=== PATIENT | female | born 1985 | race Caucasian/White ===

== ENCOUNTER 2021-10-09 05:07 | Inpatient (IN) | payer BC, SELFPAY ==
[2021-10-09] VITALS (65 sets, daily range): BP systolic 86–136; BP diastolic 48–95; PULSE 49–93; RESP 14–16; TEMP 37.3–39.1; O2SAT 100; BMI 31.1
--- NOTE | ~2021-10-09 | CT_ITS ---
EXAMINATION: CT abdomen pelvis wo con EXAM DATE: 10/09/2021 16:50 INDICATION: left sided hip/abdominal pain/ left sided back. 3 hours . Abnormal vaginal swel ling. TECHNIQUE: Spiral CT of the abdomen and pelvis was performed without contrast. Axial, coronal and s agittal images of the abdomen and pelvis were reviewed. The dose-length product (DLP) for this exami nation was 756.54 mGy-cm. The exposure was tailored according to patient size (auto mA exposure cont rol), and iterative reconstruction (ASIR) was used as additional dose reduction technique. There is no prior study for comparison. FINDINGS: There is enlarged uterus with heterogeneous increased regions of endometrial density consis tent with acute blood products. There is a large presacral heterogeneous density mass, most likely he matoma, displacing the rectum anteriorly. This extends through the pelvic floor, toward the left labi a. It measures 9 x 10 cm axial dimensions at the sacrum, 17 cm craniocaudal dimension. Source of this hematoma unclear. There is rectal wall edema suspected. There is Simmons catheter within a collapsed b ladder. The liver, spleen, adrenal glands and pancreas are unremarkable. Gallbladder is unremarkable. No bi liary obstruction. No hydronephrosis. There is no retroperitoneal or pelvic lymphadenopathy. There are no findings to suggest appendicitis. The stomach and small bowel are unremarkable. There is expected amount of colonic stool. No free intraperitoneal gas. The heart is normal in size. T here are no pericardial or pleural effusions. The lung bases are unremarkable. There are no osteobl astic or osteolytic lesions identified. IMPRESSION: 1. Large heterogeneous presacral mass most likely acute hematoma displacing the rectum anteriorly, e xtending through the pelvic floor to the left labia. 2. Enlarged uterus with endometrial blood products, consistent with recent status. Reviewed, dictated and finalized at location A. O ENGINEER IMPRESSION: 1. Large heterogeneous presacral mass most likely acute hematoma displacing th e rectum anteriorly, extending through the pelvic floor to the left labia. 2. Enlarged uterus with endometrial blood products, consistent with recent pos tpartum status.
--- NOTE | 2021-10-09 05:40 | LDADM ---
This patient, Josephine Burk, was admitted to Labor/Delivery/Recovery 104 on 10/09/21 at 05:07. Plans for labor, pain management and were discussed with patient. Patient/family oriented to hospital policies and general routines including ID bracelet, bed and alarms, visiting hours, pain management, procedures, bathroom and other care routines, personal items, smoking policy, room service/diet and guest tray routines, infant security routines, and visiting hours. Patient/Family are encouraged to report perceived risks to care and to ask questions if they do not understand what they are told or what they should do. See OBIX for further documentation.
[2021-10-09] MEDS: ACETAMINOPHEN 500 MG TABLET 1000 MG PO (05:54)
[2021-10-09 06:43] LABS: EDCOVIDSCREEN Negative (Negative)
[2021-10-09] MEDS: OXYTOCIN 30 UNITS/NS 500 ML 30 UNITS/500 ML BAG IV CONT (07:00)
[2021-10-09 07:09] LABS: Basophils Percent Auto 0.3 % (0.2-1.2); Eosinophils Percent Auto 0.5 % (0-4.4); Hematocrit 29.2 % (37.0-47.0); Hemoglobin 10.5 g/dL (12.0-15.0); Immature Granulocyte Absolute 0.05 K/mm3 (0.00-0.031); Immature Granulocyte Percent A 0.7 % (0-0.5); Lymphocytes Absolute Auto 0.84 K/mm3 (0.9-3.2); Lymphocytes Percent Auto 11.2 % (18.3-44.2); Mean Corpuscular Hemoglobin 32.3 pg (26-34); Mean Corpuscular Volume 89.8 fl (80-100); Mean Platelet Volume 12.5 fl (7.4-10.4); Monocytes Absolute Auto 0.5 K/mm3 (0.1-0.6); Monocytes Percent Auto 6.7 % (2.6-8.5); Neutrophils Percent Auto 80.6 % (45.5-73.1); Platelet Count Result 125 k/mm3 (150-375); Red Blood Count 3.25 M/mm3 (4.2-5.4); Red Cell Distribution Width 12.1 % (11.5-14.5); White Blood Count 7.5 K/mm3 (4.5-10.0)
--- NOTE | 2021-10-09 08:25 | P.PNAN_ITS ---
Anes - Eval Pre Procedure Procedure: labor epidural Date/Time: 10/09/21 08:25 Surgeon: phyllis Pre Op Diagnosis: Induction Patient Data Age: 35 Gender: F Height: 1.65 m Weight: 85 kg Last Vital Signs Temp 38.2 C H 10/09/21 05:54 Pulse 72 10/09/21 08:15 BP 102/70 10/09/21 08:15 Allergies Allergy/AdvReac Type Severity Reaction Status Date / Time nickel Allergy Rash Verified 10/19/19 15:32 Home Medications Medication Instructions Recorded Confirmed Type PNV cmb#95-ferrous fumarate-FA 1 tablet PO DAILY 10/19/19 09/21/21 History [] sertraline [Zoloft] 100 mg PO DAILY 09/21/21 09/21/21 History Laboratory Tests 10/09/21 10/09/21 10/09/21 06:22 06:47 06:47 WBC 7.5 K/mm3 K/mm3 (4.5-10.0) RBC 3.25 M/mm3 L M/mm3 (4.2-5.4) Hgb 10.5 g/dL L g/dL (12.0-15.0) Hct 29.2 % L % (37.0-47.0) MCV 89.8 fl fl (80-100) MCH 32.3 pg pg (26-34) MCHC 36.0 g/dl g/dl (32-36) RDW 12.1 % % (11.5-14.5) Plt Count 125 k/mm3 L k/mm3 (150-375) MPV 12.5 fl H fl (7.4-10.4) Immature Gran % (Auto) 0.7 % H % (0-0.5) Neut % (Auto) 80.6 % H % (45.5-73.1) Lymph % (Auto) 11.2 % L % (18.3-44.2) [place] % (Auto) 6.7 % % (2.6-8.5) Eos % (Auto) 0.5 % % (0-4.4) Baso % (Auto) 0.3 % % (0.2-1.2) Lymph # (Auto) 0.84 K/mm3 L K/mm3 (0.9-3.2) [place] # (Auto) 0.5 K/mm3 K/mm3 (0.1-0.6) Eos # (Auto) 0.0 K/mm3 K/mm3 (0-0.3) Baso # (Auto) 0.0 K/mm3 K/mm3 (0.0-0.1) Abs Immat Gran (auto) 0.05 K/mm3 H K/mm3 (0.00-0.031) Absolute Neuts (auto) 6.0 K/mm3 K/mm3 (1.3-6.7) Absolute Nucleated RBC 0.0 K/mm3 K/mm3 (0.0-0.012) Nucleated RBC % 0.0 % % (0.0-0.2) RPR Pending SARS-CoV-2 IgG/IgM Ag?Rapid Negative (Negative) Patient hx anesthesia problems: none Family hx anesthesia problems: none Results Review: All pre-operative results and documents have been reviewed as part of the pre-operative evaluation. FOR[facility]LY [facility] Past Medical History Medical History (Updated 10/31/19 @ 10:33 by Ingrid Butler CRNA) Obesity (BMI 30-39.9) Family History Family History Mother Diabetes mellitus Hypertension Sibling Diabetes mellitus Hypertension Social History Social History Smoking status: Never smoker Second hand tobacco smoke exposure: No Substance use: never Spiritual care concerns: No Exam Day of Procedure 10/09/21 08:25
--- NOTE | 2021-10-09 08:31 | PM.IMHP ---
H&P: HPI History of Present Illness Date/Time: 10/09/21 08:31 Chief Complaint: induction of labor Narrative: Josephine is a 35yo at 39+ for elective IOL. Had fever 101 this am and 100.8 on admission. rapid covid neg. Only sx [place]. Good FM. s/p AROM clear around 0730. uncomplicated. Review of Systems Review of Systems: All systems reviewed & are unremarkable except as noted in HPI and below PMFSH Past Medical History Medical History (Updated 10/31/19 @ 10:33 by Ingrid Butler CRNA) Obesity (BMI 30-39.9) Family History Family History Mother Diabetes mellitus Hypertension Sibling Diabetes mellitus Hypertension Social History Social History Smoking status: Never smoker Second hand tobacco smoke exposure: No Substance use: never Spiritual care concerns: No Meds Home Medications and Allergies Home Medications Medication Instructions Recorded Confirmed Type PNV cmb#95-ferrous fumarate-FA 1 tablet PO DAILY 10/19/19 09/21/21 History [] sertraline [Zoloft] 100 mg PO DAILY 09/21/21 09/21/21 History Allergies Allergy/AdvReac Type Severity Reaction Status Date / Time nickel Allergy Rash Verified 10/19/19 15:32 Vital Signs Vital Signs - 24 hr 10/09/21 05:45 10/09/21 05:54 10/09/21 07:01 Temperature 100.8 F H 100.8 F H Pulse Rate 93 Blood Pressure 86/72 L 10/09/21 07:02 10/09/21 07:15 10/09/21 07:31 Temperature Pulse Rate 76 64 68 Blood Pressure 97/61 L 107/69 99/49 L 10/09/21 07:45 10/09/21 08:00 10/09/21 08:15 Temperature Pulse Rate 71 61 72 Blood Pressure 92/54 L 115/74 102/70 10/09/21 08:30 Temperature Pulse Rate 64 Blood Pressure 107/75 Exam Const: General: no acute distress Resp: Effort & Inspection: normal respiratory effort Auscultation: clear to auscultation bilaterally Cardio: Rate: regular rate Rhythm: regular rhythm GI: GI Palp: Yes Soft to palpation Extrem: General: normal to inspection H&P: Results Labs Labs: Short CBC 10/09/21 Range/Units 06:47 WBC 7.5 (4.5-10.0) K/mm3 Hgb 10.5 L (12.0-15.0) g/dL Hct 29.2 L (37.0-47.0) % Plt Count 125 L (150-375) k/mm3 Assessment and Plan Additional Plan Here for induction of labor- GBSneg pitocin per protocol, s/p arom FHT category 1
[2021-10-09] MEDS: LACTATED RINGERS 1,000 ML 125 ML IV CONT (08:52)
[2021-10-09 09:38] LABS: Rapid Plasma Reagin Non-Reactive (NonReactive)
[2021-10-09 10:15] LABS: Add Urine Microscopic? YES; Amorphous Sediment Urine Few; Appearance Urine Cloudy (Clear); Bacteria Urine Trace /hpf; Bilirubin Urine Negative (Negative); Blood Urine Negative (Negative); Color Urine Yellow (Yellow); Glucose Urine UA Negative (Negative); Ketones Urine Negative (Negative); Leukocyte Esterase Ur Negative LEU/UL (Negative); Mucus Urine Rare /lpf; Nitrate Urine Negative (Negative); Protein Urine Negative (Negative); Specific Grav Ur 1.018 (1.001-1.035); Squamous Epithelial Cell Urine Occasional /hpf (Few); Urobilinogen Urine Negative mg/dL (<2.0); WBC Urine 0-3 /hpf
--- NOTE | 2021-10-09 13:16 | PM.OBPRVD ---
OB - Delivery Note Procedure Delivery date: 10/09/21 Procedure: VAVD Intrapartal events: Febrile (febrile on admission for induction due to presumed viral illness) and Deceleration Induction method: AROM and per pitocin protocol Delivery monitor: external FHT and external uterine Route of delivery: vacuum extraction Indication for instrumentation: other (deep variables and maternal exhaustion) Episiotomy description: None Laceration Description: Vaginal - 1st Degree (left vaginal vault) Delivery repair: vicryl Specimen: No Quantitative Blood Loss (ml): 500 (due to laceration) Anesthesia type: Epidural Disposition: floor Narrative: Given maternal febrile viral illness, she was exhausted after more than an hour of pushing. IN addition, baby was having deep variables with all contractions. With vertex THADDEUS at a +2 station, the Kiwi vaccuum was applied. With adequate expulsive efforts by the mother, the baby's head was delivered OA over two contractions, 2 pulls, and no popoffs. The baby's anterior shoulder was delivered under the pubic symphysis without difficulty. The posterior shoulder and the rest of the baby delivered without difficulty. The was placed on the mothers chest and suctioned and stimulated. The cord was clamped and cut after 30 seconds. Mother and baby both stable. Baby Date of : 10/09/21 Time of : 12:57 Weeks of gestation at delivery: 39 Infant gender: Male Weight (pounds): 8 Weight (ounces): 1 presentation: vertex position: Right Occiput Anterior Placenta delivery description: Spontaneous cord vessel description: 3 Vessels and Delayed Cord Clamping score one minute: 8 score five minutes: 9
[2021-10-09] MEDS: IBUPROFEN 600 MG TABLET (13:18)
[2021-10-09] MEDS: OXYTOCIN 30 UNITS/NS 500 ML 30 UNITS/500 ML BAG 125 UNITS IV CONT (13:19)
[2021-10-09] MEDS: HYDROcodone/acetaminophen (*CRX) 5-325 MG TABLET 1 TAB PO (15:49)
--- NOTE | 2021-10-09 16:03 | PC.NURSE ---
1602- called,informed pt is rocking back and forth in her bed crying and moaning that her left hip and back hurt. Pt crying stating she needs to have a BM, was assisted to bathroom. Pt was unable to void or have BM, keeps c/o sever pressure in her bottom. Vagina and perineum assess for hematoma, none were noted. Pt is very tender to touch on her edematous perineum. Simmons placed d/t edema and pain, 200cc of concentrated urine retrieved. Pt has been very nauseous and lightheaded, LR bolus started and zofran given. Pt is requesting something else for pain 15 min after hydrocodone was given. Orders received for CT of pelvis and abdomen, CBC and Morphine.
[2021-10-09] MEDS: MORPHINE SULFATE (*CRX) 2 MG/ML INJ IV PUSH ×2 (16:19→16:56)
[2021-10-09] MEDS: BENZOCAINE 20% AER SPR (*SP) 56 GM CAN 1 SPRAY TOPICAL (16:57)
[2021-10-09] MEDS: WITCH HAZEL 40 PADS 1 PAD TOPICAL (16:58)
--- NOTE | 2021-10-09 17:05 | PC.NURSE ---
1625-Pt taken to CT per wheelchair.
--- NOTE | 2021-10-09 17:07 | PC.NURSE ---
1643- called,informed 2mg of morphine IV did not help pt's pain at all and she is requesting more. Order received for another 2mg. Informed CT was done and will be read within the hour and that pt is still rating her pain 10 and moaning/crying non-stop.
[2021-10-09 17:12] LABS: Basophils Percent Auto 0.2 % (0.2-1.2); Hematocrit 28.1 % (37.0-47.0); Hemoglobin 9.6 g/dL (12.0-15.0); Immature Granulocyte Percent A 0.9 % (0-0.5); Immature Platelet Fraction Pct 13.4 % (0.9-11.2); Lymphocytes Absolute Auto 0.97 K/mm3 (0.9-3.2); Lymphocytes Percent Auto 8.5 % (18.3-44.2); Mean Corpuscular HGB Conc 34.2 g/dl (32-36); Mean Corpuscular Hemoglobin 32.2 pg (26-34); Mean Corpuscular Volume 94.3 fl (80-100); Mean Platelet Volume 11.8 fl (7.4-10.4); Monocytes Absolute Auto 0.9 K/mm3 (0.1-0.6); Monocytes Percent Auto 7.4 % (2.6-8.5); Neutrophils Absolute Auto 9.5 K/mm3 (1.3-6.7); Platelet Count Result 130 k/mm3 (150-375); Red Blood Count 2.98 M/mm3 (4.2-5.4); Red Cell Distribution Width 12.3 % (11.5-14.5); White Blood Count 11.4 K/mm3 (4.5-10.0)
--- NOTE | 2021-10-09 17:44 | PM.OBPNVD ---
OB - PN: Subj Subjective Date/time seen: 10/09/21 17:44 Narrative: Called to see patient, now almost 5 hours from vaginal delivery, for severe pain. She describes pain as in her butt/rectal and lower pelvis. CT abdo pelvis below: IMPRESSION: 1. Large heterogeneous presacral mass most likely acute hematoma displacing the rectum anteriorly, extending through the pelvic floor to the left labia. 2. Enlarged uterus with endometrial blood products, consistent with recent status. OB - PN: Obj Data Labs CBC & Chem 7: 10/09/21 17:02 Labs: Laboratory Results - last 24 hr 10/09/21 10/09/21 10/09/21 06:22 06:47 06:47 WBC 7.5 RBC 3.25 L Hgb 10.5 L Hct 29.2 L MCV 89.8 MCH 32.3 MCHC 36.0 RDW 12.1 Plt Count 125 L MPV 12.5 H Immature Gran % (Auto) 0.7 H Neut % (Auto) 80.6 H Lymph % (Auto) 11.2 L [place] % (Auto) 6.7 Eos % (Auto) 0.5 Baso % (Auto) 0.3 Lymph # (Auto) 0.84 L [place] # (Auto) 0.5 Eos # (Auto) 0.0 Baso # (Auto) 0.0 Abs Immat Gran (auto) 0.05 H Absolute Neuts (auto) 6.0 Absolute Nucleated RBC 0.0 Nucleated RBC % 0.0 % Immature Plt Fraction Urine Color Urine Appearance Urine pH Ur Specific [place] Urine Protein Urine Glucose (UA) Urine Ketones Ur Blood (Man) Urine Nitrate Urine Bilirubin Urine Urobilinogen Leukocyte Esterase Rfl Urine RBC Urine WBC Ur Squamous Epith Cells Amorphous Sediment Urine Bacteria Urine Mucus RPR Non-reactive SARS-CoV-2 IgG/IgM Ag?Rapid Negative Blood Type Antibody Screen 10/09/21 10/09/21 10/09/21 06:47 06:47 17:02 WBC 11.4 H RBC 2.98 L Hgb 9.6 L Hct 28.1 L MCV 94.3 D MCH 32.2 MCHC 34.2 RDW 12.3 Plt Count 130 L MPV 11.8 H Immature Gran % (Auto) 0.9 H Neut % (Auto) 83.0 H Lymph % (Auto) 8.5 L [place] % (Auto) 7.4 Eos % (Auto) 0.0 Baso % (Auto) 0.2 Lymph # (Auto) 0.97 [place] # (Auto) 0.9 H Eos # (Auto) 0.0 Baso # (Auto) 0.0 Abs Immat Gran (auto) 0.10 H Absolute Neuts (auto) 9.5 H Absolute Nucleated RBC 0.0 Nucleated RBC % 0.0 % Immature Plt Fraction 13.4 H Urine Color Yellow Urine Appearance Cloudy H Urine pH 6.0 Ur Specific [place] 1.018 Urine Protein Negative Urine Glucose (UA) Negative Urine Ketones Negative Ur Blood (Man) Negative Urine Nitrate Negative Urine Bilirubin Negative Urine Urobilinogen Negative Leukocyte Esterase Rfl Negative Urine RBC 3-5 H Urine WBC 0-3 Ur Squamous Epith Cells Occasional Amorphous Sediment Few H Urine Bacteria Trace Urine Mucus Rare RPR SARS-CoV-2 IgG/IgM Ag?Rapid Blood Type A Positive Antibody Screen Negative Imaging Radiologist's impression: Impressions Abdomen/Pelvis CT 10/09/21 16:57 IMPRESSION: 1. Large heterogeneous presacral mass most likely acute hematoma displacing the rectum anteriorly, extending through the pelvic floor to the left labia. 2. Enlarged uterus with endometrial blood products, consistent with recent status. OB - PN A/P Assessment and Plan (1) , delivered: Code(s): O80 - Encounter for full-term uncomplicated delivery Status: Acute (2) Hematoma of sacrum: Code(s): S30.0XXA - Contusion of lower back and pelvis, initial encounter Status: Acute Plan Comments: Large presacral hematoma per CT will start dilaudid FISCAL ACCOUNTING CLERK hemodynamically stable with great vitals Hgb reasonable given 500cc EBL at delivery. will check DIC panel now repeat CBC with DIC panel CBC q [address] Freeman gen surg. He recommends pain control and close monitoring. If becomes hemodynamically unstable or abnormal coags or significant enlargement of hematoma, recommends transfer to facility with IR. May need CTA. POC discussed with RN, pt, .
--- NOTE | 2021-10-09 18:30 | PC.NURSE ---
1800- talked to , plan of care established and explained to pt and her by .
[2021-10-09 19:00] LABS: Hematocrit 25.8 % (37.0-47.0); Mean Corpuscular HGB Conc 34.9 g/dl (32-36); Mean Corpuscular Hemoglobin 32.5 pg (26-34); Mean Corpuscular Volume 93.1 fl (80-100); Platelet Count Result 116 k/mm3 (150-375); Red Blood Count 2.77 M/mm3 (4.2-5.4); Red Cell Distribution Width 12.2 % (11.5-14.5); White Blood Count 12.2 K/mm3 (4.5-10.0)
[2021-10-09 19:00] LABS: SARS-CoV-2 RNA PCR Negative
[2021-10-09 19:12] LABS: Partial Thromboplastin Time 27.5 SECONDS (22.3-36.8); Prothrombin Time 12.6 Seconds (11.1-14.7)
[2021-10-09 19:13] LABS: Fibrinogen 261 mg/dl (215-510); Magnesium 1.5 mg/dL (1.6-2.3)
[2021-10-09 19:25] LABS: D Dimer 3.95 ug/mL (<0.48)
[2021-10-09] MEDS: IBUPROFEN 600 MG TABLET PO (19:45)
[2021-10-09] MEDS: HYDROmorphon 0.2MG/ML PCA(*CRX 6 MG/30 ML PCA.VIAL 1 MG IV CONT (20:30)
[2021-10-09] MEDS: DOCUSATE SODIUM 100 MG CAPSULE PO (20:31)
[2021-10-09] MEDS: AMPICILLIN 1 GM/NS 50 ML 1 GM/50 ML BAG IVPB (20:52)
[2021-10-09] MEDS: GENTAMICIN SULFATE INJ 340 MG in DEXTROSE 5% 100 ML 100 MG IVPB ×2 (21:27)
[2021-10-09] MEDS: ZOLPIDEM TARTRATE (*CRX) 5 MG TABLET PO (21:39)
[2021-10-10] VITALS (48 sets, daily range): BP systolic 93–137; BP diastolic 54–87; PULSE 51–74; RESP 12–20; TEMP 36.8–37.9; O2SAT 94–99
[2021-10-10 01:14] LABS: Hematocrit 22.6 % (37.0-47.0); Hemoglobin 7.7 g/dL (12.0-15.0); Immature Platelet Fraction Pct 13.8 % (0.9-11.2); Mean Corpuscular HGB Conc 34.1 g/dl (32-36); Mean Corpuscular Volume 93.8 fl (80-100); Mean Platelet Volume 11.2 fl (7.4-10.4); Platelet Count Result 109 k/mm3 (150-375); Red Blood Count 2.41 M/mm3 (4.2-5.4); Red Cell Distribution Width 12.3 % (11.5-14.5); White Blood Count 8.9 K/mm3 (4.5-10.0)
[2021-10-10] MEDS: LACTATED RINGERS 1,000 ML 100 ML IV CONT ×2 (03:13→08:19)
[2021-10-10] MEDS: diphenhydrAMINE HCl INJ 50 MG/ML VIAL 25 MG IV PUSH (03:21)
[2021-10-10] MEDS: SODIUM CHLORIDE 0.9% IV 250 ML 30 ML IV CONT (04:15)
--- NOTE | 2021-10-10 04:33 | PC.NURSE ---
blood transfusion started at 0433 w chris rivas rn.
[2021-10-10] MEDS: POLYSACCHARIDE IRON COMPLEX 150 MG CAPSULE PO ×2 (07:58→16:12)
[2021-10-10] MEDS: IBUPROFEN 600 MG TABLET PO ×4 (07:58→20:17)
--- NOTE | 2021-10-10 08:14 | PM.OBPNVD ---
OB - PN: Subj Subjective Date/time seen: 10/10/21 08:14 Narrative: Feeling so much better than yesterday. Slept all night. 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 Simmons in. Bottle feeding, baby doing well. OB - PN: Obj Data Labs CBC & Chem 7: 10/10/21 00:53 Labs: Laboratory Results - last 24 hr 10/09/21 10/09/21 10/09/21 06:47 06:47 06:47 WBC RBC Hgb Hct MCV MCH MCHC RDW Plt Count MPV Immature Gran % (Auto) Neut % (Auto) Lymph % (Auto) [place] % (Auto) Eos % (Auto) Baso % (Auto) Lymph # (Auto) [place] # (Auto) Eos # (Auto) Baso # (Auto) Abs Immat Gran (auto) Absolute Neuts (auto) Absolute Nucleated RBC Nucleated RBC % % Immature Plt Fraction PT INR APTT Fibrinogen D-Dimer Magnesium Urine Color Yellow Urine Appearance Cloudy H Urine pH 6.0 Ur Specific [place] 1.018 Urine Protein Negative Urine Glucose (UA) Negative Urine Ketones Negative Ur Blood (Man) Negative Urine Nitrate Negative Urine Bilirubin Negative Urine Urobilinogen Negative Leukocyte Esterase Rfl Negative Urine RBC 3-5 H Urine WBC 0-3 Ur Squamous Epith Cells Occasional Amorphous Sediment Few H Urine Bacteria Trace Urine Mucus Rare RPR Non-reactive SARS-CoV-2 RNA (RT-PCR) Blood Type A Positive Antibody Screen Negative Crossmatch See Detail 10/09/21 10/09/21 10/09/21 08:41 17:02 18:42 WBC 11.4 H RBC 2.98 L Hgb 9.6 L Hct 28.1 L MCV 94.3 D MCH 32.2 MCHC 34.2 RDW 12.3 Plt Count 130 L Cancelled MPV 11.8 H Cancelled Immature Gran % (Auto) 0.9 H Neut % (Auto) 83.0 H Lymph % (Auto) 8.5 L [place] % (Auto) 7.4 Eos % (Auto) 0.0 Baso % (Auto) 0.2 Lymph # (Auto) 0.97 [place] # (Auto) 0.9 H Eos # (Auto) 0.0 Baso # (Auto) 0.0 Abs Immat Gran (auto) 0.10 H Absolute Neuts (auto) 9.5 H Absolute Nucleated RBC 0.0 Nucleated RBC % 0.0 % Immature Plt Fraction 13.4 H Cancelled PT INR APTT Fibrinogen D-Dimer Magnesium Urine Color Urine Appearance Urine pH Ur Specific [place] Urine Protein Urine Glucose (UA) Urine Ketones Ur Blood (Man) Urine Nitrate Urine Bilirubin Urine Urobilinogen Leukocyte Esterase Rfl Urine RBC Urine WBC Ur Squamous Epith Cells Amorphous Sediment Urine Bacteria Urine Mucus RPR SARS-CoV-2 RNA (RT-PCR) Negative Blood Type Antibody Screen Crossmatch 10/09/21 10/09/21 10/09/21 18:42 18:42 18:42 WBC 12.2 H RBC 2.77 L Hgb 9.0 L Hct 25.8 L MCV 93.1 MCH 32.5 MCHC 34.9 RDW 12.2 Plt Count 116 L MPV 12.0 H Immature Gran % (Auto) Neut % (Auto) Lymph % (Auto) [place] % (Auto) Eos % (Auto) Baso % (Auto) Lymph # (Auto) [place] # (Auto) Eos # (Auto) Baso # (Auto) Abs Immat Gran (auto) Absolute Neuts (auto) Absolute Nucleated RBC Nucleated RBC % % Immature Plt Fraction PT 12.6 INR 1.0 APTT 27.5 Fibrinogen 261 D-Dimer 3.95 H Magnesium 1.5 L Urine Color Urine Appearance Urine pH Ur Specific [place] Urine Protein Urine Glucose (UA) Urine Ketones Ur Blood (Man) Urine Nitrate Urine Bilirubin Urine Urobilinogen Leukocyte Esterase Rfl Urine RBC Urine WBC Ur Squamous Epith Cells Amorphous Sediment Urine Bacteria Urine Mucus RPR SARS-CoV-2 RNA (RT-PCR) Blood Type Antibody Screen Crossmatch 10/10/21 00:53 WBC 8.9 RBC 2.41 L Hgb 7.7 L Hct 22.6 L MCV 93.8 MCH 32.0 MCHC 34.1 RDW 12.3 Plt Count 109 L MPV 11.2 H Immature Gran % (Auto) Neut % (Auto) Lymph % (Auto) [place] % (Auto) Eos % (Auto) Baso % (Auto) Lymph # (Auto) [place] # (Auto) Eos # (Auto) Baso # (Auto) Abs Immat Gran (auto) Absol
[2021-10-10] MEDS: TUBING, BLOOD PLUM PUMP TUBING 1 EACH XX (08:19)
[2021-10-10 09:43] LABS: Gentamicin Random 1.8 ug/mL (5.0-12.0)
[2021-10-10 10:07] LABS: Estimated CRCL calculation 106 ml/min; Estimated Glomerular Filt Rate > 60
[2021-10-10] MEDS: AMPICILLIN 1 GM/NS 50 ML 1 GM/50 ML BAG IVPB ×4 (10:16→21:46)
[2021-10-10 11:17] LABS: Hematocrit 27.2 % (37.0-47.0); Hemoglobin 9.3 g/dL (12.0-15.0); Mean Corpuscular HGB Conc 34.2 g/dl (32-36); Mean Corpuscular Hemoglobin 31.8 pg (26-34); Mean Corpuscular Volume 93.2 fl (80-100); Platelet Count Result 98 k/mm3 (150-375); Red Blood Count 2.92 M/mm3 (4.2-5.4); Red Cell Distribution Width 12.8 % (11.5-14.5); White Blood Count 7.8 K/mm3 (4.5-10.0)
--- NOTE | 2021-10-10 11:32 | PC.NURSE ---
called,read lab results. Order received to transfer pt to second floor post , start PO pain meds, stop HVAC INSTALLATION TECHNICIAN 30 minutes after PO meds started, repeat CBC in 6 hrs and in the am. UNIQUE pate when pt is able to walk to the bathroom on her own.
--- NOTE | 2021-10-10 12:10 | PC.NURSE ---
Pt. transferred to room 283 per wheelchair. Oriented to room and call light system. Very pleasant and cooperative. at side.
[2021-10-10] MEDS: ACETAMINOPHEN 325 MG TABLET 650 MG PO (12:21)
[2021-10-10] MEDS: HYDROcodone/acetaminophen (*CRX) 10-325 MG TABLET 1 TAB PO ×3 (12:22→20:16)
--- NOTE | 2021-10-10 12:54 | PC.NURSE ---
0945-Not all VS were documented under TAR during blood transfusion, they are available in expanse under vital signs.
[2021-10-10] MEDS: WITCH HAZEL 40 PADS 1 PAD TOPICAL (14:44)
[2021-10-10] MEDS: SERTRALINE HCL 50 MG TABLET 100 MG PO (14:44)
[2021-10-10] MEDS: BENZOCAINE 20% AER SPR (*SP) 56 GM CAN 1 SPRAY TOPICAL (14:44)
[2021-10-10] MEDS: DOCUSATE SODIUM 100 MG CAPSULE PO (16:12)
[2021-10-10 17:13] LABS: Basophils Percent Auto 0.3 % (0.2-1.2); Eosinophils Absolute Auto 0.1 K/mm3 (0-0.3); Eosinophils Percent Auto 0.7 % (0-4.4); Hematocrit 28.3 % (37.0-47.0); Hemoglobin 9.8 g/dL (12.0-15.0); Immature Granulocyte Absolute 0.07 K/mm3 (0.00-0.031); Immature Granulocyte Percent A 0.8 % (0-0.5); Lymphocytes Absolute Auto 1.36 K/mm3 (0.9-3.2); Lymphocytes Percent Auto 15.4 % (18.3-44.2); Mean Corpuscular HGB Conc 34.6 g/dl (32-36); Mean Corpuscular Hemoglobin 32.1 pg (26-34); Mean Corpuscular Volume 92.8 fl (80-100); Mean Platelet Volume 11.1 fl (7.4-10.4); Monocytes Absolute Auto 0.5 K/mm3 (0.1-0.6); Monocytes Percent Auto 5.6 % (2.6-8.5); Neutrophils Absolute Auto 6.8 K/mm3 (1.3-6.7); Neutrophils Percent Auto 77.2 % (45.5-73.1); Platelet Count Result 105 k/mm3 (150-375); Red Blood Count 3.05 M/mm3 (4.2-5.4); Red Cell Distribution Width 13.2 % (11.5-14.5); White Blood Count 8.8 K/mm3 (4.5-10.0)
--- NOTE | 2021-10-10 19:13 | PC.NURSE ---
ampicillin 1g ivpb that is charted 1910 was administered at 0440. [facility] [place] would not allow for medication administration to be back charted at that hour.
[2021-10-10] MEDS: GENTAMICIN SULFATE INJ 340 MG in DEXTROSE 5% 100 ML 100 MG IVPB (20:17)
[2021-10-10] MEDS: ZOLPIDEM TARTRATE (*CRX) 5 MG TABLET PO (21:46)
[2021-10-11] MEDS: HYDROcodone/acetaminophen (*CRX) 10-325 MG TABLET 1 TAB PO (03:42)
[2021-10-11] MEDS: IBUPROFEN 600 MG TABLET PO ×3 (03:43→20:47)
[2021-10-11 03:48] VITALS: TEMP 37.4
[2021-10-11 05:56] LABS: Basophils Percent Auto 0.3 % (0.2-1.2); Eosinophils Absolute Auto 0.1 K/mm3 (0-0.3); Eosinophils Percent Auto 0.9 % (0-4.4); Hematocrit 30.6 % (37.0-47.0); Hemoglobin 10.6 g/dL (12.0-15.0); Immature Granulocyte Absolute 0.07 K/mm3 (0.00-0.031); Immature Granulocyte Percent A 0.8 % (0-0.5); Lymphocytes Absolute Auto 1.72 K/mm3 (0.9-3.2); Lymphocytes Percent Auto 19.7 % (18.3-44.2); Mean Corpuscular HGB Conc 34.6 g/dl (32-36); Mean Corpuscular Hemoglobin 32.5 pg (26-34); Mean Corpuscular Volume 93.9 fl (80-100); Mean Platelet Volume 11.7 fl (7.4-10.4); Monocytes Absolute Auto 0.5 K/mm3 (0.1-0.6); Monocytes Percent Auto 5.6 % (2.6-8.5); Neutrophils Absolute Auto 6.3 K/mm3 (1.3-6.7); Neutrophils Percent Auto 72.7 % (45.5-73.1); Platelet Count Result 113 k/mm3 (150-375); Red Blood Count 3.26 M/mm3 (4.2-5.4); Red Cell Distribution Width 13.2 % (11.5-14.5); White Blood Count 8.7 K/mm3 (4.5-10.0)
--- NOTE | 2021-10-11 07:50 | PM.OBPNVD ---
OB - PN: Subj Subjective Date/time seen: 10/11/21 07:50 Patient comments: no complaints and pain well controlled baby status: nursing well Narrative: Iris still in. Still taking norco 10s. Yesterday was a good day, feeling much better. Hgb stable. Platelets improving. Vitals stable. s/p amp and gent for 24 hours. OB - PN: Obj Data Labs CBC & Chem 7: 10/11/21 03:36 10/10/21 09:11 Labs: Laboratory Results - last 24 hr 10/09/21 10/10/21 10/10/21 06:47 09:11 09:11 WBC RBC Hgb Hct MCV MCH MCHC RDW Plt Count MPV Immature Gran % (Auto) Neut % (Auto) Lymph % (Auto) [place] % (Auto) Eos % (Auto) Baso % (Auto) Lymph # (Auto) [place] # (Auto) Eos # (Auto) Baso # (Auto) Abs Immat Gran (auto) Absolute Neuts (auto) Absolute Nucleated RBC Nucleated RBC % % Immature Plt Fraction Creatinine 0.70 Estim Creat Clear Calc 106 Estimated GFR > 60 Random Gentamicin 1.8 L Blood Type A Positive Antibody Screen Negative Crossmatch See Detail 10/10/21 10/10/21 10/11/21 11:02 17:02 03:36 WBC 7.8 8.8 8.7 RBC 2.92 L 3.05 L 3.26 L Hgb 9.3 L 9.8 L 10.6 L Hct 27.2 L 28.3 L 30.6 L MCV 93.2 92.8 93.9 MCH 31.8 32.1 32.5 MCHC 34.2 34.6 34.6 RDW 12.8 13.2 13.2 Plt Count 98 L 105 L 113 L MPV 11.0 H 11.1 H 11.7 H Immature Gran % (Auto) 0.8 H 0.8 H Neut % (Auto) 77.2 H 72.7 Lymph % (Auto) 15.4 L 19.7 [place] % (Auto) 5.6 5.6 Eos % (Auto) 0.7 0.9 Baso % (Auto) 0.3 0.3 Lymph # (Auto) 1.36 1.72 [place] # (Auto) 0.5 0.5 Eos # (Auto) 0.1 0.1 Baso # (Auto) 0.0 0.0 Abs Immat Gran (auto) 0.07 H 0.07 H Absolute Neuts (auto) 6.8 H 6.3 Absolute Nucleated RBC 0.0 0.0 Nucleated RBC % 0.0 0.0 % Immature Plt Fraction 10.0 10.0 Creatinine Estim Creat Clear Calc Estimated GFR Random Gentamicin Blood Type Antibody Screen Crossmatch OB - PN A/P Plan day: 2 Plan: routine care Comments: Simmons out this am. decrease pain meds to norco 5s and ibuprofen discussed importance of stool softeners/miralax possibly home tomorrow if voiding and pain controlled. repeat one more CBC in am tomorrow. Time Spent With Patient Time: Total time spent is greater than 50% in coordination of care (as documented) at patient's floor/unit and/or counseling patient: Time with patient: less than 15 minutes Exam Narrative: NAD abdomen soft, nontender, fundus firm below the umbilicus Extremities nontender, 1+ edema
[2021-10-11 08:15] VITALS: BP 115/80; PULSE 61; RESP 16; TEMP 37.3; O2SAT 97
[2021-10-11] MEDS: DOCUSATE SODIUM 100 MG CAPSULE PO ×2 (08:16→16:01)
[2021-10-11] MEDS: POLYSACCHARIDE IRON COMPLEX 150 MG CAPSULE PO ×2 (08:16→16:01)
[2021-10-11] MEDS: MULTIVIT/MIN/PREN/FOL AC/IRON TABLET 1 TAB PO (08:16)
[2021-10-11] MEDS: HYDROcodone/acetaminophen (*CRX) 5-325 MG TABLET 1 TAB PO ×4 (08:16→20:49)
[2021-10-11] MEDS: SERTRALINE HCL 50 MG TABLET 100 MG PO (11:55)
[2021-10-11 20:00] VITALS: BP 114/75; PULSE 61; RESP 18; TEMP 37.1
[2021-10-11] MEDS: WITCH HAZEL 40 PADS 1 PAD TOPICAL (20:47)
[2021-10-11] MEDS: BENZOCAINE 20% AER SPR (*SP) 56 GM CAN 1 SPRAY TOPICAL (20:47)
[2021-10-11 21:27] VITALS: TEMP 37.1
[2021-10-11] MEDS: ACETAMINOPHEN 325 MG TABLET 650 MG PO (21:27)
[2021-10-12] MEDS: HYDROcodone/acetaminophen (*CRX) 10-325 MG TABLET 1 TAB PO (00:15)
[2021-10-12] MEDS: IBUPROFEN 600 MG TABLET PO ×2 (05:12→11:16)
[2021-10-12] MEDS: HYDROcodone/acetaminophen (*CRX) 5-325 MG TABLET 1 TAB PO ×2 (05:13→11:15)
[2021-10-12 05:28] LABS: Hematocrit 27.6 % (37.0-47.0); Hemoglobin 9.8 g/dL (12.0-15.0); Immature Platelet Fraction Pct 6.6 % (0.9-11.2); Mean Corpuscular HGB Conc 35.5 g/dl (32-36); Mean Corpuscular Hemoglobin 32.5 pg (26-34); Mean Corpuscular Volume 91.4 fl (80-100); Mean Platelet Volume 10.9 fl (7.4-10.4); Platelet Count Result 131 k/mm3 (150-375); Red Blood Count 3.02 M/mm3 (4.2-5.4); Red Cell Distribution Width 13.1 % (11.5-14.5); White Blood Count 6.2 K/mm3 (4.5-10.0)
[2021-10-12 05:39] LABS: Estimated CRCL calculation 122 ml/min; Estimated Glomerular Filt Rate > 60
[2021-10-12] MEDS: POLYSACCHARIDE IRON COMPLEX 150 MG CAPSULE PO (07:59)
[2021-10-12] MEDS: DOCUSATE SODIUM 100 MG CAPSULE PO (07:59)
--- NOTE | 2021-10-12 07:59 | PM.OBPNVD ---
OB - PN: Subj Subjective Date/time seen: 10/12/21 07:59 Patient comments: no complaints baby status: doing well OB - PN: Obj Data Labs CBC & Chem 7: 10/12/21 05:11 10/12/21 05:11 Labs: Laboratory Results - last 24 hr 10/12/21 10/12/21 05:11 05:11 WBC 6.2 RBC 3.02 L Hgb 9.8 L Hct 27.6 L MCV 91.4 MCH 32.5 MCHC 35.5 RDW 13.1 Plt Count 131 L MPV 10.9 H % Immature Plt Fraction 6.6 Creatinine 0.60 L Estim Creat Clear Calc 122 Estimated GFR > 60 OB - PN A/P Plan day: 2 Plan: routine care Comments: Doing well. States voiding well. Will repeat H&H this afternoon. If stable will consider discharge. RTC in 1 week to follow up with Dr Luna. Time Spent With Patient Time: Total time spent is greater than 50% in coordination of care (as documented) at patient's floor/unit and/or counseling patient: Time with patient: less than 15 minutes Review of Systems Review of Systems: All systems reviewed & are unremarkable except as noted in HPI and below Exam Narrative: Fundus firm and vaginal flow controlled. No lower ext redness, warmth, or edema. Negative homans. Const: General: comfortable Chest: Breast/axilla inspection: normal inspection of the breasts Resp: Effort & Inspection: normal respiratory effort Cardio: Rate: regular rate GI: GI Palp: Yes Soft to palpation Psych: Appearance: grossly normal Affect: normal affect Attitude: cooperative Thought content: Yes Normal thought content present Judgement: Good judgement present (Psych)
[2021-10-12 08:10] VITALS: BP 134/81; PULSE 48; RESP 16; TEMP 36.9; O2SAT 98
[2021-10-12] MEDS: SERTRALINE HCL 50 MG TABLET 100 MG PO (11:15)
[2021-10-12 11:52] VITALS: BP 129/87; PULSE 59; RESP 18; TEMP 36.9; O2SAT 99
[2021-10-12 11:59] LABS: Hematocrit 28.3 % (37.0-47.0); Hemoglobin 9.6 g/dL (12.0-15.0)
--- NOTE | 2021-10-12 12:15 | PC.NURSE ---
Vikas Ruiz CNM, notified of H&H results, she would like to consult with Dr. Luna and will call me back with orders.
--- NOTE | 2021-10-12 13:45 | PC.NURSE ---
Vikas Ruiz CNM called back with orders to discharge patient to home. She should follow up in the office next week.
[2021-10-13 10:34] VITALS: BP 122/76; PULSE 71; RESP 20; TEMP 36.9; O2SAT 100
--- NOTE | 2021-11-01 11:22 | PM.OBDSVD ---
DS: Admitting Diagnosis Discharge Date 09/11/21 Admitting Diagnosis Labor DS: Discharge Diagnosis Discharge Diagnosis (1) , delivered: Code(s): O80 - Encounter for full-term uncomplicated delivery Status: Acute (2) Hematoma of sacrum: Code(s): S30.0XXA - Contusion of lower back and pelvis, initial encounter Status: Acute OB - DS: Summary OB Procedures : None OB Procedures Intrapartum: Spontaneous Vag Delivery OB Procedures: : None Time Spent with Patient Time attestation: Total time spent providing and/or coordinating discharge services: Discharge Plan Discharge Attending physician on discharge: Sara Riuz Consulting providers: Sara Ruiz ; Aaron Jain Discharging Clinician: Sara Ruiz Anticipated Discharge Date/Time: 10/12/21 14:34 Patient Disposition: Home, Self-Care Activity: may shower and pelvic rest Diet: regular Discharge Instructions: Education: Mom and Baby Guide Given to: Mother Follow-Up: Call your delivering provider's office for an appointment to be seen in: 1 Week Mom and baby should come to the [facility] for the follow-up appointment. Appointment Date/Time: October 13, 2021 at 10:00 am What to expect at your follow-up visit: Blood Pressure Check Physical Assessment Call [phone] if you are unable to keep your appointment time. BREAST CARE: * Wear a snug supportive bra. * For engorgement discomfort: Bottle Feeding: * May apply ice packs * For sore nipples: * Identify correct latch-on * Apply warm moist washcloths before and after nursing * Air dry nipples after nursing * May apply Lansinoh cream to nipples EPISIOTOMY/PERINEAL CARE: * Until bleeding stops, use your jus bottle after urinating * Change your pad frequently throughout the day * You may take sitz baths several times a day (fill your bathtub with warm water and soak for 20 minutes.) Do NOT bathe in the water * No tub baths until seen by your physician - You may shower ACTIVITY: * Rest as much as possible. * Do not exercise or lift anything heavier than your baby (such as laundry or other children.) * Avoid stairs or driving as much as possible. * Do not put anything into the vagina. No douching, tampons, or sexual activity until seen by physician. NOTIFY PHYSICIAN IF YOU HAVE ANY QUESTIONS OR IF ANY OF THE FOLLOWING SYMPTOMS OCCUR: * If your episiotomy or incision becomes red, swollen, or more painful than what you have experienced in the hospital. * If your vaginal bleeding becomes foul smelling. * If your vaginal bleeding becomes more heavy than a period or if your bleeding changes from pink to bright red. However, you may pass an occasional walnut-sized clot once or twice for the first week . * If you experience a sharp, shooting pain in you calves. * If you discover a hard, reddened area on your breast or if you experience flu-like symptoms. DIET: * Eat regular, well-balanced meals. * Drink plenty of fluids daily. If , drink to thirst. Stand Alone Forms: General Discharge Information Follow-up/Referrals: Ofelia Luna MD [Physician] - Discharge Medications: New polysaccharide iron complex 150 mg iron Capsule 150 mg PO BIDWM Qty: 60 RF: 0 hydrocodone-acetaminophen 5-325 mg tablet 1 tablet PO Q6H PRN (Reason: pain) Qty: 10 RF: 0 Continued PNV cmb#95-ferrous fumarate-FA [] 28 mg iron- 800 mcg Tablet 1 tablet PO DAILY RF: 0 sertraline [Zoloft] 100 mg Tablet 100 mg PO DAILY RF: 0 Date of admission: 10/09/21 05:07 Primary Care Provider: Thi,Pj Hyatt Admitting Provider: Ofelia Luna Attending physician on admission: Ofelia Luna Condition: Stable
== END 2021-10-12 15:55 | disposition home or self-care (01) | DRG 806 ==
LOC: ANHLDR 05:15 → ANHOBPP 10-10 00:09 → ANHOB2 10-10 12:21
PROVIDERS: Advanced Practice Midwife; Admitting Provider Obstetrics & Gynecology; PCP Family Medicine; Visit Provider Obstetrics & Gynecology
DX: O75.2 Pyrexia during labor, not elsewhere classified (principal); O71.7 Obstetric hematoma of pelvis; Z37.0 Single live birth; O76 Abnormality in fetal heart rate and rhythm complicating labor and delivery; O70.0 First degree perineal laceration during delivery; Z3A.39 39 weeks gestation of pregnancy
CPT/HCPCS: 36415; 36430; 74176; 80170; 81001; 82565; 83735; 85014; 85018; 85025; 85027; 85055; 85380; 85384; 85610; 85730; 86592; 86850; 86900; 86901; 86920; 87426; A9270; C9803; J0131; J0290; J1170; J1200; J1580; J2270; J2590; J2795; J7050; J7120; P9016; U0003; U0005

== ENCOUNTER 2025-05-19 18:02 | Emergency (ER) | payer OTHER, SELFPAY ==
[2025-05-19] VITALS (7 sets, daily range): BP systolic 97–120; BP diastolic 61–79; PULSE 64–87; RESP 16–18; TEMP 36.8–37; O2SAT 99–100
--- NOTE | ~2025-05-19 | US_ITS ---
EXAM EXAMINATION: US OB limited DATE: 05/19/2025 19:44 CDT INDICATION: Spotting/vaginal bleeding COMPARISON: None TECHNIQUE: Real-time transabdominal obstetric ultrasound. FINDINGS: There is a single intrauterine gestation in variable presentation. The placenta is anterior. The tip of the placenta measures 3.8 cm from the internal cervical os. The cervix measures 3.04 cm in length on the submitted images. cardiac activity and movement is noted with a heart rate of 138 beats per minute. Deepest vertical pocket of amniotic fluid measures 5.8 cm. IMPRESSION: Single intrauterine gestation in variable presentation with cardiac activity identified. The anterior placenta measures 3.8 cm from the cervical os on the submitted images. Cervical length is 3.04 cm. Amniotic fluid is within normal limits. Reviewed, dictated and finalized at location A. IMPRESSION: Single intrauterine gestation in variable presentation with cardiac activ ity identified. The anterior placenta measures 3.8 cm from the cervical os on the submitted humphrey ges. Cervical length is 3.04 cm. Amniotic fluid is within normal limits.
--- OUTSIDE RECORDS SUMMARY | 2025-05-19 18:05 | XMS_ITS | Clinical Summary ---
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 Gender Identity Not on file Sexual Orientation Not on file Plan of Treatment Health Maintenance Due Date Last Done Comments Hepatitis C Virus (HCV) Screening 1987 TdaP Immunization 1987 Hepatitis B Immunization (1 of 3 - 19+ 3-dose series) 2006 Pap Smear 2008 Cervical Cancer Screening (CCS) 2017 HPV/Cotest 2017 Influenza Immunization (#1) 2024 10/19/2020 SARS-COV-2 Immunization (2023- season) 2024 Respiratory Syncytial Virus (RSV) Immunization (Adult) (1 - 1-dose 75+ series) 2062 Meningococcal Immunization (ACWY) Aged Out No longer eligible based on patient's age to complete this topic Pneumococcal Immunization Combined Aged Out No longer eligible based on patient's age to complete this topic Rotavirus Immunization Aged Out No lo nger eligible based on patient's age to complete this topic
--- OUTSIDE RECORDS SUMMARY | 2025-05-19 18:05 | XMS_ITS | Referral Summary ---
Author Organization [facility] Address [address] [place] [id number] Care Team Providers Care Toxicology Supervisor Name Role Phone Lizzie Kennedy MD Unavailable [phone] Curtis Ness MD Primary Care Provider [phone] Allergies Active Allergy Reactions Criticality Noted Date Comments Nickel Rash Medium 04/21/2018 Medications buPROPion XL (WELLBUTRIN XL) 300 mg 24 hr tablet Take 1 tablet (300 mg total) by mouth every morning 3 Active venlafaxine XR (EFFEXOR-XR) 37.5 mg 24 hr capsule Take 1 capsule (37.5 mg total) by mouth daily 4 Active amoxicillin 500 mg tablet/capsuleI ndications:Pneu monia, Community Acquired Take 2 tablet/capsule (1,000 mg total) by mouth 2 (two) times a day 4 Active acetaminophen (TYLENOL) 500 mg tablet Take 1 tablet (500 mg total) by mouth every 6 (six) hours as needed for pain or headaches 4 Active ibuprofen (ADVIL,MOTRIN) 800 mg tablet Take 1 tablet (800 mg total) by mouth every 6 (six) hours as needed for pain or headaches 4 Active Active Problems Problem Noted Date Diagnosed Date Subacute cough 10/03/2023 Assessment & Plan (10/03/2023 4:47 PM CDT): Vital signs stable, no respiratory distress, nontoxic appearance, lungs CTAB on exam, 98% on RA Dry cough x 4 weeks, likely postviral Medrol dose pack Tessalon prn Albuterol inhaler prn Supervision of high-risk , unspecified trimester 07/28/2019 Overview (07/30/2019): [] Co-management vs. [] Full M Care; Referring Provider: Lizzie Kennedy [phone] [x] Dating Criteria: LMP 01/30/19 DEE DEE 11/06/19 [x] Labs: Rh [A+], Ab [negative], Rubella [immune], HIV [non-reactive], HepBSAg [non-reactive], RPR [not done], GC/CT [negative/negative] [x] Genetic Screening: Carrier screening negative [x] CBC/Hgb 11.9/34.4/plt 232 [] Early 1hr GTT (if indicated) [] UCx: [x] Pap: 09/25/17 Negative [] LD ASA (if indicated) starting at 12 weeks: [] EPDS [ ]; PNBHS referral (if indicated) 2nd Tri Labs: [] Anatomy ultrasound: [] CBC/1hr gtt at 24-28wks: [] Flu Shot (Aug-Nov): [] Tdap (27-36wks): [] Rhogam at 28 wks (if Rh neg): 3rd Tri Labs: [] CBC/HIV/RPR/T&S: [] GBS: [] GC/CT (if indicated): Counselling [] MOD: [] Place of delivery: [] MOC: [] Method of feeding: [] Director Systems: [] PP Depression Discussed: Social History Tobacco Use Types Packs/Day Years Used Date Smoking Tobacco: Never Smokeless Tobacco: Never Tobacco Cessation:Counseling Given: Not Answered Comments Unknown Sex and Gender Information Value Date Recorded Sex Assigned at Not on file 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 Gender Identity Not on file Sexual Orientation Not on file Last Filed Vital Signs Vital Sign Reading Time Taken Comments Blood Pressure 127/89 12/30/2024 3:08 PM GREEN CHAIN OFFBEARER Pulse 78 12/30/2024 3:08 PM GREEN CHAIN OFFBEARER Temperature 36.8 C (98.2 F) 12/30/2024 3:08 PM GREEN CHAIN OFFBEARER Respiratory Rate 18 12/30/2024 3:08 PM GREEN CHAIN OFFBEARER Oxygen Saturation 99% 12/30/2024 3:08 PM GREEN CHAIN OFFBEARER Inhaled Oxygen Concentration - - Weight 74.8 kg (165 lb) 12/30/2024 3:08 PM GREEN CHAIN OFFBEARER Height 165.1 cm (5' 5) 12/30/2024 3:08 PM GREEN CHAIN OFFBEARER Body Mass Index 27.46 12/30/2024 3:08 PM GREEN CHAIN OFFBEARER Plan of Treatment Not on file [place] [place] [address] [place] [employer] Care Teams Toxicology Supervisor Relationship Specialty Start Date End Date Curtis Ness MD [phone] [address] PCP - General Family Medicine 10/02/22 Lizzie Kennedy MD Referring Physician Obstetrics and Gynecology 07/27/19
--- OUTSIDE RECORDS SUMMARY | 2025-05-19 18:05 | XMS_ITS | Clinical Summary ---
Author Organization [facility] Address [address] [place] [address] Care Team Providers Care Telephone Worker Name Role Phone Unavailable Primary Care Provider Unavailabl e Source Comments [facility],non-owned Affiliates and Associated Physician Practices is amultiple site organization consisting of ambulatory clinics and hospital sitesin [place], [place], [place] and [place]. This disclosure is being madepursuant to the Care Everywhere program and may not contain all information available regarding this patient. Last updated 18.[facility] Allergies No known active allergies Medications * Be aware that medications may not be up to date on this document. Alwaysverify current medications with the patient. buPROPion XL 24hr (Wellbutrin-XL) 300 MG tabletIndicatio ns:Depression Take 1 (one) tablet by mouth every morning Reasons: Depression Active venlafaxine (Effexor) 37.5 MG tabletIndicatio ns:Anxiety Take 1 (one) tablet by mouth once daily Reasons: Feeling Anxious Active Vit-Fe Fumarate-FA ( vitamin) 28-0.8 MG tabletIndicatio ns: Take 1 (one) tablet by mouth once daily Reasons: Active ferrous sulfate 325 (65 FE) MG tablet Take 1 (one) tablet by mouth daily with breakfast Active B Complex Vitamins (VITAMIN B COMPLEX PO) Take 1 capsule by mouth once daily Active magnesium 30 MG tablet Take 1 (one) tablet by mouth once daily Active Encounters Date Type Department Care Team Description 04/07/2025 1:24 PM CDT - 04/07/2025 11:59 PM CDT Hospital Encounter [facility] [address] [place] [id number] Chace Montgomery MD Discharge Disposition: Home or Self Care 04/07/2025 1:00 PM CDT - 04/07/2025 1:23 PM CDT Hospital Encounter [facility] & [facility] [address] [place], [place] [id number] Chace Montgomery MD Discharge Disposition: Home or Self Care 03/23/2025 Travel from Last 3 Months Family History Medical History Relation Name Comments Diabetes - Type 2 Brother Cancer - Uterine Paternal Grandmother Diabetes - Type 2 Sister Relation Name Status Comments Brother Maternal Grandfather Maternal Grandmother Paternal Grandfather Paternal Grandmother Sister Social History Tobacco Use Types Packs/Day Years Used Date Smoking Tobacco: Never Smokeless Tobacco: Never Tobacco Cessation:Counseling Given: Not Answered Alcohol Use Standard Drinks/Week Comments Not Currently 0 (1 standard drink = 0.6 oz pur e alcohol) Estimated Date of Delivery Comme nts Yes 10/22/2025 Based on last me nstrual period of 01/15/2025 Sex and Gender Information Value Date Recorded Sex Assigned at Not on file 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 Gender Identity Not on file Sexual Orientation Not on file Last Filed Vital Signs Vital Sign Reading Time Taken Comments Blood Pressure 102/67 04/07/2025 1:20 PM CDT Pulse 68 04/07/2025 1:20 PM CDT Temperature - - Respiratory Rate - - Oxygen Saturation - - Inhaled Oxygen Concentration - - Weight 70.3 kg (155 lb) 04/07/2025 1:20 PM CDT Height 167.6 cm (5' 6) 04/07/2025 1:20 PM CDT Body Mass Index 25.02 04/07/2025 1:20 PM CDT Plan of Treatment Health Maintenance Due Date Last Done Comments HIV SCREENING 2002 HEPATITIS C SCREENING 12/16/2005 DTAP/TDAP/TD VACCINES (1 - Tdap) 2006 HEPATITIS B VACCINE (1 of 3 - 19+ 3-dose series) 2006 PAP SMEAR 2008 COVID-19 VACCINE (2023-2 5 season) 2024 04/07/2021, 03/10/2021 DEPRESSION SCREENING 12/02/2024 OB-TDAP CURRENT 07/23/2025 09/01/2021 INFLUENZA VACCINE (Season Ended) 2025 09/01/2021, 10/19/2020 Respiratory Syncytial Virus (RSV) Vaccine Pt: or over 60 yrs (1 - Risk 1-dose series) 08/27/2025 ZOSTER VACCINE (1 of 2) 2037 HIB VACCINE Aged Out No longer eligi ble based on patient's age to complete this topic HPV VACCINE Aged Out No longer eligi ble based on patient's age to complete this topic MENINGOCOCCAL (Group B) VACCINE SHARED DECISION-MAKING Aged Out No longer eligible based on patient's age to complete this topic MENINGOCOCCAL GROUPS A/C/Y/W VACCINE Aged Out No longer eligible b ased on patient's age to complete this topic PNEUMOCOCCAL VACCINE Aged Out No long er eligible based on patient's age to complete this topic Procedures Procedure Name Priority Date/Time Associated Diagnosis Comments SONOGRAM - COMPLETE Routine 04/07/2025 1 2:49 PM CDT Encounter for ultrasound (HCC) 11 weeks gestation of (HCC) Maternal care for suspected damage to fetus by drugs, not applicable or unspecified fetus (HCC) from Last 3 Months Results * SONOGRAM - COMPLETE (04/07/2025 12:49 PM CDT) Linked Results Indication ======== AMA 39 years, planning cf-DNA with her OB at 12 weeks Anxiety & depression with lamotrigine, bupropion & 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 Para 3 [id number] 1. live 2017. Gest. age 38 w + 6 d. Weight 3,486 g. Sex of child: female. Details: 2. live 2018. Gest. age 39 w + 0 d. Weight 3,316 g. Sex of child: male. Details: 3. live 2020. Gest. age 39 w + 3 d. Weight 3,657 g. Sex of child: male. Details: Maternal Assessment Physical Exam Height 165 cm, 5 ft 5 in. Weight 70 kg, 155 lb. Initial weight 70 kg, 154 lb. BMI 25.79 kg/m . Initial BMI 25.63 kg/m . Weight gain 0 kg, 1 lb Method ====== Transabdominal ultrasound. View: Good view ========= [place] . Number of fetuses: 1 Dating ====== Date Details Gest. age DEE DEE LMP 01/15/2025 11 w + 5 d 10/22/2025 Previous U/S 03/18/2025 GA, GA 8 w + 2 d 11 w + 1 d 10/26/2025 U/S 04/07/2025 based upon CRL 11 w + 5 d 10/22/2025 Assigned dating based on the LMP, selected on 04/07/2025 11 w + 5 d 10/22/2025 General Evaluation Cardiac activity present Amniotic fluid: normal Biometry FHR 153 bpm CRL 50.1 mm 11w 5d 32% [place] Anatomy The following structures appear normal: Cranium. Arms. Legs. The following structures could not be adequately visualized: Abdominal wall. Stomach. Kidneys. Bladder. Impression ========= * [place] IUP at 11 weeks of gestation by stated EDC from LMP & early U/S * Referred to [facility] for obstetrical U/S & request for consult secondary to: Periconception medication exposure * Other relevant clinical diagnoses include: Advanced maternal age (AMA) 39 years at the EDC * Today's ultrasound (U/S) findings: Living [place] intrauterine fetus [place] rump length (CRL) is normal-range Amniotic fluid volume appears normal COUNSELING & RECOMMENDATIONS (PLEASE SEE FULL CONSULT IN EPIC) * In my best medical opinion, I would advise: Her medication regimen appears reasonable Continue close management with her OB Please also see my general notes below Comprehensive anatomic survey with MFM at 20 weeks testing (e.g. NST+BPP or NST+KORY) to be determined Delivery planning (timing, mode, location): When: assuming no new problems, deliver in the 39th week Where: assuming no new problems, deliver at local hospital How: vaginal delivery, with C/S reserved for the usual obstetrical indications Please notify the baby's 3D Artist of the above history Follow-up ======== at 20 weeks Coding ====== Procedures [id number]: [facility]atom[facility] Region Laterality Modality Other 04/07/2025 12:4 9 PM CDT R Romulo Cabrera MD [facility] ORDERABLES Edited Result - Final from Last 3 Months Insurance [facility]
--- OUTSIDE RECORDS SUMMARY | 2025-05-19 18:05 | XMS_ITS | Clinical Summary ---
Author Organization [facility] Address [address] [place] [id number] Care Team Providers Care Creative Writer Name Role Phone Lizzie Kennedy MD Unavailable [phone] Curtis Ness MD Primary Care Provider [phone] Allergies Active Allergy Reactions Criticality Noted Date [...] Full M Care; Referring Provider: Lizzie Kennedy [phone] [x] Dating Criteria: LMP 01/30/19 DEE DEE [...] [] MOC: [] Method of feeding: [] Community Services Officer: [] PP Depression Discussed: Social History Tobacco Use Types Packs/Day Years Used Date Smoking Tobacco: Never Smokeless Tobacco: Never Tobacco Cessation:Counseling Given: Not Answered Comments Unknown Sex and Gender Information Value Date Recorded Sex Assigned at Not on file Legal Sex 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 Gender Identity Not on file Sexual Orientation Not on file Obstetrics History Para Term AB IAB SAB Ectopic Multiple Livin g Live Births 2 1 1 Date Outcome GA Total Labor Labor/2nd/3rd Weight Sex Type Anes PTL Maame A1 A5 Name Clin 2018 Term 39w0 d 3.487 kg (7 lb 11 oz) F Vag-S pont Ricardo Last Filed Vital Signs Vital Sign Reading Time Taken Comments Blood Pressure 127/89 12/30/2024 3:08 PM AND TAXI INSTRUCTOR BUS TROLLEY Pulse 78 12/30/2024 3:08 PM AND TAXI INSTRUCTOR BUS TROLLEY Temperature 36.8 C (98.2 F) 12/30/2024 3:08 PM AND TAXI INSTRUCTOR BUS TROLLEY Respiratory Rate 18 12/30/2024 3:08 PM AND TAXI INSTRUCTOR BUS TROLLEY Oxygen Saturation 99% 12/30/2024 3:08 PM AND TAXI INSTRUCTOR BUS TROLLEY Inhaled Oxygen Concentration - - Weight 74.8 kg (165 lb) 12/30/2024 3:08 PM AND TAXI INSTRUCTOR BUS TROLLEY Height 165.1 cm (5' 5) 12/30/2024 3:08 PM AND TAXI INSTRUCTOR BUS TROLLEY Body Mass Index 27.46 12/30/2024 3:08 PM AND TAXI INSTRUCTOR BUS TROLLEY Plan of Treatment Health Maintenance Due Date Last Done Comments Cervical Cancer Screening 1987 Depression Screening 1987 Hepatitis C Screening 1987 Varicella Vaccines (1 of 2 - 13+ 2-dose series) 2000 Hepatitis B Screening 2005 Regular Well Visit/Exam 18-64 2005 Covid-19 Vaccine (3 - 2023-2 5 season) 2024 04/07/2021, 03/10/2021 Influenza Vaccine (Season Ended) 2025 09/01/2021, 10/19/2020 DTaP/Tdap/Td Vaccine (2 - Td or Tdap) 09/01/2031 09/01/2021 HPV Vaccines Aged Out No longer eligi ble based on patient's age to complete this topic Pneumococcal vaccine <65 Aged Out No longer eligible based on patient's age to complete this topic Insurance [employer] [facility] CHOICE PENDING SALE TO [facility] Care Teams Creative Writer Relationship Specialty Start Date End Date Curtis Ness MD [address] [address] PCP - General Family Medicine 10/02/22 Lizzie Kennedy MD Referring Physician Obstetrics and Gynecology 07/27/19
--- OUTSIDE RECORDS SUMMARY | 2025-05-19 18:06 | XMS_ITS | Data Portability ---
Author Organization [facility] [place] Address [address] [place] [address] [place] [address] Assessment Encounter Date Assessment Date Assessment LastModified by Organization Details LastModified Time 03/18/2025 03/18/2025 Patient is 8 weeks 6 days . Discussed plan. [email or web address] Not available 03/18/2025 13:06:05 05/12/2025 05/12/2025 Patient is ___weeks . Discussed plan. Not available 05/12/2025 16:23:27 Plan of Treatment Reminders Order Date Submit Date Provider Last Modified By Organization Details Last Modified Time Details Appointments U/S OB BASELIN E 2024 02:30P M ULTRASOUND Not available Not available Not available OB ROUTINE 2024 03:30P M Yoly CABRERA MD Not available Not available Not available Lab drug screen, urine 2024 025 [facility], [address], [place], [address], 04/12/2025 20:35:35 CT + NG + TV, RNA, unspeci fied specime n 2024 025 [facility] (Lab), [address] [facility], [place], [address], 03/19/2025 12:48:07 Referral None recorde d. Procedures None recorde d. Surgeries None recorde d. Imaging US, obstetr ic, nuchal translu cency 2024 025 [email or web address] [address], [address], [place], [address], 04/12/2025 18:47:03 US, obstetr ic, 1st trimest er 2024 025 [email or web address] [address], [address], [place], [address], 04/12/2025 18:47:03 Medication Orders None recorde d. Patient TargetsNo targets recorded. Patient InstructionsNo instructions recorded. Reason for Referral None Reported. Results Created Date Observation Date Name Description Value Unit Range Abnormal Flag Note LastModifiedBy Organization Detail LastModifiedTime 04/20/2004/20/2025 [UNIT Y] ANEUP LOIDY NIPT fraction 12.1% normal Not Available [facility] [address] [place] [address], [address], 04/20/2025 03:19:07 04/20/20 25 04/20/2025 [UNIT Y] ANEUP LOIDY NIPT 22Q11.2 microdeletio n LOW RISK <1 in 10,000 normal Not Available [facility] [place], [address], 04/20/2025 03:19:07 04/20/20 25 04/20/2025 [UNIT Y] ANEUP LOIDY NIPT sex chromosome aneuploidy NOT DETECT ED normal Not Available [facility] [address] [place], [address], 04/20/2025 03:19:07 04/20/20 25 04/20/2025 [UNIT Y] ANEUP LOIDY NIPT monosomy X LOW RISK <1 in 10,000 normal Not Available [facility] [place], [address], 04/20/2025 03:19:07 04/20/20 25 04/20/2025 [UNIT Y] ANEUP LOIDY NIPT trisomy 13 LOW RISK <1 in 10,000 normal Not Available [facility] [address] [place], [address], 04/20/2025 03:19:07 04/20/20 25 04/20/2025 [UNIT Y] ANEUP LOIDY NIPT trisomy 18 LOW RISK <1 in 10,000 normal Not Available [facility] [address] [facility], [place], [address], 04/20/2025 03:19:07 04/20/20 25 04/20/2025 [UNIT Y] ANEUP LOIDY NIPT trisomy 21 LOW RISK <1 in 10,000 normal Not Available [facility] [address] [facility], [place], [address], 04/20/2025 03:19:07 04/20/20 25 04/20/2025 [UNIT Y] ANEUP LOIDY NIPT sex FEMALE normal Not Available [facility] [address] [facility], [place], [address], 04/20/2025 03:19:07 04/20/20 25 04/20/2025 [UNIT Y] ANEUP LOIDY NIPT gestation SINGLE TON normal Not Available [facility] [address] [place] [address], [place], [address], 04/20/2025 03:19:07 04/20/20 25 04/20/2025 [UNIT Y] ANEUP LOIDY NIPT for detailed report, see pdf See PDF normal Not Available [facility], [place], [address], 04/20/2025 03:19:07 04/30/20 25 04/30/2025 [UNIT Y] SEFERINO KERNS N sickle cell disease/beta -thalassemia /hemoglobino pathies carrier screen NEGATI VE normal Not Available [facility] [address] [facility], [place], [address], 04/30/2025 23:37:38 04/30/20 25 04/30/2025 [UNIT Y] SEFERINO ER LUIS F N alpha-thalas semia carrier screen NEGATI VE normal Not Available [facility] [address] [facility] [place], [address], 04/30/2025 23:37:38 04/30/20 25 04/30/2025 [UNIT Y] SEFERINO Gregory cystic fibrosis carrier screen NEGATI VE normal Not Available [facility] [address] [facility], [place], [address], 04/30/2025 23:37:38 04/30/20 25 04/30/2025 [UNIT Y] SEFERINO Gregory spinal muscular atrophy carrier screen NEGATI VE 2 SMN1 copies , SNP not presen t normal Not Available [facility] [address] [facility], [place], [address], 04/30/2025 23:37:38 04/30/20 25 04/30/2025 [UNIT Y] SEFERINO Gregory for detailed report, see pdf See PDF normal Not Available [facility] [address] [facility], [place], [address], 04/30/2025 23:37:38 03/18/20 25 03/18/2025 CT/GC AND TRICH OMONA S VAGIN CRYSTAL (RRNA ), URINE chlamydia trachomatis, PCR Negati ve negati ve Not Available [facility] (Lab) [address] [place], [address], 03/19/2025 12:48:07 03/18/20 25 03/18/2025 CT/GC AND TRICH OMONA S VAGIN CRYSTAL (RRNA ), URINE neisseria gonorrhoeae, PCR Negati ve negati ve Not Available [facility] (Lab) [address] [place], [address], 03/19/2025 12:48:07 03/18/20 25 03/18/2025 CT/GC AND TRICH OMONA S VAGIN CRYSTAL (RRNA ), URINE trichomonas vaginalis ribosomal RNA (rrna) Negati ve negati ve Not Available [facility] (Lab) [address] [place], [address], 03/19/2025 12:48:07 04/12/2004/12/2025 CBC W/DIF F WBC 6.9 10'3/ uL 3.5-10 .5 Not Available [facility] (Lab) [address], [place], [address], 04/13/2025 12:56:11 04/12/2004/12/2025 CBC W/DIF F RBC 3.67 10'6/ uL (based on docume nted legal sex) 3.80-5 .20 low Not Available [facility] (Lab) [address], [place], [address], 04/13/2025 12:56:11 04/12/2004/12/2025 CBC W/DIF F HGB 11.5 g/dL (based on docume nted legal sex) 11.6-1 5.4 low Not Available [facility] (Lab) [address], [place], [address], 04/13/2025 12:56:11 04/12/2004/12/2025 CBC W/DIF F HCT 33.8 % (based on docume nted legal sex) 34.0-4 5.0 low Not Available [facility] (Lab) [address], [place], [address], 04/13/2025 12:56:11 04/12/2004/12/2025 CBC W/DIF F MCV 92.1 fL 80.0-9 9.0 Not Available [facility] (Lab) [address], [place], [address], 04/13/2025 12:56:11 04/12/2004/12/2025 CBC W/DIF F MCH 31.3 pg 27.0-3 4.0 Not Available [facility] (Lab) [address], [place], [address], 04/13/2025 12:56:11 04/12/2004/12/2025 CBC W/DIF F MCHC 34.0 g/dL 32.0-3 5.5 Not Available [facility] (Lab) [address] [facility], [place], [address], 04/13/2025 12:56:11 04/12/20 25 04/12/2025 CBC W/DIF F RDW 12.0 % 11.0-1 5.0 Not Available [facility] (Lab) [address] [facility], [place], [address], 04/13/2025 12:56:11 04/12/2004/12/2025 CBC W/DIF F plt 236 10'3/ uL 150-40 0 Not Available [facility] (Lab) [address] [facility], [place], [address], 04/13/2025 12:56:11 04/12/2004/12/2025 CBC W/DIF F MPV 10.5 fL 8.8-12 .1 Not Available [facility] (Lab) [address] [facility], [place], [address], 04/13/2025 12:56:11 04/12/20 25 04/12/2025 CBC W/DIF F NRBC's 0.0 % 0.0 Not Available [facility] (Lab) [address] [facility], [place], [address], 04/13/2025 12:56:11 04/12/2004/12/2025 CBC W/DIF F absolute NRBCs 0.0 10'3/ uL no refere nce range establ ished Not Available [facility] (Lab) [address] [facility], [place], [address], 04/13/2025 12:56:11 04/12/2004/12/2025 CBC W/DIF F neutrophils 65.6 % 34.0-7 3.0 Not Available [facility] (Lab) [address] [facility], [place], [address], 04/13/2025 12:56:11 04/12/20 25 04/12/2025 CBC W/DIF F lymphocytes 25.8 % 15.0-5 0.0 Not Available [facility] (Lab) [address] [facility], [place], [address], 04/13/2025 12:56:11 04/12/20 25 04/12/2025 CBC W/DIF F monocytes 6.6 % 1.0-15 .0 Not Available [facility] (Lab) [address] [facility], [place], [address], 04/13/2025 12:56:11 04/12/20 25 04/12/2025 CBC W/DIF F eosinophils 1.3 % 0.0-8. 0 Not Available [facility] (Lab) [address] [place], [address], 04/13/2025 12:56:11 04/12/20 25 04/12/2025 CBC W/DIF F basophils 0.4 % 0.0-2. 0 Not Available [facility] (Lab) [address] [place], [address], 04/13/2025 12:56:11 04/12/20 25 04/12/2025 CBC W/DIF F immature granulocytes 0.3 % no define d refere nce range Immat ure Granu locyt es (IG) repre sents autom ated enume ratio n of Metam yeloc ytes, Myelo cytes and Promy elocy delores when IG is < 5%. Blast s are not inclu ded in IG and repor saumya separ ately if prese nt. Not Available [facility] (Lab) [address] [place], [address], 04/13/2025 12:56:11 04/12/20 25 04/12/2025 CBC W/DIF F absolute neutrophils 4.5 10'3/ uL 1.5-8. 0 Not Available [facility] (Lab) [address] [facility], [place], [address], 04/13/2025 12:56:11 04/12/20 25 04/12/2025 CBC W/DIF F absolute lymphocytes 1.8 10'3/ uL 1.0-4. 0 Not Available [facility] (Lab) [address] [facility], [place], [address], 04/13/2025 12:56:11 04/12/20 25 04/12/2025 CBC W/DIF F absolute monocytes 0.5 10'3/ uL 0.2-1. 0 Not Available [facility] (Lab) [address] [facility], [place], [address], 04/13/2025 12:56:11 04/12/20 25 04/12/2025 CBC W/DIF F absolute eosinophils 0.1 10'3/ uL 0.0-0. 6 Not Available [facility] (Lab) [address] [facility], [place], [address], 04/13/2025 12:56:11 04/12/20 25 04/12/2025 CBC W/DIF F absolute basophils 0.0 10'3/ uL 0.0-0. 3 Not Available [facility] (Lab) [address] [facility], [place], [address], 04/13/2025 12:56:11 04/12/20 25 04/12/2025 CBC W/DIF F absolute immature granulocytes 0.0 10'3/ uL 0.00-0 .10 Refer ence range s for nonbi nary/ inter sex or unspe cifie d gende r patie nts have not been estab lishe d. Pleas e refer to the katieo wing table for range s estab lishe d for cisge nder patie nts and evalu ate in the clini bhargav cheikh xt of the indiv idual patie nt: https ://jerel villafana book. nm.or g/gen derx Not Available [facility] (Lab) [address] [facility], [place], [address], 04/13/2025 12:56:11 04/12/2004/12/2025 HEPAT ITIS C ANTIB YOMI SCREE N, REFLE X TO CONFI RMATI ON hepatitis C antibody Non-re active non-re active Antib odies to HCV Not Detec saumya, does not exclu de the possi bilit y of expos ure to HCV. Not Available [facility] (Lab) [address], [place], [address], 04/13/2025 12:56:11 04/12/2004/12/2025 HIV 1/2 ANTIG EN/AN TIBOD Y, REFLE X CONFI RMATI ON HIV antigen/anti body Nonrea ctive nonrea ctive HIV-1 antig en and HIV-1 /HIV- 2 antib odies were not detec saumya. No labor atory evide nce of HIV infec tion. Not Available [facility] (Lab) [address] [facility], [place], [address], 04/13/2025 12:56:12 04/12/2004/12/2025 HEPAT ITIS B SURFA CE ANTIG EN hepatitis B surface antigen Non-re active non-re active This assay was perfo rmed using [employer] ratio n reage nts and test kits. Value s obtai renny with other assay metho ds or kits canno t be used inter miller eably . Not Available [facility] (Lab) [address] , [place], [address], 04/13/2025 12:56:12 04/12/2004/12/2025 RUBEL LA IGG ANTIB YOMI, QUANT rubella antibodies, IgG Reacti ve reacti ve Not Available [facility] (Lab) [address] [place], [address], 04/13/2025 12:56:13 04/12/20 25 04/12/2025 RUBEL LA IGG ANTIB YOMI, QUANT rubella antibodies, IgG quant 20.9 IU/mL >=10 Non-r eacti ve (Non- Immun e) <10 IU/mL React kip (Immu ne) > or = 10 IU/mL Not Available [facility] (Lab) [address] [facility], [place], [address], 04/13/2025 12:56:13 04/12/20 25 04/12/2025 TYPE/ RH/SC REEN ABO/Rh type A POS Not Available [facility] (Lab) [address] [facility], [place], [address], 04/13/2025 12:56:13 04/12/20 25 04/12/2025 TYPE/ RH/SC REEN antibody screen NEG Not Available [facility] (Lab) [address] [facility], [place], [address], 04/13/2025 12:56:13 04/12/20 25 04/12/2025 TYPE/ RH/SC REEN exp date 2024 23:59 Not Available [facility] (Lab) [address] [facility], [place], [address], 04/13/2025 12:56:13 04/12/2004/12/2025 HEMOG LOBIN A1C hemoglobin A1C 5.2 % 4.0-5. 6 The Ameri can Diabe delores [employer] iatio n recom mends that a prima ry goal of thera py miguelangel weems be a HBA1C of < 7% and that physi cians shoflor d reeva luate the treat ment regim en in patie nts with HBA1C value s consi stent ly > 8%. <5.7% Kenisha l 5.7 - 6.4% Incre ased risk for diabe delores >=6.5 % Diagn ostic of diabe delores <7.0% Goal of thera py >8.0% Actio n sugge sted Not Available [facility] (Lab) [address] [facility], [place], [address], 04/13/2025 12:56:13 04/12/20 25 04/12/2025 RPR SCREE N, REFLE X TITER /CONF IRMAT ION RPR qualitative Nonrea ctive nonrea ctive Not Available [facility] (Lab) [address] [facility], [place], [address], 04/13/2025 12:56:14 04/12/2004/12/2025 CULTU RE: URINE result report SEE RESULT S BELOW Test: Cultu re: Urine Speci men Sourc e: Urine - Clean Catch Speci men Type: Urine Speci men Date: 2024 1723 Resul t Date: 2024 0337 Resul t Statu s: Final resul t Abnor mal: No Resul ting Lab: [facility] [address] [facility] [address] Tel: CULTU RE ----- ----- ----- --- No growt h in 1 day (dete ction level of 10,00 0 colon ies / ml.) Not Available [facility] (Lab) [address] [facility], [place], [address], 04/14/2025 04:42:00 03/18/20 25 03/18/2025 US, obste tric, 1st trime ster No observ ation record ed. [address], [facility], [place], [address], 03/18/2025 14:32:15 04/07/20 25 04/07/2025 US, obste tric, follo w-up No observ ation record ed. [email or web address] [facility] [address] [place] [address], [address], 04/12/2025 22:02:36 04/07/20 25 04/07/2025 US, obste tric, follo w-up No observ ation record ed. [email or web address] [facility] [address] [place] [address], [address], 04/23/2025 13:57:22 04/12/20 25 04/12/2025 US, obste tric, nucha l trans lucen cy No observ ation record ed. [email or web address] [place] [address], [place], [address], 04/12/2025 18:19:08 04/12/20 25 04/12/2025 US, obste tric, 1st trime ster No observ ation record ed. [email or web address] [place] [address], [place], [address], 04/12/2025 18:19:21 04/12/2004/12/2025 US, obste tric, follo w-up No observ ation record ed. [email or web address] [address], [place], [address], 04/13/2025 17:43:17 Result Notes None recorded. Problems Name Problem SNOMED Code Status Onset Date Resolution Date Notes Provider Name and Address Organization Details Recorded Time Lochia finding Completed 201803/07/2021 Encounte r for routine postpart um follow-u p;Record ed Elsewher e: No Locat ion: [facility] S ource: EHR English Composition Teacher kunal: N Hermilati ce ID: [email or web address] Jareth lable Time: 01:15:00 PM Ofelia Luna MD [address], [place], [address], [facility] 16:59:50 Normal pregnanc y in multigra reina [id number] Completed 201703/07/2021 Encounte r for suprvsn of normal pregnanc y, second trimeste r;Record ed Elsewher e: No Locat ion: [facility] S ource: EHR English Composition Teacher kunal: N Practi ce ID: [email or web address] Jareth lable Time: 03:45:00 PM Ofelia Luna MD [address], [place], [address], [facility] 16:59:18 Complica tion of pregnanc y, childbir th and/or puerperi [id number] Completed 201703/07/2021 Oth diseases and conditio ns compl preg/chl dbrth;Re corded Elsewher e: No Locat ion: [facility] S ource: EHR English Composition Teacher kunal: N Hermilati ce ID: [email or web address] Jareth lable Time: 05:30:00 PM Ofelia Luna MD [address], [place], [address], [facility] 16:59:39 Uterine or cervical spasm [id number] Completed 201703/07/2021 Incoordi tom uterine contract ions;Rec orded Elsewher e: No Locat ion: [facility] S ource: EHR English Composition Teacher kunal: N Hermilati ce ID: 0001 Jareth lable Time: 04:00:00 PM Ofelia Luna MD [address], [place], [address], [facility] 16:59:42 Placenta previa [id number] Completed 201803/07/2021 Placenta previa specifie d as w/o hemor, second trimeste r;Record ed Elsewher e: No [facility]: EHR English Composition Teacher kunal: N Shelley ce ID: [email or web address] Jareth lable Time: 04:30:00 PM Ofelia Luna MD [address], [place], [address], [facility] 16:59:21 Gestatio n period, 24 weeks [id number] Completed 201702/16/2021 24 weeks gestatio n of pregnanc y;Record ed Elsewher e: No [facility] S our[facility]: EHR English Composition Teacher kunal: N Hermilati ce ID: 0001 Jareth lable Time: 04:30:00 PM Shady evans, [facility] 1 17:04:55 Antenata l screenin g for malforma tion Completed 201803/07/2021 Encounte r for antenata l screenin g for malforma tions;Re corded Elsewher e: No Locat ion: [facility] S ource: EHR English Composition Teacher kunal: N Hermilati ce ID: 0001 Jareth lable Time: 10:30:00 AM Ofelia Luna MD [address], [place], [address], [facility] 16:59:10 Secondar y amenorrh ea [id number] Completed 201603/07/2021 Secondar y amenorrh ea;Recor ded Elsewher e: No Locat ion: [facility] S ource: EHR English Composition Teacher kunal: N Hermilati ce ID: 0001 Jareth lable Time: 01:15:00 PM Ofelia Luna MD [address], [place], [address], [facility] 16:59:34 Antenata l screenin g Completed 201803/07/2021 Encounte r for antenata l screenin g for nuchal transluc ency;Rec orded Elsewher e: No Locat ion: [facility] S ource: EHR English Composition Teacher kunal: N Shelley ce ID: 0001 Jareth lable Time: 04:00:00 PM Ofelia Luna MD [address], [place], [address], [facility] 16:59:[address] Concept Completed 201802/16/2021 Maternal care for oth abnormal ity and damage, unsp;Rec orded Elsewher e: No [facility]at [facility] S ource: EHR English Composition Teacher kunla: N Hermilati ce ID: 0001 Jareth lable Time: 09:17:34 AM Shady evans, [facility] [address] 17:05:[address] Concept Completed 201802/16/2021 Encntr for general adult medical exam w/o abnormal findings ;Recorde d Elsewher e: No Locat ion: [facility] S ource: EHR English Composition Teacher kunal: N Hermilati ce ID: 0001 Jareth lable Time: 10:45:00 AM Shady Randolph [facility], [facility] 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 17:05:18 Gestatio n period, 8 weeks [id number] Completed 201802/16/2021 8 weeks gestatio n of pregnanc y;Record ed Elsewher e: No [facility]at ion: [facility] S ource: EHR English Composition Teacher kunal: N Hermilati ce ID: 0001 Jareth lable Time: 03:30:00 PM Shady Randolph [facility], [facility] 17:05:04 Gestatio n period, 36 weeks [id number] Completed 201702/16/2021 36 weeks gestatio n of pregnanc y;Record ed Elsewher e: No Locat ion: [facility] S ource: EHR English Composition Teacher kunal: N Practi ce ID: 0001 Jareth lable Time: 05:30:00 PM Shady Randolph [facility], [facility] 17:05:01 Gestatio n period, 27 weeks [id number] Completed 201802/16/2021 27 weeks gestatio n of pregnanc y;Record ed Elsewher e: No Locat ion: [facility] S ource: EHR English Composition Teacher kunal: N Hermilati ce ID: 0001 Jareth lable Time: 11:00:00 AM Shady evans, [facility] 1 17:04:57 Screenin g for malignan t neoplasm of cervix Completed 201503/07/2021 Screenin g for malignan t neoplasm s of the cervix;R ecorded Elsewher e: No [facility]: EHR English Composition Teacher kunal: N Practi ce ID: [email or web address] Jareth lable Time: 04:45:00 PM Ofelia Luna MD [address], [place], [address], [facility] 16:59:32 Gestatio n period, 35 weeks [id number] Completed 201802/16/2021 35 weeks gestatio n of pregnanc y;Record ed Elsewher e: No Locat ion: [facility] N Practi ce ID: 0001 Jareth lable Time: 09:17:34 AM Shady evans, [facility] 17:04:59 Term pregnanc y delivere d [id number] Completed 201802/16/2021 Encounte r for full-ter m uncompli cated delivery ;Practic e ID: 0001 Shady evans, [facility] 17:05:23 Single live from singleto n pregnanc y [id number] Completed 201802/16/2021 Single live ;Pr actice ID: 0001 Shady evans, [facility] 17:05:27 Procedur e related to breastfe eding Completed 201802/16/2021 Encounte r for care and examinat ion of lactatin g mother;P ractice ID: 0001 Shady evans, [facility] 1 17:05:31 Pregnanc y, childbir th and puerperi um finding Completed 201803/07/2021 Encntr for suprvsn of normal first preg, third trimeste r;Practi ce ID: 0001 Ofelia Luna MD [address], [place], [address], [facility] 1 16:59:26 Spotting per vagina in pregnanc y [id number] Completed 201803/07/2021 Spotting complica ting pregnanc y, unspecif ied trimeste r;Practi ce ID: 0001 Ofelia Luna MD [address], [place], [address], [facility] 16:59:36 Finding of contents of cervix [id number] Completed 201803/07/2021 Weeks of gestatio n of pregnanc y not specifie d;Practi ce ID: 0001 Ofelia Luna MD [address], [place], [address], [place] [facility] 16:59:13 Acute vaginiti s [id number] Completed 201703/07/2021 Acute vaginiti s;Record ed Elsewher e: No Locat ion: [facility] S ource: EHR English Composition Teacher kunal: N Shelley ce ID: 0001 Jareth lable Time: 04:30:00 PM Ofelia Luna MD [address], [place], [address], [facility] 1 16:59:05 Pregnanc y detectio n examinat ion Completed 201803/07/2021 Encounte r for pregnanc y test, result positive ;Recorde d Elsewher e: No Locat ion: [facility] Source: EHR English Composition Teacher kunal: N Shelley ce ID: 0001 Jareth lable Time: 10:45:00 AM Ofelia Luna MD [address], [place], [address], [facility] 16:59:24 Gestatio n less than 9 weeks [id number] Completed 201602/16/2021 Less than 8 weeks gestatio n of pregnanc y;Record ed Elsewher e: No [facility]: EHR English Composition Teacher kunal: N Practi ce ID: 0001 Jareth lable Time: 03:45:00 PM Shady Randolph null, [facility] 17:05:08 Uterine size for dates discrepa ncy Completed 201603/07/2021 Uterine size-nataliya e discrepa ncy, first trimeste r;Record ed Elsewher e: No Locat ion: [facility] S ource: EHR English Composition Teacher kunal: N Practi ce ID: [id number] Jareth lable Time: 03:45:00 PM Ofelia Luna MD [address], [place], [address], [facility] 16:59:44 Gestatio n period, 31 weeks [id number] Completed 201702/16/2021 31 weeks gestatio n of pregnanc y;Practi ce ID: 0001 Shady Randolph null, [facility] 17:04:58 Gestatio n period, 39 weeks [id number] Completed 201702/16/2021 39 weeks gestatio n of pregnanc y;Practi ce ID: 0001 Shady Randolph null, [facility] 17:05:02 Prematur e rupture of membrane s [id number] Completed 201703/07/2021 Full-ter m delaney ROM, unsp time betw rupture and onset labor;Pr actice ID: 0001 Ofelia Luna MD [address], [place], [address], [facility] 16:59:30 False labor before 37 complete d weeks of gestatio n [id number] Completed 201702/16/2021 False labor before 37 complete d weeks of gest, third tri;Prac shaq ID: 0001 Shady Randolph null, [facility] 17:05:11 Vaginiti s in pregnanc y [id number] Completed 201703/07/2021 Infectio n oth prt genitl trct in pregnanc y, second trimeste r;Practi ce ID: 0001 Ofelia Luna MD [address], [place], [address], [facility] 16:59:47 Pregnanc y [id number] Completed 202010/20/2021 Aurora Rico null, [facility] 5 17:24:58 Anxiety in pregnanc y [id number] 9109 Completed zoloft 100 Juliet anderson null, [facility] 15:56:28 Low lying placenta 876473249 Completed 06/26/2021 RESOLVED 06/26/21 Juliet anderson null, [facility] 15:56:28 Polyhydr amnios 18665598 Completed 2020 Juliet anderson null, [facility] 15:56:28 Pregnanc y 88092785 Active 2024 Aurora evans, [facility] 5 17:24:58 Mixed anxiety and depressi ve disorder 101765203 Active 2024 welbutri n and venlafex in MFM [facility] referral faxed pt schedule d 04/07/25 antenata l testing TBD Jocelin Dumont [facility], [facility] 5 17:38:38 Problem Notes None recorded. Procedures Surgical History Date Name Laterality Status Provider Name and Address Organization Details Recorded Time 4 Date of Last Pap Smear completed Jacque Rowell [facility] 03/18/2025 11:57:56 6 extraction of wisdom tooth completed Rafia Bridges [facility] 08/20/2023 18:00:00 Imaging Results None recorded. Procedure Notes None recorded. Medical Equipment None Reported. Allergies No known drug allergies Medications Name Sig Start Date Stop Date Status Note LastModified by Organization Details LastModified Time cyclobenz aprine 10 mg tablet TAKE 1 TABLET BY MOUTH EVERY NIGHT AT BEDTIME NEEDED 03/07 completed Not Available Not Available Not Available oxcarbaze pine 150 mg tablet TAKE 2 TABLETS BY MOUTH TWICE DAILY 11/02 completed Not Available Not Available Not Available venlafaxi ne ER 37.5 mg capsule,e xtended release 24 hr TAKE ONE CAPSULE BY MOUTH DAILY active Not Available Not Available No t Available prednison e 10 mg tablet 03/07 completed Not Available Not Available Not Available doxycycli ne hyclate 100 mg capsule TAKE ONE CAPSULE BY MOUTH TWICE DAILY 11/02 completed Not Available Not Available Not Available clindamyc in HCl 300 mg capsule TAKE ONE CAPSULE BY MOUTH TWICE DAILY WITH FOOD 02/23 completed Not Available Not Available Not Available azithromy torie 250 mg tablet TAKE DIRECTED 03/07 completed Not Available Not Available Not Available fluconazo le 150 mg tablet TAKE ONE TABLET BY MOUTH FOR ONE DAY 11/02 completed Not Available Not Available Not Available hydrocodo ne 5 mg-acetam inophen 325 mg tablet take one tablet BY MOUTH EVERY 6 hours NEEDED for pain 01/16 completed Not Available Not Available Not Available ondansetr on HCl 4 mg tablet TAKE 1 TABLET BY MOUTH EVERY 8 HOURS NEEDED 03/07 completed Not Available Not Available Not Available prednison e 20 mg tablet TAKE TWO TABLETS BY MOUTH EVERY DAY 08/19 completed Not Available Not Available Not Available sertralin e 100 mg tablet TAKE 1 TABLET BY MOUTH EVERY DAY 11/20 completed Not Available Not Available Not Available terconazo le 0.8 % vaginal cream Insert 1 applicat orful every day by vaginal route at bedtime for 3 days. 01/16 completed Not Available Not Available Not Available Zoloft 20 mg/mL oral concentra te take 2.5 millilit er by oral route every day and mix with 4 oz. (1/2 cup) of water, sandra torito, lemon/li me soda, lemonade or orange juice ONLY 03/07 completed Prescrib ed Elsewher e: Yes Loca tion: [facility] odify By: [email or web address] Martinez r DateTime : 10/02/20 16 04:45:00 PM Not Available Not Available Not Available lamotrigi ne 25 mg tablet TAKE ONE TABLET BY MOUTH TWICE DAILY 04/12 completed Not Available Not Available Not Available Metrogel Vaginal 0.75 % (37.5 mg/5 gram) insert 1 applicat orful by vaginal route every day at bedtime 03/04 completed Prescrib ed Elsewher e: No Locat ion: [facility] odify By: [email or web address] Encounte r DateTime : 01/27/20 18 04:30:00 PM Not Available Not Available Not Available benzonata te 100 mg capsule TAKE ONE CAPSULE BY MOUTH THREE TIMES DAILY NEEDED FOR cough 06/22 completed Not Available Not Available Not Available hydroxyzi ne HCl 25 mg tablet take one tablet BY MOUTH EVERY SIX hours 08/19 completed Not Available Not Available Not Available methylpre dnisolone 4 mg tablets in a dose pack follow package directio ns 11/20 completed Not Available Not Available Not Available albuterol sulfate HFA 90 mcg/actua tion aerosol inhaler inhale TWO puffs EVERY SIX hours NEEDED FOR wheezing 02/23 completed Not Available Not Available Not Available fluticaso ne propionat e 50 mcg/actua tion nasal spray,dimas pension SPRAY ONCE IN EACH NOSTRIL TWICE DAILY NEEDED 03/07 completed Not Available Not Available Not Available sertralin e 50 mg tablet TAKE ONE TABLET BY MOUTH EVERY DAY 11/02 completed Not Available Not Available Not Available metronida zole 0.75 % topical gel APPLY TO THE AFFECTED AREA(S) with a thin layer DAILY FOR 5 DAYS 02/23 completed Not Available Not Available Not Available amoxicill in 875 mg-potass ium clavulana te 125 mg tablet TAKE 1 TABLET BY MOUTH TWICE DAILY FOR 10 DAYS 03/07 completed Not Available Not Available Not Available Poly-Iron 150 mg iron capsule 01/16 completed Not Available Not Available Not Available bupropion HCl XL 300 mg 24 hr tablet, extended release TAKE ONE TABLET BY MOUTH EVERY MORNING active Not Available Not Available No t Available bupropion HCl XL 150 mg 24 hr tablet, extended release TAKE ONE TABLET BY MOUTH EVERY MORNING FOR SEVEN DAYS THEN, if tolerati ng, increase TO 300 MG TABLET DIRECTED 11/20 completed Not Available Not Available Not Available nitrofura ntoin monohydra te/macroc rystals 100 mg capsule TAKE ONE CAPSULE BY MOUTH EVERY TWELVE HOURS FOR 7 DAYS 10/15 completed Not Available Not Available Not Available vitamin B complex active Not Available Not Available Not Available active Not Available Not Avai lable Not Available 28 mg-800 mcg tablet 03/07 completed Prescrib ed Elsewher e: Yes Loca tion: [facility] odify By: [email or web address] Encount er DateTime : 10/15/20 04:00:00 PM Not Available Not Available Not Available naltrexon e 4.5 mg capsule Take 1 capsule every day by oral route in the morning for 7 days. 06/22 completed Not Available Not Available Not Available Vitals Date Recorded Body height Body mass index (BMI) Body weight Systolic blood pressure Diastolic blood pressure Provider Name and Address Organization Details Last Updated DateTime 03/18/2025 165.1 cm 25.7 kg/m2 54844.94 g 132 mm[Hg] 84 mm[Hg] Jacque Rowell [facility] 12:33:22 Date Recorded Body height Body mass index (BMI) Body weight Systolic blood pressure Diastolic blood pressure Provider Name and Address Organization Details Last Updated DateTime 04/12/2025 165.1 cm 26.1 kg/m2 02947 g 103 mm[Hg] 69 mm[Hg] Aurora Rico [facility] 17:23:04 Date Recorded Body weight Systolic blood pressure Diastolic blood pressure Provider Name and Address Organization Details Last Updated DateTime 05/12/2025 65133.1868 3 g 105 mm[Hg] 62 mm[Hg] Aurora Rico [facility] 05/12/2025 16:23:56 Social History Question Answer Notes LastModified by Organizat ion Details LastModified Time Tobacco Smoking Status Never Smoker Desiree Parada null, [facility] 08/20/2023 17:30:08 Are You Blind Or Do You Have Difficulty Seeing? No [email or web address] Information n ot available 09/13/2021 What Is Your Level Of Caffeine Consumption? Occasional [email or web address] Information not available 09/13/2021 How Much Tobacco Do You Chew? None Information not available 04/12/2025 In The 14 Days Before Symptom Onset, Have You Had Close Contact With A Laboratory-confirm ed COVID-19 While That Case Was Ill? No [email or web address] Information n ot available 09/13/2021 In The 14 Days Before Symptom Onset, Have You Had Close Contact With A Person Who Is Under Investigation For COVID-19 While That Person Was Ill? No [email or web address] Information not available 09/13/2021 Have You Been To An Area Known To Be High Risk For COVID-19? No [email or web address] Information not available 09/13/2021 Are You Deaf Or Do You Have Serious Difficulty Hearing? No Information not available 09/13/2021 What Type Of Diet Are You Following? REGULAR [email or web address] Information n ot available 09/13/2021 What Is The Highest Grade Or Level Of School You Have Completed Or The Highest Degree You Have Received? [id number] Information not available 06/22/2024 Are There Any Guns Present In Your Home? Yes Information not available 04/12/2025 Have You Ever Been Counseled For Unhealthy Alcohol Use? No [email or web address] Information not available 08/20/2023 Do You Use Your Seat Belt Or Car Seat Routinely? Yes [email or web address] Information not available 09/13/2021 Do You Have Smoke And Carbon Monoxide Detectors In Your Home? Yes [email or web address] Information not available 09/13/2021 How Much Tobacco Do You Smoke? No Information not available 06/22/2024 Do You Use Sunscreen Routinely? Yes [email or web address] Information not available 09/13/2021 Has Tobacco Cessation Counseling Been Provided? No [email or web address] Information not available 08/20/2023 Have You Used IV Drugs? No Information not available 06/22/2024 Do You Have Difficulty Walking Or Climbing Stairs? No Information not available 08/20/2023 Sex: Unknown Functional Status Question Answer Note LastModified by Organizat ion Details LastModified Time Do you use any illicit or recreational drugs? No [email or web address] Information not available 03/07/2021 Do you or have you ever used any other forms of tobacco or nicotine? No [email or web address] Information not available 08/20/2023 What is your level of alcohol consumption? Occasional [email or web address] Information not available 09/13/2021 Are you able to walk? YESWOREST [email or web address] Information not available 09/13/2021 Are you able to care for yourself? Yes Information n ot available 08/20/2023 Do you have difficulty dressing or bathing? No [email or web address] Information not available 08/20/2023 What is your exercise level? Moderate [email or web address] Information not available 03/18/2025 Mental Status Question Answer Note LastModified by Organization D etails LastModified Time Do you feel stressed (tense, restless, nervous, or anxious, or unable to sleep at night)? [id number] Information not available 09/13/2021 Family History Relationship Description Onset Age of this Age Resolved Age Notes LastModified by Organization Details LastModified Time Mother Diabetes mellitus [email or web address] Not available 08/20 17:58:27 Mother Hypercholest erolemia Not available 08/20 17:58:27 Mother Polycystic ovary syndrome [email or web address] Not available 05/02 15:34:15 Maternal Grandmother Diabetes mellitus [email or web address] Not available 08/20 17:58:27 Maternal Grandmother Hypercholest erolemia [email or web address] Not available 08/20 17:58:27 Maternal Grandmother Polycystic ovary syndrome [email or web address] Not available 05/02 15:34:15 Sister Diabetes mellitus [email or web address] Not available 08/20 17:58:27 Sister Polycystic ovary syndrome [email or web address] Not available 05/02 15:34:15 Brother Diabetes mellitus [email or web address] Not available 08/20 17:58:27 Medical History Condition Response Allergies (Food, seasonal, environmental ) N Other N Breast Cancer N Drug/Latex Allergies/Reactions N Blood Transfusion N Dermatologic Disorders N Lung Disease N Defects or Inherited Disease N Breast Problem N Gestational Diabetes N Hematologic disorders N Anesthesia Complications N History of STI N Deep Vein Thrombosis N Polycystic ovary syndrome N Anxiety Disorder Y Autoimmune disease N Arthritis N Infertility N Polyps N Acid Reflux (GERD) N History of abnormal pap N Cancer N Stroke N Varicosities N Neurologic/Epilepsy N Endometriosis N High Cholesterol N Headaches N Fibromyalgia N Kidney Disease N Heart Problems N Kidney or Bladder Problems N Thyroid Problems N GI Problems N Eating Disorder N Anemia N Art (IVF or FET) N Psychiatric Illness N Ovarian Cancer N Diabetes N Pulmonary (TB, Asthma) N Hepatitis/Liver Disease N No Past Medical History N Eczema N Urinary Tract Infection N Abuse/Domestic Violence N Asthma N Trauma/Violence N Depression/ depression Y Heart Disease N Pre-Eclampsia N Hypertension N Osteoporosis N Thrombophilias N Gynecological History Statement/Question Response Abnormal Pap N Flow Moderate Date of LMP 01/15/2025 N Was last menstrual period normal Y STIs/STDs N HPV Vaccine Y Duration of Flow (days) 7 Current Control Method Age at First Child 32 Sexually Active? Y Date of Last Pap Smear 11/03/2024 Sexual Problems? N LMP Definite N Obstetrics History GPAL:G 4 P 3 0 0 3 Type Value Full Term 3 Living 3 Total 4 Past Encounters Encounter ID Performer Location Encounter Start Date Encounter Closed Date Diagnosis/Indication Diagnosis SNOMED-CT Code Diagnosis ICD10 Code Diagnosis Note [id number] Nando Cabrera MD [facility] [address] [address] 03/07/2021 16:21:59 03/08/2021 08:08:47 [id number] MD Maynor Gomez [address],[place] [address] 03/07/2021 16:24:19 03/07/2021 22:50:04 test positive 965250788 Z32.01 Anxiety in 489 5584140 9109 F41.9 Venereal d isease screening 780804378 Z11.3 Screening for malignant neoplasm of cervix 123256931 Z12.4 [id number] Ofelia Luna MD [facility] [address],[place] [address] 04/04/2021 17:00:51 04/04/2021 23:54:59 Routine care 081064959 Z34.91 test positive 092948110 Z32.01 Anxiety in 765 4056079 9109 F41.9 Venereal d isease screening 022428856 Z11.3 Screening for malignant neoplasm of cervix 278477905 Z12.4 [id number] Ofelia Luna MD [facility] [address],[place] [address] 04/04/2021 17:36:24 04/04/2021 17:49:05 screening 253226517 Z36.82 [id number] Ofelia Luna MD [facility] [address],[place] [address] 05/02/2021 17:48:30 05/03/2021 21:50:54 Routine care 454441409 Z34.91 [id number] Ofelia Luna MD [facility] [address],[place] [address] 05/30/2021 16:15:58 05/30/2021 17:08:29 screening for malformation 230329523 Z36.3 [id number] Ofelia Luna MD [facility] [address],[place] [address] 05/30/2021 16:16:18 05/30/2021 17:59:18 Routine care 415079033 Z34.91 Low lying placenta 48566 2007 O44.42 [id number] MD Maynor Gomez [address],[place] [address] 06/26/2021 14:28:29 06/26/2021 15:23:40 screening 109953659 Z36.2 [id number] Ofelia Luna MD [facility] [address],[place] [address] 06/26/2021 14:29:57 06/26/2021 16:24:16 Routine care 557670051 Z34.91 Polyhydramnios 19611611 O40.2XX1 [id number] Nando Cabrera MD [facility] [address],[place] [address] 07/20/2021 09:27:58 07/20/2021 10:24:38 Polyhydramnios 50816387 O40.2XX0 Z3A.27 [id number] [facility] [address],[place] [address] 07/20/2021 10:18:52 07/20/2021 12:10:12 Routine care 707604073 Z34.92 [id number] Sara Ruiz [facility] [address],[place] [address] 07/20/2021 11:14:04 07/20/2021 11:32:11 Routine care 233252202 Z34.92 [id number] Nando Cabrera MD [facility] [address],[place] [address] 08/03/2021 16:53:41 08/04/2021 09:45:27 Routine care 060935081 Z34.83 [id number] Ofelia Luna MD [facility] [address],[place] [address] 08/21/2021 16:55:38 08/21/2021 17:29:52 Routine care 811580839 Z34.91 [id number] [facility] [address],[place] [address] 09/07/2021 16:42:33 09/07/2021 17:43:32 Routine care 704202816 Z34.92 [id number] [facility] [address],[place] [address] 09/13/2021 17:41:10 09/14/2021 11:08:08 Routine care 770930000 Z34.93 [id number] Nando Cabrera MD [facility] [address],[place] [address] 09/21/2021 17:06:39 09/22/2021 18:40:04 Routine care 378886635 Z34.83 [id number] Nando Cabrera MD [facility] [address],[place] [address] 09/28/2021 17:45:58 09/29/2021 10:11:32 Routine care 542403049 Z34.83 [id number] Ofelia Luna MD [facility] [address],[place] [address] 10/06/2021 16:04:52 10/09/2021 19:54:49 Routine care 265862731 Z34.91 Polyhydramnios 60960339 O40.2XX1 [id number] Ofelia Luna MD [facility] [address],[place] [address] 10/16/2021 11:57:30 10/16/2021 13:09:19 Pelvic hematoma 993114345 N94.89 [id number] Ofelia Luna MD [facility] [address],[place] [address] 01/16/2022 17:33:34 01/17/2022 09:25:42 Obstetric trauma causing pelvic hematoma 079928504 O71.7 Depressive disorder 3548 9007 F32.A [id number] Ofelia Luna MD [facility] [address],[place] [address] 03/20/2022 17:45:34 03/21/2022 11:26:19 Depressive disorder 12831183 F32.A Gynecologi c examination 49839913 Z01.419 Candidal vulvovaginitis 40239619 B37.3 [id number] Elli Barcenas [facility] [address],[place] [address] 08/20/2023 17:28:00 08/21/2023 09:55:43 Gynecologic examination 06805308 Z01.419 Take Calcium with Vitamin D 1200mg daily if not receiving in daily diet. It is strongly advised to have an annual flu shot and up can obtain at most pharmacies . If you have not had a TDap shot in the last 10 years you should obtain one as well. Discussed with patient & provided with informatio n regarding Gardisil vaccine to prevent the 4 strains for HPV that cause cervical cancer if under age 26. Encourage safe sexual practices, to use condoms and limit partners if not already in a monogamous relationsh ip. Do monthly self breast exams. Have mammogram yearly or every other year depending on family history. BRCA testing is now available for patients with strong genetic history of female cancer. If interested contact the office. Engage in daily exercise of low impact aerobic exercise 45-60 minutes 4-5 times weekly. Avoid tobacco and illicit drugs as well as using moderation with alcohol intake less than 1-2 8 oz beverages daily. This lifestyle behavior pattern will lead to less health conditions and longer life span. If BMI greater than 25 weight watchers or dietary consult advised. Patient received above instructio ns, and questions have been answered. If you have any questions please call or respond to this email. Patient was made aware of the patient portal and may obtain a paper copy of today's plan if desired. Pap/hpv due Screen declinedGe netic Screen discussedC olon Screen naDexa Screen naRoutine Labs PCP Body mass index 25-29 - overweight 238857959 Z68.29 Informatio n givenRD info givenWill inquire insurance coverage.A prachi I do not prescribe phentermin e.Would prefer she go to PCP but will consider short term management if decides to pursue a medication option.She is exercising and is open to seeing business services vice president. Will send portal ms [id number] Nando Cabrera MD [facility] [address],[place] [address] 11/02/2024 18:20:24 11/03/2024 12:35:35 Gynecologic examination 35756065 Z01.419 Annual gynecologi bhargav exam performed. Patient will come back in a year unless there are new symptoms. Suggest Calcium with Vitamin D if not eating in diet. Patient advised to get annual flu shot. Recommend yearly physicals and perform monthly breast exams. Genetic testing is available for patients with family history of cancer. Engage in safe sexual practices, use condoms. Encouraged to have daily exercise. Avoid tobacco and illicit drugs, moderation of alcohol. If BMI greater than 25 dietary consult advised. If you have any questions please call or email. mammogram- n/a colon cancer screening - n/a DEXA scan- n/a Pap smear- pap w/ HPV collected laboratory evaluation - requested STI testing - declined Body mass index 25-29 - overweight 405293169 Z68.25 Today we agreed to continue Wellbutrin as she is having much success with improvemen t to mood and overall emotional wellbeing. Patient lost 14 lbs since last year and has been feeling better overall. Counseled on medication R/B's, Most common side effects, & use. All questions were answered to patient satisfacti on. Anxiety 86549999 F41.9 Discussed treatment options for chronic anxiety and depression , including risks/bene fits/adver se effects.Di scussed discontinu ing sertraline and starting venlafaxin e. Instructed patient to taper off sertraline by decreasing daily dose to 25 mg once daily for 2 weeks before stopping. Patient to then start venlafaxin e 37.5 mg daily. Discussed risks/poss ible side effects of venlafaxin e.Discusse d that antidepres sants may take 4-6 weeks to become effective. Recommende d that patient take medication with food. Discussed that patient is to go to ER if she experience s any suicidal/h omicidal ideation. Patient to call if medication not helping or if she has any concerns/q uestions. Patient to RTO in 3 months for a med check or sooner if needed. Patient verbalized understand ing of POC.Recomm ended counseling /therapy in addition to pharmacolo gic treatment. Discussed that seeking care with psychiatry is strongly recommende d if no improvemen t in symptoms. [id number] EDITH [facility] [address] [address] 11/20/2023 16:20:43 11/21/2023 09:46:34 Body mass index 25-29 - overweight 713351692 Z68.29 Today we agreed to continue Wellbutrin as she is having much success with improvemen t to mood and overall emotional wellbeing. Does feel she has more motivation . In regards to weight-los s, we discussed contrave which she voices her insurance does not cover. As al andrew saxena we discussed adding a small dose of naltrexone which is the other active ingredient in Contrave with her wellbutrin ; uncertain if insurance will cover this medication so we will send Rx and see what feedback we get. If they cover it we can discuss dosing schedule. If they do not cover it we can also consider going through the [facility] as she might be able to get contrave for a reasonable fee. If these options work she will need a 4wk med check; then will decide follow ups after that depending on progress/t olerance to therapy. Already working on diet/exerc ise changes. Counseled on medication R/B's, Most common side effects, & use. All questions were answered to patient satisfacti on. Total time of virtual/te le-visit was approx 24 mins with >50% consisting of counseling , education of patient's plan of care. [id number] Nando Cabrera MD [facility] [address],[place] [address] 05/29/2024 12:07:53 05/29/2024 13:50:40 Anxiety 60682222 F41.9 This patient is a 38-year-ol d female who presents for follow-up on anxiety. She continues to have severe anxiety she. She is uncomforta ble and anxious regularly. It affects her quality of life and activities daily living. She has been treated with sertraline . She came down to 50 from 100 mg of sertraline . She is also taking Wellbutrin . We agreed to add oxcarbazep ine. I talked about oxcarbazep ine in detail. It was my recommenda tion that we start this in addition for the treatment of anxiety. We will start at 300 mg twice a day. She is given warnings about side effects and precaution s about the medication . She was given risks, benefits, and alternativ es to the medication . [id number] MD Maynor Borja [address],[place] [address] 06/22/2024 13:56:46 06/22/2024 15:03:31 Anxiety 99403902 F41.9 This patient is a 38-year-ol d female who presents for follow-up on anxiety. She continues to have severe anxiety she. She is uncomforta ble and anxious regularly. It affects her quality of life and activities daily living. She has been treated with sertraline . She came down to 50 from 100 mg of sertraline . She is also taking Wellbutrin . We agreed to add oxcarbazep ine. she did not like the side effects of the oxcarbazep ine. We talked about other treatment options. We talked about Lamictal. I recommende d that we start 25 of Lamictal b.i.d.. She will start with 25 once daily for 2 weeks. She was then changed to twice daily. She is given instructio ns. She was given precaution s. She was asked to report the hospital with any rash. The medication s were prescribed . Lamictal 25 mg p.o. b.i.d. spent over 30 minutes on the patient's care. [id number] Nando Cabrera MD [facility] [address],[place] [address] 09/16/2024 16:37:39 09/17/2024 03:45:43 Dysuria [id number] R30.0 Urinary tr act infectious disease [id number] N39.0 [id number] Nando Cabrera MD [facility] [address],[place] [address] 03/18/2025 11:47:28 03/18/2025 13:35:51 test positive [id number] Z32.01 1. Exam today within normal limits. 2. Ultrasound today confirms GA and viability. DEE DEE 10/22/25, FHR 165 3. GC/Clamydi a testing done: will f/u as indicated. Pap smear UTD (11/03/24 - NILM, HPV negative). 4. ACOG guidelines and plan of care for reviewed with patient. All questions answered. 5. Return to office at 12 weeks for new OB visit. Will need labs, UDS, and urine culture performed at that time. 6. Genetic screening: counseled, requested (consents signed and collected) 7. Reviewed dos and don'ts of . New OB informatio n packet given, explained how practice/e xchange works. All questions answered. 8. Encouraged vitamins. 9. Discussed that consultati on with MFM recommende d due to lamotrigin e use in 1st trimester - referral to be sent to [facility] in [place] [id number] Nando Cabrera MD [facility] [address],[place] [address] 03/18/2025 11:45:51 03/18/2025 12:23:43 [id number] Nando Cabrera MD [facility] [address],[place] [address] 04/12/2025 16:29:10 04/12/2025 17:12:47 screening [id number] Z36.82 Z3A.12 [id number] Nando Cabrera MD [facility] [address],[place] [address] 04/12/2025 16:30:31 04/13/2025 08:54:45 care status [id number] Z34.82 [id number] Nando Cabrera MD [facility] [address],[place] [address] 05/12/2025 15:33:26 05/12/2025 16:50:57 care status [id number] Z34.82 Health Concerns Section Related Observation LastModified by Organization Detai ls LastModified Time None Recorded Concern Status LastModified by Organization Details LastModified Time None Recorded Advance Directives Directive None Recorded Payers Insurance Date Sequence Insurance Name Policy Number Policy Martinez Covered Member ID Martinez Member ID Guarantor Name 05/10/2025 1 U[employer] [id number] Josephine Burk [id number] Josephine Burk 12/11/2021 2 [place] [id number] Burton Burk [id number] Josephine Burk 03/17/2025 1 [place] [id number] Josephine Burk [id number] Josephine Burk Notes Date Note Type Note Provider Name and Address Organization Details Recorded Time 03/18/2025 text/html female patient presents to the office today to confirm . Patient denies any problems up to this point with her . Patient denies cramping or vaginal bleeding.Patient reports that she stopped drinking caffeine and has noticed fatigue.Patient is , lives at home with kids and .Denies tobacco/EtOH/illi cits.Patient reports stopping lamotrigine 25 mg when she found out she was a few weeks ago on 02/22/25; patient was taking this medication for anxiety. Patient reports that she is still taking Wellbutrin 300 mg PO daily and venlafaxine 37.5 mg PO daily. States that mood has been stable, denies SI/HI. ANNALEE CAMPA NP [address], [place], [address], [facility] 03/18/2025 13:08:37 OBGyn Episode Ob Episode Information Episode Created Date Number of Fetuses Patient Bloodtype Patient rh Status Prepregnancy Weight lbs Domestic Partner Domestic Partner Phone Father Name Sales Process Manager Status 02/18/20 21 1 CLOSED Fetus Data First Name Last Name Admitted to NICU Weight (g) Sex Living Outcome Pediatric Complications Fetus ID Race Codes Race Delivery Type 3486.76 1704 F Full Term 8570 Vaginal Delivery Dee Dee Calculation Initial Dee Dee Date Initial Exam Date Initial Exam Provider Initial Ultrasound Date Last Menstrual Period Date Ultra Sound Weeks Gestation 0 Eighteen To Twenty Week Dee Dee Update Ultra Sound Date Fundal Height At Umbil Quickening Date Ultra Sound Latest Weeks Gestation Final Dee Dee Confirmed By Final Dee Dee Confirmed Date Final Dee Dee Date Ultra Sound Latest Days Gestation 0 0 Menstrual History Last Menstrual Date Menses Monthly On Bcp Conception Prior Menses Frequency Hcg Plus Date Menarche Onset Age Delivery Information Delivery Date Delivery Type Labor Anesthesia Weeks Gestation Incision Type Labor Labor Length Hrs Delivered By Post Complications Tubal Sterilization Discharge Date Comments 8 38.6 Discharge Information Feeding Method Contraceptive Method Maternal HG B and HCT Levels Ob Episode Information Episode Created Date Number of Fetuses Patient Bloodtype Patient rh Status Prepregnancy Weight lbs Domestic Partner Domestic Partner Phone Father Name Sales Process Manager Status 03/07/20 21 1 CLOSED Fetus Data First Name Last Name Admitted to NICU Weight (g) Sex Living Outcome Pediatric Complications Fetus ID Race Codes Race Delivery Type 3316.66 4704 M Full Term 8862 Vaginal Delivery Dee Dee Calculation Initial Dee Dee Date Initial Exam Date Initial Exam Provider Initial Ultrasound Date Last Menstrual Period Date Ultra Sound Weeks Gestation 0 Eighteen To Twenty Week Dee Dee Update Ultra Sound Date Fundal Height At Umbil Quickening Date Ultra Sound Latest Weeks Gestation Final Dee Dee Confirmed By Final Dee Dee Confirmed Date Final Dee Dee Date Ultra Sound Latest Days Gestation 0 0 Menstrual History Last Menstrual Date Menses Monthly On Bcp Conception Prior Menses Frequency Hcg Plus Date Menarche Onset Age Delivery Information Delivery Date Delivery Type Labor Anesthesia Weeks Gestation Incision Type Labor Labor Length Hrs Delivered By Post Complications Tubal Sterilization Discharge Date Comments 9 39 Discharge Information Feeding Method Contraceptive Method Maternal HG B and HCT Levels Ob Episode Information Episode Created Date Number of Fetuses Patient Bloodtype Patient rh Status Prepregnancy Weight lbs Domestic Partner Domestic Partner Phone Father Name Sales Process Manager Status 04/04/20 21 1 A Positive 161 CLOSED Fetus Data First Name Last Name Admitted to NICU Weight (g) Sex Living Outcome Pediatric Complications Fetus ID Race Codes Race Delivery Type Yury 3657.08 55 M true Full Term 9606 Vaginal Delivery Problems Problem Notes 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 & SMA ne gative in 2019 Problem Name Start Date End Date Resolution Snomed Code Not e Low lying placenta 06/26/2021 SELFRESOLVED [id number] RESOLVED 06/26/21 Polyhydramnios 06/26/2021 SELFRESOLVED [id number] Anxiety in [id number] zoloft 100 Dee Dee Calculation Initial Dee Dee Date Initial Exam Date Initial Exam Provider Initial Ultrasound Date Last Menstrual Period Date Ultra Sound Weeks Gestation 10/13/2021 04/04/2021 03/07/2021 01/06/2021 8 Eighteen To Twenty Week Dee Dee Update Ultra Sound Date Fundal Height At Umbil Quickening Date Ultra Sound Latest Weeks Gestation Final Dee Dee Confirmed By Final Dee Dee Confirmed Date Final Dee Dee Date Ultra Sound Latest Days Gestation 0 [email or web address] 04/04/2021 10/13/20 21 0 Pre- Flowsheet Flowsheet Date 04/04/2021 Yuan Score Blood Edema Fundus Height Fundus Units Glucose Ketones Leukocytes Nitrite Labor Signs Protein Cervic Dilation Cervic Effacement Cervic Station neg none trace Type Weight in lbs Pre/Post Dialysis Refused Weight 163.286584038393 BP Diastolic BP Location Tested BP Systolic BP Type 69 108 Fetus Heart Rate Present Fetus Movement A No Comments OB SCREEN: HPIPt is a 35yo G [id number] who presents for missed menses and possible . LMP 01/06/21, menses regular. . was planned. Term x2, had previa that resolved in second. on zoloft 100mg for anxiety, well controlled.She is feeling well. happy.Last annual exam 2017She denies domestic violence and she denies depression.ROSPatient reports no fatigue, no fever, no significant weight gain, and no significant weight loss. She reports no abnormal moles and no rashes. She reports no irritation and no vision changes. She reports no hearing loss, no ear pain, no nose/sinus problems, no sore throat, no snoring, no dry mouth, and no mouth ulcers. She reports no dyspnea / shortness of breath, no cough, no sputum production, no hemoptysis, and no wheezing. She reports no chest pain, no palpitations, and no orthopnea. She reports no heartburn, no dysphagia, no nausea, no vomiting, no abdominal pain, no bowel movement changes, no diarrhea, no constipation, and no rectal bleeding. She reports no hematuria, no abnormal bleeding, no flank pain, no trouble urinating, no incontinence, no rash, no lesion, no discharge, no vaginal odor, and no vaginal itching. She reports no menstrual problems and no PMDD symptoms. She reports no menopausal symptoms. She reports no sexual problems. She reports no muscle aches, no muscle weakness, no arthralgias/joint pain, and no back pain. She reports no headaches, no dizziness, no LOC, no weakness, no numbness, and no seizures. She reports no depression, no alcoholism, and no sleep disturbances. She reports no swollen glands and no bruising. She reports no runny nose, no itching, no hives, and no frequent sneezing.Physical ExamPatient is a 35-year-old female.see vital signsGeneral: NAD, well developed, well nourishedHead: NCATNeck: no thyromegaly, no LADBack: no CVA tendernessLungs: CTA BHeart: RRR without M/R/GAbdomen: soft, nontender, nondistended, no masses or organomegalyPelvic: External genitalia normal, BUS normal, Vagina normal without significant discharge, cervix normal in appearance and no CMT, uterus enlarged to 8, no adnexal masses or tendernessExtremities: nontender, no edemaSkin: no lesions notedLymph nodes: no axillary, cervical, or inguinal lymphadenopathyAssessment / PlanFirst trimester at 8w4d with DEE DEE 10/13/21 by DIVINA cw US todayOb education done and all questions answered.Discussed safe sexual practices, environmental, work hazards, travel restrictions, seat belt use. Encouraged flu shot. Encouraged a healthy well balanced diet, avoid alcohol, tobacco, and street drugs, and engage in daily low impact exercise. Avoid cat feces. Avoid travel to areas where zika virus is a concern.discussed covid vaccine and risks and benefits.OB labs next visitpap, std testing, urine culture todayEncouraged vitamins. Prescription sent if needed.Discussed screening for aneuploidy- pt desires NIPT next visitFollow up in 4 weeks for first ob [id number] presents for care. History uncomplicated, 2 term SVDs with Ashleigh here in the past. Feeling well, just tired. NO concerns or questions. US with normal NT. Labs and NIPT today. Flowsheet Date 04/04/2021 Yuan Score Blood Edema Fundus Height Fundus Units Glucose Ketones Leukocytes Nitrite Labor Signs Protein Cervic Dilation Cervic Effacement Cervic Station Type Weight in lbs Pre/Post Dialysis Refused BP Diastolic BP Location Tested BP Systolic BP Type Fetus Heart Rate Present Fetus Movement Comments Flowsheet Date 05/02/2021 Yuan Score Blood Edema Fundus Height Fundus Units Glucose Ketones Leukocytes Nitrite Labor Signs Protein Cervic Dilation Cervic Effacement Cervic Station neg none trace Type Weight in lbs Pre/Post Dialysis Refused Weight 165.102965224337 BP Diastolic BP Location Tested BP Systolic BP Type 72 115 Fetus Heart Rate Present A 145 Fetus Movement A No Comments Doing well, getting energy b ack. Declines AFP. Anxiety stable on meds. No concerns. Anatomy next time. Flowsheet Date 05/30/2021 Yuan Score Blood Edema Fundus Height Fundus Units Glucose Ketones Leukocytes Nitrite Labor Signs Protein Cervic Dilation Cervic Effacement Cervic Station Type Weight in lbs Pre/Post Dialysis Refused BP Diastolic BP Location Tested BP Systolic BP Type Fetus Heart Rate Present Fetus Movement Comments Flowsheet Date 05/30/2021 Yuan Score Blood Edema Fundus Height Fundus Units Glucose Ketones Leukocytes Nitrite Labor Signs Protein Cervic Dilation Cervic Effacement Cervic Station neg trace trace Type Weight in lbs Pre/Post Dialysis Refused Weight 168.712381401847 BP Diastolic BP Location Tested BP Systolic BP Type 66 102 Fetus Heart Rate Present A 140 Fetus Movement A Yes Comments Doing well. Feels good. Jo marjan today wnl but suboptiimal heart and stomach. Also LL placenta 1.8cm. Repeat US next visit. Flowsheet Date 06/26/2021 Yuan Score Blood Edema Fundus Height Fundus Units Glucose Ketones Leukocytes Nitrite Labor Signs Protein Cervic Dilation Cervic Effacement Cervic Station Type Weight in lbs Pre/Post Dialysis Refused BP Diastolic BP Location Tested BP Systolic BP Type Fetus Heart Rate Present Fetus Movement Comments Flowsheet Date 06/26/2021 Yuan Score Blood Edema Fundus Height Fundus Units Glucose Ketones Leukocytes Nitrite Labor Signs Protein Cervic Dilation Cervic Effacement Cervic Station neg trace 24 trace Type Weight in lbs Pre/Post Dialysis Refused Weight 171.455460611957 BP Diastolic BP Location Tested BP Systolic BP Type 69 105 Fetus Heart Rate Present A 155 Fetus Movement A Yes Comments Doing well. No concerns. US today LLP resolved, growth 47%, anatomy complete, poly with DVP 8+. Will recheck fluid and growth next visit. Flowsheet Date 07/20/2021 Yuan Score Blood Edema Fundus Height Fundus Units Glucose Ketones Leukocytes Nitrite Labor Signs Protein Cervic Dilation Cervic Effacement Cervic Station Type Weight in lbs Pre/Post Dialysis Refused BP Diastolic BP Location Tested BP Systolic BP Type Fetus Heart Rate Present Fetus Movement Comments Flowsheet Date 07/20/2021 Yuan Score Blood Edema Fundus Height Fundus Units Glucose Ketones Leukocytes Nitrite Labor Signs Protein Cervic Dilation Cervic Effacement Cervic Station none trace Type Weight in lbs Pre/Post Dialysis Refused Weight 174.35576826417 BP Diastolic BP Location Tested BP Systolic BP Type 61 R arm 97 sitting Fetus Heart Rate Present Fetus Movement A Yes Comments Doing well. Encouraged tdap. U/S today. Await recommendations. Flowsheet Date 07/20/2021 Yuan Score Blood Edema Fundus Height Fundus Units Glucose Ketones Leukocytes Nitrite Labor Signs Protein Cervic Dilation Cervic Effacement Cervic Station none trace Type Weight in lbs Pre/Post Dialysis Refused Weight 174.88795955390 BP Diastolic BP Location Tested BP Systolic BP Type 61 97 Fetus Heart Rate Present Fetus Movement A Yes Comments Doing well. Encouraged tdap. U/S today. Await recommendations. Flowsheet Date 08/03/2021 Yuan Score Blood Edema Fundus Height Fundus Units Glucose Ketones Leukocytes Nitrite Labor Signs Protein Cervic Dilation Cervic Effacement Cervic Station 29 Type Weight in lbs Pre/Post Dialysis Refused Weight 178.788106088017 BP Diastolic BP Location Tested BP Systolic BP Type 65 R arm 101 sitting Fetus Heart Rate Present A 145 Fetus Movement Comments Flowsheet Date 08/21/2021 Yuan Score Blood Edema Fundus Height Fundus Units Glucose Ketones Leukocytes Nitrite Labor Signs Protein Cervic Dilation Cervic Effacement Cervic Station neg none 31 trace Type Weight in lbs Pre/Post Dialysis Refused Weight 181.275265733674 BP Diastolic BP Location Tested BP Systolic BP Type 66 115 Fetus Heart Rate Present A 125 Fetus Movement A Yes Comments Doing very well. Worried abo ut weight gain- reassured. Had COVID vaccine, Will do Tdap and flu shot. Flowsheet Date 09/07/2021 Yuan Score Blood Edema Fundus Height Fundus Units Glucose Ketones Leukocytes Nitrite Labor Signs Protein Cervic Dilation Cervic Effacement Cervic Station trace 35 Type Weight in lbs Pre/Post Dialysis Refused Weight 184.628885702164 BP Diastolic BP Location Tested BP Systolic BP Type 71 107 Fetus Heart Rate Present A 122 Fetus Movement A Yes Comments Doing well. Occasional contr actions. Encouraged pre admit. All vaccines up to date. Flowsheet Date 09/13/2021 Yuan Score Blood Edema Fundus Height Fundus Units Glucose Ketones Leukocytes Nitrite Labor Signs Protein Cervic Dilation Cervic Effacement Cervic Station neg trace 36 trace 1cm 50% -2 Type Weight in lbs Pre/Post Dialysis Refused Weight 185.072376963077 BP Diastolic BP Location Tested BP Systolic BP Type 74 115 Fetus Heart Rate Present A 144 Present Fetus Movement A Yes Comments patient states that having v aginal itching, discharge, contractions, and some swelling. reviewed precautions, gbs done and affirm, will tx if positive, cervix checked due to cntx f/u 1 week Flowsheet Date 09/21/2021 Yuan Score Blood Edema Fundus Height Fundus Units Glucose Ketones Leukocytes Nitrite Labor Signs Protein Cervic Dilation Cervic Effacement Cervic Station 36 trace Type Weight in lbs Pre/Post Dialysis Refused Weight 187.400173136658 BP Diastolic BP Location Tested BP Systolic BP Type 71 R arm 113 sitting Fetus Heart Rate Present A 145 Fetus Movement A Yes Comments discussed induction of labor , she does not want to go past EDC , no complaints today. discussed GBS. Flowsheet Date 09/28/2021 Yuan Score Blood Edema Fundus Height Fundus Units Glucose Ketones Leukocytes Nitrite Labor Signs Protein Cervic Dilation Cervic Effacement Cervic Station 3cm 70% -2 Type Weight in lbs Pre/Post Dialysis Refused Weight 188.165495720774 BP Diastolic BP Location Tested BP Systolic BP Type 79 R arm 117 sitting Fetus Heart Rate Present A 144 Fetus Movement A Yes Comments considering induction, think ing about the 06 of October, no complaints, good movement Flowsheet Date 10/06/2021 Yuan Score Blood Edema Fundus Height Fundus Units Glucose Ketones Leukocytes Nitrite Labor Signs Protein Cervic Dilation Cervic Effacement Cervic Station trace Type Weight in lbs Pre/Post Dialysis Refused Weight 193.91010102785 BP Diastolic BP Location Tested BP Systolic BP Type 79 117 Fetus Heart Rate Present A 140 Fetus Movement A Yes Comments Doing well. GBS neg. IOL sat. Precautions given. Flowsheet Date 10/16/2021 Yuan Score Blood Edema Fundus Height Fundus Units Glucose Ketones Leukocytes Nitrite Labor Signs Protein Cervic Dilation Cervic Effacement Cervic Station Type Weight in lbs Pre/Post Dialysis Refused Weight 175.718387663809 BP Diastolic BP Location Tested BP Systolic BP Type 80 119 Fetus Heart Rate Present Fetus Movement Comments Menstrual History Last Menstrual Date Menses Monthly On Bcp Conception Prior Menses Frequency Hcg Plus Date Menarche Onset Age 0201/06/2021 Genetic Screening And Infection History Question Response Note Mental Retardation/Autism false Patient's Age Will Be 35 Years Or Older At Estim ated Date of Delivery false Thalassemia (Romanian, American, Mediterranean, Or Background): MCV < 80 false Neural Tube Defect (Meningomyelocele, Spina Bifi da, Or Anencephaly) false Congenital Heart Defect false Down Syndrome false Rafi-Sachs (eg, Jainism, Cajun, Malian-Berne) f alse Heather Disease false Sickle Cell Disease Or Trait () false Hemophilia Or Other Blood Disorders false Muscular Dystrophy false Cystic Fibrosis false Torrance's Chorea false Intellectual Disability/Autism false If Yes, Was Person Tested For Fragile X? false Other Inherited Genetic Or Chromosomal Disorder false Maternal Metabolic Disorder (eg, Type 1 Diabetes , PKU) false Patient Or Baby's Father Had A Child With Defects Not Listed Above false Recurrent Loss, Or A Stillbirth false Medications (including Suppl ements, Vitamins, Herbs, OTC Drugs), Illicit/Recreational Drugs, Alcohol false If Yes, Agent(s) And Strength/Dosage false Any Other Genetic History false Live With Someone With TB Or Exposed To TB false Patient Or Partner Has History Of Genital Herpes false Rash Or Viral Illness Since Last Menstrual Perio d false History Of STD, Gonorrhea, Chlamydia, HPV, Syphi lis false Other Infection History false History of HIV false History of Hepatitis false Prior GBS-infected child false Hemoglobinopathy Or Carrier false Other Structural Defect false Recent Travel History Outside of Country false Delivery Information Delivery Date Delivery Type Labor Anesthesia Weeks Gestation Incision Type Labor Labor Length Hrs Delivered By Post Complications Tubal Sterilization Discharge Date Comments 1 Induce d Regional-Ep idural 39.3 false Ofelia Luna MD EBL 500 Discharge Information Feeding Method Contraceptive Method Maternal HG B and HCT Levels Ob Episode Information Episode Created Date Number of Fetuses Patient Bloodtype Patient rh Status Prepregnancy Weight lbs Domestic Partner Domestic Partner Phone Father Name Sales Process Manager Status 04/12/20 25 1 A Positive Lucio OPEN Fetus Data First Name Last Name Admitted to NICU Weight (g) Sex Living Outcome Pediatric Complications Fetus ID Race Codes Race Delivery Type [id number] Problems Problem Notes Problem Name Start Date End Date Resolution Snomed Code Not e Mixed anxiety and depressive disorder 04/12/2025 [id number] welbutri n and venlafexinMFM [facility] referral faxed pt scheduled 04/07/25antenatal testing TBD Dee Dee Calculation Initial Dee Dee Date Initial Exam Date Initial Exam Provider Initial Ultrasound Date Last Menstrual Period Date Ultra Sound Weeks Gestation 04/12/2025 03/18/2025 01/15/2025 8 Eighteen To Twenty Week Dee Dee Update Ultra Sound Date Fundal Height At Umbil Quickening Date Ultra Sound Latest Weeks Gestation Final Dee Dee Confirmed By Final Dee Dee Confirmed Date Final Dee Dee Date Ultra Sound Latest Days Gestation 0 [email or web address] 04/12/2025 10/22/20 25 0 Pre- Flowsheet Flowsheet Date 04/12/2025 Yuan Score Blood Edema Fundus Height Fundus Units Glucose Ketones Leukocytes Nitrite Labor Signs Protein Cervic Dilation Cervic Effacement Cervic Station Type Weight in lbs Pre/Post Dialysis Refused Weight 157.872868511917 BP Diastolic BP Location Tested BP Systolic BP Type 69 L arm 103 sitting Fetus Heart Rate Present Fetus Movement Comments this patient is a 39 year-ol d multiparous female at 12 weeks' gestation who presents for initial care. She has a history of term vaginal births. Her medical, surgical, obstetric history is unremarkable. She is vaccinated. She was given precautions recommendations for . We talked about vaccines in . Talked about care in detail. She is having genetic testing. She had a normal 12 week ultrasound. To begin routine care. Flowsheet Date 05/12/2025 Yuan Score Blood Edema Fundus Height Fundus Units Glucose Ketones Leukocytes Nitrite Labor Signs Protein Cervic Dilation Cervic Effacement Cervic Station Type Weight in lbs Pre/Post Dialysis Refused 159.304850741871 BP Diastolic BP Location Tested BP Systolic BP Type 62 L arm 105 sitting Fetus Heart Rate Present A 144 Present Fetus Movement A Yes Comments no complaints, no problems, routine care, no contractions, no vaginal bleeding, no loss of fluid, no cramping Menstrual History Last Menstrual Date Menses Monthly On Bcp Conception Prior Menses Frequency Hcg Plus Date Menarche Onset Age 0201/15/2025 true Delivery Information Delivery Date Delivery Type Labor Anesthesia Weeks Gestation Incision Type Labor Labor Length Hrs Delivered By Post Complications Tubal Sterilization Discharge Date Comments Discharge Information Feeding Method Contraceptive Method Maternal HG B and HCT Levels
--- NOTE | 2025-05-19 19:17 | PC.NURSE ---
Pt presents to ED c/o brown vaginal spotting, started this morning said she noticed it when she wiped. Pt denies pain but endorses pressure lower pelvic pain.
--- NOTE | 2025-05-19 19:25 | ED_ITS ---
HPI - Female Genitourinary General Chief complaint: Vaginal Bleeding Stated complaint: vaginal spotting, 17 weeks Time Seen by Provider: 05/19/25 18:58 History of Present Illness HPI Narrative: 39 y/o F , 17 weeks , presents to the ED for brown vaginal discharge that started this afternoon. She has not required a pad or tamoon. She denies abdominal pain, clots, leakage of fluid, urinary complaints, or diarrhea. States her has been uncomplicated and previous pregnancies have been uncomplicated. States she contacted her OB, Dr. Cabrera, and was advised to come to the ED. Denies fever. Denies concern for STDs, denies vaginal discharge. Related Data Home Medications ?Medication ?Instructions ?Recorded ?Confirmed ?Last Taken ?Type vit no.95-ferrous 1 tablet PO DAILY 10/19/19 09/21/21 10/19/19 06:30 History fumarate 28 mg-folic acid 800 mcg tablet () sertraline 100 mg tablet (Zoloft) 100 mg PO DAILY 09/21/21 09/21/21 Unknown History Allergies Allergy/AdvReac Type Severity Reaction Status Date / Time nickel Allergy Rash Verified 10/19/19 15:32 Review of Systems 2 Review of Systems: All systems reviewed & are unremarkable except as noted in HPI and below PMFSH Past Medical History Medical History Obesity (BMI 30-39.9) Family History Family History Mother Diabetes mellitus Hypertension Sibling Diabetes mellitus Hypertension Social History Social History Smoking status: Never smoker Second hand tobacco smoke exposure: No Substance use: never Spiritual care concerns: No Exam 2 Narrative: GENERAL: Well-appearing, well-nourished, and in no acute distress. HEAD: Normocephalic, atraumatic. EYES: EOMI. ENT: Nares clear, no rhinorrhea or epistaxis. Mucous membranes moist. NECK: Supple. CHEST: Clear to auscultation. No respiratory distress. HEART: Regular rate and rhythm. No murmur heard. Normal peripheral pulses. ABDOMEN: Uterus palpated approximately 3 cm inferior to the umbilicus. Abdomen is soft and nontender with normoactive bowel sounds. No CVA tenderness. : Normal external genitalia. Mild amount of brown blood in vaginal vault. Cervical os closed with visualized mucus plug. No tissue or clots visualized. No CMT EXTREMITIES: Normal range of motion. No edema. SKIN: Warm, dry, no rash. NEURO: No focal deficits. Alert and oriented x3 Course Vital Signs Vital signs: Vital Signs Temperature 98.2 F 05/19/25 18:30 Pulse Rate 66 05/19/25 18:30 Respiratory Rate 16 05/19/25 18:30 Blood Pressure 98/61 L 05/19/25 18:30 Pulse Oximetry 100 05/19/25 18:30 Oxygen Delivery Room Air 05/19/25 18:30 Temperature 98.6 F 05/19/25 19:53 Pulse Rate 87 05/19/25 22:27 Respiratory Rate 16 05/19/25 22:27 Blood Pressure 120/78 05/19/25 22:27 Pulse Oximetry 99 05/19/25 22:27 Oxygen Delivery Room Air 05/19/25 18:44 MDM - Female Genitourinary MDM Narrative Medical decision making narrative: 39-year-old female who is currently 17 weeks presents emergency department for vaginal spotting that started today. Vitals with soft blood pressures. Patient does endorse a history soft blood pressures and was given a L of fluids. She does endorse a hx of soft BPs. She denies chest pain or shortness of breath, denies lightheadedness. No tachycardia or fever. Abdomen is soft and nontender. Patient is resting comfortably in exam bed well- appearing. Exam is significant for the above. Her CBC shows no leukocytosis and chronic anemia with hemoglobin of 10.3 which is improved from prior labs. Chemistries are unremarkable. UA indicative of UTI with 11-20 white blood cells, 2+ leuk esterase, no nitrites. Patient will be started on Keflex for this. Her beta hCG is 22,300. Coags normal. Rh is positive, RhoGAM not required. Ob ultrasound shows IMPRESSION: Single intrauterine gestation in variable presentation with cardiac activity identified. The anterior placenta measures 3.8 cm from the cervical os on the submitted images. Cervical length is 3.04 cm. Amniotic fluid is within normal limits Patient updated on results. Bleeding remains light in ED and not requiring a pad or tampon. BP improved. She will be started on Keflex for UTI. She was advised to follow-up with her OBGYN and given strict ED return precautions. She is agreeable with the plan verbalized understanding. Discharged in stable condition. Lab Data 05/19/25 19:44 05/19/25 19:44 Labs: Lab Results 05/19/25 05/19/25 Range/Units 18:51 19:44 WBC 7.2 (4.5-10.0) K/mm3 RBC 3.19 L (4.2-5.4) M/mm3 Hgb 10.3 L (12.0-15.0) g/dL Hct 28.9 L (37.0-47.0) % MCV 90.6 (80-100) fl MCH 32.3 (26-34) pg MCHC 35.6 (32-36) g/dl RDW 12.6 (11.5-14.5) % Plt Count 207 D (150-375) k/mm3 MPV 9.5 (7.4-10.4) fl Immature Gran % (Auto) 0.3 (0-0.5) % Neut % (Auto) 71.2 (45.5-73.1) % Lymph % (Auto) 21.4 (18.3-44.2) % Traverse % (Auto) 5.9 (2.6-8.5) % Eos % (Auto) 0.8 (0-4.4) % Baso % (Auto) 0.4 (0.2-1.2) % Lymph # (Auto) 1.53 (0.9-3.2) K/mm3 Traverse # (Auto) 0.4 (0.1-0.6) K/mm3 Eos # (Auto) 0.1 (0-0.3) K/mm3 Baso # (Auto) 0.0 (0.0-0.1) K/mm3 Abs Immat Gran (auto) 0.02 (0.00-0.031) K/mm3 Absolute Neuts (auto) 5.1 (1.3-6.7) K/mm3 Absolute Nucleated RBC 0.000 (0.0-0.012) K/mm3 Nucleated RBC % 0.0 (0.0-0.2) % PT 14.0 (11.1-14.7) Seconds INR 1.1 APTT 26.6 (22.3-36.8) Seconds Sodium 134 L (137-145) mmol/L Potassium 3.8 (3.4-5.0) mmol/L Chloride 104 (98-107) mmol/L Carbon Dioxide 22 (22-30) mmol/L Anion Gap 8 (4-12) mmol/L BUN 6 L (7-17) mg/dL Creatinine 0.43 L (0.7-1.0) mg/dL Estim Creat Clear Calc 137 ml/min Estimated GFR > 60 (59 - ) Glucose 87 (65-110) mg/dL Calcium 9.0 (8.4-10.2) mg/dL Total Bilirubin 0.4 (0.2-1.3) mg/dL AST 26 (14-36) U/L ALT 27 (6-35) U/L Alkaline Phosphatase 57 (38-126) U/L Total Protein 7.3 (6.3-8.2) g/dL Albumin 4.3 (3.5-5.1) g/dL Beta HCG, Quant 02403.00 mIU/ML Urine Color Yellow (Yellow) Urine Appearance Clear (Clear) Urine pH 6.5 (5.0-9.0) Ur Specific Herman 1.003 (1.001-1.035) Urine Protein Negative (Negative) mg/dL Urine Glucose (UA) Negative (Negative) mg/dL Urine Ketones Negative (Negative) mg/dL Ur Blood (Man) 2+ H (Negative) Urine Nitrate Negative (Negative) Urine Bilirubin Negative (Negative) Urine Urobilinogen 0.2 (<2.0) mg/dL Leukocyte Esterase Rfl 2+ H (Negative) SETH/UL Urine RBC 0-2 (0-2) /hpf Urine WBC 11-20 H (0-3) /hpf Ur Squamous Epith Cells Few (Few) /hpf Urine Bacteria None seen /hpf Urine Casts 0-2 Blood Type A Positive Antibody Screen Negative Doses of RhIg Required 0 Discharge Plan Discharge Clinical Impression: Vaginal bleeding during , Urinary tract infection affecting Patient Disposition: Home Condition: Stable Instructions: Antibiotic Form, Threatened Miscarriage (ED), Urinary Tract Infection in (ED) Additional Instructions: You were evaluated in the emergency department for vaginal bleeding in . Your ultrasound is reassuring. Your workup did show findings concerning for urinary tract infection in her started on antibiotics. Please take these as directed. Please drink plenty of fluids and take Tylenol as needed for abdominal cramping or discomfort. Follow-up closely with your OBGYN. Your beta hCG today was 22,300, this may need to be rechecked in 48 hours by her OBGYN. Return to the emergency department if you develop a fever, UR saturating 1 pad or tampon per hour, or other concerning symptoms. Patient Language: Citizen Of [place] Prescriptions: New cephalexin 500 mg capsule 500 mg PO Q6H Qty: 28 0RF No Action PNV cmb#95-ferrous fumarate-FA [] 28 mg iron- 800 mcg Tablet 1 tablet PO DAILY sertraline [Zoloft] 100 mg Tablet 100 mg PO DAILY polysaccharide iron complex 150 mg iron Capsule 150 mg PO BIDWM Qty: 60 0RF hydrocodone-acetaminophen 5-325 mg tablet 1 tablet PO Q6H PRN (Reason: pain) Qty: 10 0RF Follow-up/Referrals: Nando Cabrera MD [Physician] - PHYSICIAN,DEVELOPMENTAL BEHAVIORAL PHYSICIAN [Primary Care Provider] -
[2025-05-19 19:30] LABS: Add Urine Microscopic? YES; Appearance Urine Clear (Clear); Bacteria Urine None Seen /hpf; Bilirubin Urine Negative (Negative); Blood Urine 2+ (Negative); Color Urine Yellow (Yellow); Glucose Urine UA Negative (Negative); Ketones Urine Negative (Negative); Leukocyte Esterase Ur 2+ LEU/UL (Negative); Nitrate Urine Negative (Negative); Non Pathogenic Casts 0-2; Protein Urine Negative (Negative); RBC Urine 0-2 /hpf (0-2); Specific Grav Ur 1.003 (1.001-1.035); Squamous Epithelial Cell Urine Few /hpf (Few); Urobilinogen Urine 0.2 mg/dL (<2.0); pH Urine 6.5 (5.0-9.0)
--- OUTSIDE RECORDS SUMMARY | 2025-05-19 19:31 | XMS_ITS | Clinical Summary ---
Author Organization [facility] Address [address] [place] [address] Care Team Providers Care Private Secretary Name Role Phone Unavailable Primary Care Provider Unavailabl e Source Comments [facility],non-owned Affiliates and Associated Physician Practices is amultiple site organization consisting of ambulatory clinics and hospital sitesin [place], [place], [place] and [place]. This disclosure is being madepursuant to the Care Everywhere program and may not contain all information available regarding this patient. 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 Para 3 [id number] 1. live 2017. Gest. age 38 w [...] LMP & early U/S * Referred to [facility] for obstetrical U/S & request for consult secondary to: Periconception medication exposure * Other relevant clinical diagnoses include: Advanced maternal age (AMA) 39 years at the EDC * Today's ultrasound (U/S) findings: Living dowling intrauterine fetus [employer] rump length (CRL) is normal-range Amniotic fluid [...] usual obstetrical indications Please notify the baby's Barrel Bridge Assembler of the above history Follow-up ======== at 20 weeks Coding ====== Procedures 18411: [facility] Anatomical Region Laterality Modality Other 04/07/2025 12:4 9 PM CDT R Romulo Cabrera MD [facility] ORDERABLES Edited Result - Final from Last 3 Months Insurance [facility]
--- OUTSIDE RECORDS SUMMARY | 2025-05-19 19:31 | XMS_ITS | Referral Summary ---
Author Organization [facility] Address [address] [place] [address] Care Team Providers Care Buffing Machine Tender Name Role Phone Lizzie Kennedy MD Unavailable Curtis Ness MD Primary Care Provider [phone] Allergies Active Allergy Reactions Criticality Noted Date [...] Full M Care; Referring Provider: Lizzie Kennedy [phone] [x] Dating Criteria: LMP 01/30/19 DEE DEE [...] [] MOC: [] Method of feeding: [] Biology Specimen Technician: [] PP Depression Discussed: Social History Tobacco Use Types Packs/Day Years Used Date Smoking Tobacco: Never Smokeless Tobacco: Never Tobacco Cessation:Counseling Given: Not Answered Comments Unknown Sex and Gender Information Value Date Recorded Sex Assigned at Not on file Legal Sex Female 8:34 PM UTILITY LOCATE TECHNICIAN Gender Identity Not on file Sexual Orientation Not on file Last Filed Vital Signs Vital Sign Reading Time Taken Comments Blood Pressure 127/89 12/30/2024 3:08 PM UTILITY LOCATE TECHNICIAN Pulse 78 12/30/2024 3:08 PM UTILITY LOCATE TECHNICIAN Temperature 36.8 C (98.2 F) 12/30/2024 3:08 PM UTILITY LOCATE TECHNICIAN Respiratory Rate 18 12/30/2024 3:08 PM UTILITY LOCATE TECHNICIAN Oxygen Saturation 99% 12/30/2024 3:08 PM UTILITY LOCATE TECHNICIAN Inhaled Oxygen Concentration - - Weight 74.8 kg (165 lb) 12/30/2024 3:08 PM UTILITY LOCATE TECHNICIAN Height 165.1 cm (5' 5) 12/30/2024 3:08 PM UTILITY LOCATE TECHNICIAN Body Mass Index 27.46 12/30/2024 3:08 PM UTILITY LOCATE TECHNICIAN Plan of Treatment Not on [place] [address] [place] [address] [place] Care Teams Buffing Machine Tender Relationship Specialty Start Date End Date Curtis Ness MD [phone] [address] PCP - General Family Medicine 10/02/22 Lizzie Kennedy MD Referring Physician Obstetrics and Gynecology 07/27/19
--- OUTSIDE RECORDS SUMMARY | 2025-05-19 19:31 | XMS_ITS | Clinical Summary ---
Author Organization [facility] Address [address] [place] [id number] Care Team Providers Care Wire Tester Name Role Phone Lizzie Kennedy MD Unavailable [phone] Curtis Ness MD Primary Care Provider [phone] Allergies Active Allergy Reactions Criticality Noted Date [...] Full M Care; Referring Provider: Lizzie Kennedy [phone] [x] Dating Criteria: LMP 01/30/19 DEE DEE [...] [] MOC: [] Method of feeding: [] Electrician Journeyman Wireman: [] PP Depression Discussed: Social History Tobacco Use Types Packs/Day Years Used Date Smoking Tobacco: Never Smokeless Tobacco: Never Tobacco Cessation:Counseling Given: Not Answered Comments Unknown Sex and Gender Information Value Date Recorded Sex Assigned at Not on file Legal Sex Female 8:34 PM ACTIVITY SPECIALIST Gender Identity Not on file Sexual Orientation [...] Comments Blood Pressure 127/89 12/30/2024 3:08 PM ACTIVITY SPECIALIST Pulse 78 12/30/2024 3:08 PM ACTIVITY SPECIALIST Temperature 36.8 C (98.2 F) 12/30/2024 3:08 PM ACTIVITY SPECIALIST Respiratory Rate 18 12/30/2024 3:08 PM ACTIVITY SPECIALIST Oxygen Saturation 99% 12/30/2024 3:08 PM ACTIVITY SPECIALIST Inhaled Oxygen Concentration - - Weight 74.8 kg (165 lb) 12/30/2024 3:08 PM ACTIVITY SPECIALIST Height 165.1 cm (5' 5) 12/30/2024 3:08 PM ACTIVITY SPECIALIST Body Mass Index 27.46 12/30/2024 3:08 PM ACTIVITY SPECIALIST Plan of Treatment Health Maintenance Due Date [...] complete this topic Insurance ROSALINE ACCESS CHOICE [facility] Care Teams Wire Tester Relationship Specialty Start Date End Date Curtis Ness MD [address] [address] PCP - General Family Medicine 10/02/22 Lizzie Kennedy MD Referring Physician Obstetrics and Gynecology 07/27/19
--- OUTSIDE RECORDS SUMMARY | 2025-05-19 19:31 | XMS_ITS | Clinical Summary ---
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
--- NOTE | 2025-05-19 19:40 | PC.NURSE ---
US being done at bedside
[2025-05-19 19:50] LABS: Basophils Percent Auto 0.4 % (0.2-1.2); Eosinophils Absolute Auto 0.1 K/mm3 (0-0.3); Eosinophils Percent Auto 0.8 % (0-4.4); Hematocrit 28.9 % (37.0-47.0); Hemoglobin 10.3 g/dL (12.0-15.0); Immature Granulocyte Absolute 0.02 K/mm3 (0.00-0.031); Immature Granulocyte Percent A 0.3 % (0-0.5); Lymphocytes Absolute Auto 1.53 K/mm3 (0.9-3.2); Lymphocytes Percent Auto 21.4 % (18.3-44.2); Mean Corpuscular HGB Conc 35.6 g/dl (32-36); Mean Corpuscular Hemoglobin 32.3 pg (26-34); Mean Corpuscular Volume 90.6 fl (80-100); Mean Platelet Volume 9.5 fl (7.4-10.4); Monocytes Absolute Auto 0.4 K/mm3 (0.1-0.6); Monocytes Percent Auto 5.9 % (2.6-8.5); Neutrophils Absolute Auto 5.1 K/mm3 (1.3-6.7); Neutrophils Percent Auto 71.2 % (45.5-73.1); Platelet Count Result 207 k/mm3 (150-375); Red Blood Count 3.19 M/mm3 (4.2-5.4); Red Cell Distribution Width 12.6 % (11.5-14.5); White Blood Count 7.2 K/mm3 (4.5-10.0)
[2025-05-19 19:59] LABS: Alanine Aminotransferase 27 U/L (6-35); Albumin Level 4.3 g/dL (3.5-5.1); Alkaline Phosphatase 57 U/L (38-126); Anion Gap 8 mmol/L (4-12); Aspartate Amino Transferase 26 U/L (14-36); Bilirubin,Total 0.4 mg/dL (0.2-1.3); Blood Urea Nitrogen 6 mg/dL (7-17); Carbon Dioxide 22 mmol/L (22-30); Chloride 104 mmol/L (98-107); Estimated CRCL calculation 137 ml/min; Estimated Glomerular Filt Rate > 60; Glucose 87 mg/dL (65-110); Potassium 3.8 mmol/L (3.4-5.0); Sodium 134 mmol/L (137-145); Total Protein 7.3 g/dL (6.3-8.2)
[2025-05-19 20:00] LABS: INR 1.1
[2025-05-19 20:01] LABS: Partial Thromboplastin Time 26.6 Seconds (22.3-36.8)
[2025-05-19] MEDS: SODIUM CHLORIDE 0.9% IV 1,000 ML 999 ML IV CONT (20:17)
[2025-05-19] MEDS: CEPHALEXIN 500 MG CAPSULE PO (22:23)
== END 2025-05-19 22:30 | disposition home or self-care (01) ==
PROVIDERS: Emergency Medicine; Emergency Provider Physician Assistant
DX: O26.852 Spotting complicating pregnancy, second trimester (principal); Z3A.17 17 weeks gestation of pregnancy; O23.42 Unspecified infection of urinary tract in pregnancy, second trimester; N39.0 Urinary tract infection, site not specified
CPT/HCPCS: 36415; 76815; 80053; 81001; 84702; 85025; 85461; 85610; 85730; 86850; 86900; 86901; 87086; 96360; 99284; A9270; J7030

== ENCOUNTER 2025-05-21 10:14 | Outpatient (CLI) | payer OTHER, SELFPAY | END 2025-05-21 10:15 | disposition home or self-care (01) | LOC: ANHLAB 10:19 | PROVIDERS: Visit Provider Obstetrics & Gynecology | DX: O26.859 Spotting complicating pregnancy, unspecified trimester (principal); Z3A.00 Weeks of gestation of pregnancy not specified | CPT/HCPCS: 36415; 84702 ==

== ENCOUNTER 2025-09-03 16:11 | Inpatient (IN) | payer OTHER, SELFPAY ==
[2025-09-03] VITALS (106 sets, daily range): BP systolic 93–124; BP diastolic 49–92; PULSE 54–102; RESP 16–18; TEMP 36.9–37.1; O2SAT 93–100; BMI 29.9
[2025-09-03] MEDS: BETAMETHASONE SOD PHOS/ACETATE 30 MG/5 ML VIAL 12 MG IM (17:08)
--- OUTSIDE RECORDS SUMMARY | 2025-09-03 17:11 | XMS_ITS | Encounter Summary ---
Author Organization [facility] Address Formerly [facility], [id number] [place] [address] Care Team Providers Care Manager Game Name Role Phone Makenzie Santiago MD Primary Care Provider Regine Yañez PA-C Primary Care Provider [phone] None, Provider Primary Care Provider Malissaa ble Encounter Details Date Type Department Care Team (Late st Contact Info) Description 04/30/2018 Hospital Follow-up Call [facility] [place] [address] Yana Luz RN Social History Tobacco Use Types Packs/Day Years Used Date Smoking Tobacco: Never Smokeless Tobacco: Never Alcohol Use Standard Drinks/Week Comments No 0 (1 standard drink = 0.6 oz pur e alcohol) Comments Yes Sex and Gender Information Value Date Recorded Sex Assigned at Female 08/30/2025 4:55 PM CDT Legal Sex Female 9:43 AM CDT Gender Identity Not on file Sexual Orientation Not on file documented as of this encounter Plan of Treatment Not on file documented as of this encounter Visit Diagnoses Not on filedocumented in this encounter Additional Health Concerns Infection Onset Date Last Indicated Resolved Time COVID-19 Rule Out 12/06/2021 12/06/2021 12/06/2021 10:03 AM CORROSION CONTROL ENGINEER COVID-19 Rule Out 12/06/2021 12/06/2021 12/07/2021 5:08 AM CORROSION CONTROL ENGINEER documented as of this encounter Care Teams Manager Game Relationship Specialty Start Date End Date Makenzie Santiago MD PCP - General FAMILY PRACTICE 04/21/18 06/28/21 Regine Hernandez PA-C [address] [place] [id number] PCP - General PHYSICIAN DIRECTOR OF WOMEN'S SERVICES 06/29/21 08/29/25 None, Provider, PCP - General UNKNOWN PHYSICIAN SPECIALTY 08/30/25 documented as of this encounter
--- OUTSIDE RECORDS SUMMARY | 2025-09-03 17:11 | XMS_ITS | Clinical Summary ---
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
--- OUTSIDE RECORDS SUMMARY | 2025-09-03 17:12 | XMS_ITS | Clinical Summary ---
Author Organization [facility] Address [address] [place] [address] Care Team Providers Care Barometers Calibrator Name Role Phone Lizzie Kennedy MD Unavailable [phone] Curtis Ness MD Primary Care Provider [phone] Allergies Active Allergy Reactions Criticality Noted Date [...] Full M Care; Referring Provider: Lizzie Kennedy [phone] [x] Dating Criteria: LMP 01/30/19 DEE DEE [...] [] MOC: [] Method of feeding: [] Parts Sales Counterperson: [] PP Depression Discussed: Social History Tobacco Use Types Packs/Day Years Used Date Smoking Tobacco: Never Smokeless Tobacco: Never Tobacco Cessation:Counseling Given: Not Answered Comments Unknown Sex and Gender Information Value Date Recorded Sex Assigned at Not on file Legal Sex Female 8:34 PM LEATHER SPONGER Gender Identity Not on file Sexual Orientation Not on file Obstetrics History Para Term AB IAB SAB Ectopic Multiple Livin g Live Births 2 1 1 Date Outcome GA Total Labor Labor/2nd/3rd Weight Sex Type Anes PTL Maame A1 A5 Name Clin 2018 Term 39w0 d 3.487 kg (7 lb 11 oz) F Vag-S pont Wagner Last Filed Vital Signs Vital Sign Reading Time Taken Comments Blood Pressure 127/89 12/30/2024 3:08 PM LEATHER SPONGER Pulse 78 12/30/2024 3:08 PM LEATHER SPONGER Temperature 36.8 C (98.2 F) 12/30/2024 3:08 PM LEATHER SPONGER Respiratory Rate 18 12/30/2024 3:08 PM LEATHER SPONGER Oxygen Saturation 99% 12/30/2024 3:08 PM LEATHER SPONGER Inhaled Oxygen Concentration - - Weight 74.8 kg (165 lb) 12/30/2024 3:08 PM LEATHER SPONGER Height 165.1 cm (5' 5) 12/30/2024 3:08 PM LEATHER SPONGER Body Mass Index 27.46 12/30/2024 3:08 PM LEATHER SPONGER Plan of Treatment Health Maintenance Due Date Last Done Comments Cervical Cancer Screening 1987 Depression Screening 1987 Hepatitis C Screening 1987 Varicella Vaccines (1 of 2 - 13+ 2-dose series) 2000 Hepatitis B Screening 2005 Regular Well Visit/Exam 18-64 2005 HPV Vaccines (1 - 3-dose SCD M series) 2014 Covid-19 Vaccine (3 - 2024-2 6 season) 2025 04/07/2021, 03/10/2021 Influenza Vaccine (#1) 2025 , 10/19/2020 DTaP/Tdap/Td Vaccine (2 - Td or Tdap) 09/01/2031 09/01/2021 Pneumococcal vaccine <65 Aged Out No longer eligible based on patient's age to complete this topic Insurance ROSALINE ACCESS CHOICE [facility] Care Teams Barometers Calibrator Relationship Specialty Start Date End Date Curtis Ness MD [address] [address] PCP - General Family Medicine 10/02/22 Lizzie Kennedy MD Referring Physician Obstetrics and Gynecology 07/27/19
--- OUTSIDE RECORDS SUMMARY | 2025-09-03 17:12 | XMS_ITS | Clinical Summary ---
Author Organization [facility] Address [address] [place] [address] Care Team Providers Care Machine Stuffer Automatic Name Role Phone Unavailable Primary Care Provider Unavailabl e Source Comments [facility],non-owned Affiliates and Associated Physician Practices is amultiple site organization consisting of ambulatory clinics and hospital sitesin [place], [place], [place] and [place]. This disclosure is being madepursuant to the Care Everywhere program and may not contain all information available regarding this patient. Last updated 18.[facility] Allergies No known active allergies Medications [...] Encounters Date Type Department Care Team Description 08/30/2025 8:45 AM CDT - 08/30/2025 11:59 PM CDT Hospital Encounter [facility] [address] [place] [address] Chace Montgomery MD Discharge Disposition: Home or Self Care 08/30/2025 7:30 AM CDT - 08/30/2025 8:44 AM CDT Hospital Encounter [facility] [address] [place] [address] Chace Montgomery MD Discharge Disposition: Home or Self Care 08/27/2025 Telephone [facility] [address] [place] [address] Ju Rosenthal Appointment from Last 3 Months Family History Medical [...] on file 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 Gender Identity Not on file Sexual Orientation Not on file Last Filed Vital Signs Vital Sign Reading Time Taken Comments Blood Pressure 103/68 08/30/2025 9:08 AM CDT Pulse 67 08/30/2025 9:08 AM CDT Temperature - - Respiratory Rate - - Oxygen Saturation - - Inhaled Oxygen Concentration - - Weight 82.6 kg (182 lb) 08/30/2025 9:08 AM CDT Height 167.6 cm (5' 6) 04/07/2025 1:20 PM CDT Body Mass Index 29.38 04/07/2025 1:20 PM CDT Plan of Treatment Upcoming Encounters Date Type Department Care Team (Late st Contact Info) Description 09/07/2025 1:45 PM CDT Hospital Encounter [facility] [address] [place] [address] Mary Alice Farooq MD [address] [place] [address] 09/07/2025 3:00 PM CDT Hospital Encounter [facility] [address] [place] [address] Mary Alice Farooq MD [address] [place] [address] Health Maintenance Due Date Last Done Comments HEPATITIS C SCREENING 12/16/2005 DTAP/TDAP/TD VACCINES (1 - Tdap) 2006 HEPATITIS B VACCINE (1 of 3 - 19+ 3-dose series) 2006 PAP SMEAR 2008 HPV VACCINE (1 - 3-dose SCDM series) 2014 DEPRESSION SCREENING 12/02/2024 OB-TDAP CURRENT 07/23/2025 09/01/2021 OB-RHOGAM INJECTION 07/30/2025 COVID-19 VACCINE (3 - 2024-2 6 season) 2025 04/07/2021, 03/10/2021 INFLUENZA VACCINE (#1) 2025 , 10/19/2020 Respiratory Syncytial Virus (RSV) Vaccine Pt: or over 60 yrs (1 - Risk 1-dose series) 08/27/2025 ZOSTER VACCINE (1 of 2) 2037 HIV SCREENING Completed 07/29/2025 OB-ONE HOUR GLUCOSE Completed 07/29/2025 HIB VACCINE Aged Out No longer eligi [...] Associated Diagnosis Comments SONOGRAM - COMPLETE Routine 08/30/2025 8 :01 AM CDT Polyhydramnios in third trimester complication, single or unspecified fetus (HCC) Fourth (HCC) Encounter for ultrasound (HCC) from Last 3 Months Results * Sonogram - Complete (08/30/2025 8:01 AM CDT) Linked Results Indication ======== Polyhydramnios seen on outside ultrasound Advanced maternal age (AMA), multigravida Depression complicating lamotrigine, buproprion, and 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 Para 3 [id number] 1. live 2017. Gest. age 38 w + 6 d. Weight 3,486 g. Sex of child: female. Details: 2. live 2018. Gest. age 39 w + 0 d. Weight 3,316 g. Sex of child: male. Details: 3. live 2020. Gest. age 39 w + 3 d. Weight 3,657 g. Sex of child: male. Details: Lab Tests Test Date Result NIPT Low risk, Female Maternal Assessment Physical Exam Height 165 cm, 5 ft 5 in. Weight 83 kg, 182 lb. Initial weight 70 kg, 154 lb. BMI 30.29 kg/m . Initial BMI 25.63 kg/m . Weight gain 13 kg, 28 lb Method ====== Transabdominal ultrasound. View: Suboptimal view: limited by late gestational age ========= Valenzuela . Number of fetuses: 1 Dating ====== Date Details Gest. age DEE DEE LMP 01/15/2025 32 w + 3 d 10/22/2025 Stated DEE DEE 32 w + 3 d 10/22/2025 Previous U/S 03/18/2025 GA, GA 8 w + 2 d 31 w + 6 d 10/26/2025 U/S 08/30/2025 based upon AC, BPD, Femur, HC 33 w + 3 d 10/15/2025 Assigned dating based on the LMP, selected on 04/07/2025 32 w + 3 d 10/22/2025 General Evaluation Cardiac activity present. FHR 157 bpm. Presentation: cephalic Placenta: Placental site: anterior Umbilical cord: Cord vessels: 3 vessel cord. Insertion site: normal insertion Amniotic fluid: Amount of AF: polyhydramnios. MVP 10.0 cm. KORY 36.3 cm. Q1 8.8 cm, Q2 10.0 cm, Q3 8.1 cm, Q4 9.4 cm Biometry BPD 86.4 mm 34w 6d 95% Hadlock HC 304.7 mm 33w 6d 52% Hadlock Cerebellum tr 37.6 mm 1% [place] AC 297.1 mm 33w 5d 83% Hadlock Femur 60.0 mm 31w 2d 11% Hadlock Humerus 53.1 mm 30w 6d 17% Dimitris HC / AC 1.03 -/- Hadlock Weight Calculation: EFW 2,122 g 62% Hadlock EFW (lb,oz) 4 lb 11 oz EFW by Hadlock ([id number]) appropriate Growth Overview Exam date GA BPD (mm) HC (mm) AC (mm) FL (mm) HL (mm) EFW (g) 08/30/2025 32w 3d 86.4 95% 304.7 52% 297.1 83% 60 11% 53.1 17% 2122 62% Anatomy The following structures appear normal: Head / Neck Cranium. Lateral ventricles. Choroid plexus. Midline falx. Cavum septi pellucidi. Cerebellum. Cisterna magna. Thalami. Face Lips. Profile. Nose. Nasal bone. Orbits. Heart / Thorax LVOT view. 3-hpbqjy-czuooef view. Situs. Diaphragm. Abdomen Cord insertion. Stomach. Kidneys. Bladder. Bowel. Spine Cervical spine. Thoracic spine. Lumbar spine. Sacral spine. Extremities / Skeleton Hands. Feet. The following structures could not be adequately visualized: Head / Neck Nuchal fold. Heart / Thorax 4-chamber view. RVOT view. 3-vessel view. Aortic arch view. Bicaval view. Ductal arch view. Great vessels. Right lung. Left lung. Abdomen Genitals. Extremities / Skeleton Left upper arm. Legs. Right lower leg. Left lower leg. The following structures were documented previously: Extremities / Skeleton Arms. Non Stress Test NST interpretation: reactive. Baseline FHR 140 bpm. Baseline variability: moderate. Accelerations: present. Uterine activity: present, Contractions q 2-3 minutes Biophysical Profile 2: breathing movements 2: Gross body movements 2: tone 2: Amniotic fluid volume NST: reactive 09/10 Biophysical profile score Maternal Structures Right Ovary Normal Left Ovary Normal Impression ========= Single live intrauterine at 32w 3d size is appropriate. Amniotic fluid volume: severe polyhydramnios. No major malformations were seen within the limitations of ultrasound. Comment ======== U/S cannot detect all structural, genetic, or functional , placental, or maternal abnormalities Follow-up ======== To L&D now for cervical exam & contraction evaluation/manage ment Schedule formal MFM consult at next available appointment Laboratory results relative to polyhydramnios: The 1-hr GCT was 151 mg/dL and 3-hr GTT was normal Please forward to MFM any genetic testing results (e.g. cf-DNA) Begin 1x-weekly BPP+NST today U/S for growth in 4 weeks Coding ====== Procedures [id number]: US Preg Uterus Detailed [id number]: Biophysical Profile W NST T [facility] Exhale Fans PACS Anatomical Region Laterality Modality Other 08/30/2025 8:01 AM CDT [facility] Romulo Cabrera MD M ORDERABLES Edited Result - Final from Last 3 Months Insurance [facility]
--- OUTSIDE RECORDS SUMMARY | 2025-09-03 17:12 | XMS_ITS | Data Portability ---
Author Organization [facility] [place] Address [address] [place] [address] Assessment Encounter Date Assessment Date Assessment LastModified by Organization Details LastModified Time 07/29/2025 07/29/2025 Patient is ___weeks . Discussed plan. Not available 07/29/2025 14:33:32 08/26/2025 08/26/2025 Patient is ___weeks . Discussed plan. Not available 08/26/2025 17:21:26 Plan of Treatment Reminders Order Date Submit Date Provider Last Modified By Organization Details Last Modified Time Details Appointments U/S OB GROWTH 2024 03:30P M ULTRASOUND Not available Not available Not available NST 2024 04:00P M NST SCHEDULE Not available Not available Not available OB ROUTINE 2024 04:15P Cortney CABRERA MD Not available Not available Not available U/S OB BPP 2024 03:00P M ULTRASOUND Not available Not available Not available OB ROUTINE 2024 03:30P Cortney CABRERA MD Not available Not available Not available NST 2024 04:00P M NST SCHEDULE Not available Not available Not available U/S OB BPP 2024 03:00P M ULTRASOUND Not available Not available Not available NST 2024 03:30P M NST SCHEDULE Not available Not available Not available OB ROUTINE 2024 04:00P Cortney CABRERA MD Not available Not available Not available Lab None recorde d. Referral None recorde d. Procedures None recorde d. Surgeries None recorde d. Imaging US, obstetr ic, biophys ical profile + non-str ess test 2024 025 [email or web address], [address], [place], [address], 08/27/2025 08:49:24 US, obstetr ic, follow- up 2024 025 [address], [address], [place], [address], 08/10/2025 14:40:35 Medication Orders None recorde d. Patient TargetsNo targets recorded. Patient InstructionsNo instructions recorded. Reason for Referral None Reported. Results Created Date Observation Date Name Description Value Unit Range Abnormal Flag Note LastModifiedBy Organization Detail LastModifiedTime 07/08/2007/08/2025 HEMOG LOBIN A1C hemoglobin A1C 4.8 % 4.0-5. 6 The Ameri can [employer] del[facility] [employer] iatio n recom mends that a prima ry goal of thera py shoul d be a HBA1C of < 7% and that physi cians shoul d reeva luate the treat ment regim en in patie nts with HBA1C value s consi stent ly > 8%. <5.7% Kenisha l 5.7 - 6.4% Incre ased risk for diabe delores >=6.5 % Diagn ostic of diabe delores <7.0% Goal of thera py >8.0% Actio n sugge sted Not Available [facility] (Lab) [address], [place], [address], 07/09/2025 07:10:44 07/29/2007/29/2025 HEMAT OCRIT (HCT) HCT 28.6 % (based on docume nted legal sex) 34.0-4 5.0 low Not Available [facility] (Lab) [address], [place], [address], 07/30/2025 11:36:00 07/29/2007/29/2025 HEMOG LOBIN (HGB) HGB 9.7 g/dL (based on docume nted legal sex) 11.6-1 5.4 low Not Available [facility] (Lab) [address], [place], [address], 07/30/2025 11:36:00 07/29/20 25 07/29/2025 GTT - GESTA MARLENE L SCREE N, ACOG OB glucose, 1 hour screen 151 mg/dL 70-135 high Not Available [facility] (Lab) [address], [place], [address], 07/30/2025 11:36:01 07/29/20 25 07/29/2025 HIV 1/2 ANTIG EN/AN TIBOD Y, REFLE X CONFI RMATI ON HIV antigen/anti body Nonrea ctive nonrea ctive HIV-1 antig en and HIV-1 /HIV- 2 antib odies were not detec saumya. No labor atory evide nce of HIV infec tion. Not Available [facility] (Lab) [address], [place], [address], 07/30/2025 11:36:02 07/29/20 25 07/29/2025 RPR SCREE N, REFLE X TITER /CONF IRMAT ION RPR qualitative Nonrea ctive nonrea ctive Not Available [facility] (Lab) [address], [place], [address], 07/30/2025 11:36:02 08/10/20 25 08/10/2025 GTT - GESTA MARLENE L, 3 HOUR, ACOG glucose, fasting acog 88 mg/dL 70-94 Not Available [facility] (Lab) [address] [place], [address], 08/11/2025 03:43:55 08/10/20 25 08/10/2025 GTT - GESTA MARLENE L, 3 HOUR, ACOG glucose, 1 hour acog 109 mg/dL 70-179 Not Available [facility] (Lab) [address], [place], [address], 08/11/2025 03:43:55 08/10/20 25 08/10/2025 GTT - GESTA MARLENE L, 3 HOUR, ACOG glucose, 2 hour acog 103 mg/dL 70-154 Not Available [facility] (Lab) [address], [place], [address], 08/11/2025 03:43:55 08/10/20 25 08/10/2025 GTT - GESTA MARLENE L, 3 HOUR, ACOG glucose, 3 hour acog 44 mg/dL 70-139 critical low Not Available [facility] (Lab) [address], [place], [address], 08/11/2025 03:43:55 07/08/20 25 07/08/2025 US, obste tric, follo w-up No observ ation record ed. [email or web address] [address], [place], [address], 07/08/2025 18:31:57 07/08/20 25 07/08/2025 US, obste tric, follo w-up No observ ation record ed. [email or web address], [place], [address], 07/14/2025 15:50:19 07/21/20 25 07/21/2025 US, obste tric, limit ed No observ ation record ed. [email or web address] [address], [place], [address], 07/21/2025 18:25:42 07/21/20 25 07/21/2025 US, obste tric, limit ed No observ ation record ed. [email or web address] [address], [place], [address], 08/03/2025 15:15:33 08/10/20 25 08/10/2025 US, obste tric, follo w-up No observ ation record ed. [email or web address] [address], [place], [address], 08/10/2025 10:13:47 08/10/20 25 08/10/2025 US, obste tric, follo w-up No observ ation record ed. [email or web address] [address], [place], [address], 08/12/2025 00:08:53 08/26/20 25 08/26/2025 US, obste tric, bioph ysica l profi le + non-s tress test No observ ation record ed. [email or web address] [address], [place], [address], 08/26/2025 18:15:11 08/26/20 25 08/26/2025 US, obste tric, bioph ysica l profi le + non-s tress test No observ ation record ed. [email or web address] [address], [place], [address], 08/27/2025 22:16:33 08/30/2008/30/2025 US, obste tric, follo w-up No observ ation record ed. [email or web address] [facility] [address], [address], 09/01/2025 16:02:02 08/30/2008/30/2025 imagi ng/di agnos tic resul t No observ ation record ed. [email or web address] [facility] [address], [address], 08/31/2025 06:47:15 Result Notes None recorded. Problems Name Problem SNOMED Code Status Onset Date Resolution Date Notes Provider Name and Address Organization Details Recorded Time Anxiety in pregnanc y 3709235712 9109 Completed zoloft 100 Juliet Bibnstieh l nathan, [facility] 1 15:56:28 Low-lyin g placenta 081428883 Completed 06/26/2021 RESOLVED 06/26/21 Juliet evans, [facility] 1 15:56:28 Screenin g for malignan t neoplasm of cervix Completed 201503/07/2021 Screenin g for malignan t neoplasm s of the cervix;R ecorded Elsewher e: No [facility] E[facility] Child Protection Specialist kunal: N Practi ce ID: 0001 Jareth lable Time: 04:45:00 PM Ofelia Luna MD [address], [place], [address], [facility] 1 16:59:32 Secondar y amenorrh ea 005433558 Completed 201603/07/2021 Secondar y amenorrh ea;Recor ded Elsewher e: No [facility]at [facility] S ource: EHR Child Protection Specialist kunal: N Practi ce ID: 0001 Jareth lable Time: 01:15:00 PM Ofelia Luna MD [address], [place], [address], [facility] 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 1 17:05:18 Gestatio n less than 9 weeks [id number] Completed 201602/16/2021 Less than 8 weeks gestatio n of pregnanc y;Record ed Elsewher e: No Locat ion: Atilio saxena [facility] S ource: EHR Child Protection Specialist kunal: N Practi ce ID: 0001 Jareth lable Time: 03:45:00 PM Shady evans, [facility] 17:05:08 Uterine size for dates discrepa ncy Completed 201603/07/2021 Uterine size-nataliya e discrepa ncy, first trimeste r;Record ed Elsewher e: No Locat ion: Atilio saxena [facility] S ource: EHR Child Protection Specialist kunal: N Practi ce ID: 0001 Jareth lable Time: 03:45:00 PM Ofelia Luna MD [address], [place], [address], [facility] 16:59:44 Normal pregnanc y in multigra reina [id number] 74008 Completed 201703/07/2021 Encounte r for suprvsn of normal pregnanc y, second trimeste r;Record ed Elsewher e: No Locat ion: Atilio saxena [facility] S ource: EHR Child Protection Specialist kunal: N Practi ce ID: 0001 Jareth lable Time: 03:45:00 PM Ofelia Luna MD [address], [place], [address], [facility] 16:59:18 Gestatio n period, 24 weeks 242295441 Completed 201702/16/2021 24 weeks gestatio n of pregnanc y;Record ed Elsewher e: No Locat ion: Atilio saxena [facility] S ource: EHR Child Protection Specialist kunal: N Practi ce ID: 0001 Jareth lable Time: 04:30:00 PM Shady evans, [facility] 17:04:55 Acute vaginiti s 09684526 Completed 201703/07/2021 Acute vaginiti s;Record ed Elsewher e: No Locat ion: Atilio saxena [facility] S ource: EHR Child Protection Specialist kunal: N Practi ce ID: 0001 Jareth lable Time: 04:30:00 PM Ofelia Luna MD [address], [place], [address], [facility] 1 16:59:05 Vaginiti s in pregnanc y 622588911 Completed 201703/07/2021 Infectio n oth prt genitl trct in pregnanc y, second trimeste r;Practi ce ID: 0001 Ofelia Luna MD [address], [place], [address], [facility] 1 16:59:47 Uterine or cervical spasm 841909998 Completed 201703/07/2021 Incoordi tom uterine contract ions;Rec orded Elsewher e: No Locat ion: Atilio saxena [facility] S ource: [facility] Child Protection Specialist kunal: N Practi ce ID: 0001 Jareth lable Time: 04:00:00 PM Ofelia Luna MD [address], [place], [address], [facility] 1 16:59:42 Gestatio n period, 31 weeks 97860433 Completed 201702/16/2021 31 weeks gestatio n of pregnanc y;Practi ce ID: 0001 Shady evans, [facility] 17:04:58 False labor before 37 complete d weeks of gestatio n 4610731358 1606216 Completed 201702/16/2021 False labor before 37 complete d weeks of gest, third tri;Prac shaq ID: 0001 Shady evans, [facility] 17:05:11 Finding of trunk structur e Completed 201703/07/2021 Oth diseases and conditio ns compl preg/chl dbrth;Re corded Elsewher e: No Locat ion: [facility] S ource: EHR Child Protection Specialist kunal: N Practi ce ID: 0001 Jareth lable Time: 05:30:00 PM Ofelia Luna MD [address], [place], [address], [facility] 16:59:39 Gestatio n period, 36 weeks 72991576 Completed 201702/16/2021 36 weeks gestatio n of pregnanc y;Record ed Elsewher e: No Locat ion: [facility] S ource: EHR Child Protection Specialist kunal: N Practi ce ID: 0001 Jareth lable Time: 05:30:00 PM Kay[facility]kan [facility], [facility] 17:05:01 Gestatio n period, 39 weeks 55498193 Completed 201702/16/2021 39 weeks gestatio n of pregnanc y;Practi ce ID: 0001 Shady [facility], [facility] 17:05:02 Prematur e rupture of membrane s 77873509 Completed 201703/07/2021 Full-ter m delaney ROM, unsp time betw rupture and onset labor;Pr actice ID: 0001 Ofelia Luna MD [address], [place], [address], [facility] 16:59:[address] Concept Completed 201802/16/2021 Encntr for general adult medical exam w/o abnormal findings ;Recorde d Elsewher e: No Locat ion: [facility] S ource: EHR Child Protection Specialist kunal: N Practi ce ID: 0001 Jareth lable Time: 10:45:00 AM Shady Josepharic evans, [facility] 17:05:16 Pregnanc y detectio n examinat ion Completed 201803/07/2021 Encounte r for pregnanc y test, result positive ;Recorde d Elsewher e: No Locat ion: [facility] Source: EHR Child Protection Specialist kunal: N Practi ce ID: 0001 Jareth lable Time: 10:45:00 AM Ofelia Luna MD [address], [place], [address], [facility] 16:59:24 Gestatio n period, 8 weeks [id number] Completed 201802/16/2021 8 weeks gestatio n of pregnanc y;Record ed Elsewher e: No Locat ion: [facility] S ource: EHR Child Protection Specialist kunal: N Practi ce ID: 0001 Jareth lable Time: 03:30:00 PM Shady evans, [facility] 17:05:04 Antenata l screenin g Completed 201803/07/2021 Encounte r for antenata l screenin g for nuchal transluc ency;Rec orded Elsewher e: No Locat ion: [facility] S ource: EHR Child Protection Specialist kunal: N Practi ce ID: 0001 Jareth lable Time: 04:00:00 PM Ofelia Luna MD [address], [place], [address], [facility] 16:59:08 Antenata l screenin g for malforma tion Completed 201803/07/2021 Encounte r for antenata l screenin g for malforma tions;Re corded Elsewher e: No Locat ion: [facility] S ource: EHR Child Protection Specialist kunal: N Practi ce ID: 0001 Jareth lable Time: 10:30:00 AM Ofelia Luna MD [address], [place], [address], [facility] 16:59:10 Placenta previa [id number] Completed 201803/07/2021 Placenta previa specifie d as w/o hemor, second trimeste r;Record ed Elsewher e: No Locat ion: Atilio saxena [facility] S ource: EHR Child Protection Specialist kunal: N Practi ce ID: 0001 Jareth lable Time: 04:30:00 PM Ofelia Luna MD [address], [place], [address], [place] [facility] 1 16:59:21 Gestatio n period, 27 weeks 07951719 Completed 201802/16/2021 27 weeks gestatio n of pregnanc y;Record ed Elsewher e: No Locat ion: Atilio saxena [facility] S ource: EHR Child Protection Specialist kunal: N Practi ce ID: 0001 Jareth lable Time: 11:00:00 AM Shady Randolph null, [facility] 17:04:57 Pregnanc y, childbir th and puerperi um finding Completed 201803/07/2021 Encntr for suprvsn of normal first preg, third trimeste r;Practi ce ID: 0001 Ofelia Luna MD [address], [place], [address], [place] [facility] 16:59:[address] Concept Completed 201802/16/2021 Maternal care for oth abnormal ity and damage, unsp;Rec orded Elsewher e: No Locat ion: Atilio saxena [facility] S ource: EHR Child Protection Specialist kunal: N Practi ce ID: 0001 Jareth lable Time: 09:17:34 AM Britanemildred Randolph null, [facility] 1 17:05:15 Gestatio n period, 35 weeks [id number] Completed 201802/16/2021 35 weeks gestatio n of pregnanc y;Record ed Elsewher e: No Locat ion: Atilio saxena [facility] S ource: EHR Child Protection Specialist kunal: N Practi ce ID: 0001 Jareth lable Time: 09:17:34 AM Britaney Agustín null, [facility] 17:04:59 Spotting per vagina in pregnanc y [id number] Completed 201803/07/2021 Spotting complica ting pregnanc y, unspecif ied trimeste r;Practi ce ID: 0001 Ofelia Luna MD [address], [place], [address], [facility] 16:59:36 Finding of contents of cervix 471611830 Completed 201803/07/2021 Weeks of gestatio n of pregnanc y not specifie d;Practi ce ID: 0001 Ofelia Luna MD [address], [place], [address], [facility] 16:59:13 Term pregnanc y delivere d 75660173 Completed 201802/16/2021 Encounte r for full-ter m uncompli cated delivery ;Practic e ID: 0001 Shady evans, [facility] 17:05:23 Single live from singleto n pregnanc y 331321626 Completed 201802/16/2021 Single live ;Pr actice ID: 0001 Shady evans, [facility] 17:05:27 Procedur e related to breastfe eding Completed 201802/16/2021 Encounte r for care and examinat ion of lactatin g mother;P ractice ID: 0001 Shady evans, [facility] 17:05:31 Lochia finding Completed 201803/07/2021 Encounte r for routine postpart um follow-u p;Record ed Elsewher e: No Locat ion: [facility]tilio [facility] S ource: EHR Child Protection Specialist kunal: N Hermilati ce ID: 0001 Jareth lable Time: 01:15:00 PM Ofelia Luna MD [address], [place], [address], [place] [facility] 16:59:50 Pregnanc y 31202155 Completed 202010/20/2021 [facility], [facility] 5 17:24:58 Polyhydr amnios 00234085 Completed 2020 Juliet anderson null, [facility] 15:56:28 Pregnanc y 19928508 Active 2024 [facility], [facility] 17:24:58 Mixed anxiety and depressi ve disorder 002286004 Active 2024 welbutri n and venlafex in [facility] referral faxed pt schedule d 04/07/25 antenata l testing TBD Jocelin [facility], [facility] 5 17:38:38 Polyhydr amnios 09871670 Active 08/26 KORY 38 referral faxed to [facility] Atilio e & [facility] pt schedule d nilwood 08/30 730 only Jocelin evans, [facility] 5 16:48:47 Iron deficien cy anemia 11990337 Active 2024 infusion order faxed 08/18 Jocelin [facility], [facility] 5 12:42:58 Problem Notes None recorded. Procedures Surgical History Date Name Laterality Status Provider Name and Address Organization Details Recorded Time 4 Date of Last Pap Smear completed Jacque Rowell [facility] 03/18/2025 11:57:56 6 extraction of wisdom tooth completed Rafia Bridges [facility] 08/20/2023 18:00:00 Imaging Results None recorded. [...] ed Elsewher e: Yes Loca tion: Atilio saxena [facility] odify By: smcsheryl Martinez r DateTime : [...] ed Elsewher e: No Locat ion: Atilio saxena [facility] odify By: smcsheryl Martinez r DateTime : 01/27/20 18 04:30:00 PM Not Available Not Available Not Available benzonata te 100 mg capsule TAKE ONE CAPSULE BY MOUTH THREE TIMES DAILY NEEDED FOR cough 06/22 completed Not Available Not Available Not Available cephalexi n 500 mg capsule TAKE 1 CAPSULE BY MOUTH EVERY 6 HOURS 07/29 completed Not Available Not Available Not Available [...] Prescrib ed Elsewher e: Yes Loca tion: [facility] M odify By: Encount er DateTime : 10/15/20 04:00:00 PM Not Available Not Available Not Available naltrexon e 4.5 mg capsule Take 1 capsule every day by oral route in the morning for 7 days. 06/22 completed Not Available Not Available Not Available Vitals Date Recorded Body weight Systolic And Diastolic Provider Name and Address Organization Details Last Updated DateTime 07/29/2025 84717.98241 g 102/68 mm[Hg] [facility] 07/29/2025 14:34:52 Date Recorded Body weight Body mass index (BMI) Body height Systolic And Diastolic Provider Name and Address Organization Details Last Updated DateTime 08/10/2025 71834.257 12 g 29.3 kg/m2 165.1 cm 107/67 mm[Hg] [facility] 08/10/2025 10:12:49 Date Recorded Body height Body mass index (BMI) Body weight Systolic And Diastolic Provider Name and Address Organization Details Last Updated DateTime 08/26/2025 165.1 cm 30.6 kg/m2 93518 g 115/70 mm[Hg] [facility] 08/26/2025 17:22:22 Social History Question Answer Notes LastModified by Organizat ion Details LastModified Time Tobacco Smoking Status Never Smoker Desiree Parada [facility] 08/20/2023 17:30:08 Are You Blind Or Do You Have Difficulty Seeing? No [email or web address] Information n ot available 09/13/2021 What Is Your Level Of Caffeine Consumption? Occasional [email or web address] Information not available 09/13/2021 How Much Tobacco Do You Chew? None Information not available 04/12/2025 In The 14 Days Before Symptom Onset, Have You Had Close Contact With A Laboratory-confirm ed COVID-19 While That Case Was Ill? No [email or web address] Information n ot available 09/13/2021 In The 14 Days Before Symptom Onset, Have You Had Close Contact With A Person Who Is Under Investigation For COVID-19 While That Person Was Ill? No [email or web address] Information not available 09/13/2021 Have You Been To An Area Known To Be High Risk For COVID-19? No [email or web address] Information not available 09/13/2021 Are You Deaf Or Do You Have Serious Difficulty Hearing? No [email or web address] Information not available 09/13/2021 What Type Of Diet Are You Following? REGULAR [email or web address] Information n ot available 09/13/2021 What Is The Highest Grade Or Level Of School You Have Completed Or The Highest Degree You Have Received? [id number] Information not available 06/22/2024 Are There Any Guns Present In Your Home? Yes Information not available 04/12/2025 Have You Ever Been Counseled For Unhealthy Alcohol Use? No [email or web address] Information not available 08/20/2023 Do You Use Your Seat Belt Or Car Seat Routinely? Yes [email or web address] Information not available 09/13/2021 Do You Have Smoke And Carbon Monoxide Detectors In Your Home? Yes [email or web address] Information not available 09/13/2021 How Much Tobacco Do You Smoke? No Information not available 06/22/2024 Do You Use Sunscreen Routinely? Yes [email or web address] Information not available 09/13/2021 Has Tobacco Cessation Counseling Been Provided? No [email or web address] Information not available 08/20/2023 Have You Used IV Drugs? No Information not available 06/22/2024 Do You Have Difficulty Walking Or Climbing Stairs? No [email or web address] Information not available 08/20/2023 Sex: Unknown Functional Status Question Answer Note LastModified by Organizat ion Details LastModified Time Do you use any illicit or recreational drugs? No [email or web address] Information not available 03/07/2021 Do you or have you ever used any other forms of tobacco or nicotine? No [email or web address] Information not available 08/20/2023 What is your level of alcohol consumption? Occasional [email or web address] Information not available 09/13/2021 Are you able to walk independently without assistance or assistive devices? YESWOREST [email or web address] Information not available 09/13/2021 Are you able to care for yourself independently? Yes [email or web address] Information not available 08/20/2023 Do you have difficulty dressing, bathing, grooming, or toileting? No [email or web address] Information not available 08/20/2023 What is your exercise level? Moderate [email or web address] Information not available 03/18/2025 Mental Status Question Answer Note LastModified by Organization D etails LastModified Time Do you feel stressed (tense, restless, nervous, or anxious, or unable to sleep at night)? [id number] Information not available 09/13/2021 Family History Relationship Description Onset Age of this Age Resolved Age Notes LastModified by Organization Details LastModified Time Mother Diabetes mellitus [email or web address] Not available 08/20 17:58:27 Mother Hypercholest erolemia [email or web address] Not available 08/20 17:58:27 Mother Polycystic ovary syndrome [email or web address] Not available 08/03 17:12:44 Maternal Grandmother Diabetes mellitus [email or web address] Not available 08/20 17:58:27 Maternal Grandmother Hypercholest erolemia Not available 08/20 17:58:27 Maternal Grandmother Polycystic ovary syndrome [email or web address] Not available 08/03 17:12:44 Sister Diabetes mellitus [email or web address] Not available 08/20 17:58:27 Sister Polycystic ovary syndrome [email or web address] Not available 08/03 17:12:44 Brother Diabetes mellitus [email or web address] Not available 08/20 17:58:27 Medical History Condition Response Allergies (Food, seasonal, environmental ) N Other N Breast Cancer N Drug/Latex Allergies/Reactions N Blood Transfusion N Lung Disease N Dermatologic Disorders N Defects or Inherited Disease N Breast [...] Diagnosis SNOMED-CT Code Diagnosis ICD10 Code Diagnosis IMO Codes Diagnosis Note [id number] Nando Cabrera MD [place] [address],[facility] [address] 03/07/2021 16:21:59 03/08/2021 08:08:47 [id number] Ofelia Luna MD [place] [address] [place] [address] 03/07/2021 16:24:19 03/07/2021 22:50:04 test positive 772010154 Z32.01 Anxiety in 459 3903762 9109 F41.9 Venereal d isease screening 527645847 Z11.3 Screening for malignant neoplasm of cervix 052569057 Z12.4 [id number] MD Maynor Gomez [address],[place] [address] 04/04/2021 17:00:51 04/04/2021 23:54:59 Routine care 183226384 Z34.91 test positive 662607486 Z32.01 Anxiety in 852 9303588 9109 F41.9 Venereal d isease screening 832753199 Z11.3 Screening for malignant neoplasm of cervix 166935308 Z12.4 [id number] MD Maynor Gomez [address],[place] [address] 04/04/2021 17:36:24 04/04/2021 17:49:05 screening 043334197 Z36.82 [id number] Ofelia Luna MD [place] [address],[place] [address] 05/02/2021 17:48:30 05/03/2021 21:50:54 Routine care 338379798 Z34.91 [id number] Ofelia Luna MD [place] [address],[place] [address] 05/30/2021 16:15:58 05/30/2021 17:08:29 screening for malformation 619576310 Z36.3 [id number] Ofelia Luna MD [place] [address],[place] [address] 1 05/30/2021 16:16:18 05/30/2021 17:59:18 Routine care 196821228 Z34.91 Low-lying placenta 53931 2006 O44.42 [id number] MD Maynor Gomez [address],[place] [address] 06/26/2021 14:28:29 06/26/2021 15:23:40 screening 170444634 Z36.2 [id number] MD Yu [place] [address],[place] [address] 06/26/2021 14:29:57 06/26/2021 16:24:16 Routine care 359934796 Z34.91 Polyhydramnios 13987986 O40.2XX1 [id number] Nando Cabrera MD [place] [address],[place] [address] 07/20/2021 09:27:58 07/20/2021 10:24:38 Polyhydramnios 76624771 O40.2XX0 Z3A.27 60424 [facility] [address],[place] [address] 07/20/2021 10:18:52 07/20/2021 12:10:12 Routine care 406333912 Z34.92 [id number] Sara Ruiz [facility] [address],[place] [address] 07/20/2021 11:14:04 07/20/2021 11:32:11 Routine care 919270310 Z34.92 [id number] Nando Cabrera MD [place] [address],[place] [address] 1 08/03/2021 16:53:41 08/04/2021 09:45:27 Routine care 450922353 Z34.83 14656 Ofelia Luna MD [place] [address],[place] [address] 08/21/2021 16:55:38 08/21/2021 17:29:52 Routine care 818549978 Z34.91 [id number] Sara Ruiz [facility] [address],[place] [address] 09/07/2021 16:42:33 09/07/2021 17:43:32 Routine care 080768204 Z34.92 [id number] [facility] [address],[place] [address] 09/13/2021 17:41:10 09/14/2021 11:08:08 Routine care 953846351 Z34.93 08375 Nando Cabrera MD [place] [address],[place] [address] 09/21/2021 17:06:39 09/22/2021 18:40:04 Routine care 271881838 Z34.83 65383 Nando Cabrera MD [place] [address],[place] [address] 09/28/2021 17:45:58 09/29/2021 10:11:32 Routine care 516905338 Z34.83 [id number] Ofelia Luna MD [place] [address],[place] [address] 10/06/2021 16:04:52 10/09/2021 19:54:49 Routine care 322906504 Z34.91 Polyhydramnios 70790403 O40.2XX1 [id number] Ofelia Luna MD [place] [address],[place] [address] 10/16/2021 11:57:30 10/16/2021 13:09:19 Pelvic hematoma 660508852 N94.89 [id number] Ofelia Luna MD [place] [address],[place] [address] 01/16/2022 17:33:34 01/17/2022 09:25:42 Obstetric trauma causing pelvic hematoma 190594498 O71.7 Depressive disorder 3548 9007 F32.A 34293 Ofelia Luna MD [place] [address],[place] [address] 03/20/2022 17:45:34 03/21/2022 11:26:19 Depressive disorder 99483167 F32.A Gynecologi c examination 70363109 Z01.419 Candidal vulvovaginitis 69433957 B37.3 [id number] [facility] [address],[place] [address] 08/20/2023 17:28:00 08/21/2023 09:55:43 Gynecologic examination 40073530 Z01.419 Take Calcium with Vitamin D 1200mg [...] PCP Body mass index 25-29 - overweight 562763531 Z68.29 Informatio n givenRD info givenJordan inquire insurance coverage.Thomas velarde I do not prescribe phentermin e.Would prefer she go to PCP but will consider short term management if decides to pursue a medication option.She is exercising and is open to 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 Will send portal msg [id number] Nando Cabrera MD [place] [address],[place] [address] 11/02/2024 18:20:24 11/03/2024 12:35:35 Gynecologic examination 03436071 Z01.419 Annual gynecologi bhargav exam performed. Patient [...] declined Body mass index 25-29 - overweight 287366458 Z68.25 Today we agreed to continue Wellbutrin as she is having much success with improvemen t to mood and overall emotional wellbeing. Patient lost 14 lbs since last year and has been feeling better overall. Counseled on medication R/B's, Most common side effects, & use. All questions were answered to patient satisfacti on. Anxiety 52425724 F41.9 Discussed treatment options for chronic anxiety [...] d if no improvemen t in symptoms. [id number] EDITH [facility] [address],[place] [address] 11/20/2023 16:20:43 11/21/2023 09:46:34 Body mass index 25-29 - overweight 044774297 Z68.29 Today we agreed to continue Wellbutrin [...] we can also consider going through the [facility] as she might be able [...] plan of care. [id number] Nando Cabrera MD [place] [address],[place] [address] 05/29/2024 12:07:53 05/29/2024 13:50:40 Anxiety 27380677 F41.9 This patient is a 38-year-ol d [...] alternativ es to the medication . [id number] Nando Cabrera MD [place] [address],[place] [address] 06/22/2024 13:56:46 06/22/2024 15:03:31 Anxiety 41106839 F41.9 This patient is a 38-year-ol d [...] over 30 minutes on the patient's care. [id number] Nando Cabrera MD [place] [address],[place] [address] 09/16/2024 16:37:39 09/17/2024 03:45:43 Dysuria 95384757 R30.0 Urinary tr act infectious disease 66568766 N39.0 [id number] Nando Cabrera MD [place] [address],[facility] [place] [address] 03/18/2025 11:47:28 03/18/2025 13:35:51 test positive 967444196 Z32.01 [id number] 1. Exam today within normal limits. 2. [...] vitamins. 9. Discussed that consultati on with M recommende d due to lamotrigin e use in 1st trimester - referral to be sent to [facility] in [place] [id number] MD Maynor Borja [address],[place] [address] 03/18/2025 11:45:51 03/18/2025 12:23:43 [id number] MD Maynor Borja [address],[place] [address] 04/12/2025 16:29:10 04/12/2025 17:12:47 screening 786137535 Z36.82 Z3A.12 9734098542 [id number] MD Maynor Borja [address],[place] [address] 04/12/2025 16:30:31 04/13/2025 08:54:45 care status 215084967 Z34.82 00191942 [id number] MD Maynor Borja [address],[place] [address] 05/12/2025 15:33:26 05/12/2025 16:50:57 care status 694372220 Z34.82 73717322 [id number] Nando Cabrera MD [place] [address],[place] [address] 06/09/2025 15:26:58 06/09/2025 16:35:14 screening for malformation 956635594 Z36.3 Z3A.20 7622209977 [id number] MD Maynor Borja [address],[place] [address] 06/09/2025 15:39:42 06/09/2025 17:00:31 care status 032019044 Z34.82 66408845 [id number] MD Maynor Borja [address],[place] [address] 07/08/2025 11:59:31 07/08/2025 12:43:53 Polyhydramnios 07372360 O40.2XX0 Z3A.24 555090 [id number] MD Maynor Borja [address],[place] [address] 07/08/2025 14:14:47 07/08/2025 14:56:57 Polyhydramnios 81718930 O40.9XX0 55666279 care status 24 5696095 Z34.82 72385404 [id number] MD Maynor Borja [address],[place] [address] 07/21/2025 17:25:15 07/22/2025 08:44:50 Polyhydramnios 12545782 O40.2XX0 Z3A.26 874135 [id number] Nando Cabrera MD [place] [address],[place] [address] 07/29/2025 13:28:25 07/29/2025 15:04:47 care status 659306458 Z34.82 16476628 [id number] TRUDY MORATAYA MD [place] [address],[place] [address] 08/10/2025 09:14:42 08/10/2025 10:07:38 Polyhydramnios 43370360 O40.3XX0 Z3A.29 811685 [id number] TRUDY MORATAYA MD [place] [address],[place] [address] 08/10/2025 09:14:57 08/10/2025 14:41:01 Polyhydramnios 69672272 O40.2XX0 27507729 Mixed anxi ety and depressive disorder 777743854 F32.A F41.9 310963 - increased venlafaxin e to 75mg Gestation period, 29 weeks 94548334 Z3A.29 5923138 [id number] MD Maynor Borja [address],[place] [address] 08/26/2025 17:12:32 08/27/2025 08:48:51 care status 439981623 Z34.83 15372235 [id number] MD Maynor Borja [address],[place] [address] 08/26/2025 18:13:13 08/27/2025 08:49:24 Polyhydramnios 77431995 O40.3XX0 Z3A.31 764670 Health Concerns Section Related Observation LastModified by Organization Detai ls LastModified Time None Recorded Concern Status LastModified by Organization Details LastModified Time None Recorded Advance Directives Directive None Recorded Payers Insurance Date Sequence Insurance Name Policy Number Policy Martinez Covered Member ID Martinez Member ID Guarantor Name 08/31/2025 1 UMR [id number] Josephine Burk [id number] Josephine Burk 12/11/2021 2 [place] [id number] Burton Euceda Burk [id number] Josephine Burk 08/10/2025 1 [place] [id number] Josephine Burk [id number] Josephine Burk Notes Date Note Type Note Provider Name and Address Organization Details Recorded Time 07/29/2025 text/html Generic HPI TemplateReported by Patient Nando Cabrera MD [address], [place], [address], [facility] 07/29/2025 15:04:41 08/10/2025 text/html Generic HPI TemplateReported by Patient TRUDY MORATAYA MD [address], [place], [address], [facility] 08/10/2025 14:24:03 08/26/2025 text/html Generic HPI TemplateReported by Patient Nando Cabrera MD [address], [place], [address], [facility] 08/26/2025 18:25:02 OBGyn Episode Ob Episode Information Episode Created Date Number of Fetuses Patient Bloodtype Patient rh Status Prepregnancy Weight lbs Domestic Partner Domestic Partner Phone Father Name Diesel Engine Tester Status 02/18/20 21 1 CLOSED Fetus Data [...] Domestic Partner Domestic Partner Phone Father Name Diesel Engine Tester Status 03/07/20 21 1 CLOSED Fetus Data [...] Domestic Partner Domestic Partner Phone Father Name Diesel Engine Tester Status 04/04/20 21 1 A Positive 161 CLOSED Fetus Data First Name Last Name Admitted to NICU Weight (g) Sex Living Outcome Pediatric Complications Fetus ID Race Codes Race Delivery Type Cotton 3657.08 55 M true Full Term 9606 Vaginal Delivery Problems Problem Notes CF negative in 2017 & SMA ne gative in 2019 Problem Name Start Date End Date Resolution Snomed Code Not e Low-lying placenta 06/26/2021 SELFRESOLVED 1342101 07 RESOLVED 06/26/21 Polyhydramnios 06/26/2021 SELFRESOLVED 38219042 Anxiety in 053337648 58582 zoloft 100 Dee Dee Calculation Initial Dee [...] Date Ultra Sound Latest Days Gestation 0 [email or web address] 04/04/2021 10/13/20 21 0 Pre- Flowsheet Flowsheet Date 04/04/2021 Yuan Score Blood Edema Fundus Height Fundus Units Glucose Ketones Leukocytes Nitrite Labor Signs Protein Cervic Dilation Cervic Effacement Cervic Station neg none trace Type Weight in lbs Pre/Post Dialysis Refused Weight 163.729112442953 BP Diastolic BP Location Tested BP Systolic BP Type 69 108 Fetus Heart Rate Present Fetus Movement A No Comments OB SCREEN: HPIPt is a 35yo G [id number] who presents for missed menses and possible [...] up in 4 weeks for first ob [email or web address] presents for care. History uncomplicated, 2 term [...] Weight in lbs Pre/Post Dialysis Refused Weight 165.795840074778 BP Diastolic BP Location Tested BP Systolic [...] Weight in lbs Pre/Post Dialysis Refused Weight 168.504211486477 BP Diastolic BP Location Tested BP Systolic BP Type 66 102 Fetus Heart Rate Present A 140 Fetus Movement A Yes Comments Doing well. Feels good. Jo mrajan today wnl but suboptiimal heart and stomach. [...] Weight in lbs Pre/Post Dialysis Refused Weight 171.590128540927 BP Diastolic BP Location Tested BP Systolic [...] Weight in lbs Pre/Post Dialysis Refused Weight 174.05476164543 BP Diastolic BP Location Tested BP Systolic [...] Weight in lbs Pre/Post Dialysis Refused Weight 174.02176534326 BP Diastolic BP Location Tested BP Systolic BP Type 61 97 Fetus Heart Rate Present Fetus Movement A Yes Comments Doing well. Encouraged tdap. U/S today. Await recommendations. Flowsheet Date 08/03/2021 Yuan Score Blood Edema Fundus Height Fundus Units Glucose Ketones Leukocytes Nitrite Labor Signs Protein Cervic Dilation Cervic Effacement Cervic Station 29 Type Weight in lbs Pre/Post Dialysis Refused Weight 178.821567758799 BP Diastolic BP Location Tested BP Systolic BP Type 65 R arm 101 sitting Fetus Heart Rate Present A 145 Fetus Movement Comments Flowsheet Date 08/21/2021 Yuan Score Blood Edema Fundus Height Fundus Units Glucose Ketones Leukocytes Nitrite Labor Signs Protein Cervic Dilation Cervic Effacement Cervic Station neg none 31 trace Type Weight in lbs Pre/Post Dialysis Refused Weight 181.268450349686 BP Diastolic BP Location Tested BP Systolic [...] Weight in lbs Pre/Post Dialysis Refused Weight 184.212981808464 BP Diastolic BP Location Tested BP Systolic [...] Weight in lbs Pre/Post Dialysis Refused Weight 185.552150467994 BP Diastolic BP Location Tested BP Systolic [...] Weight in lbs Pre/Post Dialysis Refused Weight 187.293971085753 BP Diastolic BP Location Tested BP Systolic [...] Weight in lbs Pre/Post Dialysis Refused Weight 188.888757197727 BP Diastolic BP Location Tested BP Systolic [...] Weight in lbs Pre/Post Dialysis Refused Weight 193.33439811779 BP Diastolic BP Location Tested BP Systolic BP Type 79 117 Fetus Heart Rate Present A 140 Fetus Movement A Yes Comments Doing well. GBS neg. IOL sat. Precautions given. Flowsheet Date 10/16/2021 Yuan Score Blood Edema Fundus Height Fundus Units Glucose Ketones Leukocytes Nitrite Labor Signs Protein Cervic Dilation Cervic Effacement Cervic Station Type Weight in lbs Pre/Post Dialysis Refused Weight 175.324398775796 BP Diastolic BP Location Tested BP Systolic [...] Estim ated Date of Delivery false Thalassemia (Kazakh, Tanzanian, Mediterranean, Or Background): MCV < 80 false Neural Tube Defect (Meningomyelocele, Spina Bifi da, Or Anencephaly) false Congenital Heart Defect false Down Syndrome false Rafi-Sachs (eg, Holiness, Cajun, Filipino-Oldham) f alse Heather Disease false Sickle Cell Disease Or Trait () false Hemophilia Or Other Blood Disorders false Muscular Dystrophy false Cystic Fibrosis false Brandy's Chorea false Intellectual Disability/Autism false If Yes, [...] Domestic Partner Domestic Partner Phone Father Name Diesel Engine Tester Status 04/12/20 1 A Positive Lucio OPEN Fetus Data First Name Last Name Admitted to NICU Weight (g) Sex Living Outcome Pediatric Complications Fetus ID Race Codes Race Delivery Type 21091 Problems Problem Notes Problem Name Start Date End Date Resolution Snomed Code Not e Iron deficiency anemia 08/18/2025 667306 02 infusion order faxed 08/18 Polyhydramnios 07/08/2025 [id number] 08/26 KORY 38 [facility] pt scheduled john 08/30 0730 US only Mixed anxiety and depressive disorder 04/12/2025 [id number] welbutri n and [email or web address] [facility] referral faxed [...] Gestation 0 [email or web address] 04/12/2025 10/22/20 25 0 Pre-jeff Flowsheet Flowsheet Date 04/12/2025 Yuan Score Blood Edema Fundus Height Fundus Units Glucose Ketones Leukocytes Nitrite Labor Signs Protein Cervic Dilation Cervic Effacement Cervic Station Type Weight in lbs Pre/Post Dialysis Refused Weight 157.440443224191 BP Diastolic BP Location Tested BP Systolic [...] Type Weight in lbs Pre/Post Dialysis Refused 159.086576743085 BP Diastolic BP Location Tested BP Systolic BP Type 62 L arm 105 sitting Fetus Heart Rate Present A 144 Present Fetus Movement A Yes Comments no complaints, no problems, routine care, no contractions, no vaginal bleeding, no loss of fluid, no cramping Flowsheet Date 06/09/2025 Yuan Score Blood Edema Fundus Height Fundus Units Glucose Ketones Leukocytes Nitrite Labor Signs Protein Cervic Dilation Cervic Effacement Cervic Station Type Weight in lbs Pre/Post Dialysis Refused BP Diastolic BP Location Tested BP Systolic BP Type Fetus Heart Rate Present Fetus Movement Comments Flowsheet Date 06/09/2025 Yuan Score Blood Edema Fundus Height Fundus Units Glucose Ketones Leukocytes Nitrite Labor Signs Protein Cervic Dilation Cervic Effacement Cervic Station Type Weight in lbs Pre/Post Dialysis Refused Weight 166.783961478247 BP Diastolic BP Location Tested BP Systolic BP Type 64 L arm 101 sitting Fetus Heart Rate Present Fetus Movement A Yes Comments no complaints, no problems, routine care, no contractions, no vaginal bleeding, no loss of fluid, no cramping high normal KORY, 2 repeat growth and KORY in 4 weeks Flowsheet Date 07/08/2025 Yuan Score Blood Edema Fundus Height Fundus Units Glucose Ketones Leukocytes Nitrite Labor Signs Protein Cervic Dilation Cervic Effacement Cervic Station Type Weight in lbs Pre/Post Dialysis Refused BP Diastolic BP Location Tested BP Systolic BP Type Fetus Heart Rate Present Fetus Movement Comments Flowsheet Date 07/08/2025 Yuan Score Blood Edema Fundus Height Fundus Units Glucose Ketones Leukocytes Nitrite Labor Signs Protein Cervic Dilation Cervic Effacement Cervic Station Type Weight in lbs Pre/Post Dialysis Refused Weight 171.729198538240 BP Diastolic BP Location Tested BP Systolic BP Type 65 L arm 101 sitting Fetus Heart Rate Present A 133 Fetus Movement A Yes Comments mildly abnormal amniotic flu id, repeat KORY in 2 weeks, hemoglobin A1c today, otherwise no complaints. Flowsheet Date 07/21/2025 Yuan Score Blood Edema Fundus Height Fundus Units Glucose Ketones Leukocytes Nitrite Labor Signs Protein Cervic Dilation Cervic Effacement Cervic Station Type Weight in lbs Pre/Post Dialysis Refused BP Diastolic BP Location Tested BP Systolic BP Type Fetus Heart Rate Present Fetus Movement Comments Flowsheet Date 07/29/2025 Yuan Score Blood Edema Fundus Height Fundus Units Glucose Ketones Leukocytes Nitrite Labor Signs Protein Cervic Dilation Cervic Effacement Cervic Station Type Weight in lbs Pre/Post Dialysis Refused 175.226078784836 BP Diastolic BP Location Tested BP Systolic BP Type 68 L arm 102 sitting Fetus Heart Rate Present A 146 Present Fetus Movement A Yes Comments no complaints, no problems, routine care, no contractions, no vaginal bleeding, no loss of fluid, no cramping Flowsheet Date 08/10/2025 Yuan Score Blood Edema Fundus Height Fundus Units Glucose Ketones Leukocytes Nitrite Labor Signs Protein Cervic Dilation Cervic Effacement Cervic Station Type Weight in lbs Pre/Post Dialysis Refused BP Diastolic BP Location Tested BP Systolic BP Type Fetus Heart Rate Present Fetus Movement Comments Flowsheet Date 08/10/2025 Yuan Score Blood Edema Fundus Height Fundus Units Glucose Ketones Leukocytes Nitrite Labor Signs Protein Cervic Dilation Cervic Effacement Cervic Station Type Weight in lbs Pre/Post Dialysis Refused 176.941782697469 BP Diastolic BP Location Tested BP Systolic BP Type 67 R arm 107 sitting Fetus Heart Rate Present Fetus Movement A Yes Comments Doing well, good movem ent. No cramping or bleeding. Completing 3h GTT today. EFW 50%, polyhydramnios with DVP 11cm. Anxiety worsening, discussed increasing venlafaxine to 75mg, which patient would like to try. Follow up in 2 weeks to assess mood. No SI/HI. RTC 2 weeks. Flowsheet Date 08/26/2025 Yuan Score Blood Edema Fundus Height Fundus Units Glucose Ketones Leukocytes Nitrite Labor Signs Protein Cervic Dilation Cervic Effacement Cervic Station Type Weight in lbs Pre/Post Dialysis Refused Weight 184.559644753234 BP Diastolic BP Location Tested BP Systolic BP Type 70 L arm 115 sitting Fetus Heart Rate Present A 138 Present Fetus Movement A Yes Comments patient has KORY of 38 today. To see MFM as soon as possible. No complaints. Flowsheet Date 08/26/2025 Yuan Score Blood Edema Fundus Height Fundus [...]
[2025-09-03] MEDS: LACTATED RINGERS 1,000 ML 75 ML IV CONT (17:14)
[2025-09-03] MEDS: MAGNESIUM SULF 2 GM/WATER 50ML 2 GM/50 ML BAG IVPB (17:21)
[2025-09-03] MEDS: AMPICILLIN SODIUM 2 GM in SODIUM CHLORIDE 0.9% IV 100 ML 200 ML IVPB (17:29)
[2025-09-03] MEDS: MAGNESIUM SULF 4 GM/WATER100ML 4 GM/100 ML BAG IVPB (17:33)
[2025-09-03 17:53] LABS: Hematocrit 31.3 % (37.0-47.0); Hemoglobin 11.1 g/dL (12.0-15.0); Immature Granulocyte Percent A 0.5 % (0-0.5); Lymphocytes Absolute Auto 1.62 K/mm3 (0.9-3.2); Mean Corpuscular HGB Conc 35.5 g/dl (32-36); Mean Corpuscular Hemoglobin 32.0 pg (26-34); Mean Corpuscular Volume 90.2 fl (80-100); Nucleated Red Blood Cells Absolute Auto 0.000 K/mm3 (0.0-0.012); Nucleated Red Blood Cells Perc 0.0 % (0.0-0.2); Platelet Count Result 210 k/mm3 (150-375); Red Blood Count 3.47 M/mm3 (4.2-5.4); White Blood Count 13.0 K/mm3 (4.5-10.0)
[2025-09-03] MEDS: MAGNESIUM SULF 20GM/WATER500ML 500 ML 50 MG IV CONT (18:01)
--- NOTE | 2025-09-03 18:21 | WPDANESEPP ---
Anes - Eval Pre Procedure Procedure: Labor epidural Date/Time: 09/03/25 18:21 Surgeon: Rick Preop Diagnosis: Abdominal pain with contractions Pre Op Diagnosis: Contractions Patient Data Age: 39 Gender: F Height: Weight: Last Vital Signs Temp 98.8 F 09/03/25 17:21 Pulse 83 09/03/25 18:15 Resp 18 09/03/25 17:21 BP 108/69 09/03/25 18:15 Pulse Ox 99 09/03/25 18:17 Allergies Allergy/AdvReac Type Severity Reaction Status Date / Time nickel Allergy Rash Verified 09/03/25 17:03 Home Medications ?Medication ?Instructions ?Recorded ?Confirmed ?Type vit no.95-ferrous 1 tablet PO DAILY 10/19/19 09/03/25 History fumarate 28 mg-folic acid 800 mcg tablet () bupropion HCl 300 mg 24 hr tablet, 300 mg PO DAILY 09/02/25 09/03/25 History extended release venlafaxine 37.5 mg 75 mg PO DAILY 09/02/25 09/03/25 History capsule,extended release 24 hr Laboratory Tests 09/03/25 17:47 WBC 13.0 H K/mm3 (4.5-10.0) RBC 3.47 L M/mm3 (4.2-5.4) Hgb 11.1 L g/dL (12.0-15.0) Hct 31.3 L % (37.0-47.0) MCV 90.2 fl (80-100) MCH 32.0 pg (26-34) MCHC 35.5 g/dl (32-36) RDW 12.6 % (11.5-14.5) Plt Count 210 k/mm3 (150-375) MPV 10.6 H fl (7.4-10.4) Immature Gran % (Auto) 0.5 % (0-0.5) Neut % (Auto) 81.2 H % (45.5-73.1) Lymph % (Auto) 12.5 L % (18.3-44.2) Amite % (Auto) 5.2 % (2.6-8.5) Eos % (Auto) 0.4 % (0-4.4) Baso % (Auto) 0.2 % (0.2-1.2) Lymph # (Auto) 1.62 K/mm3 (0.9-3.2) Amite # (Auto) 0.7 H K/mm3 (0.1-0.6) Eos # (Auto) 0.1 K/mm3 (0-0.3) Baso # (Auto) 0.0 K/mm3 (0.0-0.1) Abs Immat Gran (auto) 0.07 H K/mm3 (0.00-0.031) Absolute Neuts (auto) 10.6 H K/mm3 (1.3-6.7) Absolute Nucleated RBC 0.000 K/mm3 (0.0-0.012) Nucleated RBC % 0.0 % (0.0-0.2) : gestational age HCG: positive Patient hx anesthesia problems: none Family hx anesthesia problems: none Results Review: All pre-operative results and documents have been reviewed as part of the pre-operative evaluation. [facility] Past Medical History Medical History Anxiety Pain during labor Obesity (BMI 30-39.9) Family History Family History Mother Diabetes mellitus Hypertension Sibling Diabetes mellitus Hypertension Social History Social History Smoking status: Never smoker Second hand tobacco smoke exposure: No Substance use: never Spiritual care concerns: No Exam Day of Procedure 09/03/25 18:21 Patient weight: obese
[2025-09-03 18:37] LABS: Syphilis IgG/IgM Antibody Non-Reactive (Nonreactive)
--- NOTE | 2025-09-03 18:44 | PM.IMHP ---
H&P: HPI History of Present Illness Date/Time: 09/03/25 18:44 Chief Complaint: Contractions Narrative: This patient is a 39-year-old 4 para 3003 at 33 weeks and 0 days gestation who presented for painful contractions. She was found to be 6 cm dilated with a bulging bag of water. is in the vertex position, determined by ultrasound. There is no evident focal cord in the bag of water below the vertex presentation. Reassuring status. She has been given magnesium sulfate and antibiotics, Along with cortical steroids. To observe and await more active labor and rupture of membranes. Review of Systems Review of Systems: All systems reviewed & are unremarkable except as noted in HPI and below Constitutional: Constitutional: Denies chills, Denies fatigue, Denies fever(s) and Denies weakness Eyes: Eyes: Denies blurry vision, Denies change in vision, Denies loss of peripheral vision, Denies loss of vision, Denies other visual disturbances and Denies eye pain ENT: Denies vertigo, Denies dizziness, Denies hearing loss, Denies mouth pain, Denies nasal obstruction, Denies neck mass and Denies neck pain Cardiovascular: Cardiovascular: Denies chest pain, Denies diaphoresis, Denies syncope, Denies leg edema and Denies dyspnea Respiratory: Respiratory: Denies chest congestion, Denies cough, Denies hemoptysis, Denies dyspnea and Denies wheezing Gastrointestinal: Gastrointestinal: Denies abdominal pain, Denies constipation, Denies diarrhea, Denies nausea and Denies vomiting Genitourinary: Genitourinary: Denies hematuria, Denies change in libido, Denies nocturia, Denies genital lesions, Denies flank pain and Denies urinary urgency Musculoskeletal: Musculoskeletal: Denies abnormal gait, Denies back pain, Denies myalgias, Denies arthralgias, Denies joint swelling, Denies muscle weakness and Denies neck pain Integumentary/Breasts: Skin/Breast: Denies swelling, Denies breast pain, Denies breast mass, Denies dry skin, Denies nipple discharge, Denies unusual bruising and Denies jaundice Neurologic: Denies Neuro-related abnormal movements, Denies Abnormal speech present, Denies abnormal gait, Denies behavioral changes, Denies confusion, Denies vertigo, Denies dizziness, Denies syncope, Denies loss of vision, Denies memory loss, Denies convulsions and Denies weakness Psychiatric: Psychiatric: Denies abnormal sleep pattern, Denies behavioral changes, Denies change in libido, Denies confusion, Denies depression, Denies anhedonia and Denies memory loss Endocrine: Endocrine: Reports no additional endocrine complaints, Denies change in libido and Denies fatigue Hematologic/Lymphatic: Hematologic/Lymphatic: Reports no additional hematologic/lymphatic complaints Allergic/Immunologic: Allergic/Immunologic: Reports no additional allergic/immunologic complaints and Denies wheezing PMFSH Past Medical History Medical History Anxiety Pain during labor Obesity (BMI 30-39.9) Family History Family History Mother Diabetes mellitus Hypertension Sibling Diabetes mellitus Hypertension Social History Social History Smoking status: Never smoker Second hand tobacco smoke exposure: No Substance use: never Spiritual care concerns: No Meds Home Medications and Allergies Home Medications ?Medication ?Instructions ?Recorded ?Confirmed ?Type vit no.95-ferrous 1 tablet PO DAILY 10/19/19 09/03/25 History fumarate 28 mg-folic acid 800 mcg tablet () bupropion HCl 300 mg 24 hr tablet, 300 mg PO DAILY 09/02/25 09/03/25 History extended release venlafaxine 37.5 mg 75 mg PO DAILY 09/02/25 09/03/25 History capsule,extended release 24 hr Allergies Allergy/AdvReac Type Severity Reaction Status Date / Time nickel Allergy Rash Verified 09/03/25 17:03 Vital Signs Vital Signs - 24 hr 09/03/25 16:47 09/03/25 17:21 09/03/25 17:21 Temperature 98.8 F Pulse Rate 87 89 Respiratory Rate 18 Blood Pressure 114/86 124/74 Pulse Oximetry 99 Oxygen Delivery Room Air 09/03/25 17:22 09/03/25 17:24 09/03/25 17:27 Temperature Pulse Rate 89 Respiratory Rate Blood Pressure 124/74 Pulse Oximetry 97 98 Oxygen Delivery 09/03/25 17:30 09/03/25 17:32 09/03/25 17:37 Temperature Pulse Rate 79 Respiratory Rate Blood Pressure 112/64 Pulse Oximetry 98 98 Oxygen Delivery 09/03/25 17:42 09/03/25 17:45 09/03/25 17:47 Temperature Pulse Rate 78 Respiratory Rate Blood Pressure 109/70 Pulse Oximetry 98 98 Oxygen Delivery 09/03/25 17:52 09/03/25 17:57 09/03/25 18:00 Temperature Pulse Rate 82 Respiratory Rate Blood Pressure 110/68 Pulse Oximetry 99 98 Oxygen Delivery 09/03/25 18:02 09/03/25 18:07 09/03/25 18:12 Temperature Pulse Rate Respiratory Rate Blood Pressure Pulse Oximetry 97 98 98 Oxygen Delivery 09/03/25 18:15 09/03/25 18:17 09/03/25 18:22 Temperature Pulse Rate 83 Respiratory Rate Blood Pressure 108/69 Pulse Oximetry 99 99 Oxygen Delivery 09/03/25 18:27 09/03/25 18:30 09/03/25 18:32 Temperature Pulse Rate 76 Respiratory Rate Blood Pressure 117/66 Pulse Oximetry 98 99 Oxygen Delivery 09/03/25 18:37 09/03/25 18:42 Temperature Pulse Rate Respiratory Rate Blood Pressure Pulse Oximetry 99 99 Oxygen Delivery Exam Const: General: cooperative, healthy appearing, comfortable and no acute distress Orientation/consciousness: oriented to person, oriented to place and oriented to time HENMT: Head: normal to inspection Ears: external ears normal Face/Nose/Sinus: Normal external nose present and normal facial exam Face and sinus: normal facial exam Eyes: General: appearance normal, both eyes and all related structures Neck: Neck: normal visual inspection, trachea midline and supple Resp: Auscultation: clear to auscultation bilaterally, no crackles, no rales, no rhonchi and no wheezes Cardio: Rate: regular rate Rhythm: regular rhythm Heart sounds: no click, no murmurs and no rubs GI: GI Palp: No abdominal tenderness, No Soft to palpation, No Tenderness to palpation present (GI) and No Palpable mass present Auscultation: normal bowel sounds Skin: General skin exam: normal color and no rashes or lesions noted Neuro: General: oriented to person, oriented to place and oriented to time Extrem: General: normal to inspection, no joint enlargement, no clubbing, cyanosis or edema, no pedal edema and no calf tenderness Psych: Appearance: grossly normal Mental Status: mental status grossly normal Speech and movement: Normal speech and movement present H&P: Results Labs Labs: Short CBC 09/03/25 Range/Units 17:47 WBC 13.0 H (4.5-10.0) K/mm3 Hgb 11.1 L (12.0-15.0) g/dL Hct 31.3 L (37.0-47.0) % Plt Count 210 (150-375) k/mm3 Assessment and Plan Assessment and plan (1) labor: Code(s): O60.00 - labor without delivery, unspecified trimester Status: Acute (2) Polyhydramnios: Code(s): O40.9XX0 - Polyhydramnios, unspecified trimester, not applicable or unspecified Status: Acute Plan This patient is a 39-year-old 4 para 3003 at 33 weeks and 0 days gestation who presented for painful contractions. She was found to be 6 cm dilated with a bulging bag of water. Infant is in the vertex position, determined by ultrasound. There is no evident focal cord in the bag of water below the vertex presentation. Reassuring status. She has been given magnesium sulfate and antibiotics, Along with cortical steroids. To observe and await more active labor and rupture of membranes.
--- NOTE | 2025-09-03 20:00 | LDADM ---
This patient, Josephine Burk, was admitted to Labor/Delivery/Recovery 106 on 09/03/25 at 16:11. Plans for labor, pain management and were discussed with patient. Patient/family oriented to hospital policies and general routines including ID bracelet, bed and alarms, visiting hours, pain management, procedures, bathroom and other care routines, personal items, smoking policy, room service/diet and guest tray routines, security routines, and visiting hours. Patient/Family are encouraged to report perceived risks to care and to ask questions if they do not understand what they are told or what they should do. See OBIX for further documentation.
[2025-09-03 20:09] LABS: Add Urine Microscopic? YES; Appearance Urine Cloudy (Clear); Glucose Urine UA Negative (Negative); Leukocyte Esterase Ur 2+ LEU/UL (Negative); Nitrate Urine Negative (Negative); Non Pathogenic Casts 0-2; Specific Grav Ur 1.013 (1.001-1.035)
[2025-09-03] MEDS: AMPICILLIN SODIUM 1 GM in SODIUM CHLORIDE 0.9% IV 50 ML 100 ML IVPB (22:05)
[2025-09-04] VITALS (99 sets, daily range): BP systolic 83–121; BP diastolic 42–84; PULSE 60–144; RESP 16–18; TEMP 36.1–37.1; O2SAT 88–100
[2025-09-04] MEDS: AMPICILLIN SODIUM 1 GM in SODIUM CHLORIDE 0.9% IV 50 ML 100 ML IVPB ×3 (02:18→10:04)
[2025-09-04] MEDS: MAGNESIUM SULF 20GM/WATER500ML 500 ML 50 MG IV CONT (04:00)
[2025-09-04] MEDS: LACTATED RINGERS 1,000 ML 75 ML IV CONT (08:02)
[2025-09-04] MEDS: ACETAMINOPHEN 500 MG TABLET 1000 MG PO (08:47)
--- NOTE | 2025-09-04 09:15 | PM.TDS ---
Transfer Discharge Sum: Prov Provider Date of admission: 09/03/25 16:11 Primary care physician: [employer] Admitting clinician: Nando Cabrera MD Consults: 09/03/25 17:40 Consult to Anesthesiology Routine Reason for consultation: Epidural Has provider been notified: Yes DS: Admitting Diagnosis Discharge Date 09/04/2025 Admitting Diagnosis Pre term labor DS: Discharge Diagnosis Discharge Diagnosis (1) labor: Code(s): O60.00 - labor without delivery, unspecified trimester Status: Acute Plan 39-year-old with pre term labor to be transferred to [facility] Dr. Galindo Transfer Discharge Sum: Med Medications Active and Home Medications: Home Medications vit no.95-ferrous fumarate 28 mg-folic acid 800 mcg tablet () 1 tablet PO DAILY 10/19/19 [History Confirmed 09/03/25] bupropion HCl 300 mg 24 hr tablet, extended release 300 mg PO DAILY 09/02/25 [History Confirmed 09/03/25] venlafaxine 37.5 mg capsule,extended release 24 hr 75 mg PO DAILY 09/02/25 [History Confirmed 09/03/25] Active Medications Atropine Sulfate (Atropine Sulfate 0.4 Mg/Ml Vial) 0.4 mg IV PUSH PRN PRN PRN Reason: Bradycardia Betamethasone Acet/Betameth SodPhos (Betamethasone Sod Phos/Acetate 30 Mg/5 Ml Vial) 12 mg IM Q24H [facility] Stop: 09/04/25 17:01 Last Admin: 09/03/25 17:08 Dose: 12 mg Ephedrine Sulfate (Ephedrine Sulfate Inj 50 Mg/Ml Ampul) 5 mg IV PUSH Q5MIN PRN PRN Reason: for hypotension (syst. < 100) Fentanyl Citrate (Fentanyl Citrate Inj (*Crx) 100 Mcg/2 Ml Vial) 50 mcg IV PUSH Q1H PRN PRN Reason: Pain Rated 5 or Less Fentanyl Citrate (Fentanyl Citrate Inj (*Crx) 100 Mcg/2 Ml Vial) 100 mcg IV PUSH Q1H PRN PRN Reason: Pain Rated 6 or Greater Magnesium Sulfate (Magnesium Sulf 20gm/[id number]) 500 mls @ 50 mls/hr IV CONT .Q10H [facility] Last Admin: 09/04/25 04:00 Dose: 50 mls/hr Ampicillin Sodium 1 gm/ Sodium (Chloride) 50 mls @ 100 mls/hr IVPB Q6HR [facility] Last Admin: 09/04/25 06:05 Dose: 100 mls/hr Lactated Ringer's (Lr - Lactated Ringers Iv) 1,000 mls @ 75 mls/hr IV CONT .[id number] [facility] Last Admin: 09/04/25 08:02 Dose: 75 mls/hr Oxytocin/Sodium Chloride (Oxytocin 30 Units/Ns 500 Ml) 30 units in 500 mls @ 999 mls/hr IV CONT .Q31M PRN PRN Reason: if not received in labor Oxytocin/Sodium Chloride (Oxytocin 30 Units/Ns 500 Ml) 30 units in 500 mls @ 125 mls/hr IV CONT .Q4H PRN PRN Reason: if not received in labor Lactated Ringer's (Lr - Lactated Ringers Iv) 500 mls @ 999 mls/hr IV CONT .Q31M PRN PRN Reason: see Label Comments Loratadine (Loratadine 10 Mg Tablet) 10 mg PO ONCE PRN PRN Reason: Itching Naloxone HCl (Naloxone Hcl 0.4 Mg/Ml Vial) 0.1 mg IV PUSH Q2M PRN PRN Reason: Respiratory rate less than 10 Naloxone HCl (Naloxone Hcl 0.4 Mg/Ml Vial) 0.1 mg IV PUSH ONCE PRN PRN Reason: for resp. rate less than 10 Ondansetron HCl (Ondansetron Inj 4 Mg/2 Ml Vial) 4 mg IV PUSH Q6H PRN PRN Reason: Nausea And Vomiting Phenylephrine/Sodium Chloride (Phenylephrine 1,000 Mcg/10 Ml Syringe) 100 mcg IV PUSH Q5MIN PRN PRN Reason: for hypotension (syst. < 100) Terbutaline Sulfate (Terbutaline Sulfate 1 Mg/Ml Vial) 0.25 mg SUB-Q PRN PRN PRN Reason: Tachystole Transfer Discharge Sum: Hosp Hospital Course Hospital course: Josephine Burk is a 39 year old female Patient Condition: Stable Time Spent with Patient Time attestation: Total time spent providing and/or coordinating transfer services: DS: Data Data Completed and Pending Labs on day of discharge: Labs from last 24 hours 09/03/25 17:47 WBC 13.0 H RBC 3.47 L Hgb 11.1 L Hct 31.3 L MCV 90.2 MCH 32.0 MCHC 35.5 RDW 12.6 Plt Count 210 MPV 10.6 H Immature Gran % (Auto) 0.5 Neut % (Auto) 81.2 H Lymph % (Auto) 12.5 L [place] % (Auto) 5.2 Eos % (Auto) 0.4 Baso % (Auto) 0.2 Lymph # (Auto) 1.62 [place] # (Auto) 0.7 H Eos # (Auto) 0.1 Baso # (Auto) 0.0 Abs Immat Gran (auto) 0.07 H Absolute Neuts (auto) 10.6 H Absolute Nucleated RBC 0.000 Nucleated RBC % 0.0 Urine Color Yellow Urine Appearance Cloudy H Urine pH 5.5 Ur Specific [place] 1.013 Urine Protein Negative Urine Glucose (UA) Negative Urine Ketones 2+ H Ur Blood (Man) 3+ H Urine Nitrate Negative Urine Bilirubin Negative Urine Urobilinogen 0.2 Leukocyte Esterase Rfl 2+ H Urine RBC 0-2 Urine WBC 21-50 H Ur Squamous Epith Cells Few Urine Bacteria 1+ H Urine Casts 0-2 Syphilis IgG/IgM Ab Non-reactive Blood Type A Positive Antibody Screen Negative
== END 2025-09-04 10:45 | disposition designated cancer center or children's hospital (05) | DRG 833 ==
LOC: ANHLDR 17:10 → ANHOBPP 17:10
PROVIDERS: Admitting Provider Obstetrics & Gynecology; Visit Provider Obstetrics & Gynecology
DX: O60.03 Preterm labor without delivery, third trimester (principal); O40.3XX0 Polyhydramnios, third trimester, not applicable or unspecified; Z3A.33 33 weeks gestation of pregnancy
CPT/HCPCS: 36415; 81001; 85025; 86593; 86850; 86900; 86901; 87086; A9270; J0290; J0702; J3475; J7120

== ENCOUNTER 2025-09-16 15:45 | Observation (INO) | payer OTHER, SELFPAY ==
[2025-09-16] VITALS (13 sets, daily range): BP systolic 98–114; BP diastolic 52–82; PULSE 62–107; TEMP 37.3–37.4; O2SAT 100; BMI 29.9
--- NOTE | 2025-09-16 15:44 | PC.NURSE ---
09/16/25 - 0478 - Called Dr. Cabrera to report ROM plus positive result after pt states she has been leaking fluid since last saturday (09/11/25). Dr. Cabrera ordered antibiotics to be started and to put pt on observation at this time. MD wants to know if the pt would rather be transferred to another facility or stay and deliver here. Pt prefers to be transferred to [place] to deliver.
--- NOTE | 2025-09-16 15:52 | PC.NURSE ---
SVE performed on pt at 1552. She was 4.5/ with a bulging bag. SVE performed by Levy Mcleod RN.
[2025-09-16] MEDS: LACTATED RINGERS 1,000 ML 125 ML IV CONT (16:09)
--- NOTE | 2025-09-16 16:13 | OBADM ---
This patient, Josephine Burk, admitted to the OB room Labor/Delivery/Recovery 118 for observation at 1545. Patient/family oriented to hospital policies and general routines including ID bracelet, bed and alarms, visiting hours, pain management, procedures, bathroom and other care routines, personal items, smoking policy, room service/diet, and visiting hours. Patient/Family are encouraged to report perceived risks to care and to ask questions if they do not understand what they are told or what they should do.
[2025-09-16 16:21] LABS: OBXCEM ROM Plus Positive (Negative)
[2025-09-16] MEDS: AMPICILLIN SODIUM 2 GM in SODIUM CHLORIDE 0.9% IV 100 ML 200 ML IVPB (16:29)
--- OUTSIDE RECORDS SUMMARY | 2025-09-16 17:49 | XMS_ITS | Clinical Summary ---
Author Organization [facility] Address [address] [place] [id number] Care Team Providers Care Delivery Engineer Name Role Phone Lizzie Kennedy MD Unavailable [phone] Curtis Ness MD Primary Care Provider [phone] Allergies Active Allergy Reactions Criticality Noted Date [...] Full M Care; Referring Provider: Lizzie Kennedy [phone] [x] Dating Criteria: LMP 01/30/19 DEE DEE [...] [] MOC: [] Method of feeding: [] Binding Cutter: [] PP Depression Discussed: Social History Tobacco Use Types Packs/Day Years Used Date Smoking Tobacco: Never Smokeless Tobacco: Never Tobacco Cessation:Counseling Given: Not Answered Comments Unknown Sex and Gender Information Value Date Recorded Sex Assigned at Not on file Legal Sex Female 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 Gender Identity Not on file Sexual Orientation Not on file Obstetrics History Para Term AB IAB SAB Ectopic Multiple Livin g Live Births 2 1 1 Date Outcome GA Total Labor Labor/2nd/3rd Weight Sex Type Anes PTL Maame A1 A5 Name Clin 2018 Term 39w0 d 3.487 kg (7 lb 11 oz) F Vag-S pont [place] Last Filed Vital Signs Vital Sign Reading Time Taken Comments Blood Pressure 127/89 12/30/2024 3:08 PM REMOVABLE PROSTHODONTIST Pulse 78 12/30/2024 3:08 PM REMOVABLE PROSTHODONTIST Temperature 36.8 C (98.2 F) 12/30/2024 3:08 PM REMOVABLE PROSTHODONTIST Respiratory Rate 18 12/30/2024 3:08 PM REMOVABLE PROSTHODONTIST Oxygen Saturation 99% 12/30/2024 3:08 PM REMOVABLE PROSTHODONTIST Inhaled Oxygen Concentration - - Weight 74.8 kg (165 lb) 12/30/2024 3:08 PM REMOVABLE PROSTHODONTIST Height 165.1 cm (5' 5) 12/30/2024 3:08 PM REMOVABLE PROSTHODONTIST Body Mass Index 27.46 12/30/2024 3:08 PM REMOVABLE PROSTHODONTIST Plan of Treatment Health Maintenance Due Date [...] topic Insurance ROSALINE ACCESS CHOICE [facility] Care Teams Delivery Engineer Relationship Specialty Start Date End Date Curtis Ness MD [address] [address] PCP - General Family Medicine 10/02/22 Lizzie Kennedy MD Referring Physician Obstetrics and Gynecology 07/27/19
--- OUTSIDE RECORDS SUMMARY | 2025-09-16 17:49 | XMS_ITS | Encounter Summary ---
Author Organization [facility] Address [facility]ly [facility] [place] [address] Care Team Providers Care Drain Cleaner Plumber Name Role Phone Makenzie Santiago MD Primary Care Provider Regine Yañez PA-C Primary Care Provider [phone] None, Provider Primary Care Provider Malissaa ble Encounter Details Date Type Department Care Team (Late st Contact Info) Description 04/30/2018 Hospital Follow-up Call [facility] [place] [address] Yana Luz RN Social History Tobacco Use [...] Rule Out 12/06/2021 12/06/2021 12/06/2021 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
--- OUTSIDE RECORDS SUMMARY | 2025-09-16 17:49 | XMS_ITS | Clinical Summary ---
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 This disclosure is being madepursuant to the Care Everywhere program and may not contain all information available regarding this patient. Last updated 18.[facility] Allergies No known active allergies Medications * [...] (one) tablet by mouth once daily Active Active Problems Problem Noted Date Diagnosed Date labor in third trime ster with delivery, fetus 1 of multiple gestation 09/04/2025 Estimated Date of Delivery Comme nts Yes 10/22/2025 Based on last me nstrual period of 01/15/2025 Encounters Date Type Department Care Team Description 09/10/2025 Telephone [facility] [address] [place] [phone] Ju Rosenthal Appointment 09/04/2025 11:20 AM CDT - 09/06/2025 4:47 PM CDT Hospital Encounter [facility] 5E ANTEPARTUM/MOTHER BABY [address] [place] [address] Sebastian Saleh MD Maternal Medicine Discharge Disposition: Home or Self Care 09/04/2025 Travel 08/30/2025 8:45 AM CDT - 08/30/2025 11:59 PM CDT Hospital Encounter [facility] [address] [place] [phone] Chace Montgomery MD Discharge Disposition: Home or Self Care 08/30/2025 7:30 AM CDT - 08/30/2025 8:44 AM CDT Hospital Encounter [facility] [address] [place] [phone] Chace Montgomery MD Discharge Disposition: Home or Self Care 08/27/2025 Telephone [facility] [address] [place] [phone] Ju Rosenthal Appointment from Last 3 Months Immunizations Immunization Administration Dates Next Due INFLUENZA VACCINE, TRIV. (FL UZONE; FLULAVAL; FLUARIX; AFLURIA TRIVALENT; 6MO+), 0.5 ML (IIV3) 09/05/2025() Family History Medical History Relation Name Comments [...] drink = 0.6 oz pur e alcohol) Overall Financial Resource Strain (CARDIA) Answe r Date Recorded How hard is it for you to pa y for the very basics like food, housing, medical care, and heating? Not hard at all 09/04/2025 [facility] [place] [facility] Occupat ional [facility] - Occupational Stress Questionnaire Answer Date Recorded Do you feel stress - tense, restless, nervous, or anxious, or unable to sleep at night because your mind is troubled all the time - these days? Not at all 09/04/2025 Hunger Vital Sign Answer Date Recorded Within the past 12 months, y ou worried that your food would run out before you got the money to buy more. Never true 09/04/20 25 Within the past 12 months, t he food you bought just didn't last and you didn't have money to get more. Never true 09/04/2025 PRAPARE - Transportation Answer Date Re corded In the past 12 months, has l ack of transportation kept you from medical appointments or from getting medications? No 03/2025 In the past 12 months, has l ack of transportation kept you from meetings, work, or from getting things needed for daily living? No 09/04/2025 Housing Stability Vital Sign Answer Davie e Recorded In the last 12 months, was t here a time when you were not able to pay the mortgage or rent on time? No 09/04/2025 In the past 12 months, how m any times have you moved where you were living? 0 09/04/2025 At any time in the past 12 m [facility], were you homeless or living in a skilled nursing (including now)? No 09/04/2025 Estimated Date of Delivery Comme nts Yes 10/22/2025 Based on last me nstrual period of 01/15/2025 Sex and Gender Information Value Date Recorded Sex Assigned at Not on file Legal Sex Female 11:12 AM [employer] Gender Identity Not on file Sexual Orientation Not on file Last Filed Vital Signs Vital Sign Reading Time Taken Comments Blood Pressure 129/82 09/06/2025 8:40 AM CDT Pulse 56 09/06/2025 8:40 AM CDT Temperature 36.7 C (98.1 F) 09/06/2025 8:40 AM CDT Respiratory Rate 16 09/06/2025 8:40 AM CDT Oxygen Saturation 100% 09/06/2025 8:40 AM CDT Inhaled Oxygen Concentration - - Weight 82.6 kg (182 lb) 09/05/2025 7:24 AM CDT Height 152.4 cm (5') 09/05/2025 7:24 AM CDT Body Mass Index 35.54 09/05/2025 7:24 AM CDT Plan of Treatment Health Maintenance Due Date Last Done Comments HEPATITIS C SCREENING 12/16/2005 DTAP/TDAP/TD VACCINES (1 - Tdap) 2006 HEPATITIS B VACCINE (1 of 3 - 19+ 3-dose series) 2006 PAP SMEAR 2008 HPV VACCINE (1 - 3-dose SCDM series) 2014 DEPRESSION SCREENING 12/02/2024 OB-TDAP CURRENT 07/23/2025 09/01/2021 COVID-19 VACCINE (3 - 2024-2 6 season) 2025 04/07/2021, 03/10/2021 INFLUENZA VACCINE (#1) 2025 , 10/19/2020 Respiratory Syncytial Virus (RSV) Vaccine Pt: or over 60 yrs (1 - Risk 1-dose series) 08/27/2025 ZOSTER VACCINE (1 of 2) 2037 HIV SCREENING Completed 07/29/2025 OB-ONE HOUR GLUCOSE Completed 07/29/2025 OB-GROUP B STREP SCREEN Completed 09/04/2025 HIB VACCINE Aged Out No longer eligi [...] Procedure Name Priority Date/Time Associated Diagnosis Comments IMAGING/RADIOLOGY/XRA Y RESULTS ORDER 09/08/2025 5:59 PM CDT URINALYSIS REFLEX MICROSCOPIC REFLEX CULTURE STAT 09/04/2025 12:51 PM CDT CULTURE URINE STAT 09/04/2025 12:51 PM CDT TRICHOMONAS VAGINALIS LOIS Routine 09/04/2025 12:51 PM CDT CHLAMYDIA AND N. GONORRHOEAE LOIS Routine 09/04/2025 12:51 PM CDT CULTURE STREP B STAT 09/04/2025 12:51 PM CDT TYPE + SCREEN PANEL STAT 09/04/2025 1 2:15 PM CDT CBC W AUTO DIFFERENTIAL STAT 09/04/2025 12:15 PM CDT SONOGRAM - COMPLETE Routine 08/30/2025 8 :01 AM CDT Polyhydramnios in third trimester complication, single or unspecified fetus (HCC) Fourth (HCC) Encounter for ultrasound (HCC) from Last 3 Months Results * IMAGING/RADIOLOGY/XRAY RESULTS ORDER (09/08/2025 5:59 PM CDT) Anatomical Region Laterality Modality Other Narrative 09/08/2025 5:59 PM CDT Ordered by an unspecified provider. us Scanned Document IMAGING Final Result * TRICHOMONAS VAGINALIS LOIS (09/04/2025 12:51 PM CDT) Trichomonas by LOIS NEGATIVE NEGATIVE 09/05/2025 6:[address] [facility] Microbiology ENTIRE VAGINA / Unknown Collection / Unknown 09/04/2025 12:51 PM CDT 09/04/2025 12:[address] [facility] - 09/05/2025 6:30 AM CDT This test performed by Qualitative real-time Polymerase Chain Reaction (PCR). us Sebastian Saleh MD LAB - MICROBIOLOGY ORDERABLES Fi nal Result [facility] [address] [place] [address], [facility] [phone] * CHLAMYDIA AND N. GONORRHOEAE LOIS (09/04/2025 12:51 PM CDT) Chlamydia by LOIS NEGATIVE NEGATIVE 09/05/2025 6:[address] [facility] Neisseria gonorrhoeae LOIS NEGATIVE NEGATIVE 09/05/2025 6:[address] [facility] Microbiology ENTIRE VAGINA / Unknown Collection / Unknown 09/04/2025 12:51 PM CDT 09/04/2025 12:[address] [facility] - 09/05/2025 6:30 AM CDT This test performed by Qualitative real-time Polymerase Chain Reaction (PCR). us Sebastian Saleh MD LAB - MICROBIOLOGY ORDERABLES Fi nal Result [facility] [address] [place] [address], [facility] [phone] * (ABNORMAL) URINALYSIS REFLEX MICROSCOPIC REFLEX CULTURE (09/04/2025 12:51 PM CDT) Color UA Yellow Yellow, Straw 09/04/2025 1:23 PM CDT [facility] Clarity UA Clear Clear 09/04/2025 1:23 PM CDT [facility] Glucose UA Normal Normal 09/04/2025 1:23 PM CDT [facility] Bilirubin UA Negative Negative 09/04/2025 1:23 PM CDT [facility] Ketone UA 3+(A) Negative 09/04/2025 1:23 PM CDT [facility] Specific Anderson UA 1.021 1.005 - 1.030 09/04/2025 1:23 PM CDT [facility] Blood UA 1+(A) Negative 09/04/2025 1:23 PM CDT [facility] pH UA 5.5 5.0 - 8.0 09/04/2025 1:23 PM CDT [facility] Protein UA Negative Negative 09/04/2025 1:23 PM CDT [facility] Urobilinogen UA Normal Normal mg/dL 09/04/2025 1:23 PM CDT [facility] Nitrite UA Negative Negative 09/04/2025 1:23 PM CDT [facility] Leukocyte Esterase UA 250 SETH/uL(A) Negative 09/04/2025 1:23 PM CDT [facility] RBC UA 3-5 0 - 5 # /hpf 09/04/2025 1:23 PM CDT [facility] WBC UA 21-50(A) 0 - 5 # /hpf 09/04/2025 1:23 PM CDT [facility] Bacteria UA 1+(A) None Seen 09/04/2025 1:23 PM CDT [facility] Squamous Epithelial Cells 3-5 0 - 5 /hpf 09/04/2025 1:23 PM CDT [facility] Mucus UA 1+ /LPF 09/04/2025 1:23 PM CDT [facility] Reflex Status Culture to follow 09/04/2025 1:23 PM CDT [facility] Urine URINE SPECIMEN OBTAINED BY CLEAN CATCH PROCEDURE / Unknown Collection / Unknown 09/04/2025 12:51 PM CDT 09/04/2025 12:56 PM CDT Sebastian Saleh MD LAB - URINALYSIS ORDERABLES Delmi l Result Performing Organization Address City/[facility]/ZIP Co de Phone Number [facility] [address] [place] [address] * CULTURE URINE (09/04/2025 12:51 PM CDT) Culture Urine No growth (<100 CFU/mL) ANA PAULA 09/05/2025 6:[address] [facility] Urine URINE SPECIMEN OBTAINED BY CLEAN CATCH PROCEDURE / Unknown Collection / Unknown 09/04/2025 12:51 PM CDT 09/04/2025 12:56 PM CDT Sebastian Saleh MD LAB - MICROBIOLOGY ORDERABLES Fi nal Result [facility] [address] [phone] * CULTURE STREP B (09/04/2025 12:51 PM CDT) Culture Strep B Negative for beta-hemolytic Streptococcus Group B ANA PAULA 09/07/2025 12:[address] [facility] Microbiology MISCELLANEOUS SAMPLES / Unknown Collection / Unknown 09/04/2025 12:51 PM CDT 09/04/2025 12:56 PM CDT Sebastian Saleh MD LAB - MICROBIOLOGY ORDERABLES Fi nal Result [facility] [address] [place] [address], [facility] [phone] * TYPE + SCREEN PANEL (09/04/2025 12:15 PM CDT) Pathologist [facility] ABO Rh A POS 09/04/2025 1:01 PM CDT [facility] Comment:No history; collect retype. Antibody Screen NEG 1:01 PM CDT [facility] Blood Bank BLOOD SPECIMEN / Unknown Lab Venipuncture / Unknown 09/04/2025 12:15 PM CDT 09/04/2025 12:28 PM CDT Sebastian Saleh MD LAB - BLOOD BANK ORDERABLES Delmi l Result Performing Organization Address City/[facility] Co de Phone Number [facility] [address] [place] [address], [facility] [phone] * (ABNORMAL) CBC W AUTO DIFFERENTIAL (09/04/2025 12:15 PM CDT) [facility] WBC 12.3(H) 4.0 - 10.7 x10E9/L 09/04/2025 12:41 PM CDT [facility] RBC Count 3.25(L) 3.90 - 5.20 x10E12/L 09/04/2025 12:41 PM CDT [facility] Hemoglobin 10.6(L) 11.9 - 15.8 g/dL 09/04/2025 12:41 PM CDT [facility] Hematocrit 30.2(L) 34.8 - 46.1 % 09/04/2025 12:41 PM CDT [facility] MCV 92.9 80.0 - 98.0 fL 09/04/2025 12:41 PM CDT [facility] MCH 32.6 26.7 - 33.6 pg 09/04/2025 12:41 PM CDT [facility] MCHC 35.1 31.7 - 36.3 g/dL 09/04/2025 [facility] RDW-CV 12.7 11.3 - 14.8 % 09/04/2025 12:[facility] [address] [facility] Platelet Count 188 150 - 420 x10E9/L 09/04/2025 12:41 PM [facility] MPV 10.6 7.8 - 11.4 fL 09/04/2025 12:41 PM [facility] Neutrophil % 88.8(H) 41.0 - 74.0 % 09/04/2025 12:41 PM [facility] Lymphocyte % 6.9(L) 17.0 - 47.0 % 09/04/2025 12:41 PM [facility] Monocyte % 3.6 3.0 - 11.0 % 09/04/2025 12:41 PM [facility] Eosinophil % 0.0 0.0 - 7.0 % 09/04/2025 12:41 PM [facility] Basophil % 0.1 0.0 - 1.6 % 09/04/2025 12:41 PM [facility] Immature Granulocytes % 0.6 0.0 - 1.0 % 09/04/2025 12:41 PM [facility] Neutrophil Absolute 10.93(H) 1.60 - 7.50 x10E9/L 09/04/2025 12:41 PM [facility] Lymphocyte Absolute 0.85(L) 1.00 - 4.40 x10E9/L 09/04/2025 12:41 PM [facility] Monocyte Absolute 0.44 0.15 - 1.00 x10E9/L 09/04/2025 12:41 PM [facility] Eosinophil Absolute 0.00 0.00 - 0.60 x10E9/L 09/04/2025 12:41 PM [facility] Basophil Absolute 0.01 0.00 - 0.13 x10E9/L 09/04/2025 12:41 PM 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 Para 3 [id number] 1. live 2017. Gest. age 40 w [...] 4 lb 11 oz EFW by Hadlock ([id number]) appropriate Growth Overview Exam date [place] BPD [...] bone. Orbits. Heart / Thorax LVOT view. [id number] view. Situs. Diaphragm. Abdomen Cord insertion. Stomach. [...] growth in 4 weeks Coding ====== Procedures [id number]: US Preg Uterus Detailed [id number]: Biophysical Profile W NST [facility] [employer] PACS Anatomical Region Laterality Modality Other 08/30/2025 8:01 AM CDT [facility] Romulo Cabrera MD [facility] ORDERABLES Edited Result - Final from Last 3 Months Insurance [facility] Advance Directives * Full Code (Latest Code Status on File) Date Activated Date Inactivated Comments 09/04/2025 12:08 PM 09/06/2025 5:47 PM
--- OUTSIDE RECORDS SUMMARY | 2025-09-16 17:49 | XMS_ITS | Data Portability ---
Author Organization [facility] Address [address] [place] [address] [place] [address] Assessment Encounter Date Assessment Date Assessment LastModified by Organization Details LastModified Time 08/26/2025 08/26/2025 Patient is ___weeks . Discussed plan. Not available 08/26/2025 17:21:26 09/09/2025 09/09/2025 Patient is ___weeks . Discussed plan. Not available 09/09/2025 17:18:43 Plan of Treatment Reminders Order Date Submit Date Provider Last Modified By Organization Details Last Modified Time Details Appointments U/S OB BPP 2024 03:00P M ULTRASOUND Not available Not available Not available NST 2024 03:30P M NST SCHEDULE Not available Not available Not available OB ROUTINE 2024 04:00P M Yoly CABRERA MD Not available Not available Not available Lab None recorde d. Referral None recorde d. Procedures None recorde d. Surgeries None recorde d. Imaging non-str ess test 2024 025 [email or web address] [address], [address], [place], [address], 09/10/2025 09:14:31 US, obstetr ic, biophys ical profile + non-str ess test 2024 025 [email or web address] [address], [address], [place], [address], 09/09/2025 22:05:52 US, obstetr ic, biophys ical profile + non-str ess test 2024 [facility]25 [facility] [place], [address], [address], [place], [address], 08/27/2025 08:49:24 Medication Orders None recorde d. Patient TargetsNo targets recorded. Patient InstructionsNo instructions recorded. Reason for Referral None Reported. Results Created Date Observation Date Name Description Value Unit Range Abnormal Flag Note LastModifiedBy Organization Detail LastModifiedTime 07/29/2007/29/2025 HEMAT OCRIT (HCT) HCT 28.6 % (based on docume nted legal sex) 34.0-4 5.0 low Not Available [facility] (Lab) [address] [facility], [place], [address], 07/30/2025 11:36:00 07/29/20 25 07/29/2025 HEMOG LOBIN (HGB) HGB 9.7 g/dL (based on docume nted legal sex) 11.6-1 5.4 low Not Available [facility] (Lab) [address], [place], [address], 07/30/2025 11:36:00 07/29/20 25 07/29/2025 GTT - GESTA MARLENE L SCREE N, ACOG OB glucose, 1 hour screen 151 mg/dL 70-135 high Not Available [facility] (Lab) [address] [place], [address], 07/30/2025 11:36:01 07/29/20 25 07/29/2025 HIV 1/2 ANTIG EN/AN TIBOD Y, REFLE X CONFI RMATI ON HIV antigen/anti body Nonrea ctive nonrea ctive HIV-1 antig en and HIV-1 /HIV- 2 antib odies were not detec saumya. No labor atory evide nce of HIV infec tion. Not Available [facility] (Lab) [address] [place], [address], 07/30/2025 11:36:02 07/29/20 25 07/29/2025 RPR SCREE N, REFLE X TITER /CONF IRMAT ION RPR qualitative Nonrea ctive nonrea ctive Not Available [facility] (Lab) [address] [facility], [place], [address], 07/30/2025 11:36:02 08/10/20 25 08/10/2025 GTT - GESTA MARLENE L, 3 HOUR, ACOG glucose, fasting acog 88 mg/dL 70-94 Not Available [facility] (Lab) [address] [facility] [address], [place], [address], 08/11/2025 03:43:55 08/10/20 25 08/10/2025 GTT - GESTA MARLENE L, 3 HOUR, ACOG glucose, 1 hour acog 109 mg/dL 70-179 Not Available [facility] (Lab) [address] [facility], [place], [address], 08/11/2025 03:43:55 08/10/20 25 08/10/2025 GTT - GESTA MARLENE L, 3 HOUR, ACOG glucose, 2 hour acog 103 mg/dL 70-154 Not Available [facility] (Lab) [address] [facility], [place], [address], 08/11/2025 03:43:55 08/10/20 25 08/10/2025 GTT - GESTA MARLENE L, 3 HOUR, ACOG glucose, 3 hour acog 44 mg/dL 70-139 critical low Not Available [facility] (Lab) [address] [place], [address], 08/11/2025 03:43:55 08/10/20 25 08/10/2025 US, obste tric, follo w-up No observ ation record ed. [email or web address] [place] [address], [place], [address], 08/10/2025 10:13:47 08/10/2008/10/2025 US, obste tric, follo w-up No observ ation record ed. [email or web address], [place], [address], 08/12/2025 00:08:53 08/26/20 25 08/26/2025 US, obste tric, bioph ysica l profi le + non-s tress test No observ ation record ed. [email or web address] [place] [address], [place], [address], 08/26/2025 18:15:11 08/26/2008/26/2025 US, obste tric, bioph ysica l profi le + non-s tress test No observ ation record ed. [email or web address] [address], [place], [address], 08/27/2025 22:16:33 08/30/2008/30/2025 US, obste tric, follo w-up No observ ation record ed. [email or web address] [facility] [address], [address], 09/01/2025 16:02:02 08/30/2008/30/2025 US, obste tric, follo w-up No observ ation record ed. [email or web address] [facility] [address], [address], 09/07/2025 17:47:33 09/04/2009/03/2025 non-s tress test No observ ation record ed. [place] [id number] [facility] [address], [place], [address], 09/07/2025 11:46:08 09/09/2009/09/2025 US, obste tric, bioph ysica l profi le + non-s tress test No observ ation record ed. [email or web address] [place] [address], [place], [address], 09/09/2025 17:20:14 09/09/20 25 09/09/2025 US, obste tric, bioph ysica l profi le + non-s tress test No observ ation record ed. [email or web address] [address], [place], [address], 09/10/2025 10:04:21 09/10/2009/10/2025 non-s tress test No observ ation record ed. [place] [address], [place], [address], 09/10/2025 09:07:14 09/10/2009/09/2025 non-s tress test No observ ation record ed. Not Available 2024 09:08:29 Result Notes None recorded. Problems Name Problem SNOMED Code Status Onset Date Resolution Date Notes Provider Name and Address Organization Details Recorded Time Anxiety in pregnanc y 9772709663 9109 Completed zoloft 100 Juliet evans [facility] 15:56:28 Low-lyin g placenta 917434873 Completed 06/26/2021 RESOLVED 06/26/21 Juliet evans [facility] 15:56:28 Screenin g for malignan t neoplasm of cervix Completed 201503/07/2021 Screenin g for malignan t neoplasm s of the cervix;R ecorded Elsewher e: No Locat ion: Atilio saxena [facility] S ource: EHR Skull Chopper kunal: N Practi ce ID: 0001 Jareth lable Time: 04:45:00 PM Ofelia Luna MD [address], [place], [address], [facility] 16:59:32 Secondar y amenorrh ea 004662533 Completed 201603/07/2021 Secondar y amenorrh ea;Recor ded Elsewher e: No Locat ion: Atilio saxena [facility] S ource: EHR Skull Chopper kunal: N Hermilati ce ID: 0001 Jareth lable Time: 01:15:00 PM Ofelia Luna MD [address], [place], [address], [facility] [address] 16:59:[address] Concept Completed 201602/16/2021 Encntr for speech lang path therapist exam (general ) (routine ) w/o abn findings ;Recorde d Elsewher e: No Locat ion: Atilio saxena [facility] S ource: EHR Skull Chopper kunal: N Hermilati ce ID: 0001 Jareth lable Time: 01:15:00 PM Shady evans, [facility] 1 17:05:18 Gestatio n less than 9 weeks 887674948 Completed 201602/16/2021 Less than 8 weeks gestatio n of pregnanc y;Record ed Elsewher e: No Locat ion: Atilio saxena [facility] S ource: EHR Skull Chopper kunal: N Hermilati ce ID: 0001 Jareth lable Time: 03:45:00 PM Shady evans, [facility] 1 17:05:08 Uterine size for dates discrepa ncy Completed 201603/07/2021 Uterine size-nataliya e discrepa ncy, first trimeste r;Record ed Elsewher e: No [facility]: EHR Skull Chopper kunal: N Hermilati ce ID: 0001 Jareth lable Time: 03:45:00 PM Ofelia Luna MD [address], [place], [address], [facility] 1 16:59:44 Normal pregnanc y in multigra reina 7886760961 22099 Completed 201703/07/2021 Encounte r for suprvsn of normal pregnanc y, second trimeste r;Record ed Elsewher e: No Locat ion: Atilio saxena [facility] S ource: EHR Skull Chopper kunal: N Practi ce ID: 0001 Jareth lable Time: 03:45:00 PM Ofelia Luna MD [address], [place], [address], [facility] 16:59:18 Gestatio n period, 24 weeks 078332047 Completed 201702/16/2021 24 weeks gestatio n of pregnanc y;Record ed Elsewher e: No [facility] S ource: EHR Skull Chopper kunal: N Practi ce ID: 0001 Jareth lable Time: 04:30:00 PM Shady evans [facility] 17:04:55 Acute vaginiti s 04810995 Completed 201703/07/2021 Acute vaginiti s;Record ed Elsewher e: No Locat ion: Atilio saxena [facility] S ource: EHR Skull Chopper kunal: N Practi ce ID: 0001 Jareth lable Time: 04:30:00 PM Ofelia Luna MD [address], [place], [address], [facility] 16:59:05 Vaginiti s in pregnanc y 164875517 Completed 201703/07/2021 Infectio n oth prt genitl trct in pregnanc y, second trimeste r;Practi ce ID: 0001 Ofelia Luna MD [address], [place], [address], [facility] 16:59:47 Uterine or cervical spasm 692071773 Completed 201703/07/2021 Incoordi tom uterine contract ions;Rec orded Elsewher e: No Locat ion: Atilio saxena [facility] S ource: EHR Skull Chopper kunal: N Practi ce ID: 0001 Jareth lable Time: 04:00:00 PM Ofelia Luna MD [address], [place], [address], [facility] 1 16:59:42 Gestatio n period, 31 weeks 17513168 Completed 201702/16/2021 31 weeks gestatio n of pregnanc y;Practi ce ID: 0001 Shady Randolph null, [facility] 17:04:58 False labor before 37 complete d weeks of gestatio n [id number] 8951750 Completed 201702/16/2021 False labor before 37 complete d weeks of gest, third tri;Prac hsaq ID: 0001 Kayashkan Josephizzle [facility], [facility] 17:05:11 Finding of trunk structur e Completed 201703/07/2021 Oth diseases and conditio ns compl preg/chl dbrth;Re corded Elsewher e: No [facility] S ource: EHR Skull Chopper kunal: N Practi ce ID: 0001 Jareth lable Time: 05:30:00 PM Ofelia Luna MD [address], [place], [address], [facility] 16:59:39 Gestatio n period, 36 weeks 41311378 Completed 201702/16/2021 36 weeks gestatio n of pregnanc y;Record ed Elsewher e: No [facility] S ource: EHR Skull Chopper kunal: N Practi ce ID: 0001 Jareth lable Time: 05:30:00 PM Shady Agustínaric evans, [facility] 17:05:01 Gestatio n period, 39 weeks 11915370 Completed 201702/16/2021 39 weeks gestatio n of pregnanc y;Practi ce ID: 0001 Shady evans, [facility] 17:05:02 Prematur e rupture of membrane s 08196094 Completed 201703/07/2021 Full-ter m delaney ROM, unsp time betw rupture and onset labor;Pr actice ID: 0001 Ofelia Luna MD [address], [place], [address], [facility] 16:59:[address] Concept Completed 201802/16/2021 Encntr for general adult medical exam w/o abnormal findings ;Recorde d Elsewher e: No Locat ion: [facility] S ource: EHR Skull Chopper kunal: N Practi ce ID: 0001 Jareth lable Time: 10:45:00 AM Shady Randolph [facility], [facility] 17:05:16 Pregnanc y detectio n examinat ion Completed 201803/07/2021 Encounte r for pregnanc y test, result positive ;Recorde d Elsewher e: No Locat ion: [facility] Source: EHR Skull Chopper kunal: N Practi ce ID: 0001 Jareth lable Time: 10:45:00 AM Ofelia Luna MD [address], [place], [address], [facility] 16:59:24 Gestatio n period, 8 weeks 14648583 Completed 201802/16/2021 8 weeks gestatio n of pregnanc y;Record ed Elsewher e: No Locat ion: [facility] S ource: EHR Skull Chopper kunal: N Practi ce ID: 0001 Jareth lable Time: 03:30:00 PM Shady evans, [facility] 17:05:04 Antenata l screenin g Completed 05/30/ 2019 03/07/2021 Encounte r for antenata l screenin g for nuchal transluc ency;Rec orded Elsewher e: No Locat ion: Yuchucho odessa [facility] S ource: EHR Skull Chopper kunal: N Shelley ce ID: 0001 Jareth lable Time: 04:00:00 PM Ofelia Luna MD [address], [place], [address], [facility] 1 16:59:08 Antenata l screenin g for malforma tion Completed 201803/07/2021 Encounte r for antenata l screenin g for malforma tions;Re corded Elsewher e: No Locat ion: [facility] S ource: EHR Skull Chopper kunal: N Shelley ce ID: 0001 Jareth lable Time: 10:30:00 AM Ofelia Luna MD [address], [place], [address], [facility] 1 16:59:10 Placenta previa 52815497 Completed 201803/07/2021 Placenta previa specifie d as w/o hemor, second trimeste r;Record ed Elsewher e: No Locat ion: [facility] S ource: EHR Skull Chopper kunal: N Shelley ce ID: 0001 Jareth lable Time: 04:30:00 PM Ofelia Luna MD [address], [place], [address], [facility] 1 16:59:21 Gestatio n period, 27 weeks 99241340 Completed 201802/16/2021 27 weeks gestatio n of pregnanc y;Record ed Elsewher e: No Locat ion: [facility] S ource: EHR Skull Chopper kunal: N Hermilati ce ID: 0001 Jareth lable Time: 11:00:00 AM Shady evans, [facility] 1 17:04:57 Pregnanc y, childbir th and puerperi um finding Completed 201803/07/2021 Encntr for suprvsn of normal first preg, third trimeste r;Practi ce ID: 0001 Ofelia Luna MD [address], [place], [address], [facility] 16:59:[address] Concept Completed 201802/16/2021 Maternal care for oth abnormal ity and damage, unsp;Rec orded Elsewher e: No Locat ion: [facility] S ource: EHR Skull Chopper kunal: N Practi ce ID: 0001 Jareth lable Time: 09:17:34 AM Shady evans, [facility] 17:05:15 Gestatio n period, 35 weeks 62008059 Completed 201802/16/2021 35 weeks gestatio n of pregnanc y;Record ed Elsewher e: No Locat ion: [facility] S ource: EHR Skull Chopper kunal: N Practi ce ID: 0001 Jareth lable Time: 09:17:34 AM Shady evans, [facility] 17:04:59 Spotting per vagina in pregnanc y 632305219 Completed 201803/07/2021 Spotting complica ting pregnanc y, unspecif ied trimeste r;Practi ce ID: 0001 Ofelia Luna MD [address], [place], [address], [facility] 1 16:59:36 Finding of contents of cervix 106553551 Completed 201803/07/2021 Weeks of gestatio n of pregnanc y not specifie d;Practi ce ID: 0001 Ofelia Luna MD [address], [place], [address], [facility] 1 16:59:13 Term pregnanc y delivere d 30896775 Completed 201802/16/2021 Encounte r for full-ter m uncompli cated delivery ;Practic e ID: 0001 Shady Randolph [facility], [facility] 17:05:23 Single live from aj rae pregnanc y 724807672 Completed 201802/16/2021 Single live ;Pr actice ID: 0001 Shady Randolph [facility], [facility] 17:05:27 Procedur e related to breastfe eding Completed 201802/16/2021 Encounte r for care and examinat ion of lactatin g mother;P ractice ID: 0001 Shady Randolph [facility], [facility] 17:05:31 Lochia finding Completed 201803/07/2021 Encounte r for routine postpart um follow-u p;Record ed Elsewher e: No Locat ion: [facility] S ource: EHR Skull Chopper kunal: N Practi ce ID: 0001 Jareth lable Time: 01:15:00 PM Ofelia Luna MD [address], [place], [address], [facility] 16:59:50 Pregnanc y 07159954 Completed 202010/20/2021 Aurora Rico [facility], [facility] 5 17:24:58 Polyhydr amnios 52938163 Completed 2020 Juliet anderson [facility], [facility] 15:56:28 Pregnanc y 61914648 Active 2024 Aurora Rico [facility], [facility] 5 17:24:58 Mixed anxiety and depressi ve disorder 179222746 Active 2024 welbutri n and venlafex in [facility] referral faxed pt schedule d 04/07/25 antenata l testing TBD Jocelin evans [facility] 5 17:38:38 Polyhydr amnios 17851224 Active 08/26 KORY 38 referral faxed to [facility] [place] [facility] pt schedule d john 08/30 0730 US only Jocelin evans [facility] 5 16:48:47 Iron deficien cy anemia 55784861 Active 2024 infusion order faxed 08/18 Jocelin evans [facility] 5 12:42:58 Problem Notes None recorded. Procedures Surgical History Date Name Laterality Status Provider Name and Address Organization Details Recorded Time 4 Date of Last Pap Smear completed Jacque Rowell [facility] 03/18/2025 11:57:56 6 extraction of wisdom tooth completed Rafia Bridges [facility] 08/20/2023 18:00:00 Imaging Results None recorded. [...] Elsewher e: Yes Loca tion: Atilio saxena [facility] odify By: keon Encounrufina r DateTime : 10/02/20 16 04:45:00 PM Not Available Not Available Not Available lamotrigi ne 25 mg tablet TAKE ONE TABLET BY MOUTH TWICE DAILY 04/12 completed Not Available Not Available Not Available Metrogel Vaginal 0.75 % (37.5 mg/5 gram) insert 1 applicat orful by vaginal route every day at bedtime 03/04 completed Prescrib ed Elsewher e: No Locat ion: [facility] odify By: keon Rojaste r DateTime : 01/27/20 18 04:30:00 PM [...] 28 mg-800 mcg tablet 03/07 completed Prescrib leslee Petty e: Yes Loca tion: Atilio saxena [facility] M odify By: [email or web address] Encount er DateTime : 10/15/20 04:00:00 PM [...] Updated DateTime 08/26/2025 165.1 cm 30.6 kg/m2 93294 g 115/70 mm[Hg] Aurora Rico [facility] 08/26/2025 17:22:22 Date Recorded Body weight Provider Name an d Address Organization Details Last Updated DateTime 09/09/2025 64080.84266 g Nando Cabrera MD [address], [place], [address], [facility] 09/09/2025 17:34:02 Date Recorded Body height Systolic And Diastolic Provider Name and Address Organization Details Last Updated DateTime 09/09/2025 165.1 cm 112/75 mm[Hg] Aurora Rico [facility] 09/09/2025 17:21:51 Social History Question Answer Notes LastModified by Organizat ion Details LastModified Time Tobacco Smoking Status Never Sm[email or web address] 08/20/2023 17:30:08 Are You Blind Or Do You Have Difficulty Seeing? No [email or web address] Information n ot available 09/13/2021 What Is Your Level Of Caffeine Consumption? Occasional [email or web address] Information not available 09/13/2021 How Much Tobacco Do You Chew? None Information not available 04/12/2025 In The 14 Days Before Symptom Onset, Have You Had Close Contact With A Laboratory-confirm ed COVID-19 While That Case Was Ill? No [email or web address] Information n ot available 09/13/2021 In The 14 Days Before Symptom Onset, Have You Had Close Contact With A Person Who Is Under Investigation For COVID-19 While That Person Was Ill? No Information not available 09/13/2021 Have You Been To An Area Known To Be High Risk For COVID-19? No Information not available 09/13/2021 Are You Deaf Or Do You Have Serious Difficulty Hearing? No [email or web address] Information not available 09/13/2021 What Type Of Diet Are You Following? REGULAR Information n ot available 09/13/2021 What Is The Highest Grade Or Level Of School You Have Completed Or The Highest Degree You Have Received? [id number] Information not available 06/22/2024 Are There Any Guns Present In Your Home? Yes Information not available 04/12/2025 Have You Ever Been Counseled For Unhealthy Alcohol Use? No [email or web address] Information not available 08/20/2023 Do You Use Your Seat Belt Or Car Seat Routinely? Yes [email or web address] Information not available 09/13/2021 Do You Have Smoke And Carbon Monoxide Detectors In Your Home? Yes Information not available 09/13/2021 How Much Tobacco Do You Smoke? No Information not available 06/22/2024 Do You Use Sunscreen Routinely? Yes [email or web address] Information not available 09/13/2021 Has Tobacco Cessation Counseling Been Provided? No [email or web address] Information not available 08/20/2023 Have You Used IV Drugs? No Information not available 06/22/2024 Do You Have Difficulty Walking Or Climbing Stairs? No [email or web address] Information not available 08/20/2023 Sex: Unknown Functional Status Question Answer Note LastModified by Organizat ion Details LastModified Time Do you use any illicit or recreational drugs? No [email or web address] Information not available 03/07/2021 Do you or have you ever used any other forms of tobacco or nicotine? No [email or web address] Information not available 08/20/2023 What is your level of alcohol consumption? Occasional [email or web address] Information not available 09/13/2021 Are you able to walk independently without assistance or assistive devices? YESWOREST [email or web address] Information not available 09/13/2021 Are you able to care for yourself independently? Yes [email or web address] Information not available 08/20/2023 Do you have difficulty dressing, bathing, grooming, or toileting? No [email or web address] Information not available 08/20/2023 What is your exercise level? Moderate [email or web address] Information not available 03/18/2025 Mental Status Question Answer Note LastModified by Organization D etails LastModified Time Do you feel stressed (tense, restless, nervous, or anxious, or unable to sleep at night)? [id number] [email or web address] Information not available 09/13/2021 Family History Relationship Description Onset Age of this Age Resolved Age Notes LastModified by Organization Details LastModified Time Mother Diabetes mellitus [email or web address] Not available 08/20 17:58:27 Mother Hypercholest erolemia [email or web address] Not available 08/20 17:58:27 Mother Polycystic ovary syndrome [email or web address] Not available 08/2025 16:20:55 Maternal Grandmother Diabetes mellitus Not available 08/20 17:58:27 Maternal Grandmother Hypercholest erolemia [email or web address] Not available 08/20 17:58:27 Maternal Grandmother Polycystic ovary syndrome [email or web address] Not available 08/2025 16:20:55 Sister Diabetes mellitus [email or web address] Not available 08/20 17:58:27 Sister Polycystic ovary syndrome [email or web address] Not available 08/2025 16:20:55 Brother Diabetes mellitus [email or web address] Not available 08/20 17:58:27 Medical History Condition [...] ICD10 Code Diagnosis IMO Codes Diagnosis Note [id number] Nando Cabrera MD [place] [address],[place] [address] 03/07/2021 16:21:59 03/08/2021 08:08:47 [id number] Ofelia Luna MD [place] [address],[place] [address] 03/07/2021 16:24:19 03/07/2021 22:50:04 test positive 807604126 Z32.01 Anxiety in 801 4992207 9109 F41.9 Venereal d isease screening 013900001 Z11.3 Screening for malignant neoplasm of cervix 137568456 Z12.4 [id number] Ofelia Luna MD [place] [address],[place] [address] 04/04/2021 17:00:51 04/04/2021 23:54:59 Routine care 441565124 Z34.91 test positive 919873697 Z32.01 Anxiety in 295 8706196 9109 F41.9 Venereal d isease screening 061384862 Z11.3 Screening for malignant neoplasm of cervix 280353634 Z12.4 [id number] Ofelia Luna MD [place] [address] [place] [address] 04/04/2021 17:36:24 04/04/2021 17:49:05 screening 159353239 Z36.82 [id number] Ofelia Luna MD [place] [address] [place] [address] 05/02/2021 17:48:30 05/03/2021 21:50:54 Routine care 386033190 Z34.91 [id number] Ofelia Luna MD [place] [address],[place] [address] 05/30/2021 16:15:58 05/30/2021 17:08:29 screening for malformation 495724485 Z36.3 [id number] Ofelia Luna MD [place] [address],[place] [address] 05/30/2021 16:16:18 05/30/2021 17:59:18 Routine care 955677292 Z34.91 Low-lying placenta 36376 2007 O44.42 [id number] Ofelia Luna MD [place] [address],[place] [address] 06/26/2021 14:28:29 06/26/2021 15:23:40 screening 581846405 Z36.2 [id number] Ofelia Luna MD [place] [address],[place] [address] 06/26/2021 14:29:57 06/26/2021 16:24:16 Routine care 183176458 Z34.91 Polyhydramnios 36134248 O40.2XX1 [id number] MD Maynor Borja [address] [address],[place] [address] 07/20/2021 09:27:58 07/20/2021 10:24:38 Polyhydramnios [id number] O40.2XX0 Z3A.27 [id number] Sara Ruiz CNM [facility] [address],[place] [address] 07/20/2021 10:18:52 07/20/2021 12:10:12 Routine care 477289668 Z34.92 [id number] Sara Ruiz CNM [facility] [address],[place] [address] 1 07/20/2021 11:14:04 07/20/2021 11:32:11 Routine care 692120624 Z34.92 [id number] MD Maynor Borja [address],[place] [address] 1 08/03/2021 16:53:41 08/04/2021 09:45:27 Routine care 110074946 Z34.83 [id number] Ofelia Luna MD [facility] [address],[place] [address] 1 08/21/2021 16:55:38 08/21/2021 17:29:52 Routine care 949724969 Z34.91 [id number] Sara Ruiz [facility] [address],[place] [address] 1 09/07/2021 16:42:33 09/07/2021 17:43:32 Routine care 328190432 Z34.92 [id number] Racheal Vallejo, [facility] [address],[place] [address] 1 09/13/2021 17:41:10 09/14/2021 11:08:08 Routine care 642867424 Z34.93 [id number] Nando Cabrera MD [facility] [address],[place] [address] 1 09/21/2021 17:06:39 09/22/2021 18:40:04 Routine care 714553401 Z34.83 34824 Nando Cabrera MD [facility] [address],[place] [address] 1 09/28/2021 17:45:58 09/29/2021 10:11:32 Routine care 592935254 Z34.83 [id number] MD Maynor Gomez [address],[place] [address] 10/06/2021 16:04:52 10/09/2021 19:54:49 Routine care 317614877 Z34.91 Polyhydramnios 71781972 O40.2XX1 [id number] MD Maynor Gomez [address],[place] [address] 1 10/16/2021 11:57:30 10/16/2021 13:09:19 Pelvic hematoma 925155963 N94.89 [id number] Ofelia Luna MD [facility] [address],[place] [address] 1 01/16/2022 17:33:34 01/17/2022 09:25:42 Obstetric trauma causing pelvic hematoma 622715160 O71.7 Depressive disorder 3548 9007 F32.A 34009 Ofleia Luna MD [facility] [address],[place] [address] 03/20/2022 17:45:34 03/21/2022 11:26:19 Depressive disorder 17874388 F32.A Gynecologi c examination 99977883 Z01.419 Candidal vulvovaginitis 17475238 B37.3 [id number] [facility] [address],[place] [address] 08/20/2023 17:28:00 08/21/2023 09:55:43 Gynecologic examination 46403498 Z01.419 Take Calcium with Vitamin D 1200mg [...] PCP Body mass index 25-29 - overweight 590371609 Z68.29 Informatio n givenRD info Meenakshi inquire insurance coverage.Thomas trimblee I do not prescribe phentermin e.Would prefer she go to PCP but will consider short term management if decides to pursue a medication option.She is exercising and is open to seeing public service director. Will send portal Linqia [id number] Nando Cabrera MD [facility] [address],[place] [address] 11/02/2024 18:20:24 11/03/2024 12:35:35 Gynecologic examination 10816583 Z01.419 Annual gynecologi bhargav exam performed. Patient [...] declined Body mass index 25-29 - overweight 891865834 Z68.25 Today we agreed to continue Wellbutrin as she is having much success with improvemen t to mood and overall emotional wellbeing. Patient lost 14 lbs since last year and has been feeling better overall. Counseled on medication R/B's, Most common side effects, & use. All questions were answered to patient satisfacti on. Anxiety 89906984 F41.9 Discussed treatment options for chronic anxiety [...] d if no improvemen t in symptoms. [id number] [facility] [address],[place] [address] 11/20/2023 16:20:43 11/21/2023 09:46:34 Body mass index 25-29 - overweight 213434875 Z68.29 Today we agreed to continue Wellbutrin as she is having much success with improvemen t to mood and overall emotional wellbeing. Does feel she has more motivation . In regards to weight-los s, we discussed contrave which she voices her insurance does not cover. As georgiana saxena we discussed adding a small dose of naltrexone which is the other active ingredient in Contrave with her wellbutrin ; uncertain if insurance will cover this medication so we will send Rx and see what feedback we get. If they cover it we can discuss dosing schedule. If they do not cover it we can also consider going through the companies specialty pharmacy as she might be able [...] , education of patient's plan of care. [id number] Nando Cabrera MD [facility] [address],[place] [address] 05/29/2024 12:07:53 05/29/2024 13:50:40 Anxiety 17640960 F41.9 This patient is a 38-year-ol d [...] and alternativ es to the medication . [id number] Nando Cabrera MD [facility] [address],[place] [address] 1 06/22/2024 13:56:46 06/22/2024 15:03:31 Anxiety 17330464 F41.9 This patient is a 38-year-ol d [...] over 30 minutes on the patient's care. [id number] Nando Cabrera MD [facility] [address],[place] [address] 1 09/16/2024 16:37:39 09/17/2024 03:45:43 Dysuria 88547962 R30.0 Urinary tr act infectious disease 07722808 N39.0 [id number] Nando Cabrera MD [facility] [address],[place] [address] 03/18/2025 11:47:28 03/18/2025 13:35:51 test positive 927380565 Z32.01 [id number] 1. Exam today within normal limits. 2. [...] trimester - [facility] [place] [id number] Nando Cabrera MD [facility] [address],[place] [address] 03/18/2025 11:45:51 03/18/2025 12:23:43 [id number] Nando Cabrera MD [facility] [address],[place] [address] 1 04/12/2025 16:29:10 04/12/2025 17:12:47 screening 651749369 Z36.82 Z3A.12 [id number] Nando Cabrera MD [facility] [address],[place] [address] 04/12/2025 16:30:31 04/13/2025 08:54:45 care status 363382449 Z34.82 80831452 [id number] Nando Cabrera MD [facility] [address],[place] [address] 1 05/12/2025 15:33:26 05/12/2025 16:50:57 care status 274625646 Z34.82 87181312 [id number] MD Maynor Borja [address],[place] [address] 1 06/09/2025 15:26:58 06/09/2025 16:35:14 screening for malformation 627886672 Z36.3 Z3A.20 0702442499 [id number] MD Maynor Borja [address],[place] [address] 06/09/2025 15:39:42 06/09/2025 17:00:31 care status 794142495 Z34.82 09339392 [id number] MD Maynor Borja [address],[place] [address] 1 07/08/2025 11:59:31 07/08/2025 12:43:53 Polyhydramnios 42900508 O40.2XX0 Z3A.24 035787 [id number] MD Maynor Borja [address],[place] [address] 1 07/08/2025 14:14:47 07/08/2025 14:56:57 Polyhydramnios 28261269 O40.9XX0 38303570 care status 24 5835276 Z34.82 14053870 [id number] MD Maynor Borja [address],[place] [address] 07/21/2025 17:25:15 07/22/2025 08:44:50 Polyhydramnios 51567497 O40.2XX0 Z3A.26 009097 [id number] MD Maynor Borja [address],[place] [address] 07/29/2025 13:28:25 07/29/2025 15:04:47 care status 079688784 Z34.82 03693959 [id number] MD Maynor LOWERY [address],[place] [address] 08/10/2025 09:14:42 08/10/2025 10:07:38 Polyhydramnios 02786911 O40.3XX0 Z3A.29 823805 [id number] MD Maynor LOWERY [address],[place] [address] 08/10/2025 09:14:57 08/10/2025 14:41:01 Polyhydramnios 60698177 O40.2XX0 87397941 Mixed anxi ety and depressive disorder 560924979 F32.A F41.9 849337 - increased venlafaxin e to 75mg Gestation period, 29 weeks 06922832 Z3A.29 8114046 [id number] MD Maynor Borja [address],[place] [address] 08/26/2025 17:12:32 08/27/2025 08:48:51 care status 858132803 Z34.83 94616956 [id number] MD Maynor Borja [address],[place] [address] 08/26/2025 18:13:13 08/27/2025 08:49:24 Polyhydramnios 34211231 O40.3XX0 Z3A.31 995019 [id number] MD Maynor Borja [address],[place] [address] 09/09/2025 16:20:47 09/09/2025 16:54:52 Polyhydramnios 21535786 O40.3XX0 Z3A.33 635657 513384 MD Maynor Borja [address],[place] [address] 1 09/09/2025 16:21:06 09/10/2025 09:14:31 Polyhydramnios 67440727 O40.9XX0 10687649 [id number] MD Maynor Borja [address],[place] [address] 09/09/2025 16:21:33 09/09/2025 17:45:09 care status 606551948 Z34.83 96325499 Health Concerns Section Related Observation LastModified by Organization Detai ls LastModified Time None Recorded Concern Status LastModified by Organization Details LastModified Time None Recorded Advance Directives Directive None Recorded Payers Insurance Date Sequence Insurance Name Policy Number Policy Martinez Covered Member ID Martinez Member ID Guarantor Name 09/16/2025 1 UMR [id number] Josephine Burk [id number] Josephine Burk 12/11/2021 2 [place] [id number] Burton Euecda Burk [id number] Josephine Burk 09/09/2025 1 [place] [id number] Josephine Burk [id number] Josephine Burk Notes Date Note Type Note Provider Name and Address Organization Details Recorded Time 08/26/2025 text/html Generic HPI TemplateReported by Patient Nando Cabrera MD [address], [place], [address], [facility] 08/26/2025 18:25:02 09/09/2025 text/html Generic HPI TemplateReported by Patient Nando Cabrera MD [address], [place], [address], [facility] 09/09/2025 17:44:34 OBGyn Episode Ob Episode Information Episode Created Date Number of Fetuses Patient Bloodtype Patient rh Status Prepregnancy Weight lbs Domestic Partner Domestic Partner Phone Father Name Needle Molder Status 02/18/20 21 1 CLOSED Fetus Data [...] Domestic Partner Domestic Partner Phone Father Name Needle Molder Status 03/07/20 21 1 CLOSED Fetus Data [...] Domestic Partner Domestic Partner Phone Father Name Needle Molder Status 04/04/20 21 1 A Positive 161 [...] Code Not e Low-lying placenta 06/26/2021 SELFRESOLVED 8216280 07 RESOLVED 06/26/21 Polyhydramnios 06/26/2021 SELFRESOLVED 90026608 Anxiety in [id number] 60866 zoloft 100 Dee Dee Calculation Initial Dee [...] Date Ultra Sound Latest Days Gestation 0 04/04/2021 10/13/20 21 0 Pre- Flowsheet Flowsheet Date 04/04/2021 Yuan Score Blood Edema Fundus Height Fundus Units Glucose Ketones Leukocytes Nitrite Labor Signs Protein Cervic Dilation Cervic Effacement Cervic Station neg none trace Type Weight in lbs Pre/Post Dialysis Refused Weight 163.957909520608 BP Diastolic BP Location Tested BP Systolic BP Type 69 108 Fetus Heart Rate Present Fetus Movement A No Comments OB SCREEN: HPIPt is a 35yo G [id number] who presents for missed menses and possible [...] up in 4 weeks for first ob [email or web address] presents for care. History uncomplicated, 2 term [...] Weight in lbs Pre/Post Dialysis Refused Weight 165.660538348429 BP Diastolic BP Location Tested BP Systolic [...] Weight in lbs Pre/Post Dialysis Refused Weight 168.933000649923 BP Diastolic BP Location Tested BP Systolic [...] Weight in lbs Pre/Post Dialysis Refused Weight 171.426387247824 BP Diastolic BP Location Tested BP Systolic [...] Weight in lbs Pre/Post Dialysis Refused Weight 174.77842386658 BP Diastolic BP Location Tested BP Systolic [...] Weight in lbs Pre/Post Dialysis Refused Weight 174.58764140029 BP Diastolic BP Location Tested BP Systolic BP Type 61 97 Fetus Heart Rate Present Fetus Movement A Yes Comments Doing well. Encouraged tdap. U/S today. Await recommendations. Flowsheet Date 08/03/2021 Yuan Score Blood Edema Fundus Height Fundus Units Glucose Ketones Leukocytes Nitrite Labor Signs Protein Cervic Dilation Cervic Effacement Cervic Station 29 Type Weight in lbs Pre/Post Dialysis Refused Weight 178.352193846877 BP Diastolic BP Location Tested BP Systolic BP Type 65 R arm 101 sitting Fetus Heart Rate Present A 145 Fetus Movement Comments Flowsheet Date 08/21/2021 Yuan Score Blood Edema Fundus Height Fundus Units Glucose Ketones Leukocytes Nitrite Labor Signs Protein Cervic Dilation Cervic Effacement Cervic Station neg none 31 trace Type Weight in lbs Pre/Post Dialysis Refused Weight 181.430584403752 BP Diastolic BP Location Tested BP Systolic [...] Weight in lbs Pre/Post Dialysis Refused Weight 184.912925339592 BP Diastolic BP Location Tested BP Systolic [...] Weight in lbs Pre/Post Dialysis Refused Weight 185.745752576095 BP Diastolic BP Location Tested BP Systolic [...] Weight in lbs Pre/Post Dialysis Refused Weight 187.647393173891 BP Diastolic BP Location Tested BP Systolic [...] Weight in lbs Pre/Post Dialysis Refused Weight 188.065813572376 BP Diastolic BP Location Tested BP Systolic [...] Weight in lbs Pre/Post Dialysis Refused Weight 193.45875396489 BP Diastolic BP Location Tested BP Systolic BP Type 79 117 Fetus Heart Rate Present A 140 Fetus Movement A Yes Comments Doing well. GBS neg. IOL sat. Precautions given. Flowsheet Date 10/16/2021 Yuan Score Blood Edema Fundus Height Fundus Units Glucose Ketones Leukocytes Nitrite Labor Signs Protein Cervic Dilation Cervic Effacement Cervic Station Type Weight in lbs Pre/Post Dialysis Refused Weight 175.450037791071 BP Diastolic BP Location Tested BP Systolic [...] Estim ated Date of Delivery false Thalassemia (German, [place] Islander, Mediterranean, Or Background): MCV < 80 false Neural Tube Defect (Meningomyelocele, Spina Bifi da, Or Anencephaly) false Congenital Heart Defect false Down Syndrome false Rafi-Sachs (eg, Moravian, Cajun, Tajik-Calabash) f alse Heather Disease false Sickle Cell Disease Or Trait () false Hemophilia Or Other Blood Disorders false Muscular Dystrophy false Cystic Fibrosis false Lee's Chorea false Intellectual Disability/Autism false If Yes, [...] Domestic Partner Domestic Partner Phone Father Name Needle Molder Status 04/12/20 25 1 A Positive Lucio OPEN Fetus Data First Name Last Name Admitted to NICU Weight (g) Sex Living Outcome Pediatric Complications Fetus ID Race Codes Race Delivery Type [id number] Problems Problem Notes Problem Name Start Date End Date Resolution Snomed Code Not e Iron deficiency anemia 08/18/2025 243048 02 infusion order faxed 08/18 Polyhydramnios 07/08/2025 [id number] 08/26 KORY 38 [facility] pt scheduled john 08/30 0730 US only Mixed anxiety and depressive disorder 04/12/2025 [id number] welbutri n and venlafexinMFM [facility] referral faxed pt scheduled 04/07/25antenatal testing TBD [...] Weight in lbs Pre/Post Dialysis Refused Weight 157.254723356392 BP Diastolic BP Location Tested BP Systolic [...] Type Weight in lbs Pre/Post Dialysis Refused 159.849761846624 BP Diastolic BP Location Tested BP Systolic [...] Weight in lbs Pre/Post Dialysis Refused Weight 166.346936189347 BP Diastolic BP Location Tested BP Systolic [...] Weight in lbs Pre/Post Dialysis Refused Weight 171.371505908090 BP Diastolic BP Location Tested BP Systolic [...] Type Weight in lbs Pre/Post Dialysis Refused 175.940536445576 BP Diastolic BP Location Tested BP Systolic [...] Type Weight in lbs Pre/Post Dialysis Refused 176.470255491678 BP Diastolic BP Location Tested BP Systolic [...] Weight in lbs Pre/Post Dialysis Refused Weight 184.888394301583 BP Diastolic BP Location Tested BP Systolic [...] Rate Present Fetus Movement Comments Flowsheet Date 09/09/2025 Yuan Score Blood Edema Fundus Height Fundus Units Glucose Ketones Leukocytes Nitrite Labor Signs Protein Cervic Dilation Cervic Effacement Cervic Station Type Weight in lbs Pre/Post Dialysis Refused BP Diastolic BP Location Tested BP Systolic BP Type Fetus Heart Rate Present Fetus Movement Comments Flowsheet Date 09/09/2025 Yuan Score Blood Edema Fundus Height Fundus Units Glucose Ketones Leukocytes Nitrite Labor Signs Protein Cervic Dilation Cervic Effacement Cervic Station Type Weight in lbs Pre/Post Dialysis Refused BP Diastolic BP Location Tested BP Systolic BP Type Fetus Heart Rate Present Fetus Movement Comments Flowsheet Date 09/09/2025 Yuan Score Blood Edema Fundus Height Fundus Units Glucose Ketones Leukocytes Nitrite Labor Signs Protein Cervic Dilation Cervic Effacement Cervic Station Type Weight in lbs Pre/Post Dialysis Refused 179.771771144565 BP Diastolic BP Location Tested BP Systolic BP Type 75 L arm 112 sitting Fetus Heart Rate Present Fetus Movement [...]
--- OUTSIDE RECORDS SUMMARY | 2025-09-16 17:49 | XMS_ITS | Clinical Summary ---
Author Organization [facility] Address [facility] [place] [address] Care Team Providers Care Refrigerator Assembler Name Role Phone None, Provider MD Primary Care Provider Unavaila ble Allergies Active Allergy Reactions Criticality Noted Date Comments Nickel Rash Low 04/21/2018 Medications vitamin, low iron, ( VITAMIN WITH IRON) 27-0.8 MG tablet Take 1 tablet by mouth daily. Active 28-0.8 MG tablet Take 1 tablet by mouth daily. Active buPROPion XL (WELLBUTRIN XL) 300 MG 24 hr tablet Take 1 tablet (300 mg total) by mouth every morning. Active ferrous sulfate, 65 mg elemental, 325 (65 FE) MG tablet Take 1 tablet (325 mg total) by mouth daily. Active Magnesium 30 MG Tab Take 30 mg by mouth daily. Active venlafaxine XR (EFFEXOR-XR) 37.5 MG 24 hr capsule Take 2 capsules (75 mg total) by mouth daily. 4 Active sertraline 100 MG tabletIndicatio ns:Anxiety Take 1 tablet (100 mg total) by mouth daily. 30 tablet 5 1 08/30/20 25 Discontinu ed(Error) amoxicillin (AMOXIL) 500 MG capsule Take 2 capsules (1,000 mg total) by mouth 2 (two) times daily. 4 08/30/20 25 Discontinu ed(Error) Active Problems Problem Noted Date Diagnosed Date Anxiety, generalized 06/27/2021 Polyhydramnios 06/26/2021 Supervision of high-risk , unspecified trimester 07/28/2019 Overview (06/27/2021): [] Co-management vs. [] Full M Care; Referring Provider: Lizzie Kennedy [phone] [x] Dating Criteria: LMP 01/30/19 DEE DEE [...] MOC: [] Method of feeding: [] Director Of Aviation: [] PP Depression Discussed: Estimated Date of Delivery Comme nts Yes 10/22/2025 Based on Other B asis, pt stated Resolved Problems Problem Noted Date Diagnosed Date Resolved Date Trauma 04/22/2018 06/27/2021 Encounters Date Type Department Care Team Description 08/30/2025 3:57 PM CDT - 08/30/2025 5:[address] [facility] ED [place] [address] Tony Licona MD (Frequent ctx on NST ) Discharge Disposition: Home or Self Care (Routine Discharge) 08/30/2025 Travel from Last 3 Months Immunizations Immunization Administration Dates Next Due Influenza Adult (Generic) 10/19/2020 Family History Medical History Relation Comments Diabetes Brother Diabetes Mother Diabetes Sister Relation Status Comments Brother Mother Sister Social History Tobacco Use Types Packs/Day Years Used Date Smoking Tobacco: Never Smokeless Tobacco: Never Tobacco Cessation:Counseling Given: No Alcohol Use Standard Drinks/Week Comments No 0 (1 standard drink = 0.6 oz pur e alcohol) Estimated Date of Delivery Comme nts Yes 10/22/2025 Based on Other B asis, pt stated Sex and Gender Information Value Date Recorded Sex Assigned at Female 08/30/2025 4:55 PM CDT Legal Sex Female 9:43 AM CDT Gender Identity Not on file Sexual Orientation Not on file Last Filed Vital Signs Vital Sign Reading Time Taken Comments Blood Pressure 114/71 08/30/2025 5:15 PM CDT Pulse 80 08/30/2025 5:25 PM CDT Temperature 36.8 C (98.2 F) 08/30/2025 4:30 PM CDT Respiratory Rate 15 08/30/2025 5:30 PM CDT Oxygen Saturation 100% 08/30/2025 4:25 PM CDT Inhaled Oxygen Concentration - - Weight 79.4 kg (175 lb) 07/18/2021 4:35 PM CDT Height 167.6 cm (5' 6) 07/18/2021 4:35 PM CDT Body Mass Index 28.25 07/18/2021 4:35 PM CDT Plan of Treatment Health Maintenance Due Date Last Done Comments Cervical Cancer Screening Pa p Smear (Age 30 to 64) Every 3 Years 1987 Annual Physical 1990 DTaP, Tdap and Td Vaccines ( 1 - Tdap) 2006 Hepatitis B Vaccines (1 of 3 - 19+ 3-dose series) 2006 HPV Vaccines (1 - 3-dose SCD M series) 2014 COVID-19 Vaccine ( - 2024-2 6 season) 2025 04/07/2021, 03/10/2021 RSV Immunization or 60+ Years (1 - Risk 1-dose series) 08/27/2025 Influenza Adult (#1) 2025 10/19/2020 Cervical Cancer Screening Pa p with HPV Testing (Age 30 to 64) Every 5 Years 03/08/2026 03/08/2021 Cervical Cancer Screening wi th HPV 03/08/2026 Hepatitis C Completed 04/05/2021, 04/05/2021 Meningococcal B Vaccine Aged Out No l onger eligible based on patient's age to complete this topic Meningococcal Vaccine Aged Out No ambreen keli eligible based on patient's age to complete this topic Pneumococcal Vaccine: Pediatrics (0 to 5 Years) and At-Risk Patients (6 to 49 Years) Aged Out No longer eligible b ased on patient's age to complete this topic RSV Immunizations Under 20 Months Aged Out No longer eligible b ased on patient's age to complete this topic Procedures Procedure Name Priority Date/Time Associated Diagnosis Comments NONSTRESS TEST STAT 08/30/2025 5:37 PM CDT HC URINALYSIS AUTO W/O MICRO STAT 08/30/2025 4:50 PM CDT OUTSIDE CYTOPATH CERV/VAG INTERPRET (PAP) 03/08/2021 from Last 3 Months or Most Recently Relevant to Health Maintenance Results * nonstress test (08/30/2025 5:37 PM CDT) Narrative Tony Licona MD - 08/30/2025 5:37 PM CDT Tony Licona MD 08/30/2025 5:38 PM Non-Stress Test Indication: polyhydramnios, contractions on NST Gestational Age: 32w3d Baseline: 130 bpm Variability: moderate Accelerations: present Decelerations: absent TOCO: q 3-6 min Interpretation: reassuring NST Recommendation(s): ok to discharge Comments: labor precautions reviewed Start:1616 End:1726 I personally reviewed the non-stress test strips TONY LICONA MD Tony Licona MD OB GYNE ORDERABLES Final R esult * (ABNORMAL) URINALYSIS (08/30/2025 4:50 PM CDT) SPECIMEN TYPE URINE CLEAN CATCH 08/30/2025 4:[address] [facility] COLOR (U) YELLOW 08/30/2025 5:[address] [facility] TRANSPARENCY TURBID 08/30/2025 5:[address] [facility] SPECIFIC GRAVITY (U) 1.016 1.001 - 1.030 08/30/2025 5:[address] [facility] U PH 6.0 5.0 - 9.0 08/30/2025 5:[address] [facility] LEUKOCYTES (U) 500(A) NEGATIVE 08/30/2025 5:[address] [facility] NITRITES NEGATIVE NEGATIVE 08/30/2025 5:[address] [facility] PROTEIN RANDOM (U) NEGATIVE <30 MG/DL 08/30/2025 5:[address] [facility] GLUCOSE (U) NORMAL NORMAL MG/DL 08/30/2025 5:[address] [facility] KETONES MG/DL (U) 10(A) NEGATIVE MG/DL 08/30/2025 5:[address] [facility] UROBILINOGEN NORMAL NORMAL MG/DL 08/30/2025 5:[address] [facility] BILIRUBIN (U) NEGATIVE NEGATIVE MG/DL 08/30/2025 5:[address] [facility] BLOOD (U) NEGATIVE NEGATIVE 08/30/2025 5:[address] [facility] MUCUS FEW /LPF 08/30/2025 5:[address] [facility] WBC/HPF 28(H) <6 /HPF 08/30/2025 5:[address] [facility] RBC/HPF 3 <6 /HPF 08/30/2025 5:[address] [facility] BACTERIA (U) MANY(A) NONE /HPF 08/30/2025 5:[address] [facility] SQUAMOUS EPITHELIALS MODERATE /HPF 08/30/2025 5:[address] [facility] URINE SPECIMEN OBTAINED BY CLEAN CATCH PROCEDURE / Unknown 08/30/2025 4:50 PM CDT Tony Licona MD URINE ORDERABLES Final Res ult [facility] [address] [place] [address], * PAP SMEAR WITH HPV (03/08/2021) 03/08/2021 [facility] Scanned SCANNING Final Resu lt from Last 3 Months or Most Recently Relevant to Health Maintenance Insurance R Care Teams Refrigerator Assembler Relationship Specialty Start Date End Date None, Provider, MD PCP - General UNKNOWN PHYSICIAN SPECIALTY 08/30/25
--- OUTSIDE RECORDS SUMMARY | 2025-09-16 17:49 | XMS_ITS | Clinical Summary ---
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 Gender Identity Not on file Sexual Orientation Not on file Plan of Treatment Upcoming Encounters Date Type Department Care Team (Late st Contact Info) Description 09/20/2025 2:30 PM CDT Office Visit [facility] [address] [phone] Cristian Yu MD [address] [facility] [address] [address] [place] [id number] Health Maintenance Due Date Last Done Comments Hepatitis C Virus (HCV) Screening 1987 Hepatitis B Immunization (1 of 3 - 19+ 3-dose series) 2006 Pap Smear 2008 Human Papillomavirus (HPV) Immunization (1 - 3-dose SCDM series) 2014 Cervical Cancer Screening (CCS) 2017 HPV/Cotest 2017 SARS-COV-2 Immunization (3 - season) 2025 04/07/2021, 03/10/2021 Respiratory Syncytial Virus (RSV) Immunization (Adult) (1 - 1-dose 75+ series) 2062 DTaP/Tdap/Td Immunization Discontinued 2024, 09/01/2021 Influenza Immunization Completed , 09/01/2021, 10/19/2020 TdaP Immunization Completed 07/26/2025, 09/01/2021 Meningococcal Immunization (ACWY) Aged Out No longer eligible based on patient's age to complete this topic Pneumococcal Immunization Combined Aged Out No longer eligible based on patient's age to complete this topic Rotavirus Immunization Aged Out No lo nger eligible based on patient's age to complete this topic Insurance Care Teams Cook Apprentice Relationship Specialty Start Date End Date Provider, Unknown UNKNOWN PCP - General 09/07/25
--- NOTE | 2025-09-16 18:23 | PM.IMHP ---
H&P: HPI History of Present Illness Date/Time: 09/16/25 18:23 Chief Complaint: Loss of fluid Narrative: 39-year-old 4 para 3003 at 34 weeks and 5 days gestation who presents with ruptured membranes. She is occasionally imani. They are not painful. Her cervix was 4.5 cm. Baby patient's infant is vertex. heart tones reassuring. Arranging for transfer to [facility]. Spoke with Dr. Destiny Jackson. She has accepted transfer. The transfer team recommending flight transfer. Patient understands risks, benefits, and alternatives to transfer. Review of Systems Review of Systems: All systems reviewed & are unremarkable except as noted in HPI and below Constitutional: Constitutional: Denies chills, Denies fatigue, Denies fever(s) and Denies weakness Eyes: Eyes: Denies blurry vision, Denies change in vision, Denies loss of peripheral vision, Denies loss of vision, Denies other visual disturbances and Denies eye pain ENT: Denies vertigo, Denies dizziness, Denies hearing loss, Denies mouth pain, Denies nasal obstruction, Denies neck mass and Denies neck pain Cardiovascular: Cardiovascular: Denies chest pain, Denies diaphoresis, Denies syncope, Denies leg edema and Denies dyspnea Respiratory: Respiratory: Denies chest congestion, Denies cough, Denies hemoptysis, Denies dyspnea and Denies wheezing Gastrointestinal: Gastrointestinal: Denies abdominal pain, Denies constipation, Denies diarrhea, Denies nausea and Denies vomiting Genitourinary: Genitourinary: Denies hematuria, Denies change in libido, Denies nocturia, Denies genital lesions, Denies flank pain and Denies urinary urgency Musculoskeletal: Musculoskeletal: Denies abnormal gait, Denies back pain, Denies myalgias, Denies arthralgias, Denies joint swelling, Denies muscle weakness and Denies neck pain Integumentary/Breasts: Skin/Breast: Denies swelling, Denies breast pain, Denies breast mass, Denies dry skin, Denies nipple discharge, Denies unusual bruising and Denies jaundice Neurologic: Denies Neuro-related abnormal movements, Denies Abnormal speech present, Denies abnormal gait, Denies behavioral changes, Denies confusion, Denies vertigo, Denies dizziness, Denies syncope, Denies loss of vision, Denies memory loss, Denies convulsions and Denies weakness Psychiatric: Psychiatric: Denies abnormal sleep pattern, Denies behavioral changes, Denies change in libido, Denies confusion, Denies depression, Denies anhedonia and Denies memory loss Endocrine: Endocrine: Reports no additional endocrine complaints, Denies change in libido and Denies fatigue Hematologic/Lymphatic: Hematologic/Lymphatic: Reports no additional hematologic/lymphatic complaints Allergic/Immunologic: Allergic/Immunologic: Reports no additional allergic/immunologic complaints and Denies wheezing PMFSH Past Medical History Medical History Anxiety Pain during labor Obesity (BMI 30-39.9) Family History Family History Mother Diabetes mellitus Hypertension Sibling Diabetes mellitus Hypertension Social History Social History Smoking status: Never smoker Second hand tobacco smoke exposure: No Substance use: never Lack of Transportation: No Lack of Food: Never True Current Housing: I Have Housing Concerned About Future Housing: No Difficulty Paying Gas/Electric Bills: No Difficulty Paying for Meds: No Currently Unemployed: No Education: Bachelor's Degree Difficulty w/ Childcare or Family Care: No Spiritual care concerns: No Meds Home Medications and Allergies Home Medications ?Medication ?Instructions ?Recorded ?Confirmed ?Type vit no.95-ferrous 1 tablet PO DAILY 10/19/19 09/16/25 History fumarate 28 mg-folic acid 800 mcg tablet () bupropion HCl 300 mg 24 hr tablet, 300 mg PO DAILY 09/02/25 09/16/25 History extended release venlafaxine 37.5 mg 75 mg PO DAILY 09/02/25 09/16/25 History capsule,extended release 24 hr Allergies Allergy/AdvReac Type Severity Reaction Status Date / Time nickel Allergy Rash Verified 09/16/25 15:06 Vital Signs Vital Signs - 24 hr 09/16/25 15:45 09/16/25 16:12 09/16/25 16:46 Temperature Pulse Rate 82 71 Blood Pressure 111/62 Blood Pressure [Left Arm] 105/65 Oxygen Delivery Room Air 09/16/25 17:01 09/16/25 17:08 09/16/25 17:16 Temperature 99.4 F Pulse Rate 72 68 Blood Pressure 111/66 101/82 Blood Pressure [Left Arm] Oxygen Delivery 09/16/25 17:31 09/16/25 17:46 09/16/25 18:01 Temperature Pulse Rate 72 70 67 Blood Pressure 105/58 L 114/66 105/65 Blood Pressure [Left Arm] Oxygen Delivery 09/16/25 18:19 Temperature Pulse Rate 62 Blood Pressure 113/79 Blood Pressure [Left Arm] Oxygen Delivery Exam Const: General: cooperative, healthy appearing, comfortable and no acute distress Orientation/consciousness: oriented to person, oriented to place and oriented to time HENMT: Head: normal to inspection Ears: external ears normal Face/Nose/Sinus: Normal external nose present and normal facial exam Face and sinus: normal facial exam Eyes: General: appearance normal, both eyes and all related structures Neck: Neck: normal visual inspection, trachea midline and supple Resp: Auscultation: clear to auscultation bilaterally, no crackles, no rales, no rhonchi and no wheezes Cardio: Rate: regular rate Rhythm: regular rhythm Heart sounds: no click, no murmurs and no rubs GI: GI Palp: No abdominal tenderness, No Soft to palpation, No Tenderness to palpation present (GI) and No Palpable mass present Auscultation: normal bowel sounds Skin: General skin exam: normal color and no rashes or lesions noted Neuro: General: oriented to person, oriented to place and oriented to time Extrem: General: normal to inspection, no joint enlargement, no clubbing, cyanosis or edema, no pedal edema and no calf tenderness Psych: Appearance: grossly normal Mental Status: mental status grossly normal Speech and movement: Normal speech and movement present Assessment and Plan Assessment and plan (1) premature rupture of membranes (PPROM) delivered, current hospitalization: Code(s): O42.919 - premature rupture of membranes, unspecified as to length of time between rupture and onset of labor, unspecified trimester Status: Acute (2) Polyhydramnios: Code(s): O40.9XX0 - Polyhydramnios, unspecified trimester, not applicable or unspecified Status: Acute Plan 39-year-old 4 para 3003 at 34 weeks and 5 days gestation who presents with ruptured membranes. She is occasionally imani. They are not painful. Her cervix was 4.5 cm. Baby patient's infant is vertex. heart tones reassuring. Arranging for transfer to [facility]. Spoke with Dr. Destiny Jackson. She has accepted transfer. The transfer team recommending flight transfer. Patient understands risks, benefits, and alternatives to transfer.
--- NOTE | 2025-09-16 18:29 | PM.TDS ---
Transfer Discharge Sum: Prov Provider Date of admission: 09/16/25 15:45 Primary care physician: ETCHER APPRENTICE PHOTOENGRAVING PHYSICIAN Admitting clinician: Nando Cabrera MD DS: Admitting Diagnosis Discharge Date 09/16/2025 Admitting Diagnosis Premature rupture membranes. DS: Discharge Diagnosis Discharge Diagnosis Plan 39-year-old 4 para 3003 at 34 weeks and 5 days gestation who presents with ruptured membranes. She is occasionally imani. They are not painful. Her cervix was 4.5 cm. Baby patient's infant is vertex. heart tones reassuring. Arranging for transfer to [facility]. Spoke with Dr. Destiny Jackson. She has accepted transfer. The transfer team recommending flight transfer. Patient understands risks, benefits, and alternatives to transfer. Transfer Discharge Sum: Med Medications Active and Home Medications: Home Medications vit no.95-ferrous fumarate 28 mg-folic acid 800 mcg tablet () 1 tablet PO DAILY 10/19/19 [History Confirmed 09/16/25] bupropion HCl 300 mg 24 hr tablet, extended release 300 mg PO DAILY 09/02/25 [History Confirmed 09/16/25] venlafaxine 37.5 mg capsule,extended release 24 hr 75 mg PO DAILY 09/02/25 [History Confirmed 09/16/25] Active Medications Lactated Ringer's (Lr - Lactated Ringers Iv) 1,000 mls @ 125 mls/hr IV CONT .Q8H [facility] Last Admin: 09/16/25 16:09 Dose: 125 mls/hr Ampicillin Sodium 1 gm/ Sodium (Chloride) 50 mls @ 100 mls/hr IVPB Q4H [facility] Transfer Discharge Sum: Hosp Hospital Course Hospital course: Josephine Burk is a 39 year old female Patient Condition: Stable Time Spent with Patient Time attestation: Total time spent providing and/or coordinating transfer services: DS: Data Data Completed and Pending Labs on day of discharge: Labs from last 24 hours 09/16/25 16:12 Membranes Rupture Rom plus positive
== END 2025-09-16 19:09 | disposition other institution (70) ==
PROVIDERS: Admitting Provider Obstetrics & Gynecology; Visit Provider Obstetrics & Gynecology
DX: O42.913 Preterm premature rupture of membranes, unspecified as to length of time between rupture and onset of labor, third trimester (principal); Z3A.34 34 weeks gestation of pregnancy; O40.3XX0 Polyhydramnios, third trimester, not applicable or unspecified
CPT/HCPCS: 59025; 84112; 96374; G0378; G0379; J0290; J7120

== ENCOUNTER 2025-10-05 21:09 | Inpatient (IN) | payer OTHER, SELFPAY ==
[2025-10-05] VITALS (50 sets, daily range): BP systolic 101–124; BP diastolic 67–88; PULSE 66–105; TEMP 36.6; O2SAT 98–100; BMI 30.4
--- OUTSIDE RECORDS SUMMARY | 2025-10-05 21:54 | XMS_ITS | Clinical Summary ---
Author Organization [facility] Address [address] [place] [id number] Care Team Providers Care Special Needs Child Caregiver Name Role Phone Lizzie Kennedy MD Unavailable [phone] Curtis Ness MD Primary Care Provider [phone] Allergies Active Allergy Reactions Criticality Noted Date Comments Nickel Rash Medium 04/21/2018 Medications buPROPion XL (WELLBUTRIN XL) 300 mg 24 hr tablet Take 1 tablet (300 mg total) by mouth every morning 3 Active venlafaxine XR (EFFEXOR-XR) 37.5 mg 24 hr capsule Take 1 capsule (37.5 mg total) by mouth daily 4 Active amoxicillin 500 mg tablet/capsuleI ndications:Pneu monia, Community Acquired Take 2 tablet/capsul e (1,000 mg total) by mouth 2 (two) times a day 4 Active acetaminophen (TYLENOL) 500 mg tablet Take 1 tablet (500 mg total) by mouth every 6 (six) hours as needed for pain or headaches 4 Active ibuprofen (ADVIL,MOTRIN) 800 mg tablet Take 1 tablet (800 mg total) by mouth every 6 (six) hours as needed for pain or headaches 4 09/18/20 25 Discontinu ed(Stop Taking at Discharge) Active Problems Problem Noted Date Diagnosed Date Uterine contractions 09/16/2025 Subacute cough 10/03/2023 Assessment & Plan (10/03/2023 4:47 PM CDT): Vital signs stable, no respiratory distress, nontoxic appearance, lungs CTAB on exam, 98% on RA Dry cough x 4 weeks, likely postviral Medrol dose pack Tessalon prn Albuterol inhaler prn Supervision of high-risk , unspecified trimester 07/28/2019 Overview (07/30/2019): [] Co-management vs. [] Full [facility] Care; Referring Provider: Lizzie Kennedy [phone] [x] Dating Criteria: LMP 01/30/19 DEE DEE [...] [] MOC: [] Method of feeding: [] Newspaper Publisher: [] PP Depression Discussed: Estimated Date of Delivery Comme nts Yes 10/22/2025 Based on last me nstrual period of 01/15/2025 Encounters Date Type Department Care Team Description 09/17/2025 10:00 AM CDT Ancillary Procedure [address] [place] [address] 09/16/2025 7:44 PM CDT - 09/18/2025 11:32 AM CDT Hospital Encounter [address] [place] [address] Destiny Jackson MD Supervision of high-risk , unspecified trimester (Primary Dx) Discharge Disposition: Discharge to home or self care from Last 3 Months Social History Tobacco Use Types Packs/Day Years Used Date Smoking Tobacco: Never Smokeless Tobacco: Never Tobacco Cessation:Counseling Given: Not Answered Personal Safety Answer Date Recorded Have you ever been in or are you currently in a harmful physical or emotional relationship or is someone making you feel afraid or unsafe? 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 Gender Identity Not on file Sexual Orientation Not on file Obstetrics History Para Term AB IAB SAB Ectopic Multiple Livin g Live Births 4 3 3 3 3 Date Outcome GA Total Labor Labor/2nd/3rd Weight Sex Type Anes PTL Maame A1 A5 Name Clin 2017 Term 39w 0d 3.487 kg (7 lb 11 oz) F Vag-S pont Ricardo 10/31 Term 39w 0d Vag-S pont Living 10/09 Term 39w 3d Living Current Summary Episode Dates Number of Fetuses Estimated Date of Delivery 09/16/2025 - Present (10/05/2025) 10/22/2025 (set by Sherri Barnard i, MD on 09/16/2025 based on Last Menstrual Period on 01/15/2025) Dating Summary Based On DEE DEE GA Diff Last Menstrual Period on 01/15/2025 10/22/2025 Working Ultrasound on 03/18/2025 10/26/2025 -4d GA:8w2d Vitals Pregravid Weight Height TWG (As of 10/05/2025) Pregrav id BMI 165.1 cm (5' 5) Date GA Fund Present FHR Mvmt BP Weight Edema Alb Glu Ket Dil/ Eff/Sta 35w1d Inpatient data not displayed here. See encounter summary. Notes Progress Notes - Hospital En counter - 09/18/2025 - GA:35w1d 09/18/2025 - 35w1d - Elvia Ordoñez MD Antepartum Progress Note Gestational Age: 35w1d Admission Date: 09/16/2025 Length of stay: 2 Admission Diagnosis: tPTL c/b: Polyhydramnios, iron deficiency anemia, anxiety/depression SUBJECTIVE - No new problems. - Reports active movement. No vaginal bleeding or LOF. Contractions are at baseline. Review of Systems Negative except as per above. OBJECTIVE Vitals: Temp Min: 36.6 C (97.9 F) Max: 36.8 C (98.2 F) Pulse Min: 64 Max: 88 BP Min: 102/61 Max: 110/64 Resp Min: 16 Max: 18 SpO2 Min: 98 % Max: 100 % FHR: Reactive and reassuring. [place]: Rare, nonpainful per patient Physical Exam General: No acute distress. Appears stated age and cooperative. Cardiovascular: Regular rate Lungs: Non-labored. Abdomen: Soft, non-tender, gravid. Extremities: Warm and well-perfused. No bilateral lower extremity edema or calf tenderness. Pelvic: Deferred. Neurologic: Alert and oriented x4, non-focal Lab Review: Recent Results (from the past 24 hours) US Ob 14 Weeks Or Over Collection Time: 09/17/25 11:43 AM Result Value Ref Range Fetus# Fetus1 Estimated Weight 2,704 g&grams Placenta Details anterior, Previa-no, no placental masses Presentation Vertex ASSESSMENT/PLAN Josephine Burk is a 39 y.o. at 35w1d admitted for threatened labor. #tPTL - Presented w/ LOF 09/11, leaking since then; feeling intermittent contractions - Previously admitted to OSH for PTL 2 weeks ago, discharged after stable at 5 cm. Received Mg, ampicillin, BMZ course. - Admit SSE: Neg pooling, pos nitrizine, neg ferning, neg ROM-Plus - Admit SVE: /-3 with bulging bag - S/p PCN, discontinued iso stability - GC/CT/Trich negative - GBS negative 09/04 (OSH) - BMZ complete 09/05 Plan: - No evidence of chorio, abruption, or PPROM - UCx pending - SVE PRN #FWB #Polyhydramnios - fUS (09/17): EFW 2704 g (62%), anterior placenta, polyhydramnios (KORY 30.5), 07/09 BPP - BMZ ^09/05 (OSH) - S/p PCN, discontinued due to stability - Peds consult deferred - MONITORING PLAN: dNST #MWB - PNL: Rh +/Ab -, Rub imm, HIV NR, HepB neg, HepC neg, VZV ordered, RPR NR, GC/CT ordered, UCx ordered, Hgb elec NA - 3T labs RPR NR, HIV NR - Pap 11/2024 NILM/-HPV - 1hr GTT 151, 3h GTT normal - Tdap not available, Flu NA - Placenta anterior - GBS negative 09/04 (OSH) - MOF: TBD - MOD: Vaginal - MOC: TBD Dispo: Plan for discharge today. Elvia Ordoñez MD Resident Physician, PGY-3 Department of Obstetrics & Gynecology Cosigned by Denisse Martinez MD at 09/18/2025 1:17 PM CDT Associated attestation - Denisse Martinez MD - 09/18/2025 1:17 PM CDT MFM Attending Attestation I have seen and discussed Josephine Burk with the resident on 09/18/2025. I have evaluated the patient and reviewed the treatment plan and recommendations. I agree with the findings and the plan of care as documented in the note. Advanced cervical dilation, however stable over multiple days. Ruled out for PPROM. Given on signs of labor today, is appropriate for discharge at this time. Discussed presentation to nearest hospital if has worsening symptoms or concerns for labor. Denisse Martinez MD [facility] Division of Maternal- Medicine and Ultrasound Department of Obstetrics and Gynecology [facility] 09/18/2025 09/17/2025 - 35w0d - Todd Osei MD R4 Update SVE stable at 4-5cm and patient is overall comfortable. Will discontinue PCN and transfer to APU. Todd Osei MD Obstetrics and Gynecology, PGY-4 09/17/2025 - 35w0d - Elvia Ordoñez MD PGY-3 Update While in ultrasound, patient felt a gush of fluid. Sheets underneath her were notable for a large wet spot. She reports that her contractions are at baseline. SSE with small amount of fluid versus mucous in the vault. Unable to visualize cervix due to redundant tissue and poor patient tolerance of exam. SVE exam performed given limited speculum exam. Cervix soft, 4-5 cm with a palpable bag. Negative nitrazine, negative ferning. Low concern for rupture at this time. Elvia Ordoñez MD Resident Physician, PGY-3 Department of Obstetrics & Gynecology 09/17/2025 - 35w0d - Kristine Mcfadden MD R2 Update Repeat SVE by RN 5/50 with a bulging bag. station unable to be assessed due to bulging bag. Low suspicion for PPROM as patient has not been leaking fluid. Restarting PCN at this time due to advanced cervical dilation and bulging bag. Discussed with Dr. Herman. Kristine Mcfadden MD PGY-2, Department of Obstetrics and Gynecology 09/17/2025 - 35w0d - Vianca Saldaña MD Antepartum Progress Note Gestational Age: 35w0d Admission Date: 09/16/2025 Length of stay: 1 Admission Diagnosis: PTL SUBJECTIVE -No new problems. -Reports active movement. No vaginal bleeding - reports intermittent abdominal tightening, endorses mild leakage of fluid/discharge on pad Review of Systems Negative except as per above. OBJECTIVE Vitals: Temp Min: 36.7 C (98 F) Max: 36.8 C (98.2 F) Pulse Min: 66 Max: 87 BP Min: 95/69 Max: 105/58 Resp Min: 16 Max: 16 SpO2 Min: 99 % Max: 100 % FHR: baseline: 125 bpm, present accelerations, no decels overnight; reactive and reassuring [place]: not well traced on toco Physical Exam General: No acute distress. Appears stated age and cooperative. Cardiovascular: Regular rate Lungs: Non-labored. Abdomen: Soft, non-tender, gravid. Extremities: Warm and well-perfused. No bilateral lower extremity edema or calf tenderness. Pelvic: Deferred. Neurologic: Alert and oriented x4, non-focal Lab Review: Recent Results (from the past 24 hours) ROM Plus (IGFBP-1/AFP) Collection Time: 09/16/25 9:04 PM Result Value Ref Range IFG Binding Protein-1 / AFP Negative CBC without differential Collection Time: 09/16/25 9:04 PM Result Value Ref Range WBC 8.05 3.80 - 9.90 K/cumm Hgb 10.8 (L) 11.9 - 15.5 g/dL Hct 30.0 (L) 35.6 - 45.5 % Plt 204 150 - 400 K/cumm MPV 11.3 9.1 - 12.3 fL RBC 3.35 (L) 3.90 - 5.20 M/cumm MCV 89.6 81.3 - 96.4 fL MCH 32.2 27.1 - 33.3 pg MCHC 36.0 (H) 32.3 - 35.7 g/dL RDW CV 12.7 11.1 - 14.9 % RDW SD 41.1 35.7 - 48.1 fL NRBC abs 0.00 0.00 - 0.01 K/cumm Comprehensive metabolic panel Collection Time: 09/16/25 9:04 PM Result Value Ref Range Sodium 140 135 - 145 mmol/L Potassium, pl 3.6 3.3 - 4.9 mmol/L Chloride 104 97 - 110 mmol/L CO2 23 22 - 32 mmol/L Anion gap 13 2 - 15 mmol/L BUN 7 6 - 25 mg/dL Creatinine 0.56 (L) 0.60 - 1.10 mg/dL Glucose 77 70 - 199 mg/dL Calcium 9.3 8.5 - 10.3 mg/dL Bilirubin, total 0.3 0.1 - 1.2 mg/dL Protein, pl 6.8 6.5 - 8.5 g/dL Albumin 3.6 3.5 - 5.0 g/dL Alk phos 95 40 - 130 Units/L ALT 15 7 - 45 Units/L AST 21 10 - 45 Units/L HIV 1/2 Antibody plus p24 Antigen Blood Collection Time: 09/16/25 9:04 PM Specimen: Blood Result Value Ref Range HIV 1/2 ab + p24 ag Nonreactive Nonreactive eGFR Collection Time: 09/16/25 9:04 PM Result Value Ref Range eGFR >90 >=60 mL/min/1.73 m2 RPR Blood Collection Time: 09/16/25 9:04 PM Specimen: Blood Result Value Ref Range RPR Nonreactive Nonreactive N. gonorrhoeae/C. trachomatis Amplification Urine Collection Time: 09/16/25 9:15 PM Specimen: None; Urine Result Value Ref Range C. trachomatis Not Detected Not Detected N. gonorrhoeae Not Detected Not Detected Trichomonas vaginalis PCR Urine Collection Time: 09/16/25 9:15 PM Specimen: Urine Result Value Ref Range Trichomonas DNA Not Detected Not Detected Type and screen Collection Time: 09/16/25 10:43 PM Result Value Ref Range Gerson, indirect Negative ABO Rh A Positive ASSESSMENT/PLAN Josephine Burk is a 39 y.o. at 35w0d admitted for PTL and r/o PPROM. #r/oPPROM #PTL - presented w/ LOF 09/11, leaking since then; feeling intermittent contractions - previously admitted to OSH for PTL 2 weeks ago, discharged after stable at 5 cm. Received Mg, ampicillin, BMZ course (09/03-09/04) - admit SSE: - pooling, + nitrizine, - ferning, - rom plus - admit SVE: /-3 with bulging bag - PCN started for PTL, now discontinued - KORY 21.31 on admission, lower than on 08/30 with severe polyhydramnios with KORY 36 - GC/CT negative/negative - Trich negative - Ucx collected - No evidence of chorio or abruption - Active T&S Plan: - given equivocal findings, plan to repeat exam + wet prep in the morning - PCN dc'd due to clinical stability - recheck prn #FWB: - BSUS 09/16: EFW 2638g, (59%tile), KORY 21 - fUS ordered - BMZ deferred - Mg not indicated - PCN discontinued due to stability - Peds consult placed - MONITORING PLAN: cEFM > dNST #MWB -PNL: Rh +/Ab -, Rub imm, HIV NR, HepB neg, HepC neg, VZV ordered, RPR NR, GC/CT ordered, UCx ordered, Hgb elec NA -3T labs RPR NR, HIV NR -Pap 11/2024 NILM/-HPV -1hr GTT 151, 3h GTT normal -Tdap not available, Flu NA -Placenta anterior -GBS collected -MOF: tbd -MOD: anticipate vaginal -MOC: tbd Vianca Saldaña MD 09/17/25 Cosigned by Lyle Benjamin MD at 09/17/2025 10:06 AM CDT Associated attestation - Lyle Benjamin MD - 09/17/2025 10:06 AM CDT I have seen and examined the patient on 09/17/25. I agree with the findings and plan of care as documented in the resident's/fellow's note.. Overall lower concern for PPROM, but cannot rule out smaller/intermittent leak 09/17/2025 - 35w0d - Vianca Saldaña MD R2 Update Note Patient rechecked, unchanged from prior, /3 with bulging bag. PCN discontinued per Dr. Jackson. Plan to redo speculum exam in the morning. Vianca Saldaña MD, MPHS OBGYN, PGY-2 Last Filed Vital Signs Vital Sign Reading Time Taken Comments Blood Pressure 108/72 09/18/2025 9:12 AM CDT Pulse 71 09/18/2025 9:15 AM CDT Temperature 36.6 C (97.8 F) 09/18/2025 9:12 AM CDT Respiratory Rate 16 09/18/2025 9:12 AM CDT Oxygen Saturation 100% 09/18/2025 9:15 AM CDT Inhaled Oxygen Concentration - - Weight 81.6 kg (180 lb) 09/16/2025 8:00 PM CDT Height 165.1 cm (5' 5) 09/16/2025 8:00 PM CDT Body Mass Index 29.95 09/16/2025 8:00 PM CDT Plan of Treatment Upcoming Encounters Date Type Department Care Team (Late st Contact Info) Description 10/22/2025 Hospital Encounter [address] [address] Destiny Jackson MD [address] [address] Health Maintenance Due Date Last Done Comments [...] Procedure Name Priority Date/Time Associated Diagnosis Comments US OB 14 WEEKS OR OVER IP Routine 09/17/2025 11:43 AM CDT US OB 14 WEEKS OR OVER IP Routine 09/17/2025 8:05 AM CDT Supervision of high-risk , unspecified trimester B CHECK SAMPLE STAT 09/17/2025 5:27 AM CDT TYPE AND SCREEN Timed 09/16/2025 10:43 PM CDT GROUP B STREPTOCOCCUS CULTURE STAT 09/16/2025 10:43 PM CDT URINE CULTURE STAT 09/16/2025 9:15 PM CDT TRICHOMONAS VAGINALIS PCR STAT 09/16/2025 9:15 PM CDT N. GONORRHOEAE/C. TRACHOMATIS AMPLIFICATION STAT 09/16/2025 9:15 PM CDT EGFR Timed 09/16/2025 9:04 PM CDT COMPREHENSIVE METABOLIC PANEL Timed 09/16/2025 9:04 PM CDT CBC WITHOUT DIFFERENTIAL Timed 09/16/2025 9:04 PM CDT PAMG-1 PROTEIN MARKER (ROM) STAT 09/16/2025 9:04 PM CDT RPR STAT 09/16/2025 9:04 PM CDT HIV 1/2 ANTIBODY PLUS P24 ANTIGEN STAT 09/16/2025 9:04 PM CDT VARICELLA ZOSTER ANTIBODY, IGG STAT 09/16/2025 9:04 PM CDT from Last 3 Months Results * US Ob 14 Weeks Or Over (09/17/2025 11:43 AM CDT) Fetus# Fetus1 VIEWPOINT Estimated Weight 2,704 g&grams VIEWPOINT Placenta Details anterior, Previa-no, no placental masses VIEWPOINT Presentation Vertex VIEWPOINT Anatomical Region Laterality Modality Abdomen N/A Ultrasound 09/17/2025 11:4 3 AM CDT Impressions 09/17/2025 1:58 PM CDT IUP - 35w 0d per stated DEE DEE - size is AGA No structural malformations are identified within the limits of size and position. Not all views are able to be obtained. Mild/moderate polyhydramnios, no anatomic etiology identified. The BPP is reassuring. APU team notified. Narrative Procedure Note Danie See MD - 09/17/2025 IMPRESSION: IUP - 35w 0d per stated DEE DEE - size is AGA No structural malformations are identified within the limits offetal size and position. Not all views are able to be obtained. Mild/moderate polyhydramnios, no anatomic etiology identified. The BPP is reassuring. APU team notified. Destiny Jackson MD IMG OB US PROCEDURES Final Result * US Ob 14 Weeks Or Over (09/17/2025 8:05 AM CDT) Anatomical Region Laterality Modality Abdomen N/A Ultrasound Narrative 09/17/2025 8:05 AM CDT Ultrasound: vertex presentation anterior placenta Previa: no Estimated Weight: 2638g on US performed 09/16 (bedside) I have reviewed the images and agree with above. Freddie Baez MD Destiny Jackson MD IMG OB US PROCEDURES Final Result * Check Sample (09/17/2025 5:27 AM CDT) ABO Rh A Positive [facility] HCLL OTHER 09/17/2025 5:27 AM CDT 09/17/2025 5:38 AM CDT us Destiny Jackson MD LAB BLOOD ORDERABLES Final Result [facility] [place] [address] [facility] * Group B streptococcal culture Vaginal/Rectal (09/16/2025 10:43 PM CDT) Pathologist [facility] Report Final Report: Negative Vaginal/Rectal 09/16/2025 10 :43 PM CDT 09/16/2025 11:27 PM CDT Narrative [facility] - 09/20/2025 6:27 AM CDT Testing performed by [facility] ([phone]). Destiny Jackson MD LAB MICROBIOLOGY - GENERAL ORDERABLES Final Result [facility] [place] [address] * Type and screen (09/16/2025 10:43 PM CDT) Pathologist [facility] Gerson, indirect Negative ABO Rh A Positive [facility] Blood 09/16/2025 10:4 3 PM CDT 09/16/2025 11:17 PM CDT Narrative [facility] - 09/17/2025 12:31 AM CDT Has the patient had Daratumumab or Isatuximab in the past 6 months?->Unknown Destiny Jackson MD LAB BLOOD BANK TEST ORDERAB LES Final Result [facility] [place] [address] * N. gonorrhoeae/C. trachomatis Amplification Urine (09/16/2025 9:15 PM CDT) [facility] C. trachomatis Not Detected Not Detected [facility] N. gonorrhoeae Not Detected Not Detected [facility] Comment: Interpretive Data This assay detects Chlamydia trachomatis and Neisseria gonorrhoeae by nucleic acid amplification testing (NAAT). This assay has been cleared by the [place] Food and Drug administration. The performance characteristics of this test have been verified by the [facility] Infectious Disease laboratory. The performance characteristics of this test have not been evaluated in individuals less than 14 years of age. Current Interpretive Data last revised 2023. Urine (None) 09/16/2025 9:15 PM CDT 09/16/2025 10:36 PM CDT Destiny Jackson MD LAB MICROBIOLOGY - GENERAL ORDERABLES Final Result Performing Organization Address [facility] Co de Phone Number [facility] [place] [address] [facility] * Trichomonas vaginalis PCR Urine (09/16/2025 9:15 PM CDT) Trichomonas DNA Not Detected Not Detected [facility] Urine 09/16/2025 9:15 PM CDT 09/16/2025 10:36 PM CDT Narrative [facility] - 09/16/2025 11:59 PM CDT Interpretive Data: This assay detects Trichomonas vaginalis by nucleic acid amplification testing (NAAT). This assay has been cleared by the [place] Food and Drug administration. The performance characteristics of this test have been verified by the [facility]ious Disease laboratory. Excess blood in specimens may be inhibitory and result in false negative results. The performance of this test has not been evaluated in women or individuals less than 18 years of age. Destiny Jackson MD LAB MICROBIOLOGY - GENERAL ORDERABLES Final Result Performing Organization Address City/[facility] de Phone Number [facility] [place] [address] [facility] * Urine culture Urine, clean voided (09/16/2025 9:15 PM CDT) Report Final Report: No growth Urine, clean voided 09/16/2025 9:15 PM CDT 09/16/2025 10:33 PM CDT Narrative [facility] - 09/18/2025 7:45 AM CDT Indications for Culture:-> patient Specimen received in a sterile container. Testing performed by [facility] ([phone]) Result [facility] Destiny Jackson MD LAB MICROBIOLOGY - GENERAL ORDERABLES Final Result Performing Organization Address [facility] Co de Phone Number [facility] [place] [address] * ROM Plus (IGFBP-1/AFP) (09/16/2025 9:04 PM CDT) IFG Binding Protein-1 / AFP Negative Swab 09/16/2025 9:04 PM CDT 09/16/2025 9:52 PM CDT Result [facility] Destiny Jackson MD LAB BODY FLUIDS AND STOOLS ORDERABLES Final Result Performing Organization Address [facility] de Phone Number [facility] [place] [address] * eGFR (09/16/2025 9:04 PM CDT) eGFR >90 >=60 mL/min/1. 73 m2 Comment: Interpretive Data Reference Interval Normal >/= 90 mL/min/1.73m2 Mildly decreased* 60 - 89 mL/min/1.73m2 Mildly to moderately decreased 45 - 59 mL/min/1.73m2 Moderately to severely decreased 30 - 44 mL/min/1.73m2 Severely decreased 15 - 29 mL/min/1.73m2 Kidney Failure < 15 mL/min/1.73m2 *Relative to young adult level Estimated glomerular filtration rate is determined by the 2020 CKD-EPI equation recommended by the National Kidney Foundation (A Unifying Approach to GFR Estimation: Recommendations of the NKF-ASK Task Force on Reassessing the Inclusion of Race in Diagnosing Kidney Disease, JASN 2020). The CKD-EPI equation should not be used for patients with unstable renal function and has not been validated in children and those over 70. Current interpretive data was last reviewed 2021. Blood 09/16/2025 9:04 PM CDT 09/16/2025 10:01 PM CDT Destiny Jackson MD LAB BLOOD ORDERABLES Final Result Performing Organization Address [facility] Co de Phone Number [facility] [address] * HIV 1/2 Antibody plus p24 Antigen Blood (09/16/2025 9:04 PM CDT) Pathologist [facility] HIV 1/2 ab + p24 ag Nonreactive Nonreactive Comment:Nonreactive for HIV- 1 antigen and HIV-1/HIV-2 antibodies. No laboratory evidence of HIV infection. If acute HIV infection is suspected, consider testing for HIV-1 RNA. Current interpretive data was last revised on 22. Blood 09/16/2025 9:04 PM CDT 09/16/2025 10:01 PM CDT Destiny Jackson MD LAB MICROBIOLOGY - GENERAL ORDERABLES Final Result Performing Organization Address [facility] [place] [place] [address] * RPR Blood (09/16/2025 9:04 PM CDT) Pathologist [facility] RPR Nonreactive Nonreactive Blood 09/16/2025 9:04 PM CDT 09/16/2025 9:57 PM CDT Destiny Jackson MD LAB MICROBIOLOGY - GENERAL [place] [address] * (ABNORMAL) CBC without differential (09/16/2025 9:04 PM CDT) Pathologist [facility] WBC 8.05 3.80 - 9.90 K/cumm Hgb 10.8(L) 11.9 - 15.5 g/dL [facility] Hct 30.0(L) 35.6 - 45.5 % [facility] Plt 204 150 - 400 K/cumm [facility] MPV 11.3 9.1 - 12.3 fL [facility] RBC 3.35(L) 3.90 - 5.20 M/cumm [facility] MCV 89.6 81.3 - 96.4 fL [facility] MCH 32.2 27.1 - 33.3 pg [facility] MCHC 36.0(H) 32.3 - 35.7 g/dL [facility] RDW CV 12.7 11.1 - 14.9 % [facility] RDW SD 41.1 35.7 - 48.1 fL [facility] NRBC abs 0.00 0.00 - 0.01 K/cumm [facility] Blood 09/16/2025 9:0 4 PM CDT 09/16/2025 9:56 PM CDT Destiny Jackson MD LAB BLOOD ORDERABLES Final Result Performing Organization Address [facility] Co de Phone Number [facility] [place] [address] * (ABNORMAL) Varicella Zoster IgG antibody Blood (09/16/2025 9:04 PM CDT) VZV IgG Nonreacti ve(A) Reactive Comment:Non-reactive: No det ectable antibody to Varicella-zoster virus. Such individuals are presumed to be uninfected and to be susceptible to primary infection. Blood 09/16/2025 9:0 4 PM CDT 09/16/2025 9:57 PM CDT Destiny Jackson MD LAB MICROBIOLOGY - GENERAL ORDERABLES Final Result Performing Organization Address City/[facility]/ZIP Co de Phone Number [facility] [place] [address] * (ABNORMAL) Comprehensive metabolic panel (09/16/2025 9:04 PM CDT) Sodium 140 135 - 145 mmol/L Potassium, pl 3.6 3.3 - 4.9 mmol/L [facility] Chloride 104 97 - 110 mmol/L [facility] CO2 23 22 - 32 mmol/L [facility] Anion gap 13 2 - 15 mmol/L [facility] BUN 7 6 - 25 mg/dL [facility] Creatinine 0.56(L) 0.60 - 1.10 mg/dL [facility] Glucose 77 70 - 199 mg/dL [facility] Comment: Interpretive Data Fasting glucose >/= 126 mg/dl is diagnostic for diabetes. Fasting is defined as no caloric intake for at least 8 hours. Fasting glucose between 100 mg/dl to 125 mg/dl is diagnostic of prediabetes. In a patient with classic symptoms of hyperglycemia or hyperglycemic crisis, a random glucose >/= 200 mg/dl is diagnostic for diabetes. In the absence of unequivocal hyperglycemia, results should be confirmed by repeat testing. The classification and Diagnosis of Diabetes Diabetes Care 2021; 46: S19-S40. Current interpretive data was last revised 2022. Calcium 9.3 8.5 - 10.3 mg/dL [facility] Bilirubin, total 0.3 0.1 - 1.2 mg/dL [facility] Protein, pl 6.8 6.5 - 8.5 g/dL [facility] Albumin 3.6 3.5 - 5.0 g/dL [facility] Alk phos 95 40 - 130 Units/L [facility] ALT 15 7 - 45 Units/L [facility] AST 21 10 - 45 Units/L [facility] Blood 09/16/2025 9:04 PM CDT 09/16/2025 10:01 PM CDT us Destiny Jackson MD LAB BLOOD ORDERABLES Final Result [facility] [place] [address] from Last 3 Months Insurance [facility] Advance Directives For more information, please contact: [phone] * Full Code (Latest Code Status on File) Date Activated Date Inactivated Comments 09/16/2025 10:31 PM 09/18/2025 3:40 PM Care Teams Special Needs Child Caregiver Relationship Specialty Start Date End Date Curtis Ness MD [phone] [id number] PCP - General Family Medicine 10/02/22 Lizzie Kennedy MD Referring Physician Obstetrics and Gynecology 07/27/19
--- OUTSIDE RECORDS SUMMARY | 2025-10-05 21:54 | XMS_ITS | Data Portability ---
Author Organization [facility] Address [address] [place] [address] [place] [address] Assessment Encounter Date Assessment Date Assessment LastModified by Organization Details LastModified Time 10/01/2025 10/01/2025 Patient is ___weeks . Discussed plan. [email or web address] Not available 10/01/2025 15:18:24 10/01/2025 10/01/2025 Pt here for NST - Poly [email or web address] Not available 10/01/2025 17:04:51 Plan of Treatment Reminders Order Date Submit Date Provider Last Modified By Organization Details Last Modified Time Details Appointments NST 2024 01:00P M NST SCHEDULE Not available Not available Not available U/S OB BPP 2024 01:00P M ULTRASOUND Not available Not available Not available OB ROUTINE 2024 01:30P Cortney CABRERA MD Not available Not available Not available INDUCTI ON 2024 06:00A Cortney CABRERA MD Not available Not available Not available Lab None recorde d. Referral None recorde d. Procedures None recorde d. Surgeries None recorde d. Imaging US, obstetr ic, biophys ical profile + non-str ess test 2024 025 [facility], [address], [address], [place], [address], 10/01/2025 15:58:56 non-str ess test 2024 025 [facility], [address], [address], [place], [address], 10/01/2025 17:07:53 non-str ess test 2024 025 [email or web address] [place], [address], [place], [address], 09/23/2025 17:41:41 US, obstetr ic, biophys ical profile + non-str ess test 2024 025 [email or web address] [place], [address], [place], [address], 09/24/2025 14:13:06 Medication Orders None recorde d. Patient TargetsNo targets recorded. Patient InstructionsNo instructions recorded. Reason for Referral None Reported. Results Created Date Observation Date Name Description Value Unit Range Abnormal Flag Note LastModifiedBy Organization Detail LastModifiedTime 08/26/2008/26/2025 US, obste tric, bioph ysica l profi le + non-s tress test No observ ation record ed. [email or web address] [address], [place], [address], 08/26/2025 18:15:11 08/26/20 25 08/26/2025 US, obste tric, bioph ysica l profi le + non-s tress test No observ ation record ed. [email or web address] Meghan [address] [place] [address], [place], [address], 08/27/2025 22:16:33 08/30/20 25 08/30/2025 US, obste tric, follo w-up No observ ation record ed. [email or web address] [place] [address] [facility] [address], [address], 09/01/2025 16:02:02 08/30/20 25 08/30/2025 US, obste tric, follo w-up No observ ation record ed. [email or web address] [place] [address] [place], [address], 09/07/2025 17:47:33 09/04/2009/03/2025 non-s tress test No observ ation record ed. [facility] [address] [facility] [address], [place], [address], 09/07/2025 11:46:08 09/09/2009/09/2025 US, obste tric, bioph ysica l profi le + non-s tress test No observ ation record ed. [email or web address] [place] [address], [place], [address], 09/09/2025 17:20:14 09/09/2009/09/2025 US, obste tric, bioph ysica l profi le + non-s tress test No observ ation record ed. [email or web address] Meghan [address], [place], [address], 09/10/2025 10:04:21 09/10/2009/10/2025 non-s tress test No observ ation record ed. [place] [address], [place], [address], 09/10/2025 09:07:14 09/10/2009/09/2025 non-s tress test No observ ation record ed. Not Available 2024 09:08:29 09/16/2009/16/2025 non-s tress test No observ ation record ed. [facility] [address] [facility] [facility] [address], [place], [address], 09/21/2025 09:55:54 09/23/2009/23/2025 US, obste tric, bioph ysica l profi le + non-s tress test No observ ation record ed. [email or web address] [place] [address], [place], [address], 09/23/2025 17:24:15 09/23/2009/23/2025 US, obste tric, bioph ysica l profi le + non-s tress test No observ ation record ed. zi Christianson [address], [place], [address], 09/24/2025 12:25:05 09/23/2009/23/2025 non-s tress test No observ ation record ed. [email or web address] [place] [address], [place], [address], 09/24/2025 11:30:12 09/23/20 non-s tress test No observ ation record ed. [email or web address] [place] [address], [place], [address], 09/23/2025 17:41:26 10/01/2010/01/2025 US, obste tric, bioph ysica l profi le + non-s tress test No observ ation record ed. [email or web address] Meg[place] [address], [place], [address], 10/01/2025 15:46:58 10/01/2010/01/2025 US, obste tric, bioph ysica l profi le + non-s tress test No observ ation record ed. [email or web address] [place] [address], [place], [address], 10/01/2025 15:58:56 10/01/2010/01/2025 non-s tress test No observ ation record ed. [email or web address] [place] [address], [place], [address], 10/01/2025 17:09:33 Result Notes None recorded. Problems Name Problem SNOMED Code Status Onset Date Resolution Date Notes Provider Name and Address Organization Details Recorded Time Anxiety in pregnanc y 8367422394 9109 Completed zoloft 100 Juliet anderson nathan, [facility] 15:56:28 Low-lyin g placenta 697735729 Completed 06/26/2021 RESOLVED 06/26/21 Juliet anderson nathan, [facility] 15:56:28 Screenin g for malignan t neoplasm of cervix Completed 201503/07/2021 Screenin g for malignan t neoplasm s of the cervix;R ecorded Elsewher e: No Locat ion: Atilio saxena [facility] S ource: EHR Jointer [employer] Cable kunal: N Hermilati ce ID: 0001 Jareth lable Time: 04:45:00 PM Ofelia Luna MD [address], [place], [address], [facility] 16:59:32 Secondar y amenorrh ea 825117763 Completed 201603/07/2021 Secondar y amenorrh ea;Recor ded Elsewher e: No Locat ion: Atilio saxena [facility] S ource: EHR [employer] kunal: N Practi ce ID: 0001 Jareth lable Time: 01:15:00 PM Ofelia Luna MD [address], [place], [address], [facility] 16:59:[address] Concept Completed 201602/16/2021 Encntr for sap senior developer exam (general ) (routine ) w/o abn findings ;Recorde d Elsewher e: No Locat ion: [facility] S ource: EHR [employer]inter [employer] kunal: N Practi ce ID: 0001 Jareth lable Time: 01:15:00 PM Shady evans, [facility] 17:05:18 Gestatio n less than 9 weeks 943060707 Completed 201602/16/2021 Less than 8 weeks gestatio n of pregnanc y;Record ed Elsewher e: No Locat ion: [facility] S ource: EHR Jointer [employer] kunal: N Practi ce ID: 0001 Jareth lable Time: 03:45:00 PM Shady Randolph null, [facility] 17:05:08 Uterine size for dates discrepa ncy Completed 201603/07/2021 Uterine size-nataliya e discrepa ncy, first trimeste r;Record ed Elsewher e: No Locat ion: [facility] [place] S ource: EHR [employer] kunal: N Hermilati ce ID: 0001 Jareth lable Time: 03:45:00 PM Ofelia Luna MD [address], [place], [address], [facility] 16:59:44 Normal pregnanc y in multigra reina 7274938592 97795 Completed 201703/07/2021 Encounte r for suprvsn of normal pregnanc y, second trimeste r;Record ed Elsewher e: No Locat ion: [facility] S ource: EHR Jointer [employer] kunal: N Hermilati ce ID: 0001 Jareth lable Time: 03:45:00 PM Ofelia Luna MD [address], [place], [address], [facility] 16:59:18 Gestatio n period, 24 weeks 611546733 Completed 201702/16/2021 24 weeks gestatio n of pregnanc y;Record ed Elsewher e: No [facility]at [facility]: [facility] [employer] kunal: N Practi ce ID: 0001 Jareth lable Time: 04:30:00 PM Saramildred JosephAgustín null, [facility] 17:04:55 Acute vaginiti s 42509424 Completed 201703/07/2021 Acute vaginiti s;Record ed Elsewher e: No Locat ion: Atilio [facility] S ource: EHR Jointer [employer] kunal: N Practi ce ID: 0001 Jareth lable Time: 04:30:00 PM Ofelia Luna MD [address], [place], [address], [facility] 1 16:59:05 Vaginiti s in pregnanc y 250223139 Completed 201703/07/2021 Infectio n oth prt genitl trct in pregnanc y, second trimeste r;Practi ce ID: 0001 Ofelia Luna MD [address], [place], [address], [facility] 1 16:59:47 Uterine or cervical spasm 436970167 Completed 201703/07/2021 Incoordi tom uterine contract ions;Rec orded Elsewher e: No Locat ion: Atilio [facility] S ource: EHR Jointer [employer] kunal: N Practi ce ID: 0001 Jareth lable Time: 04:00:00 PM Ofelia Luna MD [address], [place], [address], [facility] 1 16:59:42 Gestatio n period, 31 weeks 67655205 Completed 201702/16/2021 31 weeks gestatio n of pregnanc y;Practi ce ID: 0001 Shady Randolph null, [facility] 17:04:58 False labor before 37 complete d weeks of gestatio n 6017559734 0403397 Completed 201702/16/2021 False labor before 37 complete d weeks of gest, third tri;Prac shaq ID: 0001 Shady Randolph null, [facility] 17:05:11 Finding of trunk structur e Completed 201703/07/2021 Oth diseases and conditio ns compl preg/chl dbrth;Re corded Elsewher e: No [facility]at ion[facility]: EHR Jointer [employer] kunal: N Practi ce ID: 0001 Jareth lable Time: 05:30:00 PM Ofelia Luna MD [address], [place], [address], [facility] 16:59:39 Gestatio n period, 36 weeks 96143725 Completed 201702/16/2021 36 weeks gestatio n of pregnanc y;Record ed Elsewher e: No Locat ion: [facility] S ource: EHR Jointer [employer] kunal: N Practi ce ID: 0001 Jareth lable Time: 05:30:00 PM Shady evans, [facility] 17:05:01 Gestatio n period, 39 weeks 57917363 Completed 201702/16/2021 39 weeks gestatio n of pregnanc y;Practi ce ID: 0001 Shady Randolph null, [facility] 17:05:02 Prematur e rupture of membrane s 25033813 Completed 201703/07/2021 Full-ter m delaney ROM, unsp time betw rupture and onset labor;Pr actice ID: 0001 Ofelia Luna MD [address], [place], [address], [facility] 16:59:[address] Concept Completed 201802/16/2021 Encntr for general adult medical exam w/o abnormal findings ;Recorde d Elsewher e: No Locat ion: [facility] S ource: EHR Jointer [employer] kunal: N Practi ce ID: 0001 Jareth lable Time: 10:45:00 AM Shady evans, [facility] 17:05:16 Pregnanc y detectio n examinat ion Completed 201803/07/2021 Encounte r for pregnanc y test, result positive ;Recorde d Elsewher e: No Locat ion: [facility] Source: EHR Jointer [employer] kunal: N Practi ce ID: 0001 Jareth lable Time: 10:45:00 AM Ofelia Luna MD [address], [place], [address], [facility] 1 16:59:24 Gestatio n period, 8 weeks 10209067 Completed 201802/16/2021 8 weeks gestatio n of pregnanc y;Record ed Elsewher e: No Locat ion: [facility] S ource: EHR Jointer [employer] kunal: N Practi ce ID: 0001 Jareth lable Time: 03:30:00 PM Shady evans, [facility] 17:05:04 Antenata l screenin g Completed 201803/07/2021 Encounte r for antenata l screenin g for nuchal transluc ency;Rec orded Elsewher e: No Locat ion: [facility] S ource: EHR Jointer [employer] kunal: N Hermilati ce ID: 0001 Jareth lable Time: 04:00:00 PM Ofelia Luna MD [address], [place], [address], [facility] 16:59:08 Antenata l screenin g for malforma tion Completed 201803/07/2021 Encounte r for antenata l screenin g for malforma tions;Re corded Elsewher e: No Locat ion: [facility] S ource: EHR Jointer [employer] Cable kunal: N Practi ce ID: 0001 Jareth lable Time: 10:30:00 AM Ofelia Luna MD [address], [place], [address], [facility] 16:59:10 Placenta previa 99790407 Completed 201803/07/2021 Placenta previa specifie d as w/o hemor, second trimeste r;Record ed Elsewher e: No Locat ion: Atilio saxena [facility] S ource: EHR Jointer [employer] Cable kunal: N Practi ce ID: 0001 Jareth lable Time: 04:30:00 PM Ofelia Luna MD [address], [place], [address], [facility] 16:59:21 Gestatio n period, 27 weeks 27653381 Completed 201802/16/2021 27 weeks gestatio n of pregnanc y;Record ed Elsewher e: No Locat ion: Atilio saxena [facility] S ource: EHR Jointer [employer] kunal: N Practi ce ID: 0001 Jareth lable Time: 11:00:00 AM Shady Randolph null, [facility] 17:04:57 Pregnanc y, childbir th and puerperi um finding Completed 201803/07/2021 Encntr for suprvsn of normal first preg, third trimeste r;Practi ce ID: 0001 Ofelia Luna MD [address], [place], [address], [facility] 16:59:[address] Concept Completed 201802/16/2021 Maternal care for oth abnormal ity and damage, unsp;Rec orded Elsewher e: No Locat ion: Atilio saxena [facility] S ource: EHR Jointer [employer] Cable kunal: N Practi ce ID: 0001 Jareth lable Time: 09:17:34 AM Shady Randolph null, [facility] 17:05:15 Gestatio n period, 35 weeks 57270199 Completed 201802/16/2021 35 weeks gestatio n of pregnanc y;Record ed Elsewher e: No Locat ion: Atilio saxena [facility] S ource: EHR Jointer [employer] Cable kunal: N Practi ce ID: 0001 Jareth lable Time: 09:17:34 AM Kayashkan Agustín evans, [facility] 17:04:59 Spotting per vagina in pregnanc y 889154724 Completed 201803/07/2021 Spotting complica ting pregnanc y, unspecif ied trimeste r;Practi ce ID: 0001 Ofelia Luna MD [address], [place], [address], [facility] 16:59:36 Finding of contents of cervix 773285435 Completed 201803/07/2021 Weeks of gestatio n of pregnanc y not specifie d;Practi ce ID: 0001 Ofelia Luna MD [address], [place], [address], [facility] 16:59:13 Term pregnanc y delivere d 96475713 Completed 201802/16/2021 Encounte r for full-ter m uncompli cated delivery ;Practic e ID: 0001 Shady evans, [facility] 17:05:23 Single live from singleto n pregnanc y 463585166 Completed 201802/16/2021 Single live ;Pr actice ID: 0001 Shady evans, [facility] 17:05:27 Procedur e related to breastfe eding Completed 201802/16/2021 Encounte r for care and examinat ion of lactatin g mother;P ractice ID: 0001 Shady evans, [facility] 17:05:31 Lochia finding Completed 201803/07/2021 Encounte r for routine postpart um follow-u p;Record ed Elsewher e: No Locat ion: Atilio saxena [facility] S ource: EHR Jointer [employer] kunal: N Practi ce ID: 0001 Jareth lable Time: 01:15:00 PM Ofelia Luna MD [address], [place], [address], [place] [facility] 16:59:50 Pregnanc y 48811117 Completed 202010/20/2021 Aurora Rico [facility], [facility] 5 17:24:58 Polyhydr amnios 56247427 Completed 2020 Juliet anderson [facility], [facility] 15:56:28 Pregnanc y 39381592 Active 2024 Aurora Abner [facility], [facility] 17:24:58 Mixed anxiety and depressi ve disorder 311661769 Active 2024 welbutri n and venlafex in [facility] referral faxed pt schedule d 04/07/25 antenata l testing TBD Jocelin Dumont [facility], [facility] 5 17:38:38 Polyhydr amnios 05975546 Active 08/26 KORY 38 referral faxed to [facility] Atilio e & [facility] pt schedule d [facility] 08/30 0730 only Jocelin Dumont nathan [facility] 5 16:48:47 Iron deficien cy anemia 82967189 Active 2024 infusion order faxed 08/18 Jocelin Dumont [facility] 5 12:42:58 Problem Notes None recorded. Procedures Surgical History Date Name Laterality Status Provider Name and Address Organization Details Recorded Time 4 Date of Last Pap Smear completed Jacque Rowell [facility] 03/18/2025 11:57:56 6 extraction of wisdom tooth completed Rafia Bridges [facility] 08/20/2023 18:00:00 Imaging Results None recorded. Procedure [...] Not Available Not Available venlafaxi ne ER 75 mg capsule,e xtended release 24 hr TAKE ONE CAPSULE BY MOUTH EVERY DAY active Not Available Not Available No t Available doxycycli ne hyclate 100 mg capsule [...] Elsewher e: Yes Loca tion: Atilio saxena [facility] odify By: keon Bobrufina r DateTime : 10/02/20 16 04:45:00 PM Not Available Not Available Not Available lamotrigi ne 25 mg tablet TAKE ONE TABLET BY MOUTH TWICE DAILY 04/12 completed Not Available Not Available Not Available Metrogel Vaginal 0.75 % (37.5 mg/5 gram) insert 1 applicat orful by vaginal route every day at bedtime 03/04 completed Prescrib ed Elsewher e: No Locat ion: Atilio saxena [facility] odify By: keon Bobrufina r DateTime : 01/27/20 18 04:30:00 PM [...] Prescrib ed Elsewher e: Yes Loca tion: [facility] M odify By: [email or web address] Encount er DateTime : 10/15/20 04:00:00 PM Not Available Not Available Not Available naltrexon e 4.5 mg capsule Take 1 capsule every day by oral route in the morning for 7 days. 06/22 completed Not Available Not Available Not Available Vitals Date Recorded Body height Body mass index (BMI) Body weight Systolic And Diastolic Provider Name and Address Organization Details Last Updated DateTime 09/23/2025 165.1 cm 30.8 kg/m2 52824.59 g 112/74 mm[Hg] Aurora Rico [facility] 09/23/2025 17:06:40 Date Recorded Body weight Systolic And Diastolic Provider Name and Address Organization Details Last Updated DateTime 09/23/2025 25629.28891 g 112/74 mm[Hg] Kate Foote [facility] 09/23/2025 17:39:17 Date Recorded Body weight Body weight Body mass index (BMI) Body height Systolic And Diastolic Systolic And Diastolic Provider Name and Address Organization Details Last Updated DateTime 92067.1 8082 g 34546.1 8082 g 31 kg/m2 165.1 cm 125/79 mm[Hg] 125/79 mm[Hg] Hellen Asher [facility] 16:58:18 Social History Question Answer Notes LastModified by Organizat ion Details LastModified Time Tobacco Smoking Status Never Smoker Desiree Parada nathan, [facility] 08/20/2023 17:30:08 Are You Blind Or Do You Have Difficulty Seeing? No [email or web address] Information n ot available 09/13/2021 What Is Your Level Of Caffeine Consumption? Occasional [email or web address] Information not available 09/13/2021 How Much Tobacco Do You Chew? None Information not available 04/12/2025 In The 14 Days Before Symptom Onset, Have You Had Close Contact With A Laboratory-confirm ed COVID-19 While That Case Was Ill? No [email or web address] Information n ot available 09/13/2021 In The 14 Days Before Symptom Onset, Have You Had Close Contact With A Person Who Is Under Investigation For COVID-19 While That Person Was Ill? No [email or web address] Information not available 09/13/2021 Have You Been To An Area Known To Be High Risk For COVID-19? No [email or web address] Information not available 09/13/2021 Are You Deaf Or Do You Have Serious Difficulty Hearing? No [email or web address] Information not available 09/13/2021 What Type Of Diet Are You Following? REGULAR [email or web address] Information n ot available 09/13/2021 What Is The Highest Grade Or Level Of School You Have Completed Or The Highest Degree You Have Received? [id number] Information not available 06/22/2024 Are There Any Guns Present In Your Home? Yes Information not available 04/12/2025 Have You Ever Been Counseled For Unhealthy Alcohol Use? No [email or web address] Information not available 08/20/2023 Do You Use Your Seat Belt Or Car Seat Routinely? Yes [email or web address] Information not available 09/13/2021 Do You Have Smoke And Carbon Monoxide Detectors In Your Home? Yes [email or web address] Information not available 09/13/2021 How Much Tobacco Do You Smoke? No Information not available 06/22/2024 Do You Use Sunscreen Routinely? Yes [email or web address] Information not available 09/13/2021 Has Tobacco Cessation Counseling Been Provided? No Information not available 08/20/2023 Have You Used [...] other forms of tobacco or nicotine? No [email or web address] Information not available 08/20/2023 What is your level of alcohol consumption? Occasional [email or web address] Information not available 09/13/2021 Are you able to walk independently without assistance or assistive devices? YESWOREST Information not available 09/13/2021 Are you able to care for yourself independently? Yes [email or web address] Information not available 08/20/2023 Do you have difficulty dressing, bathing, grooming, or toileting? No [email or web address] Information not available 08/20/2023 What is your exercise level? Moderate [email or web address] Information not available 03/18/2025 Mental Status Question Answer Note LastModified by Organization D etails LastModified Time Do you feel stressed (tense, restless, nervous, or anxious, or unable to sleep at night)? [id number] [email or web address] Information not available 09/13/2021 Family History Relationship Description Onset Age of this Age Resolved Age Notes LastModified by Organization Details LastModified Time Mother Diabetes mellitus [email or web address] Not available 08/20 17:58:27 Mother Hypercholest erolemia [email or web address] Not available 08/20 17:58:27 Mother Polycystic ovary syndrome [email or web address] Not available 09/03 13:25:47 Maternal Grandmother Diabetes mellitus [email or web address] Not available 08/20 17:58:27 Maternal Grandmother Hypercholest erolemia [email or web address] Not available 09/19 /2023 17:58:27 Maternal Grandmother Polycystic ovary syndrome [email or web address] Not available 09/03 13:25:47 Sister Diabetes mellitus [email or web address] Not available 08/20 17:58:27 Sister Polycystic ovary syndrome [email or web address] Not available 09/03 13:25:47 Brother Diabetes mellitus [email or web address] Not available 08/20 17:58:27 Medical History Condition Response Allergies (Food, seasonal, environmental ) N Other N Blood Transfusion N Drug/Latex Allergies/Reactions N Breast Cancer N Dermatologic Disorders N Lung Disease N [...] ICD10 Code Diagnosis IMO Codes Diagnosis Note [id number] Nando Cabrera MD [place] [address],[facility] [place] [address] 03/07/2021 16:21:59 03/08/2021 08:08:47 [id number] Ofelia Luna MD [place] [address],[facility] [place] [address] 03/07/2021 16:24:19 03/07/2021 22:50:04 test positive 214092599 Z32.01 Anxiety in 706 8732746 9109 F41.9 Venereal d isease screening 501837505 Z11.3 Screening for malignant neoplasm of cervix 713865995 Z12.4 [id number] Ofelia Luna MD [place] [address],[place] [address] 04/04/2021 17:00:51 04/04/2021 23:54:59 Routine care 272010074 Z34.91 test positive 068574533 Z32.01 Anxiety in 019 3688311 9109 F41.9 Venereal d isease screening 937769256 Z11.3 Screening for malignant neoplasm of cervix 433197195 Z12.4 [id number] MD Maynor Gomez [address],[place] [address] 04/04/2021 17:36:24 04/04/2021 17:49:05 screening 495258848 Z36.82 [id number] MD Maynor Gomez [address],[place] [address] 05/02/2021 17:48:30 05/03/2021 21:50:54 Routine care 480784374 Z34.91 [id number] MD Maynor Gomez [address],[place] [address] 05/30/2021 16:15:58 05/30/2021 17:08:29 screening for malformation 245015247 Z36.3 46959 MD Maynor Gomez [address],[place] [address] 05/30/2021 16:16:18 05/30/2021 17:59:18 Routine care 499954571 Z34.91 Low-lying placenta 26944 2006 O44.42 [id number] MD Maynor Gomez [address],[place] [address] 06/26/2021 14:28:29 06/26/2021 15:23:40 screening 591370427 Z36.2 42261 Ofelia Luna MD [place] [address],[place] [address] 06/26/2021 14:29:57 06/26/2021 16:24:16 Routine care 631110498 Z34.91 Polyhydramnios 05087527 O40.2XX1 [id number] Nando Cabrera MD [place] [address],[place] [address] 07/20/2021 09:27:58 07/20/2021 10:24:38 Polyhydramnios 33330017 O40.2XX0 Z3A.27 [id number] Sara Ruiz CNM [place] [address],[place] [address] 07/20/2021 10:18:52 07/20/2021 12:10:12 Routine care [id number] Z34.92 [id number] Sara Ruiz CNM [place] [address],[place] [address] 07/20/2021 11:14:04 07/20/2021 11:32:11 Routine care 575104433 Z34.92 [id number] Nando Cabrera MD [place] [address],[place] [address] 08/03/2021 16:53:41 08/04/2021 09:45:27 Routine care 310264770 Z34.83 [id number] Ofelia Luna MD [place] [address],[place] [address] 08/21/2021 16:55:38 08/21/2021 17:29:52 Routine care 706400009 Z34.91 [id number] Sara Ruiz CNM [place] [address],[place] [address] 09/07/2021 16:42:33 09/07/2021 17:43:32 Routine care 516194230 Z34.92 [id number] Racheal Vallejo CNM [place] [address],[place] [address] 09/13/2021 17:41:10 09/14/2021 11:08:08 Routine care 225258105 Z34.93 [id number] Nando Cabrera MD [place] [address],[place] [address] 09/21/2021 17:06:39 09/22/2021 18:40:04 Routine care 563703747 Z34.83 [id number] Nando Cabrera MD [place] [address],[place] [address] 09/28/2021 17:45:58 09/29/2021 10:11:32 Routine care 484143209 Z34.83 36113 Ofelia Luna MD [place] [address],[place] [address] 10/06/2021 16:04:52 10/09/2021 19:54:49 Routine care 526249891 Z34.91 Polyhydramnios 28799233 O40.2XX1 54504 Ofelia Luna MD [place] [address],[place] [address] 10/16/2021 11:57:30 10/16/2021 13:09:19 Pelvic hematoma 831850722 N94.89 [id number] Ofelia Luna MD [place] [address],[place] [address] 01/16/2022 17:33:34 01/17/2022 09:25:42 Obstetric trauma causing pelvic hematoma 567609501 O71.7 Depressive disorder 3548 9007 F32.A 68144 Ofelia Luna MD [place] [address],[place] [address] 03/20/2022 17:45:34 03/21/2022 11:26:19 Depressive disorder 41454734 F32.A Gynecologi c examination 37637515 Z01.419 Candidal vulvovaginitis 98082287 B37.3 [id number] Elli Barcenas [facility] [address],[place] [address] 08/20/2023 17:28:00 08/21/2023 09:55:43 Gynecologic examination 87193547 Z01.419 Take Calcium with Vitamin D 1200mg [...] PCP Body mass index 25-29 - overweight 226503447 Z68.29 Informatio n givenRD info [facility] inquire insurance coverage.Thomas velarde I do not prescribe phentermin e.Would prefer she go to PCP but will consider short term management if decides to pursue a medication option.She is exercising and is open to seeing bicycle assembler. Will send portal msg [id number] Nando Cabrera MD [place] [address],[place] [address] 11/02/2024 18:20:24 11/03/2024 12:35:35 Gynecologic examination 37745381 Z01.419 Annual gynecologi bhargav exam performed. Patient [...] declined Body mass index 25-29 - overweight 895728521 Z68.25 Today we agreed to continue Wellbutrin as she is having much success with improvemen t to mood and overall emotional wellbeing. Patient lost 14 lbs since last year and has been feeling better overall. Counseled on medication R/B's, Most common side effects, & use. All questions were answered to patient satisfacti on. Anxiety 09730264 F41.9 Discussed treatment options for chronic anxiety [...] d if no improvemen t in symptoms. [id number] EDITH [facility] [address],[place] [address] 11/20/2023 16:20:43 11/21/2023 09:46:34 Body mass index 25-29 - overweight 764485399 Z68.29 Today we agreed to continue Wellbutrin [...] we can also consider going through the [facility] specialty pharmacy as she might be able [...] plan of care. [id number] Nando Cabrera MD [place] [address],[facility] [place] [address] 05/29/2024 12:07:53 05/29/2024 13:50:40 Anxiety 91191322 F41.9 This patient is a 38-year-ol d [...] the medication . [id number] Nando Cabrera MD [place] [address],[facility] [place] [address] 06/22/2024 13:56:46 06/22/2024 15:03:31 Anxiety 33643300 F41.9 This patient is a 38-year-ol d [...] over 30 minutes on the patient's care. [id number] Nando Cabrera MD [place] [address],[place] [address] 09/16/2024 16:37:39 09/17/2024 03:45:43 Dysuria 09027352 R30.0 Urinary tr act infectious disease 52228912 N39.0 [id number] Nando Cabrera MD [place] [address],[place] [address] 03/18/2025 11:47:28 03/18/2025 13:35:51 test positive 546806327 Z32.01 [id number] 1. Exam today within normal limits. 2. [...] trimester - referral to be sent to [facility] in [place] [id number] Nando Cabrera MD [place] [address],[place] [address] 1 03/18/2025 11:45:51 03/18/2025 12:23:43 [id number] MD Maynor Borja [address],[place] [address] 1 04/12/2025 16:29:10 04/12/2025 17:12:47 screening 579807231 Z36.82 Z3A.12 4442895984 [id number] Nando Cabrera MD [place] [address],[place] [address] 1 04/12/2025 16:30:31 04/13/2025 08:54:45 care status 687404411 Z34.82 83959024 [id number] MD Maynor Borja [address],[place] [address] 05/12/2025 15:33:26 05/12/2025 16:50:57 care status 384123724 Z34.82 74656120 [id number] MD Maynor Borja [address],[place] [address] 06/09/2025 15:26:58 06/09/2025 16:35:14 screening for malformation 592430755 Z36.3 Z3A.20 4907946147 [id number] MD Maynor Borja [address],[place] [address] 06/09/2025 15:39:42 06/09/2025 17:00:31 care status 527124328 Z34.82 11179233 [id number] MD Maynor Borja [address],[place] [address] 07/08/2025 11:59:31 07/08/2025 12:43:53 Polyhydramnios 50498359 O40.2XX0 Z3A.24 812017 [id number] MD Maynor Borja [address],[place] [address] 07/08/2025 14:14:47 07/08/2025 14:56:57 Polyhydramnios 20218650 O40.9XX0 89360121 care status 24 6790785 Z34.82 60466637 [id number] MD Maynor Borja [address],[place] [address] 07/21/2025 17:25:15 07/22/2025 08:44:50 Polyhydramnios 11013193 O40.2XX0 Z3A.26 960713 [id number] Nando Cabrera MD [place] [address],[place] [address] 07/29/2025 13:28:25 07/29/2025 15:04:47 care status 739010386 Z34.82 49517992 [id number] MD Maynor LOWERY [address],[place] [address] 08/10/2025 09:14:42 08/10/2025 10:07:38 Polyhydramnios 54484775 O40.3XX0 Z3A.29 517357 [id number] TRUDY MORATAYA MD [place] [address],[place] [address] 08/10/2025 09:14:57 08/10/2025 14:41:01 Polyhydramnios 22825234 O40.2XX0 17652993 Mixed anxi ety and depressive disorder 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 F32.A F41.9 699508 - increased venlafaxin e to 75mg Gestation period, 29 weeks 28484569 Z3A.29 9097551 [id number] MD Maynor Borja [address],[place] [address] 08/26/2025 17:12:32 08/27/2025 08:48:51 care status 120654460 Z34.83 35590954 [id number] MD Maynor Borja [address],[place] [address] 08/26/2025 18:13:13 08/27/2025 08:49:24 Polyhydramnios 12734344 O40.3XX0 Z3A.31 063418 [id number] MD Maynor Borja [address],[place] [address] 09/09/2025 16:20:47 09/09/2025 16:54:52 Polyhydramnios 41708453 O40.3XX0 Z3A.33 978077 [id number] MD Maynor Borja [address],[place] [address] 09/09/2025 16:21:06 09/10/2025 09:14:31 Polyhydramnios 28640589 O40.9XX0 49099303 [id number] MD Maynor Borja [address],[place] [address] 09/09/2025 16:21:33 09/09/2025 17:45:09 care status 548734789 Z34.83 29400598 [id number] MD Maynor Borja [address],[place] [address] 09/23/2025 15:50:49 09/23/2025 16:24:42 Polyhydramnios 82434662 O40.3XX0 Z3A.35 831586 [id number] MD Maynor Bojra [address],[place] [address] 09/23/2025 15:51:05 09/23/2025 17:41:41 History of 010453774 Z87.59 85441616 [id number] MD Maynor Borja [address],[place] [address] 09/23/2025 15:51:36 09/23/2025 17:34:48 care status 738456021 Z34.83 40351108 [id number] Nando Cabrera MD [place] [address],[place] [address] 10/01/2025 13:25:35 10/01/2025 14:11:55 Polyhydramnios 15157374 O40.3XX0 Z3A.37 22941986 [id number] Nando Cabrera MD [place] [address],[place] [address] 10/01/2025 13:26:07 10/01/2025 15:36:30 Polyhydramnios 60603991 O40.3XX0 78698077 [id number] Nando Cabrera MD [place] [address],[place] [address] 10/01/2025 13:26:30 10/01/2025 16:24:58 care status 612914978 Z34.83 [id number] Health Concerns Section Related Observation LastModified by Organization Detai ls LastModified Time None Recorded Concern Status LastModified by Organization Details LastModified Time None Recorded Advance Directives Directive None Recorded Payers Insurance Date Sequence Insurance Name Policy Number Policy Martinez Covered Member ID Martinez Member ID Guarantor Name 10/04/2025 1 [id number] Josephine Burk [id number] Josephine D Burk 12/11/2021 2 [place] [id number] Burton Burk [id number] Josephine D Burk 09/22/2025 1 [place] [id number] Josephine Burk [id number] Josephine D Burk Notes Date Note Type Note Provider Name and Address Organization Details Recorded Time 10/01/2025 text/html Generic HPI TemplateReported by Patient Nando Cabrera MD [address], [place], [address], [facility] 10/01/2025 16:20:05 OBGyn Episode Ob Episode Information Episode Created Date Number of Fetuses Patient Bloodtype Patient rh Status Prepregnancy Weight lbs Domestic Partner Domestic Partner Phone Father Name Md Psychiatry Status 02/18/20 21 1 CLOSED Fetus Data [...] Domestic Partner Domestic Partner Phone Father Name Md Psychiatry Status 03/07/20 21 1 CLOSED Fetus Data [...] Domestic Partner Domestic Partner Phone Father Name Md Psychiatry Status 04/04/20 21 1 A Positive 161 [...] Code Not e Low-lying placenta 06/26/2021 SELFRESOLVED 8979059 07 RESOLVED 06/26/21 Polyhydramnios 06/26/2021 SELFRESOLVED 44664033 Anxiety in [id number] 40281 zoloft 100 Dee Dee Calculation Initial Dee [...] Date Ultra Sound Latest Days Gestation 0 [id number] 04/04/2021 10/13/20 21 0 Pre-jeff Flowsheet Flowsheet Date 04/04/2021 Yuan Score Blood Edema Fundus Height Fundus Units Glucose Ketones Leukocytes Nitrite Labor Signs Protein Cervic Dilation Cervic Effacement Cervic Station neg none trace Type Weight in lbs Pre/Post Dialysis Refused Weight 163.407190576420 BP Diastolic BP Location Tested BP Systolic BP Type 69 108 Fetus Heart Rate Present Fetus Movement A No Comments OB SCREEN: HPIPt is a 35yo G [id number] who presents for missed menses and possible [...] at 8w4d with DEE DEE 10/13/21 by [facility] US todayOb education done and all questions [...] up in 4 weeks for first ob [id number] presents for care. History uncomplicated, 2 term [...] Weight in lbs Pre/Post Dialysis Refused Weight 165.529238144946 BP Diastolic BP Location Tested BP Systolic [...] Weight in lbs Pre/Post Dialysis Refused Weight 168.617240190358 BP Diastolic BP Location Tested BP Systolic [...] Weight in lbs Pre/Post Dialysis Refused Weight 171.319552626082 BP Diastolic BP Location Tested BP Systolic [...] Weight in lbs Pre/Post Dialysis Refused Weight 174.73763920977 BP Diastolic BP Location Tested BP Systolic [...] Weight in lbs Pre/Post Dialysis Refused Weight 174.66396889064 BP Diastolic BP Location Tested BP Systolic BP Type 61 97 Fetus Heart Rate Present Fetus Movement A Yes Comments Doing well. Encouraged tdap. U/S today. Await recommendations. Flowsheet Date 08/03/2021 Yuan Score Blood Edema Fundus Height Fundus Units Glucose Ketones Leukocytes Nitrite Labor Signs Protein Cervic Dilation Cervic Effacement Cervic Station 29 Type Weight in lbs Pre/Post Dialysis Refused Weight 178.280142681446 BP Diastolic BP Location Tested BP Systolic BP Type 65 R arm 101 sitting Fetus Heart Rate Present A 145 Fetus Movement Comments Flowsheet Date 08/21/2021 Yuan Score Blood Edema Fundus Height Fundus Units Glucose Ketones Leukocytes Nitrite Labor Signs Protein Cervic Dilation Cervic Effacement Cervic Station neg none 31 trace Type Weight in lbs Pre/Post Dialysis Refused Weight 181.947250496671 BP Diastolic BP Location Tested BP Systolic [...] Weight in lbs Pre/Post Dialysis Refused Weight 184.190595868038 BP Diastolic BP Location Tested BP Systolic [...] Weight in lbs Pre/Post Dialysis Refused Weight 185.766604334400 BP Diastolic BP Location Tested BP Systolic [...] Weight in lbs Pre/Post Dialysis Refused Weight 187.085136722065 BP Diastolic BP Location Tested BP Systolic [...] Weight in lbs Pre/Post Dialysis Refused Weight 188.167895851465 BP Diastolic BP Location Tested BP Systolic [...] Weight in lbs Pre/Post Dialysis Refused Weight 193.47782346844 BP Diastolic BP Location Tested BP Systolic BP Type 79 117 Fetus Heart Rate Present A 140 Fetus Movement A Yes Comments Doing well. GBS neg. IOL sat day. Precautions given. Flowsheet Date 10/16/2021 Yuan Score Blood Edema Fundus Height Fundus Units Glucose Ketones Leukocytes Nitrite Labor Signs Protein Cervic Dilation Cervic Effacement Cervic Station Type Weight in lbs Pre/Post Dialysis Refused Weight 175.243213674679 BP Diastolic BP Location Tested BP Systolic [...] Estim ated Date of Delivery false Thalassemia (Tongan, Senegalese, Mediterranean, Or Background): MCV < 80 false Neural Tube Defect (Meningomyelocele, Spina Bifi da, Or Anencephaly) false Congenital Heart Defect false Down Syndrome false Rafi-Sachs (eg, Congregational, Cajun, Khmer-Grayson) f alse Heather Disease false Sickle Cell Disease Or Trait () false Hemophilia Or Other Blood Disorders false Muscular Dystrophy false Cystic Fibrosis false [place]'s Chorea false Intellectual Disability/Autism false If Yes, [...] Comments 1 Induce d Regional-Ep idural 39.3 Ofelia Neely MD EBL 500 Discharge Information Feeding Method Contraceptive Method Maternal HG B and HCT Levels Ob Episode Information Episode Created Date Number of Fetuses Patient Bloodtype Patient rh Status Prepregnancy Weight lbs Domestic Partner Domestic Partner Phone Father Name Md Psychiatry Status 04/12/20 25 1 A Positive Lucio OPEN Fetus Data First Name Last Name Admitted to NICU Weight (g) Sex Living Outcome Pediatric Complications Fetus ID Race Codes Race Delivery Type [id number] Problems Problem Notes Problem Name Start Date End Date Resolution Snomed Code Not e Iron deficiency anemia 08/18/2025 031450 02 infusion order faxed 08/18 Polyhydramnios 07/08/2025 59445358 08/26 KORY 38 referral faxed to [facility] pt scheduled john 08/30 0730 US only Mixed anxiety and depressive disorder 04/12/2025 611898629 welbutri n and venlafexinMFM [facility] referral faxed pt scheduled 04/07/25antenatal testing TBD [...] Weight in lbs Pre/Post Dialysis Refused Weight 157.745204096073 BP Diastolic BP Location Tested BP Systolic [...] Type Weight in lbs Pre/Post Dialysis Refused 159.545051982764 BP Diastolic BP Location Tested BP Systolic [...] Weight in lbs Pre/Post Dialysis Refused Weight 166.582229550014 BP Diastolic BP Location Tested BP Systolic [...] Weight in lbs Pre/Post Dialysis Refused Weight 171.453536950438 BP Diastolic BP Location Tested BP Systolic [...] Type Weight in lbs Pre/Post Dialysis Refused 175.598986897372 BP Diastolic BP Location Tested BP Systolic [...] Type Weight in lbs Pre/Post Dialysis Refused 176.387783114193 BP Diastolic BP Location Tested BP Systolic [...] Weight in lbs Pre/Post Dialysis Refused Weight 184.426882142574 BP Diastolic BP Location Tested BP Systolic [...] Type Weight in lbs Pre/Post Dialysis Refused 179.797817135526 BP Diastolic BP Location Tested BP Systolic BP Type 75 L arm 112 sitting Fetus Heart Rate Present Fetus Movement A Yes Comments no complaints, no problems, routine care, no contractions, no vaginal bleeding, no loss of fluid, no cramping Flowsheet Date 09/23/2025 Yuan Score Blood Edema Fundus Height Fundus Units Glucose Ketones Leukocytes Nitrite Labor Signs Protein Cervic Dilation Cervic Effacement Cervic Station Type Weight in lbs Pre/Post Dialysis Refused BP Diastolic BP Location Tested BP Systolic BP Type Fetus Heart Rate Present Fetus Movement Comments Flowsheet Date 09/23/2025 Yuan Score Blood Edema Fundus Height Fundus Units Glucose Ketones Leukocytes Nitrite Labor Signs Protein Cervic Dilation Cervic Effacement Cervic Station Type Weight in lbs Pre/Post Dialysis Refused 185.513525173263 BP Diastolic BP Location Tested BP Systolic BP Type 74 L arm 112 sitting Fetus Heart Rate Present Fetus Movement A Yes Comments Flowsheet Date 09/23/2025 Yuan Score Blood Edema Fundus Height Fundus Units Glucose Ketones Leukocytes Nitrite Labor Signs Protein Cervic Dilation Cervic Effacement Cervic Station Type Weight in lbs Pre/Post Dialysis Refused Weight 185.166564691354 BP Diastolic BP Location Tested BP Systolic BP Type 74 L arm 112 sitting Fetus Heart Rate Present A 145 Fetus Movement A Yes Comments Discussed delivery time. Andrew sidering 38 weeks given her discomfort. We seek to of controlled release of the fluid from the . it would be preferred to have this happen in the hospital. Flowsheet Date 10/01/2025 Yuan Score Blood Edema Fundus Height Fundus Units Glucose Ketones Leukocytes Nitrite Labor Signs Protein Cervic Dilation Cervic Effacement Cervic Station Type Weight in lbs Pre/Post Dialysis Refused BP Diastolic BP Location Tested BP Systolic BP Type Fetus Heart Rate Present Fetus Movement Comments Flowsheet Date 10/01/2025 Yuan Score Blood Edema Fundus Height Fundus Units Glucose Ketones Leukocytes Nitrite Labor Signs Protein Cervic Dilation Cervic Effacement Cervic Station Type Weight in lbs Pre/Post Dialysis Refused 186.708140058935 BP Diastolic BP Location Tested BP Systolic BP Type 79 L arm 125 sitting Fetus Heart Rate Present Fetus Movement A Yes Comments Flowsheet Date 10/01/2025 Yuan Score Blood Edema Fundus Height Fundus Units Glucose Ketones Leukocytes Nitrite Labor Signs Protein Cervic Dilation Cervic Effacement Cervic Station Type Weight in lbs Pre/Post Dialysis Refused 186.447352180746 BP Diastolic BP Location Tested BP Systolic BP Type 79 L arm 125 sitting Fetus Heart Rate Present A 143 Fetus Movement A Yes Comments no complaints, [...]
--- OUTSIDE RECORDS SUMMARY | 2025-10-05 21:54 | XMS_ITS | Encounter Summary ---
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
--- OUTSIDE RECORDS SUMMARY | 2025-10-05 21:54 | XMS_ITS | Clinical Summary ---
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 Gender Identity Not on file Sexual Orientation Not on file Plan of Treatment Health Maintenance Due Date Last Done Comments Hepatitis C Virus (HCV) Screening 1987 Hepatitis B Immunization (1 of 3 - 19+ 3-dose series) 2006 Pap Smear 2008 Human Papillomavirus (HPV) Immunization (1 - 3-dose SCDM series) 2014 Cervical Cancer Screening (CCS) 2017 HPV/Cotest 2017 SARS-COV-2 Immunization (2024- season) 2025 04/07/2021, 03/10/2021 Respiratory Syncytial Virus [...] to complete this topic Insurance Care Teams Manager Delivery Relationship Specialty Start Date End Date Provider, Unknown UNKNOWN PCP - General 09/07/25
--- OUTSIDE RECORDS SUMMARY | 2025-10-05 21:54 | XMS_ITS | Clinical Summary ---
Author Organization [facility] Address [address] [place] [address] Care Team Providers Care Food Cart Attendant Name Role Phone Unavailable Primary Care Provider Unavailabl e Source Comments [facility],non-owned Affiliates and Associated Physician Practices is amultiple site organization consisting of ambulatory clinics and hospital sitesin [place], [place] and [place]. This disclosure is being madepursuant to the Care Everywhere program and may not contain all information available regarding this patient. Last updated 18.[facility] Allergies No known active allergies Medications * [...] Type Department Care Team Description 09/10/2025 [facility]phone [facility] [address] [place] [phone] [place] Rosenthal Appointment 09/04/2025 11:20 AM CDT - 09/06/2025 4:47 PM CDT Hospital Encounter [facility] 5E ANTEPARTUM/MOTHER BABY [address] [place] [address] Sebastian Saleh MD Maternal Medicine Discharge Disposition: Home or Self Care 09/04/2025 Travel 08/30/2025 8:45 AM CDT - 08/30/2025 11:59 PM CDT Hospital Encounter [facility] [address] [place] [phone] Chace Montgomery MD Discharge Disposition: Home or Self Care 08/30/2025 7:30 AM CDT - 08/30/2025 8:44 AM CDT Hospital Encounter [facility] [address] [place] [id number] Chace Montgomery MD Discharge Disposition: Home or Self Care 08/27/2025 Telephone [facility] [address] [place] [phone] Ju Rosenthal Appointment from Last 3 Months [...] and heating? Not hard at all 09/04/2025 [facility] Occupat ional Health - Occupational Stress [...] any time in the past 12 m [facility], were you homeless or living in a senior care (including now)? 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 Gender Identity Not on file Sexual Orientation [...] 3-dose SCDM series) 2014 DEPRESSION SCREENING 12/02/2024 OB-ONE HOUR GLUCOSE 07/16/2025 OB-TDAP CURRENT 07/23/2025 09/01/2021 COVID-19 VACCINE (3 - 2024-2 6 season) 2025 04/07/2021, 03/10/2021 INFLUENZA VACCINE (#1) 2025 , 10/19/2020 ZOSTER VACCINE (1 of 2) 2037 HIV SCREENING Completed 07/29/2025 OB-GROUP B STREP SCREEN Completed [...] on patient's age to complete this topic Respiratory Syncytial Virus (RSV) Vaccine Pt: or over 60 yrs (No Doses Required) Completed Procedures Procedure Name Priority Date/Time Associated Diagnosis [...] LOIS NEGATIVE NEGATIVE 09/05/2025 6:30 AM CDT [facility] Microbiology ENTIRE VAGINA / Unknown Collection / Unknown 09/04/2025 12:51 PM CDT 09/04/2025 12:56 PM CDT Narrative [facility] - 09/05/2025 6:30 AM CDT This test performed by Qualitative real-time Polymerase Chain Reaction (PCR). us Sebastian Saleh MD LAB - MICROBIOLOGY ORDERABLES Fi nal Result [facility] [address] [place] [address], [place] [phone] * CHLAMYDIA AND N. GONORRHOEAE LOIS (09/04/2025 12:51 PM CDT) Chlamydia by LOIS NEGATIVE NEGATIVE 09/05/2025 6:30 AM CDT [facility] Neisseria gonorrhoeae LOIS NEGATIVE NEGATIVE 09/05/2025 6:30 AM CDT [facility]CRO[facility] Microbiology ENTIRE VAGINA / Unknown Collection / Unknown 09/04/2025 12:51 PM CDT 09/04/2025 12:56 PM CDT Narrative [facility] - 09/05/2025 6:30 AM CDT This test performed by Qualitative real-time Polymerase Chain Reaction (PCR). us Sebastian Saleh MD LAB - MICROBIOLOGY ORDERABLES Fi nal Result [facility] [address] [place] [address], [facility] [phone] * (ABNORMAL) URINALYSIS REFLEX MICROSCOPIC REFLEX CULTURE (09/04/2025 12:51 PM CDT) Color UA Yellow Yellow, Straw 09/04/2025 1:23 PM CDT [facility] Clarity UA Clear Clear 09/04/2025 1:23 PM CDT [facility] Glucose UA Normal Normal 09/04/2025 1:23 PM CDT [facility] Bilirubin UA Negative Negative 09/04/2025 1:23 PM CDT [facility] Ketone UA 3+(A) Negative 09/04/2025 1:23 PM CDT [facility] Specific Proctor UA 1.021 1.005 - 1.030 09/04/2025 1:23 PM CDT [facility] Blood UA 1+(A) Negative 09/04/2025 1:23 PM CDT [facility] pH UA 5.5 5.0 - 8.0 09/04/2025 1:23 PM CDT [facility] Protein UA Negative Negative 09/04/2025 1:23 PM CDT [facility] Urobilinogen UA Normal Normal mg/dL 09/04/2025 1:23 PM CDT [facility] Nitrite UA Negative Negative 09/04/2025 1:23 PM CDT [facility] Leukocyte Esterase UA 250 SETH/uL(A) Negative 09/04/2025 1:23 PM CDT [facility] RBC UA 3-5 0 - 5 # /hpf 09/04/2025 1:23 PM CDT [facility] WBC UA 21-50(A) 0 - 5 # /hpf 09/04/2025 1:23 PM CDT [facility] Bacteria UA 1+(A) None Seen 09/04/2025 1:23 PM CDT [facility] Squamous Epithelial Cells 3-5 0 - 5 /hpf 09/04/2025 1:23 PM CDT [facility] Mucus UA 1+ /LPF 09/04/2025 1:23 PM CDT [facility] Reflex Status Culture to follow 09/04/2025 1:23 PM CDT [facility] Urine URINE SPECIMEN OBTAINED BY CLEAN CATCH PROCEDURE / Unknown Collection / Unknown 09/04/2025 12:51 PM CDT 09/04/2025 12:56 PM CDT Sebastian Saleh MD LAB - URINALYSIS ORDERABLES Delmi l Result Performing Organization Address City/[facility]/ZIP Co de Phone Number [facility] [address] [place] [address] * CULTURE URINE (09/04/2025 12:51 PM CDT) Culture Urine No growth (<100 CFU/mL) ANA PAULA 09/05/2025 6:08 PM CDT [facility] Urine URINE SPECIMEN OBTAINED BY CLEAN CATCH PROCEDURE / Unknown Collection / Unknown 09/04/2025 12:51 PM CDT 09/04/2025 12:56 PM CDT Sebastian Saleh MD LAB - MICROBIOLOGY ORDERABLES Fi nal Result [facility] [address] [phone] * CULTURE STREP B (09/04/2025 12:51 PM CDT) Culture Strep B Negative for beta-hemolytic Streptococcus Group B ANA PAULA 09/07/2025 12:50 PM CDT [facility] Microbiology MISCELLANEOUS SAMPLES / Unknown Collection / Unknown 09/04/2025 12:51 PM CDT 09/04/2025 12:56 PM CDT Sebastian Saleh MD LAB - MICROBIOLOGY ORDERABLES Fi nal Result [facility] [address] [place] [phone] * TYPE + SCREEN PANEL (09/04/2025 12:15 PM CDT) Pathologist [facility] ABO Rh A POS 09/04/2025 1:01 PM CDT [facility] Comment:No history; collect retype. Antibody Screen NEG 1:01 PM CDT [facility] Blood Bank BLOOD SPECIMEN / Unknown Lab Venipuncture / Unknown 09/04/2025 12:15 PM CDT 09/04/2025 12:28 PM CDT Sebastian Saleh MD LAB - BLOOD BANK ORDERABLES Delmi l Result Performing Organization Address City/[facility]/ZIP Co de Phone Number [facility] [address] [phone] * (ABNORMAL) CBC W AUTO DIFFERENTIAL (09/04/2025 12:15 PM CDT) [facility] WBC 12.3(H) 4.0 - 10.7 x10E9/L 09/04/2025 12:41 PM CDT [facility] RBC Count 3.25(L) 3.90 - 5.20 x10E12/L 09/04/2025 12:41 PM CDT [facility] Hemoglobin 10.6(L) 11.9 - 15.8 g/dL 09/04/2025 12:41 PM CDT [facility] Hematocrit 30.2(L) 34.8 - 46.1 % 09/04/2025 12:41 PM CDT [facility] MCV 92.9 80.0 - 98.0 fL 09/04/2025 12:41 PM CDT [facility] MCH 32.6 26.7 - 33.6 pg 09/04/2025 12:41 PM CDT [facility] MCHC 35.1 31.7 - 36.3 g/dL 09/04/2025 12:41 PM CDT [facility] RDW-CV 12.7 11.3 - 14.8 % 09/04/2025 12:41 PM CDT [facility] Platelet Count 188 150 - 420 x10E9/L 09/04/2025 12:41 PM [facility] MPV 10.6 7.8 - 11.4 fL 09/04/2025 12:41 PM T [facility] Neutrophil % 88.8(H) 41.0 - 74.0 % 09/04/2025 12:41 PM T [facility] Lymphocyte % 6.9(L) 17.0 - 47.0 % 09/04/2025 12:41 PM CDT [facility] Monocyte % 3.6 3.0 - 11.0 % 09/04/2025 12:41 PM T [facility] Eosinophil % 0.0 0.0 - 7.0 % 09/04/2025 12:41 PM T [facility] Basophil % 0.1 0.0 - 1.6 % 09/04/2025 12:41 PM T [facility] Immature Granulocytes % 0.6 0.0 - 1.0 % 09/04/2025 12:41 PM CDT [facility] Neutrophil Absolute 10.93(H) 1.60 - 7.50 x10E9/L 09/04/2025 12:41 PM CDT [facility] Lymphocyte Absolute 0.85(L) 1.00 - 4.40 x10E9/L 09/04/2025 12:41 PM T [facility] Monocyte Absolute 0.44 0.15 - 1.00 x10E9/L 09/04/2025 12:41 PM [facility] Eosinophil Absolute 0.00 0.00 - 0.60 x10E9/L 09/04/2025 12:41 PM [facility] Basophil Absolute 0.01 0.00 - 0.13 x10E9/L 09/04/2025 12:41 PM [facility] Blood BLOOD SPECIMEN / Unknown Lab Venipuncture / Unknown 09/04/2025 12:15 PM CDT 09/04/2025 12:28 PM CDT us Sebastian Saleh MD LAB - HEMATOLOGY ORDERABLES Delmi anderson Result [facility] [address] [place] [address] * Sonogram - Complete (08/30/2025 8:01 AM CDT) Linked Results Indication ======== Polyhydramnios seen on outside ultrasound Advanced maternal age (AMA), multigravida Depression complicating lamotrigine, buproprion, and 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 Para 3 [id number] 1. live 2017. Gest. age 40 w [...] 4 lb 11 oz EFW by Hadlock ([id number]) appropriate Growth Overview Exam date [place] BPD [...] bone. Orbits. Heart / Thorax LVOT view. 4-[id number]-nafyjeu view. Situs. Diaphragm. Abdomen Cord insertion. Stomach. [...] growth in 4 weeks Coding ====== Procedures 20816: US Preg Uterus Detailed 09955: Biophysical Profile W NST [facility] PACS Anatomical Region Laterality Modality Other 08/30/2025 8:01 AM CDT [facility] Romulo Cabrera MD [facility] ORDERABLES Edited Result - Final from Last 3 Months Insurance [facility] Advance Directives * Full Code (Latest Code Status on File) Date Activated Date Inactivated Comments 09/04/2025 12:08 PM 09/06/2025 5:47 PM
[2025-10-05 22:02] LABS: Hematocrit 32.9 % (37.0-47.0); Hemoglobin 11.8 g/dL (12.0-15.0); Immature Granulocyte Percent A 0.6 % (0-0.5); Lymphocytes Absolute Auto 1.32 K/mm3 (0.9-3.2); Mean Corpuscular HGB Conc 35.9 g/dl (32-36); Mean Corpuscular Hemoglobin 32.3 pg (26-34); Mean Corpuscular Volume 90.1 fl (80-100); Nucleated Red Blood Cells Absolute Auto 0.000 K/mm3 (0.0-0.012); Nucleated Red Blood Cells Perc 0.0 % (0.0-0.2); Platelet Count Result 181 k/mm3 (150-375); Red Blood Count 3.65 M/mm3 (4.2-5.4); White Blood Count 8.8 K/mm3 (4.5-10.0)
[2025-10-05] MEDS: LACTATED RINGERS 1,000 ML 125 ML IV CONT ×2 (22:02→23:14)
--- NOTE | 2025-10-05 22:15 | WPDANESEPP ---
Anes - Eval Pre Procedure Procedure: Labor Epidural Date/Time: 10/05/25 22:15 Surgeon: Rick Preop Diagnosis: Labor Pain Pre Op Diagnosis: Contractions Patient Data Age: 39 Gender: F Height: 1.65 m Weight: 83 kg Last Vital Signs Pulse 78 10/05/25 22:02 BP 105/71 10/05/25 22:02 Pulse Ox 99 10/05/25 22:11 Allergies Allergy/AdvReac Type Severity Reaction Status Date / Time nickel Allergy Rash Verified 09/23/25 13:11 Home Medications ?Medication ?Instructions ?Recorded ?Confirmed ?Type vit no.95-ferrous 1 tablet PO DAILY 10/19/19 09/16/25 History fumarate 28 mg-folic acid 800 mcg tablet () bupropion HCl 300 mg 24 hr tablet, 300 mg PO DAILY 09/02/25 09/16/25 History extended release venlafaxine 37.5 mg 75 mg PO DAILY 09/02/25 09/16/25 History capsule,extended release 24 hr Laboratory Tests 10/05/25 21:55 WBC 8.8 K/mm3 (4.5-10.0) RBC 3.65 L M/mm3 (4.2-5.4) Hgb 11.8 L g/dL (12.0-15.0) Hct 32.9 L % (37.0-47.0) MCV 90.1 fl (80-100) MCH 32.3 pg (26-34) MCHC 35.9 g/dl (32-36) RDW 12.4 % (11.5-14.5) Plt Count 181 k/mm3 (150-375) MPV 11.2 H fl (7.4-10.4) Immature Gran % (Auto) 0.6 H % (0-0.5) Neut % (Auto) 78.5 H % (45.5-73.1) Lymph % (Auto) 15.1 L % (18.3-44.2) Ripley % (Auto) 5.0 % (2.6-8.5) Eos % (Auto) 0.6 % (0-4.4) Baso % (Auto) 0.2 % (0.2-1.2) Lymph # (Auto) 1.32 K/mm3 (0.9-3.2) Ripley # (Auto) 0.4 K/mm3 (0.1-0.6) Eos # (Auto) 0.1 K/mm3 (0-0.3) Baso # (Auto) 0.0 K/mm3 (0.0-0.1) Abs Immat Gran (auto) 0.05 H K/mm3 (0.00-0.031) Absolute Neuts (auto) 6.9 H K/mm3 (1.3-6.7) Absolute Nucleated RBC 0.000 K/mm3 (0.0-0.012) Nucleated RBC % 0.0 % (0.0-0.2) HIV 1&2 Ab/P24 Ag 4thGn Pending Blood Type Pending Antibody Screen Pending : gestational age (, DEE DEE 10/22/25) Patient hx anesthesia problems: none Family hx anesthesia problems: none Results Review: All pre-operative results and documents have been reviewed as part of the pre-operative evaluation. [facility], [facility] Past Medical History Medical History Anxiety Pain during labor Obesity (BMI 30-39.9) Family History Family History Mother Diabetes mellitus Hypertension Sibling Diabetes mellitus Hypertension Social History Social History Smoking status: Never smoker Second hand tobacco smoke exposure: No Substance use: never Lack of Transportation: No Lack of Food: Never True Current Housing: I Have Housing Concerned About Future Housing: No Difficulty Paying Gas/Electric Bills: No Difficulty Paying for Meds: No Currently Unemployed: No Education: Bachelor's Degree Difficulty w/ Childcare or Family Care: No Spiritual care concerns: No Exam Day of Procedure 10/05/25 22:15 Patient weight: normal Heart: regular rate and rhythm Lungs: normal air movement Airway: Mallampati scale class II Neurological: alert and oriented
[2025-10-05] MEDS: AMPICILLIN SODIUM 2 GM in SODIUM CHLORIDE 0.9% IV 100 ML 200 ML IVPB (22:19)
[2025-10-05 23:00] LABS: HIV 1/2 Ab P24 Ag Result Negative (Negative)
--- NOTE | 2025-10-05 23:08 | WPDOBADMIT ---
Obstetrics - Admit Note Admission Note: record reviewed. No pertinent additions to the history and/or any subsequent changes in the physical findings that are not consistent with the expected course of the were found. Patient presents in labor. SVE /-2. AROM of clear fluid. FHR category I. Additions to the history and/or subsequent changes in the physical findings follow. None.
[2025-10-06] VITALS (27 sets, daily range): BP systolic 89–136; BP diastolic 56–96; PULSE 59–158; RESP 16–20; TEMP 36.7–37.6; O2SAT 85–100
[2025-10-06] MEDS: ONDANSETRON INJ 4 MG/2 ML VIAL IV PUSH (00:30)
[2025-10-06 00:57] LABS: Syphilis IgG/IgM Antibody Non-Reactive (Nonreactive)
--- NOTE | 2025-10-06 01:28 | P.PCNOB_ITS ---
OB - Vaginal Delivery Note Procedure Delivery date: 10/06/25 Events: Other (threatened labor) Delivery augmentation: Rupture of Membranes and Pitocin Delivery monitor: External FHT and External Uterine Route of delivery: Episiotomy description: None Laceration Description: None Specimen: No Quantitative Blood Loss (ml): 100 Anesthesia type: Epidural Disposition: Floor Complications: No immediate complications Narrative: See H&P and notes for details on patient's admission and labor. She progressed to complete cervical dilation and at the appropriate time began pushing. With adequate expulsive efforts by the mother, the baby's head was delivered without difficulty. Nuchal cord was not present. The baby's right shoulder was anterior and delivered under the pubic symphysis without difficulty. The posterior shoulder and the rest of the baby delivered without difficulty. The umbilical cord was doubly clamped and cut after 60 seconds of delayed cord clamping. Care of the infant was then assumed by the nursing staff. [place] Baby Date of : 10/06/25 Time of : 01:14 Gestational Age by Date: 39 Infant gender: Female presentation: vertex position: Left Occiput Anterior Placenta delivery description: Expressed Cord Vessel Description: 3 Vessels and Delayed Cord Clamping
[2025-10-06] MEDS: WITCH HAZEL 40 PADS 1 PAD TOPICAL (04:30)
[2025-10-06] MEDS: BENZOCAINE 20% AER SPR (*SP) 56 GM CAN 1 SPRAY TOPICAL (04:30)
--- NOTE | 2025-10-06 04:52 | OBPPTRN ---
Patient transferred to post room #282 via wheelchair. Support person present. Oriented to unit, room, information board, rooming in, admission packet and security measures. Patient verbalizes understanding.
[2025-10-06] MEDS: MULTIVIT/MIN/PREN/FOL AC/IRON TABLET 1 TAB PO (08:39)
[2025-10-06] MEDS: IBUPROFEN 600 MG TABLET PO (13:46)
[2025-10-07 04:11] LABS: Hematocrit 31.9 % (37.0-47.0); Hemoglobin 10.8 g/dL (12.0-15.0)
--- NOTE | 2025-10-07 08:02 | P.PNOB_ITS ---
OB - PN: Subj Subjective Date/time seen: 10/07/25 08:02 Patient comments: no complaints, pain well controlled, incisional pain, tolerating diet and flatus present OB - PN: Obj Data Labs 10/07/25 04:01 Labs: Laboratory Results - last 24 hr 10/07/25 04:01 Hgb 10.8 L Hct 31.9 L OB - PN A/P Plan day: 1 Plan: routine care Comments: No problems, routine care Time Spent With Patient Time: Total time spent is greater than 50% in coordination of care (as documented) at patient's floor/unit and/or counseling patient: Exam 2 Const: General: comfortable, no acute distress and alert Resp: Effort & Inspection: normal respiratory effort Auscultation: no crackles, no rales and no rhonchi Cardio: Rate: regular rate Heart sounds: no click, no murmurs and no rubs GI: Inspection: non-distended GI Palp: No Tenderness to palpation present (GI) Auscultation: normal bowel sounds Other: Incision - CDI Extrem: General: normal to inspection, no pedal edema and no calf tenderness
--- NOTE | 2025-10-07 08:06 | P.DS_ITS ---
DS: Admitting Diagnosis Discharge Date 10/07/2025 Admitting Diagnosis Term DS: Discharge Diagnosis Discharge Diagnosis (1) Term delivered: Code(s): O80 - Encounter for full-term uncomplicated delivery Status: Acute OB - DS: Summary OB Procedures : None OB Procedures Intrapartum: Spontaneous Vag Delivery OB Procedures: : None Peripartum Data Laceration Description: None Episiotomy description: None Time Spent with Patient Time attestation: Total time spent providing and/or coordinating discharge services: DS: Data Data Completed and Pending Labs on day of discharge: Labs from last 24 hours 10/07/25 04:01 Hgb 10.8 L Hct 31.9 L Discharge Plan Discharge Discharging Clinician: Nando Cabrera Patient Disposition: Home Activity: pelvic rest Diet: regular Patient Instructions: Antibiotic Form Patient Language: Serbian Stand Alone Forms: General Discharge Information Follow-up/Referrals: Nando Cabrera MD [Physician, [employer]NAGER] Discharge Medications: Continued bupropion HCl 300 mg tablet extended release 24 hr 300 mg PO DAILY Patient Comments: ... venlafaxine 37.5 mg capsule,extended release 24hr 75 mg PO DAILY PNV no.95-ferrous fumarate-FA [] 28 mg iron- 800 mcg Tablet 1 tablet PO DAILY Date of admission: 10/05/25 21:09 Primary Care Provider: PHYSICIAN,MACHINE GUNNER Admitting Provider: Nando Cabrera Attending physician on admission: Nando Cabrera Condition: Stable
[2025-10-07 08:35] VITALS: BP 111/69; PULSE 71; RESP 18; TEMP 37.3; O2SAT 97
[2025-10-08 10:34] VITALS: BP 127/74; PULSE 83; RESP 18; TEMP 36.6; O2SAT 100
== END 2025-10-07 12:48 | disposition home or self-care (01) | DRG 807 ==
LOC: ANHLDR 22:06 → ANHOB2 10-06 04:52
PROVIDERS: Admitting Provider Obstetrics & Gynecology; Visit Provider Obstetrics & Gynecology
DX: O40.3XX0 Polyhydramnios, third trimester, not applicable or unspecified (principal); Z37.0 Single live birth; Z3A.37 37 weeks gestation of pregnancy
CPT/HCPCS: 36415; 85014; 85018; 85025; 86593; 86703; 86850; 86900; 86901; A9270; G0432; J0290; J2405; J2795; J7120